=== PATIENT | female | born 1935 | race Hispanic/Latino ===

== ENCOUNTER 2017-11-21 19:20 | Inpatient (IN) | payer BC, MEDICARE ==
[2017-11-21] MEDS ORDERED: Sodium Chloride 0.9% 500 ML IV STA (19:46)
[2017-11-21] MEDS ORDERED: Morphine 2 mg/ml ISec IVP STA ×2 (19:47→21:47)
[2017-11-21] MEDS ORDERED: Metoprolol 1 mg/ml Inj IVP STA (19:53)
[2017-11-21 20:01] LABS: BASO # 0.04 K/mm3 (0.0-2.0); BASO % 0.2 % (0.0-3.0); EOS # 0.1 (0.0-0.7); EOS % 0.5 % (1.5-5.0); GRAN # 14.1 (1.4-6.5); GRAN % 82.4 % (50.0-68.0); HEMOGLOBIN 13.4 g/dL (12.0-16.0); LYMPH # 1.8 (1.2-3.4); LYMPH % 10.2 % (22.0-35.0); MEAN CELL VOLUME 87.3 fl (80.0-105.0); MEAN CORPUSCULAR HEMOGLOBIN 28.3 pg (25.0-35.0); MEAN CORPUSCULAR HGB CONC 32.4 g/dl (31.0-37.0); MEAN PLATELET VOLUME 10.8 fl (7.0-11.0); MONO # 1.2 (0.1-0.6); MONO % 6.7 % (1.0-6.0); RBC 4.74 10^6/uL (3.5-6.1); RED CELL DISTRIBUTION WIDTH 15.4 % (11.5-14.5); WHITE BLOOD COUNT 17.1 10^3/ul (4.5-11.0)
--- NOTE | 2017-11-21 20:05 | ED PDOC ---
Arrival/HPI - General Historian: Patient, Family - History of Present Illness Time/Duration: Prior to Arrival Symptom Onset: Sudden Symptom Course: Worsening Quality: Stabbing Severity Level: 10 Activities at Onset: Rest - General Chief Complaint: Chest Pain Time Seen by Provider: 11/21/17 19:24 - History of Present Illness Narrative History of Present Illness (Text): 11/21/17 20:01 Patient is a 82F with a past medical history of CKD, iliac stents and HTN who comes to the ED with a CC of acute onset chest pain associated with 2 episodes of hematemesis. The onset was at 515pm. Nothing made the pain better or worse. She describes the pain as sharp and radiating to the back. She rates the pain 10 /10. It has been constant and worsening since its onset. Family is at bedside and states she has episodes where she has difficulty swallowing but never before have they been associated with hematemesis. She denies any SOB, fever, diaphoresis. (Aurelio Ruff) Past Medical History - Cardiac Hx Hypertension: Yes - Psychiatric Hx Substance Use: No Family/Social History Family/Social History: Unknown Family HX Smoking Status: no Hx Alcohol Use: No Hx Substance Use: No Allergies/Home Meds Allergies/Adverse Reactions: Allergies allopurinol [From Zyloprim] Allergy (Verified 11/21/17 19:30) URTICARIA Home Medications: Home Meds Medication Instructions Recorded Confirmed Amlodipine/Valsartan [Exforge 1 each PO BID 11/21/17 11/21/17 5-160 mg Tablet] Aspirin [Aspirin Chewable] 81 mg PO Q2D 11/21/17 11/21/17 Atorvastatin [Lipitor] 20 mg PO DAILY 11/21/17 11/21/17 Clopidogrel [Plavix] 75 mg PO DAILY 11/21/17 11/21/17 Furosemide [Lasix] 20 mg PO Q2D 11/21/17 11/21/17 Furosemide [Lasix] 20 mg PO Q2D 11/21/17 11/21/17 Furosemide [Lasix] 40 mg PO DAILY 11/21/17 11/21/17 Ranitidine HCl [Zantac 75] 75 mg PO DAILY 11/21/17 11/21/17 Spironolactone [Aldactone] 25 mg PO BID 11/21/17 11/21/17 Timolol 0.5% Ophth [Timoptic 0.5% 1 drop OD HS 11/21/17 11/21/17 Ophth Soln] Tolterodine Tartrate [Detrol LA] 4 mg PO DAILY 11/21/17 11/21/17 cloNIDine [Catapres (RENAL)] 0.1 mg PO BID 11/21/17 11/21/17 Review of Systems - Review of Systems Constitutional: Normal. absent: Night Sweats Eyes: Normal. absent: Vision Changes ENT: Normal Respiratory: Normal. absent: SOB Cardiovascular: Normal, Chest Pain. absent: Syncope Gastrointestinal: Normal Genitourinary Female: Normal Musculoskeletal: Normal Skin: Normal Neurological: Normal Endocrine: Normal Hemo/Lymphatic: Normal Psychiatric: Normal Physical Exam Temperature: Afebrile Blood Pressure: Hypertensive Pulse: Tachycardic Respiratory Rate: Normal Appearance: Positive for: Ill-Appearing Pain Distress: Severe Mental Status: Positive for: Alert and Oriented X 3 - Systems Exam Head: Present: Atraumatic, Normocephalic Pupils: Present: PERRL Extroacular Muscles: Present: EOMI Conjunctiva: Present: Normal Mouth: Present: Moist Mucous Membranes Neck: Present: Normal Range of Motion Respiratory/Chest: Present: Clear to Auscultation, Good Air Exchange Cardiovascular: Present: Tachycardic Abdomen: Present: Normal Bowel Sounds. No: Tenderness, Distention, Peritoneal Signs Upper Extremity: Present: Normal Inspection Lower Extremity: Present: Normal Inspection Neurological: Present: GCS=15, CN II-XII Intact Skin: Present: Warm, Dry, Normal Color. No: Rashes Psychiatric: Present: Alert, Oriented x 3 Vital Signs Pulse Resp BP Pulse Ox 11/21/17 22:17 80 127/73 11/21/17 20:36 88 162/86 H 11/21/17 20:00 93 H 18 99 11/21/17 19:45 93 H 18 110/74 99 11/21/17 19:26 94 H 18 184/96 H 99 Medical Decision Making Reassessment Condition: Unchanged - Lab Interpretations I have reviewed the lab results: Yes Interpretation: Abnormal lab values ED Course and Treatment: Patient Seen With Resident: In agreement with resident note which contains more details about the patient. Patient was seen and evaluated with resident. Came up with plan and treatment together.. (Michael Miranda) - Lab Interpretations Lab Results: 11/21/17 19:34 11/21/17 19:34 Lab Results 11/21/17 19:34: Sodium 140, Potassium 6.3 H* D, Chloride 106, Carbon Dioxide 20 L, Anion Gap 20, BUN 74 H, Creatinine 3.0 H, Est GFR ( Amer) 18, Est GFR (Non-Af Amer) 15, Random Glucose 131 H, Calcium 11.2 H, Magnesium 2.4 H, Total Bilirubin 0.3, AST 27, ALT 32, Alkaline Phosphatase 111, Lactate Dehydrogenase 558, Total Creatine Kinase 40, Troponin I 0.42 H*, Total Protein 8.0, Albumin 4.4, Globulin 3.6, Albumin/Globulin Ratio 1.2 11/21/17 19:34: PT 10.6, INR 0.93, APTT 25.8 11/21/17 19:34: WBC 17.1 H, RBC 4.74, Hgb 13.4, Hct 41.4, MCV 87.3, MCH 28.3, MCHC 32.4, RDW 15.4 H, Plt Count 270, MPV 10.8, Gran % 82.4 H, Lymph % (Auto) 10.2 L, [place] % (Auto) 6.7 H, Eos % (Auto) 0.5 L, Baso % (Auto) 0.2, Gran # 14.10 H, Lymph # (Auto) 1.8, [place] # (Auto) 1.2 H, Eos # (Auto) 0.1, Baso # (Auto ) 0.04 - RAD Interpretation Radiology Orders: 11/21/17 19:33 CHEST PORTABLE [RAD] Stat - Medication Orders Current Medication Orders: Atorvastatin Calcium (Lipitor) 20 mg PO DIN [facility] Clonidine HCl (Catapres) 0.1 mg PO BID [facility] Clopidogrel Bisulfate (Plavix) 75 mg PO DAILY [facility] Nitroglycerin/Dextrose (Nitroglycerin 50 Mg/250 Ml D5w) 50 mg in 250 mls @ 1.5 mls/hr IV .Q24H PRN; Protocol; 5 MCG/MIN PRN Reason: chest pain Last Admin: 11/21/17 22:17 Dose: 1.5 mls/hr Heparin Sodium/Sodium Chloride (Heparin 95627 Units/250ml 1/2 Normal Saline) 25 ,000 units in 250 mls @ 5.672 mls/hr IV .Q24H [facility]; 12 UNITS/KG/HR PRN Reason: Protocol Last Admin: 11/21/17 21:50 Dose: 5.672 mls/hr Morphine Sulfate (Morphine) 2 mg IVP Q2H PRN PRN Reason: Pain, severe (8-10) Pantoprazole Sodium (Protonix Inj) 40 mg IVP 0600 [facility] Timolol Maleate (Timoptic 0.5% Ophth Soln) 1 drop OD HS [facility] Discontinued Medications Aspirin (Aspirin) 325 mg PO STAT STA Stop: 11/21/17 20:26 Last Admin: 11/21/17 20:36 Dose: 325 mg Clopidogrel Bisulfate (Plavix) 225 mg PO STAT STA Stop: 11/21/17 20:26 Last Admin: 11/21/17 20:36 Dose: 225 mg Dextrose (Dextrose 50% Inj) 50 ml IVP STAT STA Stop: 11/21/17 20:38 Last Admin: 11/21/17 21:28 Dose: 50 ml IVP Administration Document 11/21/17 21:28 SS (Rec: 11/21/17 21:28 [id number] Charges for Administration # of IVP Administrations 1 Sodium Chloride (Sodium Chloride 0.9%) 500 mls @ 999 mls/hr IV .Q31M STA Stop: 11/21/17 20:16 Last Admin: 11/21/17 20:05 Dose: 999 mls/hr eMAR Start Stop Document 11/21/17 20:05 SS (Rec: 11/21/17 20:05 [id number] Intravenous Solution Start Date 11/21/17 Start Time 20:00 End Date 11/21/17 End time 20:30 Total Infusion Time 30 Insulin Human Regular (Humulin R) 10 units IV STAT STA Stop: 11/21/17 20:37 Last Admin: 11/21/17 21:28 Dose: 10 units eMAR Start Stop Document 11/21/17 21:28 SS (Rec: 11/21/17 21:28 [id number]) Intravenous Solution Start Date 11/21/17 Start Time 21:28 Metoclopramide HCl (Reglan) 10 mg IVP STAT STA Stop: 11/21/17 22:08 Metoprolol Tartrate (Lopressor) 5 mg IVP STAT STA Stop: 11/21/17 19:54 Last Admin: 11/21/17 20:36 Dose: 5 mg IVP Administration Document 11/21/17 20:36 SS (Rec: 11/21/17 20:36 SS [facility] [id number]) Charges for Administration # of IVP Administrations 1 MAR Pulse and Blood Pressure Document 11/21/17 20:36 SS (Rec: 11/21/17 20:36 SS [facility] [id number]) Pulse Pulse Rate (60-90) 88 Blood Pressure Blood Pressure (100/60-150/90) 162/86 Morphine Sulfate (Morphine) 2 mg IVP STAT STA Stop: 11/21/17 19:48 Last Admin: 11/21/17 20:03 Dose: 2 mg MAR Pain Assessment Document 11/21/17 20:03 SS (Rec: 11/21/17 20:04 [facility] [id number]) Pain Reassessment Is this a pain reassessment? No Sleep Is patient sleeping during reassessment? No Presence of Pain Presence of Pain Yes Pain Scale Used Pain Scale Used Numeric Location Pain Location Body Site Chest Description Description Radiating Intensity of Pain at present 10 Pain Behavior Moaning Crying Grasping Site Rubbing Site Restlessness IVP Administration Document 11/21/17 20:03 SS (Rec: 11/21/17 20:04 SS [facility] [id number]) Charges for Administration # of IVP Administrations 1 Morphine Sulfate (Morphine) 2 mg IVP STAT STA Stop: 11/21/17 21:48 Last Admin: 11/21/17 22:12 Dose: 2 mg Nitroglycerin (Nitrostat Sl Tab) 0.3 mg SL STAT STA Stop: 11/21/17 20:26 Last Admin: 11/21/17 20:36 Dose: 0.3 mg Ondansetron HCl (Zofran Inj) 8 mg IVP STAT STA Stop: 11/21/17 19:53 Last Admin: 11/21/17 20:04 Dose: 8 mg IVP Administration Document 11/21/17 20:04 SS (Rec: 11/21/17 20:05 SS [facility] [id number]) Charges for Administration # of IVP Administrations 1 Pantoprazole Sodium (Protonix Inj) 40 mg IVP STAT STA Stop: 11/21/17 19:53 Last Admin: 11/21/17 20:04 Dose: 40 mg IVP Administration Document 11/21/17 20:04 SS (Rec: 11/21/17 20:04 [id number][facility] Charges for Administration # of IVP Administrations 1 Sodium Bicarbonate (Sodium Bicarbonate 8.4% (50 Meq) Syringe) 50 meq IVP ONCE ONE Stop: 11/21/17 20:38 Last Admin: 11/21/17 21:30 Dose: 50 meq Comments: 50 meq IVP Administration Document 11/21/17 21:30 SS (Rec: 11/21/17 21:33 [id number]) Charges for Administration # of IVP Administrations 1 Sodium Polystyrene Sulfonate (Kayexalate Susp) 30 gm MA STAT STA Stop: 11/21/17 22:11 - PA / BUSINESS ADMINISTRATION INSTRUCTOR / Resident Statement MD/DO has reviewed & agrees with the documentation as recorded. MD/DO has examined the patient and agrees with the treatment plan. Disposition/Present on Arrival - Present on Arrival Any Indicators Present on Arrival: No History of DVT/PE: No History of Uncontrolled Diabetes: No Urinary Catheter: No History of Decub. Ulcer: No History Surgical Site Infection Following: None - Disposition Have Diagnosis and Disposition been Completed?: Yes Disposition Time: 22:45 Patient Plan: Admission, ICU - Disposition Diagnosis: NSTEMI (non-ST elevated myocardial infarction) Disposition: HOSPITALIZED Condition: GUARDED Referrals: Madison Dave, [Primary Care Provider] - Follow up with primary Forms: Klique (Sudanese)
[2017-11-21 20:17] LABS: ALB/GLOB RATIO 1.2 (1.1-1.8); ALBUMIN 4.4 g/dL (3.0-4.8); CALCIUM 11.2 mg/dL (8.4-10.5)
[2017-11-21 20:25] LABS: INR 0.93 (0.93-1.08); PARTIAL THROMBOPLASTIN TIME 25.8 Seconds (25.1-36.5); PROTHROMBIN TIME 10.6 SECONDS (9.4-12.5)
[2017-11-21 20:36] LABS: TROPONIN I 0.42 ng/mL
[2017-11-21] MEDS ORDERED: Insulin Regular 1 UNITS/0.01 ML ML IV STA (20:36)
[2017-11-21] MEDS ORDERED: Dextrose 50% SYRINGE Inj (50 ml) IVP STA (20:37)
[2017-11-21] MEDS ORDERED: Sodium Bicarbonate (8.4%) 50 Meq Syringe IVP ONE (20:37)
[2017-11-21] MEDS ORDERED: Heparin25000 units/250ml 1/2NS 25,000 UNITS/250 ML BAG IV SCH ×2 (21:00→21:30)
[2017-11-21] MEDS ORDERED: Nitroglycerin 50mg in D5W 50 MG/250 ML BOTTLE IV PRN (21:27)
[2017-11-21] MEDS ORDERED: Sod Polystyrene Sulf 15 gm/60 ml Susp PR STA (22:10)
[2017-11-21] MEDS ORDERED: cefTRIAXone 1 gm 1 GM/100 ML BAG IVPB STA (22:46)
--- NOTE | 2017-11-21 23:05 | CP.PCM.CON ---
History of Present Illness - History of Present Illness History of Present Illness: Kj Betancourt D.O. PGY-2, Internal Medicine Resident, Critical Care Consultation CC: chest pain for 4 hours 82 year old female with a PMH of HTN, previous iliac stents, CKD, previous carotid endarectetomy, previous endometrial CA s/p hysterectomy who presented to [facility] with chest pain that started a few hours prior. Patient states that when she eats greasy foods like buttered stuff she will have discomfort in her throat and at times she will get discomfort associated with it but this time she developed relentless, constant, sharp, 10/10 pain, radiating to the back, associated with the nausea and vomiting. No other associated symptoms. Never had an episode like this before. DOes have an extensive smoking history of about 100 pack years. Denies recent long travel or recent immobilization or sick contacts. Daughter and granddaughter present at bedside. PMH: as above PSH: as above SH: 33 years at 3ppd for about 100 pack years, quit in as well as drinking, no illicits FH: HTN, some DM Meds: reviewed Allergies: allopurinol Review of Systems - Review of Systems All systems: reviewed and no additional remarkable complaints except - Cardiovascular Cardiovascular: Chest Pain - Gastrointestinal Gastrointestinal: Nausea, Vomiting Past Patient History - Past Social History Smoking Status: no - CARDIAC Hx Hypertension: Yes - PSYCHIATRIC Hx Substance Use: No Meds Allergies/Adverse Reactions: Allergies Allergy/AdvReac Type Severity Reaction Status Date / Time allopurinol [From Zyloprim] Allergy URTICARIA Verified 11/21/17 19:30 - Medications Medications: Current Medications Atorvastatin Calcium (Lipitor) 20 mg PO DIN [facility] Clonidine HCl (Catapres) 0.1 mg PO BID [facility] Clopidogrel Bisulfate (Plavix) 75 mg PO DAILY [facility] Nitroglycerin/Dextrose (Nitroglycerin 50 Mg/250 Ml D5w) 50 mg in 250 mls @ 1.5 mls/hr IV .Q24H PRN; Protocol; 5 MCG/MIN PRN Reason: chest pain Last Admin: 11/21/17 22:17 Dose: 1.5 mls/hr Heparin Sodium/Sodium Chloride (Heparin 87387 Units/250ml 1/2 Normal Saline) 25 ,000 units in 250 mls @ 5.672 mls/hr IV .Q24H [facility]; 12 UNITS/KG/HR PRN Reason: Protocol Last Admin: 11/21/17 21:50 Dose: 5.672 mls/hr Ceftriaxone Sodium (Rocephin 1 Gram Ivpb) 1 gm in 100 mls @ 200 mls/hr IVPB STAT STA PRN Reason: Protocol Stop: 11/21/17 23:15 Morphine Sulfate (Morphine) 2 mg IVP Q2H PRN PRN Reason: Pain, severe (8-10) Pantoprazole Sodium (Protonix Inj) 40 mg IVP 0600 [facility] Timolol Maleate (Timoptic 0.5% Ophth Soln) 1 drop OD HS [facility] Physical Exam - Constitutional Appears: Non-toxic, No Acute Distress - Head Exam Head Exam: ATRAUMATIC, NORMOCEPHALIC - Eye Exam Eye Exam: EOMI, PERRL - ENT Exam ENT Exam: Mucous Membranes Dry - Neck Exam Neck exam: Positive for: Normal Inspection - Respiratory Exam Respiratory Exam: Clear to Auscultation Bilateral. absent: Rales, Rhonchi, Wheezes - Cardiovascular Exam Cardiovascular Exam: RRR, +S1, +S2. absent: Tachycardia, Gallop, +S4 - GI/Abdominal Exam GI & Abdominal Exam: Normal Bowel Sounds, Soft, Tenderness (mild epigastric). absent: Distended - Extremities Exam Extremities exam: Negative for: calf tenderness, pedal edema - Neurological Exam Neurological exam: Alert, Oriented x3 - Psychiatric Exam Psychiatric exam: Normal Affect, Normal Mood - Skin Skin Exam: Dry, Warm Results - Vital Signs Recent Vital Signs: Last Vital Signs Temp Pulse 80 11/21/17 22:17 Resp 18 11/21/17 20:00 BP 127/73 11/21/17 22:17 Pulse Ox 99 11/21/17 20:00 - Labs Result Diagrams: 11/21/17 19:34 11/21/17 19:34 Labs: Laboratory Results - last 24 hr 11/21/17 11/21/17 11/21/17 19:34 19:34 19:34 WBC 17.1 H RBC 4.74 Hgb 13.4 Hct 41.4 MCV 87.3 MCH 28.3 MCHC 32.4 RDW 15.4 H Plt Count 270 MPV 10.8 Gran % 82.4 H Lymph % (Auto) 10.2 L [place] % (Auto) 6.7 H Eos % (Auto) 0.5 L Baso % (Auto) 0.2 Gran # 14.10 H Lymph # (Auto) 1.8 [place] # (Auto) 1.2 H Eos # (Auto) 0.1 Baso # (Auto) 0.04 PT 10.6 INR 0.93 APTT 25.8 Sodium 140 Potassium 6.3 H* D Chloride 106 Carbon Dioxide 20 L Anion Gap 20 BUN 74 H Creatinine 3.0 H Est GFR ( Amer) 18 Est GFR (Non-Af Amer) 15 Random Glucose 131 H Calcium 11.2 H Magnesium 2.4 H Total Bilirubin 0.3 AST 27 ALT 32 Alkaline Phosphatase 111 Lactate Dehydrogenase 558 Total Creatine Kinase 40 Troponin I 0.42 H* Total Protein 8.0 Albumin 4.4 Globulin 3.6 Albumin/Globulin Ratio 1.2 Assessment & Plan - Assessment and Plan (Free Text) Assessment: 82 year old female with a PMH of HTN, previous iliac stents, CKD, previous carotid endarectetomy, previous endometrial CA s/p hysterectomy who presented to [facility] with chest pain that started a few hours prior Plan: Neurological AAOx4, nonfocal at this time Monitoring in ICU Cardiovascular EKG reviewed, ST depression in lateral leads noted Cardio consulted HD stable at this time On heparin and nitro gtt PRN morphine for pain Loaded with plavix and given aspirin, continue both Pulmonologic CXR reviewed by me, no major signs of infection Oxygenating well on 2L NC No signs of infection at this time Monitoring GI Heart healthy diet PRN zofran Nephro/Electrolytes Mild hyperkalemia, no significant EKG changes, given D50 and insulin in ER Rest of higher than average electrolytes possibly from hemoconcentration MALIA without previous labs to determine if CKD Maintain careful fluid balance Follow strict IxOs Measure weight daily Nephro consulted Endo No hx of endocrine issues Monitoring Heme HD stable at this time No active signs of bleeding Follow up CBC in the am Psych No abnormalities at this time GI/DVT ppx: protonix/SCDs Patient was seen and case was discussed at length with attending physician. - Date & Time Date: 11/21/17 Time: 22:00
[2017-11-21 23:50] LABS: PH,URINE 6.5 (4.7-8.0); URINE BILIRUBIN NEGATIVE (NEGATIVE); URINE BLOOD NEGATIVE (NEGATIVE); URINE GLUCOSE (UA) NEGATIVE (NEGATIVE); URINE LEUKOCYTE ESTERASE TRACE Leu/uL (NEGATIVE); URINE PROTEIN TRACE mg/dL (<30 mg/dL); URINE UROBILINOGEN 0.2 E.U./dL (<1 E.U./dL)
[2017-11-21 23:51] LABS: URINE APPEARANCE CLEAR (CLEAR); URINE COLOR YELLOW (YELLOW)
[2017-11-22 00:05] LABS: URINE EPITHELIAL CELLS 0 - 2 /hpf (0-5); URINE RBC 0 - 2 /hpf (0-2)
[2017-11-22 01:10] VITALS: BMI 17.8
[2017-11-22] MEDS: Morphine 2 mg/ml ISec IVP PRN ×2 (01:22→03:04)
[2017-11-22 07:18] LABS: BASO # 0.01 K/mm3 (0.0-2.0); GRAN # 19.63 (1.4-6.5); GRAN % 89.4 % (50.0-68.0); LYMPH # 1.1 (1.2-3.4); LYMPH % 5.1 % (22.0-35.0); MEAN CELL VOLUME 87.8 fl (80.0-105.0); MEAN CORPUSCULAR HEMOGLOBIN 27.6 pg (25.0-35.0); MEAN CORPUSCULAR HGB CONC 31.4 g/dl (31.0-37.0); MEAN PLATELET VOLUME 11.2 fl (7.0-11.0); MONO # 1.2 (0.1-0.6); MONO % 5.5 % (1.0-6.0); RBC 4.1 10^6/uL (3.5-6.1); RED CELL DISTRIBUTION WIDTH 15.7 % (11.5-14.5)
[2017-11-22 07:29] LABS: HEMOGLOBIN 11.3 g/dL (12.0-16.0)
[2017-11-22 07:42] LABS: ALB/GLOB RATIO 1.2 (1.1-1.8); ALBUMIN 3.7 g/dL (3.0-4.8); CALCIUM 10.5 mg/dL (8.4-10.5)
[2017-11-22] MEDS ORDERED: Dextrose 50% SYRINGE Inj (50 ml) IVP ONE ×2 (07:44→17:29)
[2017-11-22] MEDS ORDERED: Sod Polystyrene Sulf 15 gm/60 ml Susp PO STA (07:44)
[2017-11-22] MEDS ORDERED: Albuterol 0.042% Inhal Sol (1.25 mg/3 mL) UD IH STA (07:44)
[2017-11-22] MEDS ORDERED: Insulin Regular 1 UNITS/0.01 ML ML SC STA (07:44)
[2017-11-22] MEDS ORDERED: Calcium Chloride 1000 mg/10 ml Syringe IV ONE (07:47)
--- NOTE | 2017-11-22 08:08 | HP ---
HISTORY OF PRESENT ILLNESS: Patient is seen in the emergency room. She presented in the emergency room with chest pain and also patient has emesis with blood. Patient had been fine and was eating her dinner when this chest pain started and she started having some vomiting associated with it. Patient did not have shortness of breath. She has a headache. PAST MEDICAL HISTORY: Patient's past history is significant in that she has a history of hypertension, renal insufficiency, hyperuricemia, degenerative arthritis, carotid artery disease, peripheral vascular disease. ALLERGIES: PATIENT IS ALLERGIC TO ALLOPURINOL. Patient has DNR status and a DNI status. Patient does not want to be resuscitated or intubated. Patient is in discomfort and had been given morphine in the emergency room, and her past medication list consists of Lasix of varying doses from 20 to 40 mg daily. Patient takes eye drops for glaucoma. She is on Aldactone 25 mg b.i.d., clonidine 0.1 mg b.i.d. Patient has Detrol 4 mg daily, Lipitor 20 mg daily, Zantac 75 mg daily, Plavix 75 mg daily, amlodipine and valsartan 5/160 one twice a day, aspirin 81 mg daily. PHYSICAL EXAMINATION: VITAL SIGNS: The pulse is 88, blood pressure 162/86, patient's respirations are 18, O2 sat 99% on room air. HEENT: Patient's head is normocephalic. GENERAL: She seems to be emaciated. Her weight apparently is reduced to current level, but by appearance she has lost weight. Patient has venous discoloration of the entire skin. NECK: The thyroid is not enlarged. Carotid pulses are present. Patient has had previous carotid artery surgery. LUNGS: Trachea is central. Breath sounds are vesicular. No adventitious sounds. HEART: Normal sinus rhythm. S1 and S2 present. ABDOMEN: Soft, nontender. Liver and spleen not palpable. CENTRAL NERVOUS SYSTEM: Patient is conscious, restless. She has been given morphine, and patient is still continuing to have discomfort with chest pain and back pain. LABORATORY DATA: Patient is in the hospital emergency room. Her white count is 17,000. Patient has differential showing 82% neutrophils consistent with sepsis. Patient has CBC, hemoglobin of 13.4. The chemistry, patient's potassium is 6.3. Patient's glucose 131, calcium is 11.2. Patient has a past history of early secondary hyperparathyroidism also. Patient's public works technician is Dr. Estrada Davis, but he does not come to the hospital. Patient had been seen by Dr. Edgar and Dr. Bonilla in the past. We will consult these two physicians to see the patient. For cardiac evaluation, we will have Dr. Mariano to see the patient, and we will probably consult with Infectious Disease. We will do blood cultures and put the patient on antibiotics to cover the symptoms of possible sepsis. Her urinalysis has not been done yet. Patient's condition is critical, but the patient does not want intubation. Patient will be continued to be monitored, and we will provide all the care as the patient requires, but we will request that the patient is not to be intubated and not to have any resuscitation. Ky Bell MD MTDD
--- NOTE | 2017-11-22 08:23 | CP.PCM.PN ---
Subjective - Date & Time of Evaluation Date of Evaluation: 11/22/17 Time of Evaluation: 07:50 - Subjective Subjective: Patient is seen this morning in the intensive care unit. She is awake, sitting up in the bed. She complains of pain in her chest and back. Objective - Vital Signs/Intake and Output Vital Signs (last 24 hours): Temp Pulse Resp BP Pulse Ox 98.0 F 76 18 109/55 L 96 11/22/17 00:40 11/22/17 06:15 11/22/17 06:15 11/22/17 06:15 11/22/17 06:15 Intake and Output: 11/22/17 11/22/17 06:59 18:59 Intake Total 23 Balance 23 - Medications Medications: Current Medications Amlodipine Besylate (Norvasc) [address] [facility] Aspirin (Aspirin Chewable) 81 mg PO DAILY [facility] Atorvastatin Calcium (Lipitor) [address] [facility] Clonidine HCl (Catapres) 0.[address] [facility] Clopidogrel Bisulfate (Plavix) [address] [facility] Heparin Sodium/Sodium Chloride (Heparin 33326 Units/250ml 1/2 Normal Saline) 25 ,000 units in 250 mls @ 5.672 mls/hr IV .Q24H [facility]; 12 UNITS/KG/HR PRN Reason: Protocol Last Admin: 11/21/17 21:50 Dose: 5.672 mls/hr Morphine Sulfate (Morphine) 2 mg IVP Q2H PRN PRN Reason: Pain, severe (8-10) Last Admin: 11/22/17 03:04 Dose: 2 mg Ondansetron HCl (Zofran Inj) 4 mg IVP Q4H PRN PRN Reason: Nausea/Vomiting Pantoprazole Sodium (Protonix Inj) [address] [facility] Last Admin: 11/22/17 05:50 Dose: 40 mg Timolol Maleate (Timoptic 0.5% Ophth Soln) [address] [facility] - Labs Labs: 11/22/17 05:50 11/22/17 05:50 PT 10.6 SECONDS (9.4-12.5) 11/21/17 19:34 INR 0.93 (0.93-1.08) 11/21/17 19:34 APTT 67.1 Seconds (25.1-36.5) H 11/22/17 05:50 - Constitutional Appears: No Acute Distress - Head Exam Head Exam: ATRAUMATIC, NORMOCEPHALIC - Respiratory Exam Respiratory Exam: Clear to Ausculation Bilateral, NORMAL BREATHING PATTERN - Cardiovascular Exam Cardiovascular Exam: +S1, +S2 - GI/Abdominal Exam GI & Abdominal Exam: Soft, Normal Bowel Sounds. absent: Tenderness - Extremities Exam Extremities Exam: Normal Inspection. absent: Pedal Edema - Neurological Exam Neurological Exam: Alert, Awake, Oriented x3 Assessment and Plan - Assessment and Plan (Free Text) Assessment: NSTEMI? Hyperkalemia Acute on chronic kidney disease Chronic back pain HTN Anxiety carotid artery disease cerebrovascular disease Plan: Patient is seen this morning and she continues to complain of pain in her chest and back. Patient has history of chronic back pain. continue Morphine as needed for pain. Dr. Mariano is on consult for possible non-ST elevation [place]. Elevated troponin could be secondary to kidney disease. Hold aldactone and ARB, due to hyperkalemia and kidney disease. Patient says that she saw Dr. Davis at the end of September and he started her on Aldactone. Awaiting consult with Dr. Edgar/Dr Bonilla as Dr. Davis does not come to [facility]. WBC count increasing. Infectious disease consult with Dr. Espinosa has been ordered. Awaiting blood and urine cultures.
[2017-11-22 08:36] LABS: TROPONIN I 4.98 ng/mL
[2017-11-22] MEDS ORDERED: Sod Polystyrene Sulf 15 gm/60 ml Susp PR STA (08:42)
--- NOTE | 2017-11-22 08:43 | RAD ---
HISTORY: chest pain COMPARISON: No prior. FINDINGS: LUNGS: No active pulmonary disease. PLEURA: No significant pleural effusion identified, no pneumothorax apparent. CARDIOVASCULAR: Normal. OSSEOUS STRUCTURES: No significant abnormalities. VISUALIZED UPPER ABDOMEN: Normal. OTHER FINDINGS: None. IMPRESSION: No active disease.
--- NOTE | 2017-11-22 10:27 | CP.CCUPN ---
<Jose Graham - Last Filed: 11/22/17 10:56> CCU Subjective - Physician Review Subjective (Free Text): Patient seen and examined at bedside. Patient admits to chest pain, but improved from initial admission. Patient states pain radiates to back. She also admits to nausea. Denies shortness of breath, fever, chills, diarrhea. CCU Objective - Vital Signs / Intake & Output Vital Signs (Last 4 hours): Vital Signs Pulse BP 11/22/17 09:17 80 124/68 11/22/17 09:13 88 11/22/17 09:12 85 145/79 Intake and Output (Last 8hrs): Intake & Output 11/21/17 11/22/17 11/22/17 22:59 06:59 14:59 Intake Total 23 Balance 23 Weight 104 lb Intake: IV 23 Other: Voiding Method Bedpan - Physical Exam Head: Positive for: Atraumatic, Normocephalic Pupils: Positive for: PERRL Extroacular Muscles: Positive for: EOMI Conjunctiva: Positive for: Normal Mouth: Positive for: Moist Mucous Membranes Neck: Positive for: Normal Range of Motion Respiratory/Chest: Positive for: Good Air Exchange, Decreased Breath Sounds Cardiovascular: Positive for: Regular Rate and Rhythm, Normal S1, S2 Abdomen: Positive for: Normal Bowel Sounds. Negative for: Tenderness, Distention Back: Positive for: Paraspinal Tenderness (Upper right back) Upper Extremity: Positive for: Normal Inspection Lower Extremity: Positive for: Normal Inspection Neurological: Positive for: GCS=15, CN II-XII Intact Skin: Positive for: Warm, Dry, Normal Color. Negative for: Rashes Psychiatric: Positive for: Alert, Oriented x 3, Normal Insight, Normal Concentration - Medications Active Medications: Active Medications Generic Name Dose Route Start Last Admin Trade Name Freq PRN Reason Stop Dose Admin Amlodipine Besylate 5 mg 11/22/17 10:00 11/22/17 09:13 Norvasc PO 5 mg DAILY [facility] Administration Aspirin 81 mg 11/22/17 10:00 11/22/17 09:13 Aspirin Chewable PO 81 mg DAILY [facility] Administration Atorvastatin Calcium 20 mg 11/22/17 17:00 Lipitor PO DIN [facility] Clonidine HCl 0.1 mg 11/22/17 10:00 11/22/17 09:12 Catapres PO 0.1 mg BID [facility] Administration Clopidogrel Bisulfate 75 mg 11/22/17 10:00 11/22/17 09:13 Plavix PO 75 mg DAILY [facility] Administration Heparin Sodium/Sodium Chloride 25,000 units in 250 mls @ 5.672 mls/hr 21:30 11/21/17 21:50 Heparin 81998 Units/250ml 1/2 Normal Saline IV 5.672 mls/hr .Q24H K[facility] Administration Protocol 12 UNITS/KG/HR Sodium Chloride 1,000 mls @ 100 mls/hr 11/22/17 10:15 Sodium Chloride 0.9% IV .Q10H [facility] Metoprolol Tartrate 25 mg 11/22/17 10:00 11/22/17 09:17 Lopressor PO 25 mg BID [facility] Administration Morphine Sulfate 2 mg 11/21/17 22:08 11/22/17 03:04 Morphine IVP 2 mg Q2H PRN Administration Pain, severe (8-10) Ondansetron HCl 4 mg 11/22/17 06:58 11/22/17 09:11 Zofran Inj IVP 4 mg Q4H PRN Administration Nausea/Vomiting Pantoprazole Sodium 40 mg 11/22/17 06:00 11/22/17 05:50 Protonix Inj IVP 40 mg 0600 [facility] Administration Timolol Maleate 1 drop 11/22/17 22:00 Timoptic 0.5% Ophth Soln OD HS [facility] - Patient Studies Lab Studies: Lab Studies 11/22/17 11/22/17 11/22/17 Range/Units 05:50 05:50 05:50 WBC (4.5-11.0) 10^3/ul RBC (3.5-6.1) 10^6/uL Hgb (12.0-16.0) g/dL Hct (36.0-48.0) % MCV (80.0-105.0) fl MCH (25.0-35.0) pg MCHC (31.0-37.0) g/dl RDW (11.5-14.5) % Plt Count (120.0-450.0) 10^3/uL MPV (7.0-11.0) fl Gran % (50.0-68.0) % Lymph % (Auto) (22.0-35.0) % [place] % (Auto) (1.0-6.0) % Eos % (Auto) (1.5-5.0) % Baso % (Auto) (0.0-3.0) % Gran # (1.4-6.5) Lymph # (Auto) (1.2-3.4) [place] # (Auto) (0.1-0.6) Eos # (Auto) (0.0-0.7) Baso # (Auto) (0.0-2.0) K/mm3 APTT 67.1 H (25.1-36.5) Seconds Sodium 142 (132-148) mmol/L Potassium 7.0 H* (3.6-5.0) mmol/L Chloride 109 H (98-107) mmol/L Carbon Dioxide 21 (21-33) mmol/L Anion Gap 19 (10-20) BUN 69 H (7-21) mg/dL Creatinine 3.0 H (0.7-1.2) mg/dl Est GFR ( Amer) 18 Est GFR (Non-Af Amer) 15 Random Glucose 140 H (70-110) mg/dL Calcium 10.5 (8.4-10.5) mg/dL Phosphorus 4.7 H (2.5-4.5) mg/dL Magnesium 2.4 H (1.7-2.2) mg/dL Total Bilirubin 0.5 (0.2-1.3) mg/dL AST 31 (14-36) U/L ALT 30 (7-56) U/L Alkaline Phosphatase 90 (38-126) U/L Lactate Dehydrogenase 529 (333-699) U/L Total Creatine Kinase 70 (35-230) U/L Troponin I 4.98 H* D ng/mL Total Protein 6.9 (5.8-8.3) g/dL Albumin 3.7 (3.0-4.8) g/dL Globulin 3.2 gm/dL Albumin/Globulin Ratio 1.2 (1.1-1.8) Urine Color (YELLOW) Urine Appearance (CLEAR) Urine pH (4.7-8.0) Ur Specific [place] (1.005-1.035) Urine Protein (<30 mg/dL) mg/dL Urine Glucose (UA) (NEGATIVE) mg/dL Urine Ketones (NEGATIVE) mg/dL Urine Blood (NEGATIVE) Urine Nitrate (NEGATIVE) Urine Bilirubin (NEGATIVE) Urine Urobilinogen (<1 E.U./dL) E.U./dL Ur Leukocyte Esterase (NEGATIVE) Lurdes/uL Urine RBC (0-2) /hpf Urine WBC (0-6) /hpf Ur Epithelial Cells (0-5) /hpf 11/22/17 11/21/17 Range/Units 05:50 23:40 WBC 22.0 H D (4.5-11.0) 10^3/ul RBC 4.10 (3.5-6.1) 10^6/uL Hgb 11.3 L D (12.0-16.0) g/dL Hct 36.0 (36.0-48.0) % MCV 87.8 (80.0-105.0) fl MCH 27.6 (25.0-35.0) pg MCHC 31.4 (31.0-37.0) g/dl RDW 15.7 H (11.5-14.5) % Plt Count 224 (120.0-450.0) 10^3/uL MPV 11.2 H (7.0-11.0) fl Gran % 89.4 H (50.0-68.0) % Lymph % (Auto) 5.1 L (22.0-35.0) % [place] % (Auto) 5.5 (1.0-6.0) % Eos % (Auto) 0.0 L (1.5-5.0) % Baso % (Auto) 0.0 (0.0-3.0) % Gran # 19.63 H (1.4-6.5) Lymph # (Auto) 1.1 L (1.2-3.4) [place] # (Auto) 1.2 H (0.1-0.6) Eos # (Auto) 0.0 (0.0-0.7) Baso # (Auto) 0.01 (0.0-2.0) K/mm3 APTT (25.1-36.5) Seconds Sodium (132-148) mmol/L Potassium (3.6-5.0) mmol/L Chloride (98-107) mmol/L Carbon Dioxide (21-33) mmol/L Anion Gap (10-20) BUN (7-21) mg/dL Creatinine (0.7-1.2) mg/dl Est GFR ( Amer) Est GFR (Non-Af Amer) Random Glucose (70-110) mg/dL Calcium (8.4-10.5) mg/dL Phosphorus (2.5-4.5) mg/dL Magnesium (1.7-2.2) mg/dL Total Bilirubin (0.2-1.3) mg/dL AST (14-36) U/L ALT (7-56) U/L Alkaline Phosphatase (38-126) U/L Lactate Dehydrogenase (333-699) U/L Total Creatine Kinase (35-230) U/L Troponin I ng/mL Total Protein (5.8-8.3) g/dL Albumin (3.0-4.8) g/dL Globulin gm/dL Albumin/Globulin Ratio (1.1-1.8) Urine Color Yellow (YELLOW) Urine Appearance Clear (CLEAR) Urine pH 6.5 (4.7-8.0) Ur Specific [place] 1.015 (1.005-1.035) Urine Protein Trace H (<30 mg/dL) mg/dL Urine Glucose (UA) Negative (NEGATIVE) mg/dL Urine Ketones Negative (NEGATIVE) mg/dL Urine Blood Negative (NEGATIVE) Urine Nitrate Negative (NEGATIVE) Urine Bilirubin Negative (NEGATIVE) Urine Urobilinogen 0.2 (<1 E.U./dL) E.U./dL Ur Leukocyte Esterase Trace H (NEGATIVE) Lurdes/uL Urine RBC 0 - 2 (0-2) /hpf Urine WBC 1 - 3 (0-6) /hpf Ur Epithelial Cells 0 - 2 (0-5) /hpf Laboratory Results - last 24 hr 11/21/17 11/22/17 11/22/17 23:40 05:50 05:50 WBC 22.0 H D RBC 4.10 Hgb 11.3 L D Hct 36.0 MCV 87.8 MCH 27.6 MCHC 31.4 RDW 15.7 H Plt Count 224 MPV 11.2 H Gran % 89.4 H Lymph % (Auto) 5.1 L [place] % (Auto) 5.5 Eos % (Auto) 0.0 L Baso % (Auto) 0.0 Gran # 19.63 H Lymph # (Auto) 1.1 L [place] # (Auto) 1.2 H Eos # (Auto) 0.0 Baso # (Auto) 0.01 APTT Sodium 142 Potassium 7.0 H* Chloride 109 H Carbon Dioxide 21 Anion Gap 19 BUN 69 H Creatinine 3.0 H Est GFR ( Amer) 18 Est GFR (Non-Af Amer) 15 Random Glucose 140 H Calcium 10.5 Phosphorus 4.7 H Magnesium 2.4 H Total Bilirubin 0.5 AST 31 ALT 30 Alkaline Phosphatase 90 Lactate Dehydrogenase Total Creatine Kinase Troponin I Total Protein 6.9 Albumin 3.7 Globulin 3.2 Albumin/Globulin Ratio 1.2 Urine Color Yellow Urine Appearance Clear Urine pH 6.5 Ur Specific [place] 1.015 Urine Protein Trace H Urine Glucose (UA) Negative Urine Ketones Negative Urine Blood Negative Urine Nitrate Negative Urine Bilirubin Negative Urine Urobilinogen 0.2 Ur Leukocyte Esterase Trace H Urine RBC 0 - 2 Urine WBC 1 - 3 Ur Epithelial Cells 0 - 2 11/22/17 11/22/17 05:50 05:50 WBC RBC Hgb Hct MCV MCH MCHC RDW Plt Count MPV Gran % Lymph % (Auto) [place] % (Auto) Eos % (Auto) Baso % (Auto) Gran # Lymph # (Auto) [place] # (Auto) Eos # (Auto) Baso # (Auto) APTT 67.1 H Sodium Potassium Chloride Carbon Dioxide Anion Gap BUN Creatinine Est GFR ( Amer) Est GFR (Non-Af Amer) Random Glucose Calcium Phosphorus Magnesium Total Bilirubin AST ALT Alkaline Phosphatase Lactate Dehydrogenase 529 Total Creatine Kinase 70 Troponin I 4.98 H* D Total Protein Albumin Globulin Albumin/Globulin Ratio Urine Color Urine Appearance Urine pH Ur Specific [place] Urine Protein Urine Glucose (UA) Urine Ketones Urine Blood Urine Nitrate Urine Bilirubin Urine Urobilinogen Ur Leukocyte Esterase Urine RBC Urine WBC Ur Epithelial Cells EKG/Cardiology Studies: Cardiology / EKG Studies 11/22/17 EKG [ELECTROCARDIOGRAM] Routine Comment: Reason For Exam: chest pain 11/22/17 08:30 ELECTROCARDIOGRAM Routine Comment: Reason For Exam: CP NSTEMI Critical Care Progress Note - Nutrition Nutrition: Nutrition Category Date Time Status Heart Healthy Diet [DIET] Diets 11/21/17 Breakfast Ordered Assessment/Plan - Assessment and Plan (Free Text) Plan: 82 year old female with a PMH of HTN, previous iliac stents, CKD, previous carotid endarectetomy, previous endometrial CA s/p hysterectomy presents with NSTEMI. Patient will be continued on ASA, plavix, and heparin drip. Troponins elevated, cardiology is aware. Patient also being seen by nephrology, she is hyperkalemic. Patient has been given insulin, D50, kayexalate, and calclium chloride for hyperkalemia, no EKG changes. Neurological AAOx3 No deficits Cardiovascular NSTEMI ASA, plavix, and Heparin drip Likely conservative management at this time Maintain MAP >65 Hemodynamically stable Pulmonologic Maintain O2 greater than 90% No acute issues GI Renal diet Protonix Nephro Will obtain PTH and Vit D levels Renal ultrasound and Renal artery ultrasound Replenish electrolytes as needed NS @ 100 Maintain euvolemia Endo Maintain euglycemia Heme Afebrile, no leukocytosis Maintain normothermia Santos PGY-2 <Yohannes Herrera - Last Filed: 11/22/17 12:50> CCU Objective - Vital Signs / Intake & Output Vital Signs (Last 4 hours): Vital Signs Pulse Resp BP Pulse Ox 11/22/17 11:10 82 65 H 94 L 11/22/17 11:00 83 28 H 96 11/22/17 10:50 85 25 H 98 11/22/17 10:40 100 H 27 H 97 11/22/17 10:31 86 18 145/67 98 11/22/17 10:30 87 22 98 11/22/17 10:20 73 16 95 11/22/17 10:15 73 17 101/55 L 94 L 11/22/17 10:10 76 17 95 11/22/17 10:00 80 26 H 129/59 L 95 11/22/17 09:50 73 17 94 L 11/22/17 09:45 79 15 112/58 L 95 11/22/17 09:40 72 17 94 L 11/22/17 09:38 71 19 106/56 L 94 L 11/22/17 09:30 73 18 89/52 L 95 11/22/17 09:20 78 20 94 L 11/22/17 09:17 80 124/68 11/22/17 09:15 84 18 124/68 94 L 11/22/17 09:13 88 11/22/17 09:12 85 145/79 11/22/17 09:10 83 17 94 L 11/22/17 09:04 96 H 26 H 145/79 94 L 11/22/17 09:02 102 H 25 H 94 L 11/22/17 08:52 107 H 42 H 11/22/17 08:51 103 H 39 H 11/22/17 08:50 101 H 32 H 95 Intake and Output (Last 8hrs): Intake & Output 11/21/17 11/22/17 11/22/17 22:59 06:59 14:59 Intake Total 23 Balance 23 Weight 104 lb Intake: IV 23 Other: Voiding Method Bedpan - Medications Active Medications: Active Medications Generic Name Dose Route Start Last Admin Trade Name Freq PRN Reason Stop Dose Admin Amlodipine Besylate 5 mg 11/22/17 10:00 11/22/17 09:13 Norvasc PO 5 mg DAILY [facility] Administration Aspirin 81 mg 11/22/17 10:00 11/22/17 09:13 Aspirin Chewable PO 81 mg DAILY [facility] Administration Atorvastatin Calcium 20 mg 11/22/17 17:00 Lipitor PO DIN [facility] Clonidine HCl 0.1 mg 11/22/17 10:00 11/22/17 09:12 Catapres PO 0.1 mg BID [facility] Administration Clopidogrel Bisulfate 75 mg 11/22/17 10:00 11/22/17 09:13 Plavix PO 75 mg DAILY [facility] Administration Heparin Sodium/Sodium Chloride 25,000 units in 250 mls @ 5.672 mls/hr 21:30 11/21/17 21:50 Heparin 57193 Units/250ml 1/2 Normal Saline IV 5.672 mls/hr .Q24H [facility] Administration Protocol 12 UNITS/KG/HR Sodium Chloride 1,000 mls @ 100 mls/hr 11/22/17 10:15 Sodium Chloride 0.9% IV .Q10H [facility] Metoprolol Tartrate 25 mg 11/22/17 10:00 11/22/17 09:17 Lopressor PO 25 mg BID [facility] Administration Morphine Sulfate 2 mg 11/21/17 22:08 11/22/17 03:04 Morphine IVP 2 mg Q2H PRN Administration Pain, severe (8-10) Ondansetron HCl 4 mg 11/22/17 06:58 11/22/17 09:11 Zofran Inj IVP 4 mg Q4H PRN Administration Nausea/Vomiting Pantoprazole Sodium 40 mg 11/23/17 06:00 Protonix Ec Tab PO 0600 [facility] Timolol Maleate 1 drop 11/22/17 22:00 Timoptic 0.5% Ophth Soln OD HS [facility] - Patient Studies Lab Studies: Lab Studies 11/22/17 11/22/17 11/22/17 Range/Units 11:50 05:50 05:50 WBC (4.5-11.0) 10^3/ul RBC (3.5-6.1) 10^6/uL Hgb (12.0-16.0) g/dL Hct (36.0-48.0) % MCV (80.0-105.0) fl MCH (25.0-35.0) pg MCHC (31.0-37.0) g/dl RDW (11.5-14.5) % Plt Count (120.0-450.0) 10^3/uL MPV (7.0-11.0) fl Gran % (50.0-68.0) % Lymph % (Auto) (22.0-35.0) % [place] % (Auto) (1.0-6.0) % Eos % (Auto) (1.5-5.0) % Baso % (Auto) (0.0-3.0) % Gran # (1.4-6.5) Lymph # (Auto) (1.2-3.4) [place] # (Auto) (0.1-0.6) Eos # (Auto) (0.0-0.7) Baso # (Auto) (0.0-2.0) K/mm3 APTT 33.6 67.1 H (25.1-36.5) Seconds Sodium (132-148) mmol/L Potassium (3.6-5.0) mmol/L Chloride (98-107) mmol/L Carbon Dioxide (21-33) mmol/L Anion Gap (10-20) BUN (7-21) mg/dL Creatinine (0.7-1.2) mg/dl Est GFR ( Amer) Est GFR (Non-Af Amer) Random Glucose (70-110) mg/dL Calcium (8.4-10.5) mg/dL Phosphorus (2.5-4.5) mg/dL Magnesium (1.7-2.2) mg/dL Total Bilirubin (0.2-1.3) mg/dL AST (14-36) U/L ALT (7-56) U/L Alkaline Phosphatase (38-126) U/L Lactate Dehydrogenase 529 (333-699) U/L Total Creatine Kinase 70 (35-230) U/L Troponin I 4.98 H* D ng/mL Total Protein (5.8-8.3) g/dL Albumin (3.0-4.8) g/dL Globulin gm/dL Albumin/Globulin Ratio (1.1-1.8) Urine Color (YELLOW) Urine Appearance (CLEAR) Urine pH (4.7-8.0) Ur Specific [place] (1.005-1.035) Urine Protein (<30 mg/dL) mg/dL Urine Glucose (UA) (NEGATIVE) mg/dL Urine Ketones (NEGATIVE) mg/dL Urine Blood (NEGATIVE) Urine Nitrate (NEGATIVE) Urine Bilirubin (NEGATIVE) Urine Urobilinogen (<1 E.U./dL) E.U./dL Ur Leukocyte Esterase (NEGATIVE) Lurdes/uL Urine RBC (0-2) /hpf Urine WBC (0-6) /hpf Ur Epithelial Cells (0-5) /hpf 11/22/17 11/22/17 11/21/17 Range/Units 05:50 05:50 23:40 WBC 22.0 H D (4.5-11.0) 10^3/ul RBC 4.10 (3.5-6.1) 10^6/uL Hgb 11.3 L D (12.0-16.0) g/dL Hct 36.0 (36.0-48.0) % MCV 87.8 (80.0-105.0) fl MCH 27.6 (25.0-35.0) pg MCHC 31.4 (31.0-37.0) g/dl RDW 15.7 H (11.5-14.5) % Plt Count 224 (120.0-450.0) 10^3/uL MPV 11.2 H (7.0-11.0) fl Gran % 89.4 H (50.0-68.0) % Lymph % (Auto) 5.1 L (22.0-35.0) % [place] % (Auto) 5.5 (1.0-6.0) % Eos % (Auto) 0.0 L (1.5-5.0) % Baso % (Auto) 0.0 (0.0-3.0) % Gran # 19.63 H (1.4-6.5) Lymph # (Auto) 1.1 L (1.2-3.4) [place] # (Auto) 1.2 H (0.1-0.6) Eos # (Auto) 0.0 (0.0-0.7) Baso # (Auto) 0.01 (0.0-2.0) K/mm3 APTT (25.1-36.5) Seconds Sodium 142 (132-148) mmol/L Potassium 7.0 H* (3.6-5.0) mmol/L Chloride 109 H (98-107) mmol/L Carbon Dioxide 21 (21-33) mmol/L Anion Gap 19 (10-20) BUN 69 H (7-21) mg/dL Creatinine 3.0 H (0.7-1.2) mg/dl Est GFR ( Amer) 18 Est GFR (Non-Af Amer) 15 Random Glucose 140 H (70-110) mg/dL Calcium 10.5 (8.4-10.5) mg/dL Phosphorus 4.7 H (2.5-4.5) mg/dL Magnesium 2.4 H (1.7-2.2) mg/dL Total Bilirubin 0.5 (0.2-1.3) mg/dL AST 31 (14-36) U/L ALT 30 (7-56) U/L Alkaline Phosphatase 90 (38-126) U/L Lactate Dehydrogenase (333-699) U/L Total Creatine Kinase (35-230) U/L Troponin I ng/mL Total Protein 6.9 (5.8-8.3) g/dL Albumin 3.7 (3.0-4.8) g/dL Globulin 3.2 gm/dL Albumin/Globulin Ratio 1.2 (1.1-1.8) Urine Color Yellow (YELLOW) Urine Appearance Clear (CLEAR) Urine pH 6.5 (4.7-8.0) Ur Specific [place] 1.015 (1.005-1.035) Urine Protein Trace H (<30 mg/dL) mg/dL Urine Glucose (UA) Negative (NEGATIVE) mg/dL Urine Ketones Negative (NEGATIVE) mg/dL Urine Blood Negative (NEGATIVE) Urine Nitrate Negative (NEGATIVE) Urine Bilirubin Negative (NEGATIVE) Urine Urobilinogen 0.2 (<1 E.U./dL) E.U./dL Ur Leukocyte Esterase Trace H (NEGATIVE) Lurdes/uL Urine RBC 0 - 2 (0-2) /hpf Urine WBC 1 - 3 (0-6) /hpf Ur Epithelial Cells 0 - 2 (0-5) /hpf Laboratory Results - last 24 hr 11/21/17 11/22/17 11/22/17 23:40 05:50 05:50 WBC 22.0 H D RBC 4.10 Hgb 11.3 L D Hct 36.0 MCV 87.8 MCH 27.6 MCHC 31.4 RDW 15.7 H Plt Count 224 MPV 11.2 H Gran % 89.4 H Lymph % (Auto) 5.1 L [place] % (Auto) 5.5 Eos % (Auto) 0.0 L Baso % (Auto) 0.0 Gran # 19.63 H Lymph # (Auto) 1.1 L [place] # (Auto) 1.2 H Eos # (Auto) 0.0 Baso # (Auto) 0.01 APTT Sodium 142 Potassium 7.0 H* Chloride 109 H Carbon Dioxide 21 Anion Gap 19 BUN 69 H Creatinine 3.0 H Est GFR ( Amer) 18 Est GFR (Non-Af Amer) 15 Random Glucose 140 H Calcium 10.5 Phosphorus 4.7 H Magnesium 2.4 H Total Bilirubin 0.5 AST 31 ALT 30 Alkaline Phosphatase 90 Lactate Dehydrogenase Total Creatine Kinase Troponin I Total Protein 6.9 Albumin 3.7 Globulin 3.2 Albumin/Globulin Ratio 1.2 Urine Color Yellow Urine Appearance Clear Urine pH 6.5 Ur Specific [place] 1.015 Urine Protein Trace H Urine Glucose (UA) Negative Urine Ketones Negative Urine Blood Negative Urine Nitrate Negative Urine Bilirubin Negative Urine Urobilinogen 0.2 Ur Leukocyte Esterase Trace H Urine RBC 0 - 2 Urine WBC 1 - 3 Ur Epithelial Cells 0 - 2 11/22/17 11/22/17 11/22/17 05:50 05:50 11:50 WBC RBC Hgb Hct MCV MCH MCHC RDW Plt Count MPV Gran % Lymph % (Auto) [place] % (Auto) Eos % (Auto) Baso % (Auto) Gran # Lymph # (Auto) [place] # (Auto) Eos # (Auto) Baso # (Auto) APTT 67.1 H 33.6 Sodium Potassium Chloride Carbon Dioxide Anion Gap BUN Creatinine Est GFR ( Amer) Est GFR (Non-Af Amer) Random Glucose Calcium Phosphorus Magnesium Total Bilirubin AST ALT Alkaline Phosphatase Lactate Dehydrogenase 529 Total Creatine Kinase 70 Troponin I 4.98 H* D Total Protein Albumin Globulin Albumin/Globulin Ratio Urine Color Urine Appearance Urine pH Ur Specific [place] Urine Protein Urine Glucose (UA) Urine Ketones Urine Blood Urine Nitrate Urine Bilirubin Urine Urobilinogen Ur Leukocyte Esterase Urine RBC Urine WBC Ur Epithelial Cells EKG/Cardiology Studies: Cardiology / EKG Studies 11/22/17 EKG [ELECTROCARDIOGRAM] Routine Comment: Reason For Exam: chest pain 11/22/17 08:30 ELECTROCARDIOGRAM Routine Comment: Reason For Exam: CP NSTEMI Critical Care Progress Note - Nutrition Nutrition: Nutrition Category Date Time Status Renal Diet [DIET] Diets 11/22/17 Lunch Ordered Assessment/Plan - Assessment and Plan (Free Text) Plan: Patient seen and examined on rounds with resident, agree with note with following additions/exceptions: Patient is 82yo female with PMHx of HTN, iliac stents, CKD, CEA, endometrial CA s/p hysterectomy, DNR/DNI, presented with chest pain, NSTEMI, on heparin drip, and acute renal failure, unclear baseline renal function, hyperkalemia. Pt given Kayexalate PO, Calcium, D50, Insulin. EKG pending. Pt off nitro drip. Repeat BMP pending. Cardiology and renal following, patient refusing HD. Will manage medically. ARF Hyperkalemia NSTEMI CP HTN Recommend: - supp o2 as needed - panculture, follow up BCx, UCx, Procal - BP control - ASA, Plavix, Statin, BB - NTG PRN - Heparin drip - Cardiology follow up - Renal follow up - repeat BMP - palliative care consult - GI ppx - DVT ppx - Monitor in MICU critical care time 35 minutes
[2017-11-22] MEDS: Sodium Chloride 0.9% 1,000 ML IV SCH ×2 (11:00→20:00)
--- NOTE | 2017-11-22 11:23 | CARD ---
APPROVED REPORT EKG Measurement Heart [id number] ID [id number] <Conclusion> Normal sinus rhythm Left axis deviation Incomplete right bundle branch block STTW changes c/w ischemia
--- NOTE | 2017-11-22 13:30 | CP.PCM.CON ---
History of Present Illness - History of Present Illness History of Present Illness: 82 year old female with PMH of chronic renal failure, HTN, S/P carotid endearterectomy, endometrial CAD S/P hysterectomy came in to [facility] complaining of chest pain which started a few hours prior to admission, with some shortness of breath. She denies cough or rhinorrhea, no sore throat, no nausea or vomiting, no headache or dizziness, no abdominal pain, no diarrhea, no dysuria. She has no fever or chills either. In the ED, she is noted to have elevated Troponins and elevated WBC count. Infectious Diseases consult is requested to further evaluate and manage. Review of Systems - Review of Systems All systems: reviewed and no additional remarkable complaints except (as per HPI ) Past Patient History - Past Social History Smoking Status: Former Smoker - CARDIAC Hx Hypertension: Yes - MUSCULOSKELETAL/RHEUMATOLOGICAL Hx Falls: Yes - PSYCHIATRIC Hx Substance Use: No Meds Allergies/Adverse Reactions: Allergies Allergy/AdvReac Type Severity Reaction Status Date / Time allopurinol [From Zyloprim] Allergy URTICARIA Verified 11/21/17 19:30 - Medications Medications: Current Medications Atorvastatin Calcium (Lipitor) 20 mg PO DIN [facility] Clonidine HCl (Catapres) 0.1 mg PO BID [facility] Clopidogrel Bisulfate (Plavix) 75 mg PO DAILY [facility] Nitroglycerin/Dextrose (Nitroglycerin 50 Mg/250 Ml D5w) 50 mg in 250 mls @ 1.5 mls/hr IV .Q24H PRN; Protocol; 5 MCG/MIN PRN Reason: chest pain Last Titration: 11/22/17 05:12 Dose: 11 mcg/min, 3.3 mls/hr Heparin Sodium/Sodium Chloride (Heparin 77324 Units/250ml 1/2 Normal Saline) 25 ,000 units in 250 mls @ 5.672 mls/hr IV .Q24H [facility]; 12 UNITS/KG/HR PRN Reason: Protocol Last Admin: 11/21/17 21:50 Dose: 5.672 mls/hr Morphine Sulfate (Morphine) 2 mg IVP Q2H PRN PRN Reason: Pain, severe (8-10) Last Admin: 11/22/17 03:04 Dose: 2 mg Pantoprazole Sodium (Protonix Inj) 40 mg IVP 0600 KITTY Last Admin: 11/22/17 05:50 Dose: 40 mg Timolol Maleate (Timoptic 0.5% Ophth Soln) 1 drop OD HS KITTY Physical Exam - Constitutional Appears: Chronically Ill - Head Exam Head Exam: NORMAL INSPECTION - Neck Exam Neck exam: Negative for: Meningismus - Respiratory Exam Respiratory Exam: Decreased Breath Sounds - Cardiovascular Exam Cardiovascular Exam: +S1, +S2 - GI/Abdominal Exam GI & Abdominal Exam: Soft. absent: Tenderness Results - Vital Signs Recent Vital Signs: Last Vital Signs Temp 98.0 F 11/22/17 00:40 Pulse 76 11/22/17 06:15 Resp 18 11/22/17 06:15 BP 109/55 L 11/22/17 06:15 Pulse Ox 96 11/22/17 06:15 - Labs Result Diagrams: 11/22/17 05:50 11/22/17 05:50 Labs: Laboratory Results - last 24 hr 11/21/17 23:40 Urine Color Yellow Urine Appearance Clear Urine pH 6.5 Ur Specific [place] 1.015 Urine Protein Trace H Urine Glucose (UA) Negative Urine Ketones Negative Urine Blood Negative Urine Nitrate Negative Urine Bilirubin Negative Urine Urobilinogen 0.2 Ur Leukocyte Esterase Trace H Urine RBC 0 - 2 Urine WBC 1 - 3 Ur Epithelial Cells 0 - 2 Assessment & Plan - Assessment and Plan (Free Text) Plan: Assessment Systemic inflammatory response syndrome probably due to acute NSTEMI chronic renal failure HTN S/P carotid endearterectomy endometrial CAD S/P hysterectomy Plan Follow up blood cx, urine cx, PCT, CXR - will monitor clinically
[2017-11-22 13:56] LABS: CALCIUM 12.6 mg/dL (8.4-10.5)
--- NOTE | 2017-11-22 14:12 | CON ---
DATE: 11/22/2017 INDICATIONS: Chest pain, NSTEMI. HISTORY OF PRESENT ILLNESS: This is an 82-year-old woman admitted through the emergency room yesterday when she presented with chest, mid epigastric, and back discomfort associated with vomiting and hematemesis once. She was found to have ischemic changes on her EKG and a troponin was elevated at 0.4. She was treated with heparin, IV nitroglycerin, and morphine. She was admitted to the CCU. This morning, she feels better on heparin drip, IV nitroglycerin, and getting intermittent doses of morphine. There is no shortness of breath, orthopnea, PND, syncope, presyncope, lightheadedness, dizziness, vertigo, palpitation, edema, diarrhea, melena, fever, chills, cough with sputum production. PAST MEDICAL HISTORY: Notable for PAD with history of bilateral iliac stents, hypertension, chronic kidney disease, cerebral vascular disease with a left carotid endarterectomy, glaucoma, hysterectomy for endometrial cancer, degenerative joint disease, hypouricemia. She is a former heavy smoker. There is no prior history of angina, congestive heart failure, myocardial infarction, or arrhythmia. MEDICATIONS: At the time of admission included spironolactone, aspirin, clonidine, Detrol, Exforge, Lasix, Lipitor, Plavix, Timoptic, and Zantac. ALLERGIES: SHE NOTES AN ALLERGY TO ALLOPURINOL. SOCIAL HISTORY: She lives at home. She is . She no longer smokes, but did heavily in the past. She no longer drinks alcohol. FAMILY HISTORY: Noncontributory. REVIEW OF SYSTEMS: Ten-point review of systems is otherwise unremarkable except as noted above. PHYSICAL EXAMINATION: GENERAL: She is an elderly woman, laying in bed in the Intensive Care Unit, in no acute distress. VITAL SIGNS: She is in sinus rhythm at 76 beats per minute. She is afebrile. Blood pressure is 109/55, respirations 18 to 24, O2 sat 96% to 97% on room air and nasal cannula. HEENT: Reveals no neck vein distention, carotid bruits, thyromegaly. Mucous membranes moist. Conjunctivae pink. NECK: Supple. LUNGS: Lung leyva clear. HEART: Reveals normal first and second heart sounds. Soft systolic murmur along the left sternal border. ABDOMEN: Soft. Bowel sounds present. No mass, organomegaly, tenderness, rebound, or guarding. No CVA tenderness. No palpable abdominal aortic aneurysm. EXTREMITIES: Reveal no cyanosis, clubbing or edema. NEUROLOGIC: Awake, alert, and oriented. PSYCHIATRIC: Normal as to mood and affect. SKIN: Warm and dry. No rash or cellulitis. LABORATORY AND IMAGING: Chest x-ray, a portable study, is not interpreted yet. It shows clear lung leyva by my reading, no CHF or effusion. An EKG is not in the system yet, apparently showed sinus rhythm with ST depressions in lateral leads. I will review this. White count 17,100, repeat 22,000; hemoglobin 11.3; hematocrit 36; platelet count normal. PT, INR, and PTT normal initially. PTT 67, on heparin drip. Electrolytes notable for hyperkalemia. Potassium 6.3, repeat 7.0. BUN 74, creatinine 3.0. Blood sugar 131, repeat 140. Magnesium 2.4. LFTs unremarkable. CK 40, repeat 70. Troponin 0.42. Second sample pending. Urinalysis is noted. IMPRESSION: Angie Prado is an 82-year-old woman admitted to the CCU with chest, abdominal, and back discomfort, abnormal EKG, positive troponin, and course suggestive of acute myocardial infarction. Her pain is improved with morphine, IV nitroglycerin, heparin drip. She is hyperkalemic. PLAN: We will get serial EKGs and enzymes. Her hyperkalemia is being treated by the flamer sealer. She has a renal consultation with Dr. Edgar and Dr. Bonilla. There is an ID consultation pending. She got aspirin, Plavix, clonidine, morphine, and Reglan. We will monitor I's and O's. Check stool for occult blood. Monitor labs on a daily basis. Monitor PTTs. I will get a bedside echocardiogram. We will start metoprolol. She got intravenous metoprolol on admission. She is DNR/DNI status based on her request. I will follow her along with you. I will make additional recommendations based on her clinical course. Vinod Mariano MD [facility] # [id number] MTDRona
[2017-11-22] MEDS ORDERED: Heparin25000 units/250ml 1/2NS 25,000 UNITS/250 ML BAG IV SCH (14:21)
[2017-11-22 16:58] LABS: CALCIUM 11.8 mg/dL (8.4-10.5)
[2017-11-22] MEDS ORDERED: Sod Polystyrene Sulf 15 gm/60 ml Susp PR ONE (17:29)
[2017-11-22] MEDS ORDERED: Albuterol 0.083% Inhal Sol (2.5 mg/3 mL) UD INH STA (17:29)
[2017-11-22] MEDS ORDERED: Insulin Regular 1 UNITS/0.01 ML ML SC ONE (17:30)
[2017-11-22] MEDS: Heparin25000 units/250ml 1/2NS 25,000 UNITS/250 ML BAG IV SCH (17:53)
[2017-11-23 00:34] LABS: CALCIUM 11.2 mg/dL (8.4-10.5)
[2017-11-23] MEDS ORDERED: Sod Polystyrene Sulf 15 gm/60 ml Susp PO ONE (00:36)
[2017-11-23] MEDS ORDERED: Dextrose 50% SYRINGE Inj (50 ml) IVP ONE (03:15)
[2017-11-23] MEDS ORDERED: Insulin Regular 1 UNITS/0.01 ML ML SC ONE (03:16)
[2017-11-23] MEDS ORDERED: Albuterol 0.5% Inhal Sol (2.5 mg/0.5 ml) UD IH ONE (03:24)
[2017-11-23] MEDS ORDERED: Insulin Reg-HIGH-Coverage IV STA (04:30)
[2017-11-23] MEDS: Pantoprazole 40 mg EC Tab PO SCH (05:24)
[2017-11-23] MEDS: Sodium Chloride 0.9% 1,000 ML IV SCH (05:25)
[2017-11-23 07:52] LABS: BASO # 0.02 K/mm3 (0.0-2.0); BASO % 0.1 % (0.0-3.0); GRAN # 16.78 (1.4-6.5); GRAN % 87.6 % (50.0-68.0); HEMOGLOBIN 11.6 g/dL (12.0-16.0); LYMPH # 0.9 (1.2-3.4); LYMPH % 4.9 % (22.0-35.0); MEAN CELL VOLUME 89.9 fl (80.0-105.0); MEAN CORPUSCULAR HGB CONC 31.2 g/dl (31.0-37.0); MONO # 1.4 (0.1-0.6); MONO % 7.4 % (1.0-6.0); PLATELET COUNT 190 10^3/uL (120.0-450.0); RBC 4.14 10^6/uL (3.5-6.1); RED CELL DISTRIBUTION WIDTH 15.9 % (11.5-14.5); WHITE BLOOD COUNT 19.1 10^3/ul (4.5-11.0)
--- NOTE | 2017-11-23 07:54 | CP.PCM.PN ---
Subjective - Date & Time of Evaluation Date of Evaluation: 11/23/17 Time of Evaluation: 07:00 - Subjective Subjective: Stable in ICU. Getting Kaexylate doses. Labs pending. No CP or SOB but some abd. bloating. V/S noted. RSR PE: Lungs: rhonchi Cor.: S1S2 Abd.: soft Ext.: no edema Neuro.: alert Labs pending. trop 11/22 = 4.98 ECG 11/22: RSR, septal MA, LVH by voltage Echo: not done yet Objective - Vital Signs/Intake and Output Vital Signs (last 24 hours): Temp Pulse Resp BP Pulse Ox 98.2 F 73 23 122/57 L 97 11/23/17 06:00 11/23/17 06:50 11/23/17 06:50 11/23/17 06:45 11/23/17 06:50 Intake and Output: 11/23/17 11/23/17 06:59 18:59 Intake Total 60 Balance 60 - Medications Medications: Current Medications Amlodipine Besylate (Norvasc) 5 mg PO DAILY [facility] Last Admin: 11/22/17 09:13 Dose: 5 mg Aspirin (Aspirin Chewable) 81 mg PO DAILY [facility] Last Admin: 11/22/17 09:13 Dose: 81 mg Atorvastatin Calcium (Lipitor) 20 mg PO DIN [facility] Last Admin: 11/22/17 17:54 Dose: 20 mg Clonidine HCl (Catapres) 0.1 mg PO BID [facility] Last Admin: 11/22/17 17:51 Dose: 0.1 mg Clopidogrel Bisulfate (Plavix) 75 mg PO DAILY [facility] Last Admin: 11/22/17 09:13 Dose: 75 mg Sodium Chloride (Sodium Chloride 0.9%) 1,000 mls @ 100 mls/hr IV .Q10H [facility] Last Admin: 11/23/17 05:25 Dose: 100 mls/hr Heparin Sodium/Sodium Chloride (Heparin 35863 Units/250ml 1/2 Normal Saline) 25 ,000 units in 250 mls @ 7.562 mls/hr IV .Q24H [facility]; 16 UNITS/KG/HR PRN Reason: Protocol Last Titration: 11/23/17 01:45 Dose: 13 units/kg/hr, 6.144 mls/hr Metoprolol Tartrate (Lopressor) 25 mg PO BID [facility] Last Admin: 11/22/17 17:54 Dose: 25 mg Morphine Sulfate (Morphine) 2 mg IVP Q2H PRN PRN Reason: Pain, severe (8-10) Last Admin: 11/22/17 03:04 Dose: 2 mg Ondansetron HCl (Zofran Inj) 4 mg IVP Q4H PRN PRN Reason: Nausea/Vomiting Last Admin: 11/23/17 00:45 Dose: 4 mg Pantoprazole Sodium (Protonix Ec Tab) 40 mg PO 0600 [facility] Last Admin: 11/23/17 05:24 Dose: 40 mg Timolol Maleate (Timoptic 0.5% Ophth Soln) 1 drop OD HS [facility] Last Admin: 11/22/17 21:51 Dose: 1 drop - Labs Labs: 11/22/17 05:50 11/22/17 23:59 PT 10.6 SECONDS (9.4-12.5) 11/21/17 19:34 INR 0.93 (0.93-1.08) 11/21/17 19:34 APTT 95.1 Seconds (25.1-36.5) H 11/22/17 23:59 Assessment and Plan - Assessment and Plan (Free Text) Assessment: Chest and back pain Acute MA Hyperkalemia Acute on chronic renal insufficiency PAD/Bilateral iliac stents HBP CVD/CEA COPD/Former Smoker Glaucoma H/O hysterectomy for endometrial cancer DNR/DNI status Plan: Await AM labs and echo. As per Renal, Drs. Moody, LANI and Intensivists Continue ASA, Plavix, metoprolol, atorvastatin, heparin, amlodipine Monitor: I/O. K+, labs, sats., renal fx., etc. Will follow
[2017-11-23 08:19] LABS: TROPONIN I 5.85 ng/mL
[2017-11-23 08:21] LABS: CALCIUM 10.7 mg/dL (8.4-10.5)
--- NOTE | 2017-11-23 08:25 | CP.PCM.PN ---
Subjective - Date & Time of Evaluation Date of Evaluation: 11/23/17 Time of Evaluation: 07:45 - Subjective Subjective: Patient is seen this morning in the intensive care unit bed 1. She complains this morning of left lower quadrant abdominal pain. She denies any further episodes of vomiting. Objective - Vital Signs/Intake and Output Vital Signs (last 24 hours): Temp Pulse Resp BP Pulse Ox 98.2 F 73 23 122/57 L 97 11/23/17 06:00 11/23/17 06:50 11/23/17 06:50 11/23/17 06:45 11/23/17 06:50 Intake and Output: 11/23/17 11/23/17 06:59 18:59 Intake Total 1630 Output Total 300 Balance 1330 - Medications Medications: Current Medications Amlodipine Besylate (Norvasc) 5 mg PO DAILY [facility] Last Admin: 11/22/17 09:13 Dose: 5 mg Aspirin (Aspirin Chewable) 81 mg PO DAILY [facility] Last Admin: 11/22/17 09:13 Dose: 81 mg Atorvastatin Calcium (Lipitor) 20 mg PO DIN [facility] Last Admin: 11/22/17 17:54 Dose: 20 mg Clonidine HCl (Catapres) 0.1 mg PO BID [facility] Last Admin: 11/22/17 17:51 Dose: 0.1 mg Clopidogrel Bisulfate (Plavix) 75 mg PO DAILY [facility] Last Admin: 11/22/17 09:13 Dose: 75 mg Sodium Chloride (Sodium Chloride 0.9%) 1,000 mls @ 100 mls/hr IV .Q10H [facility] Last Admin: 11/23/17 05:25 Dose: 100 mls/hr Heparin Sodium/Sodium Chloride (Heparin 64319 Units/250ml 1/2 Normal Saline) 25 ,000 units in 250 mls @ 7.562 mls/hr IV .Q24H [facility]; 16 UNITS/KG/HR PRN Reason: Protocol Last Titration: 11/23/17 01:45 Dose: 13 units/kg/hr, 6.144 mls/hr Metoprolol Tartrate (Lopressor) 25 mg PO BID [facility] Last Admin: 11/22/17 17:54 Dose: 25 mg Morphine Sulfate (Morphine) 2 mg IVP Q2H PRN PRN Reason: Pain, severe (8-10) Last Admin: 11/22/17 03:04 Dose: 2 mg Ondansetron HCl (Zofran Inj) 4 mg IVP Q4H PRN PRN Reason: Nausea/Vomiting Last Admin: 11/23/17 00:45 Dose: 4 mg Pantoprazole Sodium (Protonix Ec Tab) 40 mg PO 0600 [facility] Last Admin: 11/23/17 05:24 Dose: 40 mg Timolol Maleate (Timoptic 0.5% Ophth Soln) 1 drop OD HS [facility] Last Admin: 11/22/17 21:51 Dose: 1 drop - Labs Labs: 11/23/17 07:00 11/22/17 23:59 PT 10.6 SECONDS (9.4-12.5) 11/21/17 19:34 INR 0.93 (0.93-1.08) 11/21/17 19:34 APTT 95.1 Seconds (25.1-36.5) H 11/22/17 23:59 - Constitutional Appears: No Acute Distress - Head Exam Head Exam: ATRAUMATIC, NORMOCEPHALIC - Respiratory Exam Respiratory Exam: Clear to Ausculation Bilateral, NORMAL BREATHING PATTERN - Cardiovascular Exam Cardiovascular Exam: +S1, +S2 - GI/Abdominal Exam GI & Abdominal Exam: Soft, Tenderness, Normal Bowel Sounds. absent: Guarding Additional comments: + LLQ tenderness - Extremities Exam Extremities Exam: Normal Inspection - Neurological Exam Neurological Exam: Alert, Awake, Oriented x3 Assessment and Plan - Assessment and Plan (Free Text) Assessment: Hyperkalemia Chronic renal insufficiency Leukocytosis HTN Elevated troponin/NSTEMI? Chronic back pain Carotid artery disease/cerebrovascular disease Plan: Patient is complaining this morning of left lower quadrant abdominal pain. Patient has also had some difficulty swallowing and is on a finely chopped diet as per recommendation of speech therapist. Will order GI consult with Dr. Aiken, lead investigator. Today's potassium is down to 4 after kayexelate enema yesterday. Creatinine trending downward. continue to hold aldactone and ARB. Today's troponin is pending. WBC count decreasing slowly. Infectious disease, cardiology and nephrology on case.
[2017-11-23 08:41] LABS: BAND 4 % (0-2); LYMPHOCYTE 6 % (22.0-35.0); MONOCYTE 3 % (1.0-6.0); NEUTROPHIL 87 % (50.0-70.0); PLATELET ESTIMATE NORMAL (NORMAL)
--- NOTE | 2017-11-23 08:53 | CON ---
DATE: 11/22/[address] The [address] for Dr. Bell. REFERRING PHYSICIAN: Dr. Bell. REASON FOR CONSULTATION: Evaluation of the patient unknown to me, followed by Dr. Estrada Davis in the outpatient setting with a history of chronic kidney disease, admitted with acute renal failure, hyperkalemia, and an acute NJ. HISTORY OF PRESENT ILLNESS: The patient is an 82-year-old white female with a history of chronic kidney disease, apparently stage III. Her exact BUN and creatinine in the outpatient setting are unknown, but the patient states that people did ask her if she would be interested potentially in doing dialysis, she says no. History of hypertension of many years duration, history of peripheral vascular disease status post left carotid endarterectomy, history of iliac stents. Past history of cigarette smoking. History of hyperlipidemia, history of secondary hyperparathyroidism. For reasons not clear to me, the patient was on Aldactone in the outpatient setting. The patient presented to the hospital with increased chest pain and hematemesis. Her initial BUN and creatinine were 74 and 3.0. The patient's initial potassium was 6.3 and this morning, it is 7.0. She is receiving all the typical medications to lower her potassium level. The patient would normally be a candidate for a cardiac catheterization in the setting of an NJ. However, in light of the fact that she is a DNR/DNI and has no interest in dialysis and I did explain to her that the contrast dye might push her over to the point that she might need dialysis, she will likely be can treated conservatively. She remains on Tridil and heparin. We are asked to evaluate the patient for her worsening renal parameters, hyperkalemia. PAST MEDICAL HISTORY: Significant for chronic kidney disease stage III?, hypertension, history of peripheral vascular disease with iliac artery stents, left carotid endarterectomy, history of secondary hyperparathyroidism, history of hyperlipidemia. The patient is a DNR/DNI. MEDICATIONS: At home include that of Lasix, eyedrops, Aldactone, clonidine, Detrol, Lipitor, Zantac, Plavix, Exforge 5/160, and baby aspirin. ALLERGIES: THE PATIENT IS ALLERGIC ALLOPURINOL. CURRENT MEDICATIONS: In hospital include that of aspirin, clonidine, heparin infusion, Lipitor, Lopressor, morphine p.r.n., Norvasc, Plavix, Protonix, normal saline to be started at 100 mL an hour, and Zofran. The patient is status post Kayexalate and sorbitol x2 doses. Status post insulin and D50. SOCIAL HISTORY: The patient smoked cigarettes until 1986 and quit. The patient does not use alcohol. FAMILY HISTORY: Father of complications of heart disease. Mother of cervical cancer. REVIEW OF SYSTEMS: GENERAL: The patient states appetite has been diminished and she has lost 30 pounds over the last 1 year. ENT: Denies any hearing or visual problems. PULMONARY: No shortness of breath at rest. No history of asthma, bronchitis, emphysema. No history of recent pneumonias. CARDIAC: No past history of coronary artery disease but history of peripheral vascular disease. GASTROINTESTINAL: Episode of hematemesis as noted above. No diarrhea. No nausea. No vomiting. No constipation. No abdominal pain. GENITOURINARY: History of chronic kidney disease, perhaps stage III. No history of UTIs. GYNECOLOGIC: Postmenopausal. ENDOCRINE: No history of diabetes. Positive history of secondary hyperparathyroidism with an elevated phosphorus level. MUSCULOSKELETAL: No complaints. NEUROLOGIC: No past history of CVA, TIA, seizures, or syncope. HEMATOLOGIC AND ONCOLOGIC: Negative. PSYCHIATRIC: History is negative. PHYSICAL EXAMINATION: GENERAL: The patient is seen in ICU, bed 1. She is currently sitting on a commode after having received Kayexalate sorbitol. Presently, she is complaining of no chest discomfort and she has had no nausea, vomiting, or further episodes of hematemesis. VITAL SIGNS: Blood pressure 124/68 with a pulse of 80. Temperature is 98 degrees. Respiratory rate is 18. HEENT: Shows her to be normocephalic, atraumatic. Conjunctivae are pink. Sclerae nonicteric. Pupils equal, reactive to light and accommodation. Extraocular muscles are intact. Posterior pharynx is normal. NECK: Supple. No neck vein distention or thyromegaly. No lymphadenopathy. No audible bruits. Status post left carotid endarterectomy scar. CHEST: Clear to auscultation and percussion. No rales, rhonchi, or wheezing. CARDIOVASCULAR: Shows a regular rate and rhythm without audible murmurs, rubs, or gallops. ABDOMEN: Soft. Bowel sounds normal. No rebound, guarding, or masses. BACK: No CVAT. No spinal tenderness. EXTREMITIES: Show no edema. Distal lower extremity pulses are 1 to 2+ bilaterally. No cyanosis or clubbing. NEUROLOGIC: Shows her be alert, oriented x3 with no gross focal motor or sensory deficits noted. LABORATORY DATA AND IMAGING: Admitting chest x-ray showed no acute pulmonary disease. EKG showed a normal sinus rhythm with no peak T-waves. CBC: White blood cell count 17.1 on admission, today 22,000. Hemoglobin is down from 13.4 to 11.3. Platelet count is 224,000. Coags on admission were normal. With heparin, her PTT today is 67.1. Chemistries showed normal sodium. Potassium 6.3 on admission, 7.0 today. CO2 level ranging from 20 to 21. BUN is down from 74 to 69. Creatinine is stable at 3.0. Glucose is 140. Calcium 11.2 on admission, today 10.5. Phosphorus is 4.7 with a magnesium of 2.4. Liver enzymes are normal. Troponins are elevated. Initial troponin 0.42, present troponin today is 4.98. Albumin level is 3.7. Urines showed trace protein, otherwise negative. ASSESSMENT: 1. Acute renal failure superimposed on chronic kidney disease. It is not possible for me at this point in time to know her baseline BUN and creatinine, but the patient states that her BUN and creatinine have been trending higher and people have asked her if she would be interested in dialysis, she vehemently says no. 2. Hyperkalemia. The patient has life-threatening hyperkalemia with potassium of 6.3 to 7.0. As discussed with the house staff in the ICU, I would continue the usual standard cocktails to lower her potassium level. The patient will continue insulin and D50. She may continue to receive Kayexalate until her potassium level falls. No role here for sodium bicarbonate as her CO2 levels in the 20 to 21 range. Presently, she has no EKG changes from her hyperkalemia. In all likelihood, her hyperkalemia is secondary to acute renal failure superimposed on chronic kidney disease plus the component from her use of Aldactone, which should be discontinued forever and angiotensin receptor rosa therapy as part of her blood pressure medication, which should also be discontinued. 3. Hypertension. Blood pressure control is acceptable on present medications. No changes. 4. History of peripheral vascular disease, history of iliac artery stent placement, status post left carotid endarterectomy. These appear to be stable. 5. History of secondary hyperparathyroidism. Phosphorus level was mildly elevated. The patient may start a non-calcium containing binder and be placed on a renal diet. 6. History of hyperlipidemia. The patient will continue statin therapy and diet therapy. 7. Acute myocardial infarction, likely top-[id number] myocardial infarction. In a normal setting, the patient will be a candidate for cardiac catheterization; however, I am concerned that if she has any exposure to dye study, she could easily have worsening of her renal parameters, which would put her very close to needing dialysis. The patient has no interest in dialysis, so I would suggest that we treat her conservatively. Cardiology is following the patient. 8. DNR/DNI as per the patient's living will and request. PLAN: 1. Discussed with house staff. Agree with IV fluid hydration. 2. Follow potassium level through the day and continue treating her with the standard approach, which would include Kayexalate with sorbitol, insulin, D50 to lower her potassium level into a normal range. 3. Obtain renal ultrasound to check kidney size and rule out any obstructive uropathy. Obstructive uropathy would be unlikely. 4. Can also get a renal artery Doppler study as part of her renal ultrasound to check for any renal artery stenosis. This is because the patient does have a history of significant peripheral vascular disease with carotid artery stenosis and iliac artery stenosis. 5. Continue renal diet. 6. The patient should adhere to a 2 g potassium diet. 7. Continue to follow daily labs and monitor accurate I's and O's. 8. From a renal standpoint, since dialysis is not planned, the patient should be treated conservatively with the attempt to normalize her electrolytes and optimize her kidney function. Greater than 35 minutes spent the care of this patient. Thank you for letting me partake and share in the care of your patient. Byron Bonilla MD
--- NOTE | 2017-11-23 10:08 | CP.CCUPN ---
<Sacha Vallejo - Last Filed: 11/23/17 10:09> CCU Subjective - Physician Review Subjective (Free Text): Patient seen and examined bedside in the ICU. No acute issues overnight. Patient states her chest pain has improved dramatically from yesterday, however she still has some pain near her back. Patient also complains of abdominal tenderness in the lower left quadrant. Denies shortness of breath, fever, chills , nausea or any other complaints at this time. 11/23/17 10:08 11/23/17 10:09 Critical Care Time Spent (in minutes): 35 CCU Objective - Vital Signs / Intake & Output Vital Signs (Last 4 hours): Vital Signs Pulse Resp BP Pulse Ox 11/23/17 06:50 73 23 97 11/23/17 06:45 78 21 122/57 L 98 11/23/17 06:40 72 16 96 11/23/17 06:30 77 22 113/40 L 96 11/23/17 06:20 74 21 96 11/23/17 06:15 76 20 109/59 L 95 11/23/17 06:10 74 24 96 Intake and Output (Last 8hrs): Intake & Output 11/22/17 11/23/17 11/23/17 22:59 06:59 14:59 Intake Total 1420 1630 Output Total 300 300 Balance 1120 1330 Weight 111 lb 6 oz Intake: IV 920 1430 Left Forearm 70 70 Left Hand 800 1300 Right Antecubital 50 Oral 500 200 Output: Urine 300 300 Urine, Voided 300 300 Other: # Bowel Movements 4 5 - Physical Exam Head: Positive for: Atraumatic, Normocephalic Pupils: Positive for: PERRL Extroacular Muscles: Positive for: EOMI Conjunctiva: Positive for: Normal Mouth: Positive for: Moist Mucous Membranes Neck: Positive for: Normal Range of Motion Respiratory/Chest: Positive for: Good Air Exchange, Decreased Breath Sounds Cardiovascular: Positive for: Regular Rate and Rhythm, Normal S1, S2 Abdomen: Positive for: Normal Bowel Sounds. Negative for: Tenderness, Distention Back: Positive for: Paraspinal Tenderness (Upper right back) Upper Extremity: Positive for: Normal Inspection Lower Extremity: Positive for: Normal Inspection Neurological: Positive for: GCS=15, CN II-XII Intact Skin: Positive for: Warm, Dry, Normal Color. Negative for: Rashes Psychiatric: Positive for: Alert, Oriented x 3, Normal Insight, Normal Concentration - Medications Active Medications: Active Medications Generic Name Dose Route Start Last Admin Trade Name Freq PRN Reason Stop Dose Admin Amlodipine Besylate 5 mg 11/22/17 10:00 11/22/17 09:13 Norvasc PO 5 mg DAILY KITTY Administration Aspirin 81 mg 11/22/17 10:00 11/22/17 09:13 Aspirin Chewable PO 81 mg DAILY KITTY Administration Atorvastatin Calcium 20 mg 11/22/17 17:00 11/22/17 17:54 Lipitor PO 20 mg DIN KITTY Administration Clonidine HCl 0.1 mg 11/22/17 10:00 11/22/17 17:51 Catapres PO 0.1 mg BID KITTY Administration Clopidogrel Bisulfate 75 mg 11/22/17 10:00 11/22/17 09:13 Plavix PO 75 mg DAILY KITTY Administration Sodium Chloride 1,000 mls @ 100 mls/hr 11/22/17 10:15 11/23/17 05:25 Sodium Chloride 0.9% IV 100 mls/hr .Q10H KITTY Administration Heparin Sodium/Sodium Chloride 25,000 units in 250 mls @ 7.562 mls/hr 17:02 11/23/17 01:45 Heparin 60581 Units/250ml 1/2 Normal Saline IV 13 units/kg/hr .Q24H KITTY 6.144 mls/hr Protocol Titration 16 UNITS/KG/HR Metoprolol Tartrate 25 mg 11/22/17 10:00 11/22/17 17:54 Lopressor PO 25 mg BID KITTY Administration Morphine Sulfate 2 mg 11/21/17 22:08 11/22/17 03:04 Morphine IVP 2 mg Q2H PRN Administration Pain, severe (8-10) Ondansetron HCl 4 mg 11/22/17 06:58 11/23/17 00:45 Zofran Inj IVP 4 mg Q4H PRN Administration Nausea/Vomiting Pantoprazole Sodium 40 mg 11/23/17 06:00 11/23/17 05:24 Protonix Ec Tab PO 40 mg 0600 KITTY Administration Timolol Maleate 1 drop 11/22/17 22:00 11/22/17 21:51 Timoptic 0.5% Ophth Soln OD 1 drop HS KITTY Administration - Patient Studies Lab Studies: Lab Studies 11/23/17 11/23/17 11/23/17 Range/Units 07:30 07:00 07:00 WBC 19.1 H (4.5-11.0) 10^3/ul RBC 4.14 (3.5-6.1) 10^6/uL Hgb 11.6 L (12.0-16.0) g/dL Hct 37.2 (36.0-48.0) % MCV 89.9 (80.0-105.0) fl MCH 28.0 (25.0-35.0) pg MCHC 31.2 (31.0-37.0) g/dl RDW 15.9 H (11.5-14.5) % Plt Count 190 (120.0-450.0) 10^3/uL MPV 11.0 (7.0-11.0) fl Gran % 87.6 H (50.0-68.0) % Lymph % (Auto) 4.9 L (22.0-35.0) % [place] % (Auto) 7.4 H (1.0-6.0) % Eos % (Auto) 0.0 L (1.5-5.0) % Baso % (Auto) 0.1 (0.0-3.0) % Gran # 16.78 H (1.4-6.5) Lymph # (Auto) 0.9 L (1.2-3.4) [place] # (Auto) 1.4 H (0.1-0.6) Eos # (Auto) 0.0 (0.0-0.7) Baso # (Auto) 0.02 (0.0-2.0) K/mm3 Neutrophils % (Manual) 87 H (50.0-70.0) % Band Neutrophils % 4 H (0-2) % Lymphocytes % (Manual) 6 L (22.0-35.0) % Monocytes % (Manual) 3 (1.0-6.0) % Platelet Evaluation Normal (NORMAL) APTT 44.2 H (25.1-36.5) Seconds Sodium 145 (132-148) mmol/L Potassium 4.0 (3.6-5.0) mmol/L Chloride 114 H (98-107) mmol/L Carbon Dioxide 19 L (21-33) mmol/L Anion Gap 16 (10-20) BUN 65 H (7-21) mg/dL Creatinine 2.6 H (0.7-1.2) mg/dl Est GFR ( Amer) 21 Est GFR (Non-Af Amer) 18 POC Glucose (mg/dL) (65-110) mg/dL Random Glucose 70 (70-110) mg/dL Calcium 10.7 H (8.4-10.5) mg/dL Phosphorus (2.5-4.5) mg/dL Magnesium (1.7-2.2) mg/dL Lactate Dehydrogenase (333-699) U/L Total Creatine Kinase (35-230) U/L Troponin I ng/mL 25-OH Vitamin D Total (30.0-100.0) NG/ML Procalcitonin (0.19-0.49) NG/ML 11/23/17 11/23/17 11/22/17 Range/Units 07:00 04:44 23:59 WBC (4.5-11.0) 10^3/ul RBC (3.5-6.1) 10^6/uL Hgb (12.0-16.0) g/dL Hct (36.0-48.0) % MCV (80.0-105.0) fl MCH (25.0-35.0) pg MCHC (31.0-37.0) g/dl RDW (11.5-14.5) % Plt Count (120.0-450.0) 10^3/uL MPV (7.0-11.0) fl Gran % (50.0-68.0) % Lymph % (Auto) (22.0-35.0) % [place] % (Auto) (1.0-6.0) % Eos % (Auto) (1.5-5.0) % Baso % (Auto) (0.0-3.0) % Gran # (1.4-6.5) Lymph # (Auto) (1.2-3.4) [place] # (Auto) (0.1-0.6) Eos # (Auto) (0.0-0.7) Baso # (Auto) (0.0-2.0) K/mm3 Neutrophils % (Manual) (50.0-70.0) % Band Neutrophils % (0-2) % Lymphocytes % (Manual) (22.0-35.0) % Monocytes % (Manual) (1.0-6.0) % Platelet Evaluation (NORMAL) APTT 95.1 H (25.1-36.5) Seconds Sodium (132-148) mmol/L Potassium (3.6-5.0) mmol/L Chloride (98-107) mmol/L Carbon Dioxide (21-33) mmol/L Anion Gap (10-20) BUN (7-21) mg/dL Creatinine (0.7-1.2) mg/dl Est GFR ( Amer) Est GFR (Non-Af Amer) POC Glucose (mg/dL) 268 H (65-110) mg/dL Random Glucose (70-110) mg/dL Calcium (8.4-10.5) mg/dL Phosphorus 3.5 (2.5-4.5) mg/dL Magnesium 2.3 H (1.7-2.2) mg/dL Lactate Dehydrogenase 602 (333-699) U/L Total Creatine Kinase 117 (35-230) U/L Troponin I 5.85 H* ng/mL 25-OH Vitamin D Total (30.0-100.0) NG/ML Procalcitonin (0.19-0.49) NG/ML 11/22/17 11/22/17 11/22/17 Range/Units 23:59 16:10 13:00 WBC (4.5-11.0) 10^3/ul RBC (3.5-6.1) 10^6/uL Hgb (12.0-16.0) g/dL Hct (36.0-48.0) % MCV (80.0-105.0) fl MCH (25.0-35.0) pg MCHC (31.0-37.0) g/dl RDW (11.5-14.5) % Plt Count (120.0-450.0) 10^3/uL MPV (7.0-11.0) fl Gran % (50.0-68.0) % Lymph % (Auto) (22.0-35.0) % [place] % (Auto) (1.0-6.0) % Eos % (Auto) (1.5-5.0) % Baso % (Auto) (0.0-3.0) % Gran # (1.4-6.5) Lymph # (Auto) (1.2-3.4) [place] # (Auto) (0.1-0.6) Eos # (Auto) (0.0-0.7) Baso # (Auto) (0.0-2.0) K/mm3 Neutrophils % (Manual) (50.0-70.0) % Band Neutrophils % (0-2) % Lymphocytes % (Manual) (22.0-35.0) % Monocytes % (Manual) (1.0-6.0) % Platelet Evaluation (NORMAL) APTT (25.1-36.5) Seconds Sodium 144 140 144 (132-148) mmol/L Potassium 6.4 H* 6.0 H* 6.0 H* (3.6-5.0) mmol/L Chloride 111 H 110 H 112 H (98-107) mmol/L Carbon Dioxide 24 20 L 16 L (21-33) mmol/L Anion Gap 15 17 23 H (10-20) BUN 67 H 67 H 69 H (7-21) mg/dL Creatinine 2.9 H 2.9 H 3.0 H (0.7-1.2) mg/dl Est GFR ( Amer) 19 19 18 Est GFR (Non-Af Amer) 16 16 15 POC Glucose (mg/dL) (65-110) mg/dL Random Glucose 133 H 142 H 74 (70-110) mg/dL Calcium 11.2 H 11.8 H 12.6 H* (8.4-10.5) mg/dL Phosphorus (2.5-4.5) mg/dL Magnesium (1.7-2.2) mg/dL Lactate Dehydrogenase (333-699) U/L Total Creatine Kinase (35-230) U/L Troponin I ng/mL 25-OH Vitamin D Total (30.0-100.0) NG/ML Procalcitonin (0.19-0.49) NG/ML 11/22/17 11/22/17 11/22/17 Range/Units 11:50 11:50 11:50 WBC (4.5-11.0) 10^3/ul RBC (3.5-6.1) 10^6/uL Hgb (12.0-16.0) g/dL Hct (36.0-48.0) % MCV (80.0-105.0) fl MCH (25.0-35.0) pg MCHC (31.0-37.0) g/dl RDW (11.5-14.5) % Plt Count (120.0-450.0) 10^3/uL MPV (7.0-11.0) fl Gran % (50.0-68.0) % Lymph % (Auto) (22.0-35.0) % [place] % (Auto) (1.0-6.0) % Eos % (Auto) (1.5-5.0) % Baso % (Auto) (0.0-3.0) % Gran # (1.4-6.5) Lymph # (Auto) (1.2-3.4) [place] # (Auto) (0.1-0.6) Eos # (Auto) (0.0-0.7) Baso # (Auto) (0.0-2.0) K/mm3 Neutrophils % (Manual) (50.0-70.0) % Band Neutrophils % (0-2) % Lymphocytes % (Manual) (22.0-35.0) % Monocytes % (Manual) (1.0-6.0) % Platelet Evaluation (NORMAL) APTT 33.6 (25.1-36.5) Seconds Sodium (132-148) mmol/L Potassium (3.6-5.0) mmol/L Chloride (98-107) mmol/L Carbon Dioxide (21-33) mmol/L Anion Gap (10-20) BUN (7-21) mg/dL Creatinine (0.7-1.2) mg/dl Est GFR ( Amer) Est GFR (Non-Af Amer) POC Glucose (mg/dL) (65-110) mg/dL Random Glucose (70-110) mg/dL Calcium (8.4-10.5) mg/dL Phosphorus (2.5-4.5) mg/dL Magnesium (1.7-2.2) mg/dL Lactate Dehydrogenase (333-699) U/L Total Creatine Kinase (35-230) U/L Troponin I ng/mL 25-OH Vitamin D Total 46.7 (30.0-100.0) NG/ML Procalcitonin 0.56 H (0.19-0.49) NG/ML Laboratory Results - last 24 hr 11/22/17 11/22/17 11/22/17 11:50 11:50 11:50 WBC RBC Hgb Hct MCV MCH MCHC RDW Plt Count MPV Gran % Lymph % (Auto) [place] % (Auto) Eos % (Auto) Baso % (Auto) Gran # Lymph # (Auto) [place] # (Auto) Eos # (Auto) Baso # (Auto) Neutrophils % (Manual) Band Neutrophils % Lymphocytes % (Manual) Monocytes % (Manual) Platelet Evaluation APTT 33.6 Sodium Potassium Chloride Carbon Dioxide Anion Gap BUN Creatinine Est GFR ( Amer) Est GFR (Non-Af Amer) POC Glucose (mg/dL) Random Glucose Calcium Phosphorus Magnesium Lactate Dehydrogenase Total Creatine Kinase Troponin I 25-OH Vitamin D Total 46.7 Procalcitonin 0.56 H 11/22/17 11/22/17 11/22/17 13:00 16:10 23:59 WBC RBC Hgb Hct MCV MCH MCHC RDW Plt Count MPV Gran % Lymph % (Auto) [place] % (Auto) Eos % (Auto) Baso % (Auto) Gran # Lymph # (Auto) [place] # (Auto) Eos # (Auto) Baso # (Auto) Neutrophils % (Manual) Band Neutrophils % Lymphocytes % (Manual) Monocytes % (Manual) Platelet Evaluation APTT Sodium 144 140 144 Potassium 6.0 H* 6.0 H* 6.4 H* Chloride 112 H 110 H 111 H Carbon Dioxide 16 L 20 L 24 Anion Gap 23 H 17 15 BUN 69 H 67 H 67 H Creatinine 3.0 H 2.9 H 2.9 H Est GFR ( Amer) 18 19 19 Est GFR (Non-Af Amer) 15 16 16 POC Glucose (mg/dL) Random Glucose 74 142 H 133 H Calcium 12.6 H* 11.8 H 11.2 H Phosphorus Magnesium Lactate Dehydrogenase Total Creatine Kinase Troponin I 25-OH Vitamin D Total Procalcitonin 11/22/17 11/23/17 11/23/17 23:59 04:44 07:00 WBC RBC Hgb Hct MCV MCH MCHC RDW Plt Count MPV Gran % Lymph % (Auto) [place] % (Auto) Eos % (Auto) Baso % (Auto) Gran # Lymph # (Auto) [place] # (Auto) Eos # (Auto) Baso # (Auto) Neutrophils % (Manual) Band Neutrophils % Lymphocytes % (Manual) Monocytes % (Manual) Platelet Evaluation APTT 95.1 H Sodium Potassium Chloride Carbon Dioxide Anion Gap BUN Creatinine Est GFR ( Amer) Est GFR (Non-Af Amer) POC Glucose (mg/dL) 268 H Random Glucose Calcium Phosphorus 3.5 Magnesium 2.3 H Lactate Dehydrogenase 602 Total Creatine Kinase 117 Troponin I 5.85 H* 25-OH Vitamin D Total Procalcitonin 11/23/17 11/23/17 11/23/17 07:00 07:00 07:30 WBC 19.1 H RBC 4.14 Hgb 11.6 L Hct 37.2 MCV 89.9 MCH 28.0 MCHC 31.2 RDW 15.9 H Plt Count 190 MPV 11.0 Gran % 87.6 H Lymph % (Auto) 4.9 L [place] % (Auto) 7.4 H Eos % (Auto) 0.0 L Baso % (Auto) 0.1 Gran # 16.78 H Lymph # (Auto) 0.9 L [place] # (Auto) 1.4 H Eos # (Auto) 0.0 Baso # (Auto) 0.02 Neutrophils % (Manual) 87 H Band Neutrophils % 4 H Lymphocytes % (Manual) 6 L Monocytes % (Manual) 3 Platelet Evaluation Normal APTT 44.2 H Sodium 145 Potassium 4.0 Chloride 114 H Carbon Dioxide 19 L Anion Gap 16 BUN 65 H Creatinine 2.6 H Est GFR ( Amer) 21 Est GFR (Non-Af Amer) 18 POC Glucose (mg/dL) Random Glucose 70 Calcium 10.7 H Phosphorus Magnesium Lactate Dehydrogenase Total Creatine Kinase Troponin I 25-OH Vitamin D Total Procalcitonin Fingerstick Blood Sugar Results: 133 Critical Care Progress Note - Nutrition Nutrition: Nutrition Category Date Time Status Dysphagia/Modified Consistency Diet [DIET] Diets 11/23/17 Breakfast Ordered Assessment/Plan - Assessment and Plan (Free Text) Assessment: 82 year old female with a PMH of HTN, previous iliac stents, CKD, previous carotid endarectetomy, previous endometrial CA s/p hysterectomy presents with NSTEMI. Patient will be continued on ASA, plavix, and heparin drip. Troponins elevated, cardiology is aware. Patient also being seen by nephrology, she was hyperkalemic. Plan: Neurological AAOx3 No deficits Cardiovascular NSTEMI ASA, plavix, and Heparin drip, metoprolol Likely conservative management at this time Maintain MAP >65 Hemodynamically stable Pulmonologic Maintain O2 greater than 90% No acute issues GI Renal diet Protonix Nephro Renal ultrasound and Renal artery ultrasound pending Replenish electrolytes as needed NS @ 100 Maintain euvolemia hyperkalemia resolved, continue to monitor Endo Maintain euglycemia Heme Afebrile, leukocytosis Maintain normothermia ID leukocytosis ID consulted, Karen, follow recs awaiting culture results <Yohannes Herrera - Last Filed: 11/23/17 11:56> CCU Objective - Vital Signs / Intake & Output Vital Signs (Last 4 hours): Vital Signs Pulse Resp BP Pulse Ox 11/23/17 10:52 75 133/58 L 11/23/17 10:50 78 133/58 L 11/23/17 10:20 87 26 H 99 11/23/17 10:15 71 23 76/35 L 96 11/23/17 10:10 72 21 96 11/23/17 10:00 78 18 109/45 L 99 11/23/17 09:50 72 21 96 11/23/17 09:45 73 22 85/38 L 97 11/23/17 09:40 74 21 96 11/23/17 09:30 79 19 112/42 L 97 11/23/17 09:20 89 21 98 11/23/17 09:15 85 22 131/97 H 98 11/23/17 09:10 82 18 99 11/23/17 09:00 85 33 H 138/68 97 11/23/17 08:50 85 22 98 11/23/17 08:46 84 23 150/69 99 11/23/17 08:40 89 23 97 11/23/17 08:30 83 16 135/66 98 11/23/17 08:20 84 24 98 11/23/17 08:15 83 22 119/60 97 11/23/17 08:10 83 19 98 11/23/17 08:01 90 25 H 160/73 H 98 11/23/17 08:00 70 20 99 Intake and Output (Last 8hrs): Intake & Output 11/22/17 11/23/17 11/23/17 22:59 06:59 14:59 Intake Total 1420 1630 Output Total 300 300 Balance 1120 1330 Weight 111 lb 6 oz Intake: IV 920 1430 Left Forearm 70 70 Left Hand 800 1300 Right Antecubital 50 Oral 500 200 Output: Urine 300 300 Urine, Voided 300 300 Other: # Bowel Movements 4 5 - Medications Active Medications: Active Medications Generic Name Dose Route Start Last Admin Trade Name Freq PRN Reason Stop Dose Admin Amlodipine Besylate 5 mg 11/22/17 10:00 11/23/17 10:52 Norvasc PO 5 mg DAILY KITTY Administration Aspirin 81 mg 11/22/17 10:00 11/23/17 10:52 Aspirin Chewable PO 81 mg DAILY KITTY Administration Atorvastatin Calcium 20 mg 11/22/17 17:00 11/22/17 17:54 Lipitor PO 20 mg DIN KITTY Administration Clonidine HCl 0.1 mg 11/22/17 10:00 11/23/17 10:50 Catapres PO 0.1 mg BID KITTY Administration Clopidogrel Bisulfate 75 mg 11/22/17 10:00 11/23/17 10:49 Plavix PO 75 mg DAILY KITTY Administration Sodium Chloride 1,000 mls @ 100 mls/hr 11/22/17 10:15 11/23/17 05:25 Sodium Chloride 0.9% IV 100 mls/hr .Q10H KITTY Administration Heparin Sodium/Sodium Chloride 25,000 units in 250 mls @ 7.562 mls/hr 17:02 11/23/17 01:45 Heparin 09710 Units/250ml 1/2 Normal Saline IV 13 units/kg/hr .Q24H KITTY 6.144 mls/hr Protocol Titration 16 UNITS/KG/HR Metoprolol Tartrate 25 mg 11/22/17 10:00 11/23/17 10:52 Lopressor PO 25 mg BID KITTY Administration Morphine Sulfate 2 mg 11/21/17 22:08 11/22/17 03:04 Morphine IVP 2 mg Q2H PRN Administration Pain, severe (8-10) Ondansetron HCl 4 mg 11/22/17 06:58 11/23/17 00:45 Zofran Inj IVP 4 mg Q4H PRN Administration Nausea/Vomiting Pantoprazole Sodium 40 mg 11/23/17 06:00 11/23/17 05:24 Protonix Ec Tab PO 40 mg 0600 KITTY Administration Timolol Maleate 1 drop 11/22/17 22:00 11/22/17 21:51 Timoptic 0.5% Ophth Soln OD 1 drop HS KITTY Administration - Patient Studies Lab Studies: Lab Studies 11/23/17 11/23/17 11/23/17 Range/Units 07:30 07:00 07:00 WBC 19.1 H (4.5-11.0) 10^3/ul RBC 4.14 (3.5-6.1) 10^6/uL Hgb 11.6 L (12.0-16.0) g/dL Hct 37.2 (36.0-48.0) % MCV 89.9 (80.0-105.0) fl MCH 28.0 (25.0-35.0) pg MCHC 31.2 (31.0-37.0) g/dl RDW 15.9 H (11.5-14.5) % Plt Count 190 (120.0-450.0) 10^3/uL MPV 11.0 (7.0-11.0) fl Gran % 87.6 H (50.0-68.0) % Lymph % (Auto) 4.9 L (22.0-35.0) % [place] % (Auto) 7.4 H (1.0-6.0) % Eos % (Auto) 0.0 L (1.5-5.0) % Baso % (Auto) 0.1 (0.0-3.0) % Gran # 16.78 H (1.4-6.5) Lymph # (Auto) 0.9 L (1.2-3.4) [place] # (Auto) 1.4 H (0.1-0.6) Eos # (Auto) 0.0 (0.0-0.7) Baso # (Auto) 0.02 (0.0-2.0) K/mm3 Neutrophils % (Manual) 87 H (50.0-70.0) % Band Neutrophils % 4 H (0-2) % Lymphocytes % (Manual) 6 L (22.0-35.0) % Monocytes % (Manual) 3 (1.0-6.0) % Platelet Evaluation Normal (NORMAL) APTT 44.2 H (25.1-36.5) Seconds Sodium 145 (132-148) mmol/L Potassium 4.0 (3.6-5.0) mmol/L Chloride 114 H (98-107) mmol/L Carbon Dioxide 19 L (21-33) mmol/L Anion Gap 16 (10-20) BUN 65 H (7-21) mg/dL Creatinine 2.6 H (0.7-1.2) mg/dl Est GFR ( Amer) 21 Est GFR (Non-Af Amer) 18 POC Glucose (mg/dL) (65-110) mg/dL Random Glucose 70 (70-110) mg/dL Calcium 10.7 H (8.4-10.5) mg/dL Phosphorus (2.5-4.5) mg/dL Magnesium (1.7-2.2) mg/dL Lactate Dehydrogenase (333-699) U/L Total Creatine Kinase (35-230) U/L Troponin I ng/mL 25-OH Vitamin D Total (30.0-100.0) NG/ML Procalcitonin (0.19-0.49) NG/ML 11/23/17 11/23/17 11/22/17 Range/Units 07:00 04:44 23:59 WBC (4.5-11.0) 10^3/ul RBC (3.5-6.1) 10^6/uL Hgb (12.0-16.0) g/dL Hct (36.0-48.0) % MCV (80.0-105.0) fl MCH (25.0-35.0) pg MCHC (31.0-37.0) g/dl RDW (11.5-14.5) % Plt Count (120.0-450.0) 10^3/uL MPV (7.0-11.0) fl Gran % (50.0-68.0) % Lymph % (Auto) (22.0-35.0) % [place] % (Auto) (1.0-6.0) % Eos % (Auto) (1.5-5.0) % Baso % (Auto) (0.0-3.0) % Gran # (1.4-6.5) Lymph # (Auto) (1.2-3.4) [place] # (Auto) (0.1-0.6) Eos # (Auto) (0.0-0.7) Baso # (Auto) (0.0-2.0) K/mm3 Neutrophils % (Manual) (50.0-70.0) % Band Neutrophils % (0-2) % Lymphocytes % (Manual) (22.0-35.0) % Monocytes % (Manual) (1.0-6.0) % Platelet Evaluation (NORMAL) APTT 95.1 H (25.1-36.5) Seconds Sodium (132-148) mmol/L Potassium (3.6-5.0) mmol/L Chloride (98-107) mmol/L Carbon Dioxide (21-33) mmol/L Anion Gap (10-20) BUN (7-21) mg/dL Creatinine (0.7-1.2) mg/dl Est GFR ( Amer) Est GFR (Non-Af Amer) POC Glucose (mg/dL) 268 H (65-110) mg/dL Random Glucose (70-110) mg/dL Calcium (8.4-10.5) mg/dL Phosphorus 3.5 (2.5-4.5) mg/dL Magnesium 2.3 H (1.7-2.2) mg/dL Lactate Dehydrogenase 602 (333-699) U/L Total Creatine Kinase 117 (35-230) U/L Troponin I 5.85 H* ng/mL 25-OH Vitamin D Total (30.0-100.0) NG/ML Procalcitonin (0.19-0.49) NG/ML 11/22/17 11/22/17 11/22/17 Range/Units 23:59 16:10 13:00 WBC (4.5-11.0) 10^3/ul RBC (3.5-6.1) 10^6/uL Hgb (12.0-16.0) g/dL Hct (36.0-48.0) % MCV (80.0-105.0) fl MCH (25.0-35.0) pg MCHC (31.0-37.0) g/dl RDW (11.5-14.5) % Plt Count (120.0-450.0) 10^3/uL MPV (7.0-11.0) fl Gran % (50.0-68.0) % Lymph % (Auto) (22.0-35.0) % [place] % (Auto) (1.0-6.0) % Eos % (Auto) (1.5-5.0) % Baso % (Auto) (0.0-3.0) % Gran # (1.4-6.5) Lymph # (Auto) (1.2-3.4) [place] # (Auto) (0.1-0.6) Eos # (Auto) (0.0-0.7) Baso # (Auto) (0.0-2.0) K/mm3 Neutrophils % (Manual) (50.0-70.0) % Band Neutrophils % (0-2) % Lymphocytes % (Manual) (22.0-35.0) % Monocytes % (Manual) (1.0-6.0) % Platelet Evaluation (NORMAL) APTT (25.1-36.5) Seconds Sodium 144 140 144 (132-148) mmol/L Potassium 6.4 H* 6.0 H* 6.0 H* (3.6-5.0) mmol/L Chloride 111 H 110 H 112 H (98-107) mmol/L Carbon Dioxide 24 20 L 16 L (21-33) mmol/L Anion Gap 15 17 23 H (10-20) BUN 67 H 67 H 69 H (7-21) mg/dL Creatinine 2.9 H 2.9 H 3.0 H (0.7-1.2) mg/dl Est GFR ( Amer) 19 19 18 Est GFR (Non-Af Amer) 16 16 15 POC Glucose (mg/dL) (65-110) mg/dL Random Glucose 133 H 142 H 74 (70-110) mg/dL Calcium 11.2 H 11.8 H 12.6 H* (8.4-10.5) mg/dL Phosphorus (2.5-4.5) mg/dL Magnesium (1.7-2.2) mg/dL Lactate Dehydrogenase (333-699) U/L Total Creatine Kinase (35-230) U/L Troponin I ng/mL 25-OH Vitamin D Total (30.0-100.0) NG/ML Procalcitonin (0.19-0.49) NG/ML 11/22/17 11/22/17 11/22/17 Range/Units 11:50 11:50 11:50 WBC (4.5-11.0) 10^3/ul RBC (3.5-6.1) 10^6/uL Hgb (12.0-16.0) g/dL Hct (36.0-48.0) % MCV (80.0-105.0) fl MCH (25.0-35.0) pg MCHC (31.0-37.0) g/dl RDW (11.5-14.5) % Plt Count (120.0-450.0) 10^3/uL MPV (7.0-11.0) fl Gran % (50.0-68.0) % Lymph % (Auto) (22.0-35.0) % [place] % (Auto) (1.0-6.0) % Eos % (Auto) (1.5-5.0) % Baso % (Auto) (0.0-3.0) % Gran # (1.4-6.5) Lymph # (Auto) (1.2-3.4) [place] # (Auto) (0.1-0.6) Eos # (Auto) (0.0-0.7) Baso # (Auto) (0.0-2.0) K/mm3 Neutrophils % (Manual) (50.0-70.0) % Band Neutrophils % (0-2) % Lymphocytes % (Manual) (22.0-35.0) % Monocytes % (Manual) (1.0-6.0) % Platelet Evaluation (NORMAL) APTT 33.6 (25.1-36.5) Seconds Sodium (132-148) mmol/L Potassium (3.6-5.0) mmol/L Chloride (98-107) mmol/L Carbon Dioxide (21-33) mmol/L Anion Gap (10-20) BUN (7-21) mg/dL Creatinine (0.7-1.2) mg/dl Est GFR ( Amer) Est GFR (Non-Af Amer) POC Glucose (mg/dL) (65-110) mg/dL Random Glucose (70-110) mg/dL Calcium (8.4-10.5) mg/dL Phosphorus (2.5-4.5) mg/dL Magnesium (1.7-2.2) mg/dL Lactate Dehydrogenase (333-699) U/L Total Creatine Kinase (35-230) U/L Troponin I ng/mL 25-OH Vitamin D Total 46.7 (30.0-100.0) NG/ML Procalcitonin 0.56 H (0.19-0.49) NG/ML Laboratory Results - last 24 hr 11/22/17 11/22/17 11/22/17 11:50 11:50 11:50 WBC RBC Hgb Hct MCV MCH MCHC RDW Plt Count MPV Gran % Lymph % (Auto) [place] % (Auto) Eos % (Auto) Baso % (Auto) Gran # Lymph # (Auto) [place] # (Auto) Eos # (Auto) Baso # (Auto) Neutrophils % (Manual) Band Neutrophils % Lymphocytes % (Manual) Monocytes % (Manual) Platelet Evaluation APTT 33.6 Sodium Potassium Chloride Carbon Dioxide Anion Gap BUN Creatinine Est GFR ( Amer) Est GFR (Non-Af Amer) POC Glucose (mg/dL) Random Glucose Calcium Phosphorus Magnesium Lactate Dehydrogenase Total Creatine Kinase Troponin I 25-OH Vitamin D Total 46.7 Procalcitonin 0.56 H 11/22/17 11/22/17 11/22/17 13:00 16:10 23:59 WBC RBC Hgb Hct MCV MCH MCHC RDW Plt Count MPV Gran % Lymph % (Auto) [place] % (Auto) Eos % (Auto) Baso % (Auto) Gran # Lymph # (Auto) [place] # (Auto) Eos # (Auto) Baso # (Auto) Neutrophils % (Manual) Band Neutrophils % Lymphocytes % (Manual) Monocytes % (Manual) Platelet Evaluation APTT Sodium 144 140 144 Potassium 6.0 H* 6.0 H* 6.4 H* Chloride 112 H 110 H 111 H Carbon Dioxide 16 L 20 L 24 Anion Gap 23 H 17 15 BUN 69 H 67 H 67 H Creatinine 3.0 H 2.9 H 2.9 H Est GFR ( Amer) 18 19 19 Est GFR (Non-Af Amer) 15 16 16 POC Glucose (mg/dL) Random Glucose 74 142 H 133 H Calcium 12.6 H* 11.8 H 11.2 H Phosphorus Magnesium Lactate Dehydrogenase Total Creatine Kinase Troponin I 25-OH Vitamin D Total Procalcitonin 11/22/17 11/23/17 11/23/17 23:59 04:44 07:00 WBC RBC Hgb Hct MCV MCH MCHC RDW Plt Count MPV Gran % Lymph % (Auto) [place] % (Auto) Eos % (Auto) Baso % (Auto) Gran # Lymph # (Auto) [place] # (Auto) Eos # (Auto) Baso # (Auto) Neutrophils % (Manual) Band Neutrophils % Lymphocytes % (Manual) Monocytes % (Manual) Platelet Evaluation APTT 95.1 H Sodium Potassium Chloride Carbon Dioxide Anion Gap BUN Creatinine Est GFR ( Amer) Est GFR (Non-Af Amer) POC Glucose (mg/dL) 268 H Random Glucose Calcium Phosphorus 3.5 Magnesium 2.3 H Lactate Dehydrogenase 602 Total Creatine Kinase 117 Troponin I 5.85 H* 25-OH Vitamin D Total Procalcitonin 11/23/17 11/23/17 11/23/17 07:00 07:00 07:30 WBC 19.1 H RBC 4.14 Hgb 11.6 L Hct 37.2 MCV 89.9 MCH 28.0 MCHC 31.2 RDW 15.9 H Plt Count 190 MPV 11.0 Gran % 87.6 H Lymph % (Auto) 4.9 L [place] % (Auto) 7.4 H Eos % (Auto) 0.0 L Baso % (Auto) 0.1 Gran # 16.78 H Lymph # (Auto) 0.9 L [place] # (Auto) 1.4 H Eos # (Auto) 0.0 Baso # (Auto) 0.02 Neutrophils % (Manual) 87 H Band Neutrophils % 4 H Lymphocytes % (Manual) 6 L Monocytes % (Manual) 3 Platelet Evaluation Normal APTT 44.2 H Sodium 145 Potassium 4.0 Chloride 114 H Carbon Dioxide 19 L Anion Gap 16 BUN 65 H Creatinine 2.6 H Est GFR ( Amer) 21 Est GFR (Non-Af Amer) 18 POC Glucose (mg/dL) Random Glucose 70 Calcium 10.7 H Phosphorus Magnesium Lactate Dehydrogenase Total Creatine Kinase Troponin I 25-OH Vitamin D Total Procalcitonin Critical Care Progress Note - Nutrition Nutrition: Nutrition Category Date Time Status Dysphagia/Modified Consistency Diet [DIET] Diets 11/23/17 Breakfast Ordered Assessment/Plan - Assessment and Plan (Free Text) Plan: Patient seen and examined on rounds with resident, agree with note with following additions/exceptions: Patient is 82yo female with PMHx of HTN, iliac stents, CKD, CEA, endometrial CA s/p hysterectomy, DNR/DNI, presented with chest pain, NSTEMI, on heparin drip, and acute renal failure, unclear baseline renal function, hyperkalemia. Todays labs with significant improvement in hyperkalemia, K 4.0. Cardiology and renal following, patient refusing HD. Will manage medically. ARF, resolving Hyperkalemia, resolved NSTEMI CP HTN Recommend: - supp o2 as needed - panculture, follow up BCx, UCx, Procal, follow up ID - BP control - ASA, Plavix, Statin, BB - NTG PRN - Heparin drip - Cardiology follow up - Renal follow up - repeat BMP - palliative care consult - GI ppx - DVT ppx - stable, transfer to telemetry - DNR/DNI
--- NOTE | 2017-11-23 12:36 | CP.PCM.PN ---
Subjective - Date & Time of Evaluation Date of Evaluation: 11/23/17 Time of Evaluation: 09:30 - Subjective Subjective: Comfortable in bed, no fevers, chest pain is better. Objective - Vital Signs/Intake and Output Vital Signs (last 24 hours): Temp Pulse Resp BP Pulse Ox 98.2 F 73 23 122/57 L 97 11/23/17 06:00 11/23/17 06:50 11/23/17 06:50 11/23/17 06:45 11/23/17 06:50 Intake and Output: 11/23/17 11/23/17 06:59 18:59 Intake Total 1630 Output Total 300 Balance 1330 - Medications Medications: Current Medications Amlodipine Besylate (Norvasc) 5 mg PO DAILY [facility] Last Admin: 11/22/17 09:13 Dose: 5 mg Aspirin (Aspirin Chewable) 81 mg PO DAILY [facility] Last Admin: 11/22/17 09:13 Dose: 81 mg Atorvastatin Calcium (Lipitor) 20 mg PO DIN [facility] Last Admin: 11/22/17 17:54 Dose: 20 mg Clonidine HCl (Catapres) 0.1 mg PO BID [facility] Last Admin: 11/22/17 17:51 Dose: 0.1 mg Clopidogrel Bisulfate (Plavix) 75 mg PO DAILY [facility] Last Admin: 11/22/17 09:13 Dose: 75 mg Sodium Chloride (Sodium Chloride 0.9%) 1,000 mls @ 100 mls/hr IV .Q10H [facility] Last Admin: 11/23/17 05:25 Dose: 100 mls/hr Heparin Sodium/Sodium Chloride (Heparin 91088 Units/250ml 1/2 Normal Saline) 25 ,000 units in 250 mls @ 7.562 mls/hr IV .Q24H [facility]; 16 UNITS/KG/HR PRN Reason: Protocol Last Titration: 11/23/17 01:45 Dose: 13 units/kg/hr, 6.144 mls/hr Metoprolol Tartrate (Lopressor) 25 mg PO BID [facility] Last Admin: 11/22/17 17:54 Dose: 25 mg Morphine Sulfate (Morphine) 2 mg IVP Q2H PRN PRN Reason: Pain, severe (8-10) Last Admin: 11/22/17 03:04 Dose: 2 mg Ondansetron HCl (Zofran Inj) 4 mg IVP Q4H PRN PRN Reason: Nausea/Vomiting Last Admin: 11/23/17 00:45 Dose: 4 mg Pantoprazole Sodium (Protonix Ec Tab) 40 mg PO 0600 [facility] Last Admin: 11/23/17 05:24 Dose: 40 mg Timolol Maleate (Timoptic 0.5% Ophth Soln) 1 drop OD HS [facility] Last Admin: 11/22/17 21:51 Dose: 1 drop - Labs Labs: 11/23/17 07:00 11/23/17 07:30 PT 10.6 SECONDS (9.4-12.5) 11/21/17 19:34 INR 0.93 (0.93-1.08) 11/21/17 19:34 APTT 44.2 Seconds (25.1-36.5) H 11/23/17 07:00 - Constitutional Appears: Chronically Ill - Head Exam Head Exam: NORMAL INSPECTION - ENT Exam ENT Exam: Mucous Membranes Moist - Neck Exam Neck Exam: absent: Meningismus - Respiratory Exam Respiratory Exam: Decreased Breath Sounds - Cardiovascular Exam Cardiovascular Exam: +S1, +S2 - GI/Abdominal Exam GI & Abdominal Exam: Soft. absent: Tenderness Assessment and Plan - Assessment and Plan (Free Text) Plan: Assessment Systemic inflammatory response syndrome probably due to acute NSTEMI chronic renal failure HTN S/P carotid endearterectomy endometrial CAD S/P hysterectomy Plan Follow up blood cx, urine cx, PCT is elevated but patient has renal failure, CXR does not show infiltrates will continue to monitor clinically
[2017-11-23] MEDS: Heparin25000 units/250ml 1/2NS 25,000 UNITS/250 ML BAG IV SCH (16:00)
--- NOTE | 2017-11-23 17:01 | US ---
PROCEDURE: Ultrasound of the Kidneys HISTORY: Worsening renal function COMPARISON: None available. TECHNIQUE: Sonogram of the kidneys. FINDINGS: RIGHT KIDNEY: Measures: 7.4 cm. Small size. Diffusely increased renal cortical echogenicity. Mid right renal cyst, 7 mm. Lower pole right renal cyst, 1.7 cm. Additional tiny cysts are identified. No calculus or hydronephrosis. No solid mass. LEFT KIDNEY: Measures: 9.5 x 4.5 x 3.9 cm. Normal cortical thickness and echogenicity. Multiple simple cysts, largest upper pole, 2.9 x 3.0 x 3.5 cm. No solid mass. No calculus or hydronephrosis. OTHER FINDINGS: None. IMPRESSION: Atrophic echogenic right kidney. Multiple bilateral renal cysts. No calculus or hydronephrosis.
--- NOTE | 2017-11-23 18:00 | US ---
PROCEDURE: Bilateral renal artery duplex ultrasound. CLINICAL HISTORY: Renal artery stenosis. Uncontrolled hypertension. Evaluate for renovascular hypertension. PHYSICIAN(S): Chavez Gusman M.D. TECHNIQUE: Duplex sonography with color-flow Doppler was used to evaluate the visualized segments of the main renal arteries. The patient was evaluated in a fasting state. Imaging in a supine and decubitus position was performed. Limited evaluation of the arcuate waveforms and resistive indices were performed. FINDINGS: The right kidney is atrophic with echogenic parenchyma. No hydronephrosis is present. The right renal artery is patent and small. The left kidney is normal in size measuring 9.7 cm. The renal parenchyma is normal in thickness. There is a 3.3 cm simple cyst. No solid renal masses or obvious calcifications are present. The left renal artery is not well seen due to tortuosity. The peak systolic velocity in the main left renal artery is 98 cm/second. IMPRESSION: 1. Atrophic right kidney 2. Normal left kidney. Visualization of the left main renal artery is limited due to tortuous vessels. No obvious stenosis is seen.
[2017-11-24] MEDS: Sodium Chloride 0.9% 1,000 ML IV SCH (00:30)
[2017-11-24] MEDS: Pantoprazole 40 mg EC Tab PO SCH (05:28)
[2017-11-24 07:17] LABS: BASO # 0.01 K/mm3 (0.0-2.0); BASO % 0.2 % (0.0-3.0); EOS % 0.5 % (1.5-5.0); GRAN # 4.06 (1.4-6.5); GRAN % 70.6 % (50.0-68.0); HEMOGLOBIN 8.3 g/dL (12.0-16.0); LYMPH # 1.1 (1.2-3.4); LYMPH % 19.7 % (22.0-35.0); MEAN CELL VOLUME 89.5 fl (80.0-105.0); MEAN CORPUSCULAR HEMOGLOBIN 28.1 pg (25.0-35.0); MEAN CORPUSCULAR HGB CONC 31.4 g/dl (31.0-37.0); MEAN PLATELET VOLUME 11.1 fl (7.0-11.0); MONO # 0.5 (0.1-0.6); RBC 2.95 10^6/uL (3.5-6.1); WHITE BLOOD COUNT 5.8 10^3/ul (4.5-11.0)
--- NOTE | 2017-11-24 07:39 | CP.PCM.PN ---
Subjective - Date & Time of Evaluation Date of Evaluation: 11/24/17 Time of Evaluation: 07:00 - Subjective Subjective: Stable on 2R now.No CP or SOB. V/S noted. RSR/SB PE: Lungs: clear Cor.: S1S2 Abd.: soft Ext.: no edema Neuro.: alert Labs 11/23 noted: K+= 4.0, WBC = 19,100, PTT = 57, Cr.= 2.6, trop = 5.85 ECG 11/22: RSR, septal DC, LVH by voltage Echo done. Will read. Prelim > NL LV fx.. See full report. BC X2 NG at 24 hrs. Objective - Vital Signs/Intake and Output Vital Signs (last 24 hours): Temp Pulse Resp BP Pulse Ox 97.9 F 54 L 18 103/52 L 99 11/24/17 06:00 11/24/17 06:00 11/24/17 06:00 11/24/17 06:00 11/24/17 06:00 Intake and Output: 11/24/17 11/24/17 06:59 18:59 Intake Total 888 Output Total 700 Balance 188 - Medications Medications: Current Medications Amlodipine Besylate (Norvasc) 5 mg PO DAILY [facility] Last Admin: 11/23/17 10:52 Dose: 5 mg Aspirin (Aspirin Chewable) 81 mg PO DAILY [facility] Last Admin: 11/23/17 10:52 Dose: 81 mg Atorvastatin Calcium (Lipitor) 20 mg PO DIN [facility] Last Admin: 11/23/17 18:43 Dose: 20 mg Clonidine HCl (Catapres) 0.1 mg PO BID [facility] Last Admin: 11/23/17 19:09 Dose: 0.1 mg Clopidogrel Bisulfate (Plavix) 75 mg PO DAILY [facility] Last Admin: 11/23/17 10:49 Dose: 75 mg Sodium Chloride (Sodium Chloride 0.9%) 1,000 mls @ 100 mls/hr IV .Q10H [facility] Last Admin: 11/24/17 00:30 Dose: 100 mls/hr Heparin Sodium/Sodium Chloride (Heparin 37301 Units/250ml 1/2 Normal Saline) 25 ,000 units in 250 mls @ 7.562 mls/hr IV .Q24H [facility]; 16 UNITS/KG/HR PRN Reason: Protocol Last Admin: 11/23/17 16:00 Dose: 15 units/kg/hr, 7.09 mls/hr Metoprolol Tartrate (Lopressor) 25 mg PO BID [facility] Last Admin: 11/23/17 19:06 Dose: Not Given Morphine Sulfate (Morphine) 2 mg IVP Q2H PRN PRN Reason: Pain, severe (8-10) Last Admin: 11/22/17 03:04 Dose: 2 mg Ondansetron HCl (Zofran Inj) 4 mg IVP Q4H PRN PRN Reason: Nausea/Vomiting Last Admin: 11/23/17 00:45 Dose: 4 mg Pantoprazole Sodium (Protonix Ec Tab) 40 mg PO 0600 [facility] Last Admin: 11/24/17 05:28 Dose: 40 mg Timolol Maleate (Timoptic 0.5% Oph Soln) 1 drop OD HS [facility] Last Admin: 11/23/17 22:00 Dose: 1 drop - Labs Labs: 11/23/17 07:00 11/23/17 07:30 PT 10.6 SECONDS (9.4-12.5) 11/21/17 19:34 INR 0.93 (0.93-1.08) 11/21/17 19:34 APTT 57.0 Seconds (25.1-36.5) H 11/24/17 06:00 Assessment and Plan - Assessment and Plan (Free Text) Assessment: Chest and back pain Acute DC by trops, but NL LV fx. on echo Hyperkalemia, resolved Acute on chronic renal insufficiency PAD/Bilateral iliac stents HBP CVD/CEA COPD/Former Smoker Glaucoma H/O hysterectomy for endometrial cancer DNR/DNI status Plan: As per Renal, Drs. Moody, LANI. D/C IV heparin > SQ heparin D/C IV fluids Continue ASA, Plavix, metoprolol, atorvastatin, amlodipine Monitor: I/O. K+, labs, sats., renal fx., etc. OOB as chloe/PT Will follow
[2017-11-24 07:40] LABS: CALCIUM 9.6 mg/dL (8.4-10.5)
--- NOTE | 2017-11-24 09:22 | CP.PCM.PN ---
Subjective - Date & Time of Evaluation Date of Evaluation: 11/24/17 Time of Evaluation: 08:15 - Subjective Subjective: Patient is seen this morning. She has less pain this morning. She denies chest pain, and abdominal pain. She does complain of some back pain. Objective - Vital Signs/Intake and Output Vital Signs (last 24 hours): Temp Pulse Resp BP Pulse Ox 97.9 F 54 L 18 103/52 L 99 11/24/17 06:00 11/24/17 06:00 11/24/17 06:00 11/24/17 06:00 11/24/17 06:00 Intake and Output: 11/24/17 11/24/17 06:59 18:59 Intake Total 888 Output Total 700 Balance 188 - Medications Medications: Current Medications Amlodipine Besylate (Norvasc) 5 mg PO DAILY [facility] Last Admin: 11/23/17 10:52 Dose: 5 mg Aspirin (Aspirin Chewable) 81 mg PO DAILY [facility] Last Admin: 11/23/17 10:52 Dose: 81 mg Atorvastatin Calcium (Lipitor) 20 mg PO DIN [facility] Last Admin: 11/23/17 18:43 Dose: 20 mg Clonidine HCl (Catapres) 0.1 mg PO BID [facility] Last Admin: 11/23/17 19:09 Dose: 0.1 mg Clopidogrel Bisulfate (Plavix) 75 mg PO DAILY [facility] Last Admin: 11/23/17 10:49 Dose: 75 mg Heparin Sodium (Porcine) (Heparin) 5,000 units SC Q8H [facility] PRN Reason: Protocol Metoprolol Tartrate (Lopressor) 25 mg PO BID [facility] Last Admin: 11/23/17 19:06 Dose: Not Given Morphine Sulfate (Morphine) 2 mg IVP Q2H PRN PRN Reason: Pain, severe (8-10) Last Admin: 11/22/17 03:04 Dose: 2 mg Ondansetron HCl (Zofran Inj) 4 mg IVP Q4H PRN PRN Reason: Nausea/Vomiting Last Admin: 11/23/17 00:45 Dose: 4 mg Pantoprazole Sodium (Protonix Ec Tab) 40 mg PO 0600 [facility] Last Admin: 11/24/17 05:28 Dose: 40 mg Timolol Maleate (Timoptic 0.5% Ophth Soln) 1 drop OD HS [facility] Last Admin: 11/23/17 22:00 Dose: 1 drop - Labs Labs: 11/24/17 06:00 11/24/17 06:00 PT 10.6 SECONDS (9.4-12.5) 11/21/17 19:34 INR 0.93 (0.93-1.08) 11/21/17 19:34 APTT 57.0 Seconds (25.1-36.5) H 11/24/17 06:00 - Constitutional Appears: No Acute Distress - Head Exam Head Exam: ATRAUMATIC, NORMOCEPHALIC - Respiratory Exam Respiratory Exam: Clear to Ausculation Bilateral, NORMAL BREATHING PATTERN - Cardiovascular Exam Cardiovascular Exam: REGULAR RHYTHM, +S1, +S2 - GI/Abdominal Exam GI & Abdominal Exam: Soft, Normal Bowel Sounds. absent: Tenderness - Neurological Exam Neurological Exam: Alert, Awake, Oriented x3 Assessment and Plan - Assessment and Plan (Free Text) Assessment: NSTEMI? Acute on chronic kidney disease HTN Anemia Plan: Patient is improving. She is off the heparin drip. continue ASA, plavix, BB and statin. Troponins were elevated but this could have been secondary to increased renal function. Potassium is now normalized. BUN and creatinine are also trending downward.
--- NOTE | 2017-11-24 09:41 | CARD ---
APPROVED REPORT EXAM: Two-dimensional and M-mode echocardiogram with Doppler and color Doppler. Other Information Quality : FairRhythm : INDICATION Non STEMI 2D DIMENSIONS Left Atrium (2D)4.4 (1.6-4.0cm)IVSd1.0 (0.7-1.1cm) LVDd5.1 (3.9-5.9cm)LVOT Diameter1.8 (1.8-2.4cm) PWd1.1 (0.7-1.1cm)LVDs4.0 (2.5-4.0cm) FS (%) 20.0 %LVEF (%)40.7 (>50%) M-Mode DIMENSIONS Aortic Root3.20 (2.2-3.7cm)Aortic Cusp Exc.1.20 (1.5-2.0cm) Aortic Valve AoV Peak Vrdkmjtp662.0cm/sAoV VTI45.9cmAO Peak GR.32mmHg LVOT Peak Vwpqjqdk961.0cm/sLVOT VTI28.10cmAO Mean GR.12mmHg SKYLA (VMAX)1.54gy1TGT (VTI)1.09fx1IE P 1/2 [id number] Mitral Valve MV E Mumogdft26.8cm/sMV A Ckpzmryo883.0cm/sE/A ratio0.7 TDI Lateral E' Peak V7.70cm/sMedial E' Peak V5.46cm/sE/Lateral E'11.1 E/Medial E'15.7 Pulmonary Valve PV Peak Oxfrykzw327.0cm/sPV Peak Grad.6mmHg Tricuspid Valve TR Peak Sqginlev869kd/sRAP YHJIYEVD63kqJwGF Peak Gr.25mmHg [id number] LEFT VENTRICLE The left ventricle is normal size. There is normal left ventricular wall thickness. Left ventricle systolic function is mildly impaired. The Ejection Fraction is 40-45%. There is mild global hypokinesis. RIGHT VENTRICLE The right ventricle is normal size. ATRIA The left atrium is mildly dilated. The right atrium size is normal. The interatrial septum is intact with no evidence for an atrial septal defect. AORTIC VALVE The aortic valve is mildly to moderately calcified. There is mild aortic regurgitation. MITRAL VALVE The mitral valve is moderately thickened but opens well. Mitral regurgitation is trace to mild. TRICUSPID VALVE The tricuspid valve is normal in structure. There is trace to mild tricuspid regurgitation. PULMONIC VALVE The pulmonic valve is not well visualized. GREAT VESSELS The aortic root is normal in size. PERICARDIAL EFFUSION There is no pericardial effusion. <Conclusion> The left ventricle is normal size. There is normal left ventricular wall thickness. Left ventricle systolic function is mildly impaired. The Ejection Fraction is 40-45%. There is mild global hypokinesis. The aortic valve is mildly to moderately calcified. Aortic sclerosis vs. mild . There is mild aortic regurgitation. There is trace to mild tricuspid regurgitation. Mitral regurgitation is trace to mild.
--- NOTE | 2017-11-24 14:08 | PN ---
DATE: SUBJECTIVE: The patient was transferred out of the ICU. She is currently comfortable on Telemetry. No chest pains. Her BUN and creatinine are trending lower, but above her baseline levels. We were able to obtain information from Dr. Davis. Her baseline creatinine is in the upper 1 range. MEDICATIONS: Medication list reviewed. The patient is currently on aspirin, clonidine, heparin, Lipitor, Lopressor, p.r.n. morphine, Norvasc, Plavix, Protonix, Timoptic and Zofran p.r.n. OBJECTIVE INTAKE/OUTPUT: Intake 2598, output 900. VITAL SIGNS: Blood pressure 103/52, temperature 97.9, pulse of 54, the respiratory rate of 18, pulse ox is 99%. HEENT: Shows her to be normocephalic and atraumatic. Conjunctivae are pale. Sclerae nonicteric. NECK: Supple. No neck vein distention. Status post left carotid endarterectomy scar. CHEST: Clear to auscultation and percussion. No rales, rhonchi or wheezing. CARDIOVASCULAR: Shows a regular rate and rhythm without audible murmurs, rubs or gallops. ABDOMEN: Soft. Bowel sounds normal. No rebound, guarding or masses. EXTREMITIES: Show no lower extremity edema. Distal lower extremity pulses are 1 to 2+ bilateral. LABORATORY DATA AND IMAGING: CBC: White blood cell count today down to 5.8, hemoglobin is 8.3 with a platelet count of 119,000. Chemistries show sodium of 140, potassium is down to 4.6. Chloride is 114. CO2 was 21. BUN is 56 with a creatinine of 2.3. Again, her baseline BUN is in the 17-18 range from late last year. Glucose is 85. Calcium is down from 11.8 to 9.6. Phosphorus is mildly elevated at 4.7. Magnesium is 2.1. Troponins remain elevated. Vitamin D level was 47. PTH level was elevated to 176. Albumin level was 3.7. IMAGING STUDIES: Renal ultrasound shows an atrophic right kidney with left renal cyst. Renal artery Doppler study shows no gross evidence for renal artery stenosis in her left kidney. ASSESSMENT 1. Acute renal failure superimposed on chronic kidney disease stage III. The patient's baseline creatinine is in the upper 1 range. The patient presented with an acute myocardial infarction and acute renal failure, contributing factors might have been diuretic therapy and angiotensin receptor rosa therapy. These have been discontinued. Perhaps, the patient had renal artery stenosis for an atrophic right kidney. The left kidney does not show any significant renal artery stenosis. The patient is aware of the fact that her kidney function has declined from her previous values back in the fall of 2017. 2. Status post hyperkalemia. Potassium level has improved. The patient will remain on a low-potassium diet, renal diet, she will avoid ALIYAH inhibitors and angiotensin receptor blockers and we will have her permanently discontinue potassium-sparing diuretic therapy. 3. History of hypertension. Blood pressure control is acceptable on current medications. The patient may continue calcium channel rosa therapy along with clonidine. 4. History of peripheral vascular disease, history of iliac artery stent placement. History of carotid endarterectomy. These appear to be stable. 5. History of secondary hyperparathyroidism. The patient may start binder therapy. In light of her mild elevation of calcium level on admission, I will use a non-calcium containing phosphorus binder. 6. Hyperlipidemia. The patient will continue statin therapy in light of her history of severe peripheral vascular disease. 7. History of acute myocardial infarction. The patient is being followed by Dr. Mariano. Suggest conservative followup. Echocardiogram was done, results of this are pending. 8. DNR/DNI noted as per the patient's living will and her request. PLAN 1. I discussed with the patient the results of her renal ultrasound and renal artery Doppler study. 2. I reassured the patient that there are no plans for any dialysis therapy and we hope that her BUN and creatinine continue to trend downward. Her BUN is down from 74 to 56, her creatinine is down from 3 to 2.3. Again, her baseline creatinine is in the upper 1 range. 3. Continue present blood pressure medication therapy without angiotensin receptor rosa or ALIYAH inhibition. 4. Continue to follow the patient on Telemetry. 5. Continue to monitor labs on a frequent basis during the hospitalization. Byron Bonilla MD MTDRona
[2017-11-24 16:22] LABS: BASO # 0.02 K/mm3 (0.0-2.0); BASO % 0.3 % (0.0-3.0); EOS % 0.5 % (1.5-5.0); GRAN # 5.8 (1.4-6.5); GRAN % 79.4 % (50.0-68.0); HEMOGLOBIN 9.8 g/dL (12.0-16.0); LYMPH # 0.9 (1.2-3.4); LYMPH % 12.3 % (22.0-35.0); MEAN CELL VOLUME 89.5 fl (80.0-105.0); MEAN CORPUSCULAR HEMOGLOBIN 27.8 pg (25.0-35.0); MEAN CORPUSCULAR HGB CONC 31.1 g/dl (31.0-37.0); MEAN PLATELET VOLUME 11.3 fl (7.0-11.0); MONO # 0.6 (0.1-0.6); MONO % 7.5 % (1.0-6.0); RBC 3.52 10^6/uL (3.5-6.1); WHITE BLOOD COUNT 7.3 10^3/ul (4.5-11.0)
--- NOTE | 2017-11-24 19:26 | PN ---
DATE: 11/24/2017 SUBJECTIVE: The patient is seen in room 263, bed 1, earlier today. No fevers and no chills, comfortable. PHYSICAL EXAMINATION: VITAL SIGNS: Temperature is 97, blood pressure is 113/50, respiratory rate of 18, heart rate of 53. HEENT: Unremarkable. NECK: Supple. LUNGS: Decreased breath sounds. HEART: Normal S1, S2. ABDOMEN: Soft, nontender. LABORATORY EXAMINATION: Reveals a white count of 5.8 this morning, hemoglobin of 8, and platelets of 119. Chemistries reveal a BUN of 56, creatinine of 2.3. Troponin is 5.8. Urinalysis is noted. Microbiology reveals the blood cultures are no growth and urine cultures are no growth. The echo is reviewed . ASSESSMENT AND PLAN: An 82-year-old female seen earlier this morning in 263, bed 1 with systemic inflammatory response syndrome with acute non-ST elevation myocardial infarction, chronic renal failure and hypertension, status post carotid endarterectomy, endometrial coronary artery disease, status post hysterectomy. Cultures negative. Currently off antibiotics, afebrile, normal white count. The patient is at risk for developing nosocomial infections. Manuel Espinosa MD
[2017-11-25] MEDS: Pantoprazole 40 mg EC Tab PO SCH (05:07)
[2017-11-25] MEDS: Morphine 2 mg/ml ISec IVP PRN (05:12)
--- NOTE | 2017-11-25 06:14 | CP.PCM.PN ---
Subjective - Date & Time of Evaluation Date of Evaluation: 11/25/17 Time of Evaluation: 05:35 - Subjective Subjective: pt is c/o cp and back pain . pt apers in mild sob. and anxious. pt was given morphine by nurse but no improvement . stat s/l nitro was given pt improved . Objective - Vital Signs/Intake and Output Vital Signs (last 24 hours): Temp Pulse Resp BP Pulse Ox 98.3 F 72 18 138/65 93 L 11/25/17 00:01 11/25/17 05:53 11/25/17 00:01 11/25/17 05:53 11/25/17 05:53 Intake and Output: 11/24/17 11/25/17 18:59 06:59 Intake Total 360 80 Output Total 300 0 Balance 60 80 - Medications Medications: Current Medications Amlodipine Besylate (Norvasc) 5 mg PO DAILY [facility] Last Admin: 11/24/17 09:47 Dose: 5 mg Aspirin (Aspirin Chewable) 81 mg PO DAILY [facility] Last Admin: 11/24/17 09:48 Dose: 81 mg Atorvastatin Calcium (Lipitor) 20 mg PO DIN [facility] Last Admin: 11/24/17 17:32 Dose: 20 mg Clonidine HCl (Catapres) 0.1 mg PO BID [facility] Last Admin: 11/24/17 17:32 Dose: 0.1 mg Clopidogrel Bisulfate (Plavix) 75 mg PO DAILY [facility] Last Admin: 11/24/17 09:47 Dose: 75 mg Heparin Sodium (Porcine) (Heparin) 5,000 units SC Q8H [facility] PRN Reason: Protocol Last Admin: 11/25/17 01:33 Dose: 5,000 units Metoprolol Tartrate (Lopressor) 25 mg PO BID [facility] Last Admin: 11/24/17 17:32 Dose: 25 mg Morphine Sulfate (Morphine) 2 mg IVP Q2H PRN PRN Reason: Pain, severe (8-10) Last Admin: 11/25/17 05:12 Dose: 2 mg Ondansetron HCl (Zofran Inj) 4 mg IVP Q4H PRN PRN Reason: Nausea/Vomiting Last Admin: 11/23/17 00:45 Dose: 4 mg Pantoprazole Sodium (Protonix Ec Tab) 40 mg PO 0600 [facility] Last Admin: 11/25/17 05:07 Dose: 40 mg Sevelamer HCl (Renagel) 800 mg PO WM [facility] Last Admin: 11/24/17 17:32 Dose: 800 mg Timolol Maleate (Timoptic 0.5% Ophth Soln) 1 drop OD HS [facility] Last Admin: 11/24/17 21:52 Dose: 1 drop - Labs Labs: 11/24/17 16:10 11/24/17 06:00 PT 10.6 SECONDS (9.4-12.5) 11/21/17 19:34 INR 0.93 (0.93-1.08) 11/21/17 19:34 APTT 57.0 Seconds (25.1-36.5) H 11/24/17 06:00 - Constitutional Appears: Other - Head Exam Head Exam: NORMOCEPHALIC - Eye Exam Eye Exam: Normal appearance - ENT Exam ENT Exam: Mucous Membranes Moist - Neck Exam Neck Exam: Full ROM - Respiratory Exam Respiratory Exam: Decreased Breath Sounds, Clear to Ausculation Bilateral - Cardiovascular Exam Cardiovascular Exam: RRR, +S1, +S2 - GI/Abdominal Exam GI & Abdominal Exam: Normal Bowel Sounds - Rectal Exam Rectal Exam: Deferred - Extremities Exam Extremities Exam: Full ROM - Neurological Exam Neurological Exam: Awake, Oriented x3 - Psychiatric Exam Psychiatric exam: Anxious - Skin Skin Exam: Dry, Warm Assessment and Plan - Assessment and Plan (Free Text) Assessment: cp /nstemi. Plan: nitro s/l .x1 pt improved.
[2017-11-25 07:02] LABS: BASO # 0.01 K/mm3 (0.0-2.0); BASO % 0.1 % (0.0-3.0); EOS # 0.1 (0.0-0.7); EOS % 1.4 % (1.5-5.0); GRAN # 6.28 (1.4-6.5); GRAN % 79.2 % (50.0-68.0); HEMOGLOBIN 10.5 g/dL (12.0-16.0); LYMPH # 1.2 (1.2-3.4); LYMPH % 14.5 % (22.0-35.0); MEAN CELL VOLUME 89.2 fl (80.0-105.0); MEAN CORPUSCULAR HEMOGLOBIN 27.6 pg (25.0-35.0); MEAN PLATELET VOLUME 11.9 fl (7.0-11.0); MONO # 0.4 (0.1-0.6); MONO % 4.8 % (1.0-6.0); RBC 3.8 10^6/uL (3.5-6.1); RED CELL DISTRIBUTION WIDTH 15.6 % (11.5-14.5); WHITE BLOOD COUNT 7.9 10^3/ul (4.5-11.0)
[2017-11-25 07:37] LABS: ALBUMIN 2.9 g/dL (3.0-4.8); CALCIUM 11.1 mg/dL (8.4-10.5)
--- NOTE | 2017-11-25 08:54 | CP.PCM.PN ---
Subjective - Date & Time of Evaluation Date of Evaluation: 11/25/17 Time of Evaluation: 08:00 - Subjective Subjective: Patient is seen this morning. She is complaining of chest pain. She was given nitroglycerin and morphine. Objective - Vital Signs/Intake and Output Vital Signs (last 24 hours): Temp Pulse Resp BP Pulse Ox 98.8 F 89 18 138/65 97 11/25/17 06:00 11/25/17 06:00 11/25/17 06:00 11/25/17 06:00 11/25/17 06:00 Intake and Output: 11/25/17 11/25/17 06:59 18:59 Intake Total 80 Output Total 0 Balance 80 - Medications Medications: Current Medications Amlodipine Besylate (Norvasc) 5 mg PO DAILY [facility] Last Admin: 11/24/17 09:47 Dose: 5 mg Aspirin (Aspirin Chewable) 81 mg PO DAILY [facility] Last Admin: 11/24/17 09:48 Dose: 81 mg Atorvastatin Calcium (Lipitor) 20 mg PO DIN [facility] Last Admin: 11/24/17 17:32 Dose: 20 mg Clonidine HCl (Catapres) 0.1 mg PO BID [facility] Last Admin: 11/24/17 17:32 Dose: 0.1 mg Clopidogrel Bisulfate (Plavix) 75 mg PO DAILY [facility] Last Admin: 11/24/17 09:47 Dose: 75 mg Heparin Sodium (Porcine) (Heparin) 5,000 units SC Q8H [facility] PRN Reason: Protocol Last Admin: 11/25/17 01:33 Dose: 5,000 units Metoprolol Tartrate (Lopressor) 25 mg PO BID [facility] Last Admin: 11/24/17 17:32 Dose: 25 mg Morphine Sulfate (Morphine) 2 mg IVP Q2H PRN PRN Reason: Pain, severe (8-10) Last Admin: 11/25/17 05:12 Dose: 2 mg Ondansetron HCl (Zofran Inj) 4 mg IVP Q4H PRN PRN Reason: Nausea/Vomiting Last Admin: 11/23/17 00:45 Dose: 4 mg Pantoprazole Sodium (Protonix Ec Tab) 40 mg PO 0600 [facility] Last Admin: 11/25/17 05:07 Dose: 40 mg Sevelamer HCl (Renagel) 800 mg PO WM [facility] Last Admin: 11/25/17 08:26 Dose: 800 mg Timolol Maleate (Timoptic 0.5% Ophth Soln) 1 drop OD HS [facility] Last Admin: 11/24/17 21:52 Dose: 1 drop - Labs Labs: 11/25/17 06:00 11/25/17 06:00 PT 10.6 SECONDS (9.4-12.5) 11/21/17 19:34 INR 0.93 (0.93-1.08) 11/21/17 19:34 APTT 57.0 Seconds (25.1-36.5) H 11/24/17 06:00 - Constitutional Appears: No Acute Distress - Head Exam Head Exam: ATRAUMATIC, NORMOCEPHALIC - Respiratory Exam Respiratory Exam: Clear to Ausculation Bilateral, NORMAL BREATHING PATTERN - Cardiovascular Exam Cardiovascular Exam: +S1, +S2 - GI/Abdominal Exam GI & Abdominal Exam: Soft, Normal Bowel Sounds. absent: Tenderness - Extremities Exam Extremities Exam: absent: Pedal Edema - Neurological Exam Neurological Exam: Alert, Awake, Oriented x3 Assessment and Plan - Assessment and Plan (Free Text) Assessment: NSTEMI Acute on chronic kidney disease HTN Anxiety Chronic back pain GERD Plan: Patient was complaining of chest pain early this morning, relieved with nitroglycerin. continue ASA, Plavix, Lopressor, and lipitor. further management as per cardiology. Echocardiogram shows EF of 40-45%, with mild global hypokinesis. BUN and creatinine are improving. continue Morphine as needed for pain.
--- NOTE | 2017-11-25 08:57 | CP.PCM.PN ---
Subjective - Date & Time of Evaluation Date of Evaluation: 11/25/17 Time of Evaluation: 07:00 - Subjective Subjective: Stable on 2R now. Had CP earlier this AM and was given MS and SL NTG V/S noted. RSR/SB PE: Lungs: clear Cor.: S1S2 Abd.: soft Ext.: no edema Neuro.: alert I/O = 440/300 recorded Labs noted: Cr.= 2.3, K+= 4.9 ECG: RSR, LAD, septal RI, LVH by voltage. No acute change Echo done. See full report. Mild LVD, EF ~ 40 - 45%, Mild vs aortic sclerosis , mild AI, trace to mild MR and TR. BC X2 NG at 48 hrs. Objective - Vital Signs/Intake and Output Vital Signs (last 24 hours): Temp Pulse Resp BP Pulse Ox 98.8 F 89 18 138/65 97 11/25/17 06:00 11/25/17 06:00 11/25/17 06:00 11/25/17 06:00 11/25/17 06:00 Intake and Output: 11/25/17 11/25/17 06:59 18:59 Intake Total 80 Output Total 0 Balance 80 - Medications Medications: Current Medications Amlodipine Besylate (Norvasc) 5 mg PO DAILY [facility] Last Admin: 11/24/17 09:47 Dose: 5 mg Aspirin (Aspirin Chewable) 81 mg PO DAILY [facility] Last Admin: 11/24/17 09:48 Dose: 81 mg Atorvastatin Calcium (Lipitor) 20 mg PO DIN [facility] Last Admin: 11/24/17 17:32 Dose: 20 mg Clonidine HCl (Catapres) 0.1 mg PO BID [facility] Last Admin: 11/24/17 17:32 Dose: 0.1 mg Clopidogrel Bisulfate (Plavix) 75 mg PO DAILY [facility] Last Admin: 11/24/17 09:47 Dose: 75 mg Heparin Sodium (Porcine) (Heparin) 5,000 units SC Q8H [facility] PRN Reason: Protocol Last Admin: 11/25/17 01:33 Dose: 5,000 units Isosorbide Mononitrate (Imdur Er) 30 mg PO DAILY [facility] Metoprolol Tartrate (Lopressor) 25 mg PO BID [facility] Last Admin: 11/24/17 17:32 Dose: 25 mg Morphine Sulfate (Morphine) 2 mg IVP Q2H PRN PRN Reason: Pain, severe (8-10) Last Admin: 11/25/17 05:12 Dose: 2 mg Ondansetron HCl (Zofran Inj) 4 mg IVP Q4H PRN PRN Reason: Nausea/Vomiting Last Admin: 11/23/17 00:45 Dose: 4 mg Pantoprazole Sodium (Protonix Ec Tab) 40 mg PO 0600 [facility] Last Admin: 11/25/17 05:07 Dose: 40 mg Sevelamer HCl (Renagel) 800 mg PO WM [facility] Last Admin: 11/25/17 08:26 Dose: 800 mg Timolol Maleate (Timoptic 0.5% Ophth Soln) 1 drop OD HS [facility] Last Admin: 11/24/17 21:52 Dose: 1 drop - Labs Labs: 11/25/17 06:00 11/25/17 06:00 PT 10.6 SECONDS (9.4-12.5) 11/21/17 19:34 INR 0.93 (0.93-1.08) 11/21/17 19:34 APTT 57.0 Seconds (25.1-36.5) H 11/24/17 06:00 Assessment and Plan - Assessment and Plan (Free Text) Assessment: Chest and back pain with CP episode this AM Acute RI by trops, with mild LVD on echo Hyperkalemia, resolved Acute on chronic renal insufficiency, improving PAD/Bilateral iliac stents HBP CVD/CEA COPD/Former Smoker Glaucoma H/O hysterectomy for endometrial cancer DNR/DNI status Plan: As per Renal, Drs. Moody, ID. SQ heparin Add isosorbide NTG PRN Continue ASA, Plavix, metoprolol, atorvastatin, amlodipine Monitor: I/O. K+, labs, sats., renal fx., etc. OOB as chloe/PT Will follow
--- NOTE | 2017-11-25 09:20 | CON ---
DATE:11/24/2017 REASON FOR CONSULTATION: Anemia, drop in blood count, episodes of dysphagia. HISTORY OF PRESENT ILLNESS: This 82-year-old patient initially admitted to the hospital with some discomfort in the throat and they found the pain radiating into the back. Subsequently, she was found to have some EKG changes and elevated LFTs suggestive of acute FL. The patient has a long history of peripheral vascular disease, status post iliac stents in the past; coronary artery disease, carotid endarterectomy, chronic kidney disease. The patient did have vomiting when she had that acute episode and had a small streak which he threw up. No subsequent episodes of vomiting blood. No melena or black stools. The patient was on IV heparin, which was discontinued. The patient has been on Plavix and aspirin now. Noticed to have a drop in blood count today. Hemoglobin was 11.6 on 11/23 and it dropped to 8.3. GI consult was requested to evaluate. When the patient was admitted to the hospital, her hemoglobin was 13.4. The patient's daughter and granddaughter were at bedside. The patient denies having had any endoscopies and colonoscopies. PAST MEDICAL HISTORY: Other past medical history significant as above; chronic kidney disease, status post hysterectomy for uterine/endometrial CA. She has peripheral vascular disease, status post stent placement. SOCIAL HISTORY: Positive, about 3 packs per day for 33 years. Alcohol, social. FAMILY HISTORY: Positive for diabetes, but is noncontributory. ALLERGIES: SHE IS ALLERGIC TO ALLOPURINOL. REVIEW OF SYSTEMS: Positive as above. Other symptoms reviewed, negative except above. PHYSICAL EXAMINATION GENERAL: The patient is lying on the bed, not in acute distress. VITAL SIGNS: Temperature is 97.7, blood pressure is 113/58, pulse 53, respirations 18. HEENT: Atraumatic and anicteric. NECK: Supple. HEART: S1, S2 heard. LUNGS: Bilateral air entry present. ABDOMEN: Soft. No mass palpable. No tenderness EXTREMITIES: No edema. NEUROLOGIC: Alert and oriented. Moves all the extremities. LABORATORY DATA: Hemoglobin was 8.3, hematocrit 26.4, WBC is 5.8, platelets 119,000. Chemistry showed BUN 56, creatinine 2.3. Troponin yesterday was 5.85. IMPRESSION: This 82-year-old patient admitted with acute myocardial infarction, chest pain radiating to the back. The patient had an episode of vomiting, a streak of blood at that time. No further episode. Some difficulty with choking sensation at that time. No further episode. She does complain of some similar difficulty swallowing at times for many, many years. It is nonprogressive. The patient was found to have a slow drop in hemoglobin from admission 13.4 slowly to 11.6 and today, there is acute drop of nearly about 3 grams. No obvious witness of melena or bleeding per rectum, rule out. The differential diagnoses should include: 1. Dilutional. 2. Gastrointestinal bleeding. The patient was on heparin, now it is discontinued; aspirin and Plavix. Other comorbidities include: 1. Acute myocardial infarction. 2. Chronic kidney disease. 3. Peripheral vascular disease. 4. History of hypertension and hyperparathyroidism. RECOMMENDATIONS 1. Followup of the hemoglobin and hematocrit. Repeat the CBC today stat. 2. We will empirically start the patient on PPI. 3. Stool for occult blood. 4. We will continue to closely follow up her care and suggest further management based on the clinical course. Jeferson Aiken MD [facility]
--- NOTE | 2017-11-25 11:01 | CARD ---
APPROVED REPORT EKG Measurement Heart [id number] CT 120P64 [id number] <Conclusion> Normal sinus rhythm Anteroseptal infarct, age undetermined STTW changes c/w ischemia LAD
--- NOTE | 2017-11-25 11:02 | PN ---
DATE: 11/25/2017 SUBJECTIVE: The patient is in bed in no acute distress, nontoxic, was seen earlier in 263, bed 1. PHYSICAL EXAMINATION: VITAL SIGNS: Temperature is 98, blood pressure is 130/60, respiratory rate of 18. HEENT: Unremarkable. NECK: Supple. LUNGS: Have decreased breath sounds. HEART: Normal S1, S2. ABDOMEN: Soft, nontender. LABORATORY EXAMINATION: Reveals a white count of 7.9, hemoglobin is 10, platelets of 201. Chemistries reveals a BUN of 60, creatinine of 2.3. Urinalysis is noted. Microbiology reveals the blood cultures are negative. Urine cultures are negative. MEDICATIONS: Review of medications reveals the patient is off of antibiotics. ASSESSMENT AND PLAN: An 82-year-old female seen earlier in 263, bed 1, had an uneventful night and with systemic inflammatory response syndrome with acute non-ST elevation myocardial infarction, chronic renal failure, hypertension, status post carotid endarterectomy and endometrial disease with hysterectomy by history, currently off of antibiotics, afebrile and with a white count of 7.9. The patient is at risk for developing nosocomial infections. Dr. Bell's note is reviewed and Dr. Mariano's note is also noted. Manuel Espinosa MD
[2017-11-25 15:33] LABS: URINE BILIRUBIN NEGATIVE (NEGATIVE); URINE BLOOD NEGATIVE (NEGATIVE); URINE GLUCOSE (UA) NEGATIVE (NEGATIVE); URINE LEUKOCYTE ESTERASE TRACE Leu/uL (NEGATIVE); URINE PROTEIN TRACE mg/dL (<30 mg/dL); URINE UROBILINOGEN 0.2 E.U./dL (<1 E.U./dL)
[2017-11-25 15:35] LABS: URINE APPEARANCE SL CLOUDY (CLEAR); URINE COLOR YELLOW (YELLOW)
[2017-11-25 15:44] LABS: URINE RBC NEGATIVE /hpf (0-2)
[2017-11-25 15:45] LABS: URINE BACTERIA MANY (NEG)
--- NOTE | 2017-11-25 16:25 | PN ---
DATE: SUBJECTIVE: The patient is currently seen lying comfortable in bed on telemetry. She had an episode of chest pain requiring medication last night. Her pay clerk was notified. Her chest pain has eased off. Her troponin levels from earlier in the hospitalization were elevated consistent with acute coronary syndrome and a likely NSTEMI. Today's labs show a BUN of 60 with a creatinine of 2.3, above her baseline dating back to the fall of 2017 but improved from the first day of her hospitalization. MEDICATIONS: List reviewed. The patient is currently on aspirin, clonidine, heparin, Imdur, Lipitor, Lopressor, morphine p.r.n., Norvasc, Plavix, Protonix, Renagel, Timoptic, and Zofran. PHYSICAL EXAMINATION: INTAKE AND OUTPUT: Intake is 440, output is 300. VITAL SIGNS: Present blood pressure is ranging from 135 to 180 systolic, diastolics ranging from 65 to 79. Oxygen saturation 97% with a respiratory rate of 18 and a pulse of 70. The patient is afebrile at 98.8. HEENT: Shows her be normocephalic, atraumatic. Conjunctivae are pale. Sclerae nonicteric. NECK: Supple. No neck vein distention. Left carotid endarterectomy scar. CHEST: Clear to auscultation and percussion. No rales, rhonchi, or wheezing. CARDIOVASCULAR: Shows a regular rate and rhythm with /AI/MR/TR, all confirmed on echocardiogram. No rubs or gallops. ABDOMEN: Soft. Bowel sounds normal. No rebound, guarding, or masses. EXTREMITIES: Show no lower extremity edema. Distal lower extremity pulses are mildly reduced at 1 to 2+. No cyanosis or clubbing. LABORATORY DATA AND IMAGING: CBC: White blood cell count today 7.9, hemoglobin stable at 10.5, platelet count is 201,000. Chemistry show a sodium of 143, potassium 4.9, chloride 115 with a CO2 of 17, BUN is 60 with a creatinine of 2.3. Calcium is up to 11.1. Vitamin D level was normal at 46.7. PTH is mildly elevated at 176. Phosphorus level is improved at 4.5, the patient is on binder therapy. Magnesium 2.2. Troponin today remains elevated at 1.51. Her renal ultrasound done showed an atrophic right kidney with a left kidney cyst. Renal artery Doppler was negative for renal artery stenosis. ASSESSMENT: 1. Acute renal failure superimposed on chronic kidney disease stage III. Her baseline creatinine is in the upper one range. It appears that she now has a new baseline in the low two range. No evidence for renal artery stenosis in her left kidney. Her right kidney is atrophic. 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 2. Status post hyperkalemia. Potassium level is now normal. The patient will avoid ALIYAH inhibitors, angiotensin receptor blockers, and she will avoid potassium-sparing diuretics. 3. History of hypertension. Blood pressure control is variable. She will continue calcium channel rosa therapy, clonidine, and perhaps the patient should be started on low-dose hydralazine in light of her reduced ejection fraction. 4. History of peripheral vascular disease, history of iliac artery stent placement, history of carotid endarterectomy. All appeared to be stable. 5. History of secondary hyperparathyroidism. The patient is on binder therapy. She is on Renagel, not PhosLo. So, it is not clear to me why her calcium level is up to 11.1. She is not receiving any vitamin D supplements. 6. Hyperlipidemia. The patient will continue statin therapy in light of her history of severe peripheral vascular disease and ongoing cardiac issues. 7. Positive acute myocardial infarction, likely [id number] myocardial infarction. Ejection fraction was low at 41%. She does have global hypokinesis with aortic stenosis, aortic insufficiency, mitral regurgitation, and tricuspid regurgitation. 8. DNR/DNI noted as per the patient's request. PLAN 1. I told the patient that I will discuss with her daughter her kidney situation. 2. It appears that she now has a new baseline creatinine of 2.3. I will obtain 24-hour urines while she is hospitalized for baseline creatinine clearance and protein. 3. Continue present blood pressure medication. I will add hydralazine low dose to the Norvasc and clonidine. The patient will continue beta-rosa therapy. 4. Continue to follow the patient on telemetry. 5. Further cardiac workup and decision making as per discussion with the patient, her family, and pay clerk. Byron Bonilla MD [facility] # [id number]
[2017-11-26] MEDS: Morphine 2 mg/ml ISec IVP PRN ×5 (00:10→23:40)
[2017-11-26] MEDS: Pantoprazole 40 mg EC Tab PO SCH (05:30)
[2017-11-26 06:28] LABS: BASO # 0.01 K/mm3 (0.0-2.0); BASO % 0.1 % (0.0-3.0); EOS # 0.1 (0.0-0.7); EOS % 1.5 % (1.5-5.0); GRAN # 5.33 (1.4-6.5); GRAN % 74.6 % (50.0-68.0); HEMOGLOBIN 10.3 g/dL (12.0-16.0); LYMPH # 1.1 (1.2-3.4); LYMPH % 15.6 % (22.0-35.0); MEAN CELL VOLUME 89.2 fl (80.0-105.0); MEAN CORPUSCULAR HEMOGLOBIN 27.9 pg (25.0-35.0); MEAN CORPUSCULAR HGB CONC 31.3 g/dl (31.0-37.0); MONO # 0.6 (0.1-0.6); MONO % 8.2 % (1.0-6.0); RBC 3.69 10^6/uL (3.5-6.1); RED CELL DISTRIBUTION WIDTH 15.4 % (11.5-14.5); WHITE BLOOD COUNT 7.2 10^3/ul (4.5-11.0)
[2017-11-26 06:43] LABS: ALB/GLOB RATIO 0.9 (1.1-1.8); ALBUMIN 2.7 g/dL (3.0-4.8); CALCIUM 11.1 mg/dL (8.4-10.5)
[2017-11-26 07:59] LABS: TROPONIN I 1.08 ng/mL
--- NOTE | 2017-11-26 09:54 | RAD ---
HISTORY: BACK PAIN COMPARISON: No prior. FINDINGS: BONES: There is curvature of the spine convex to the right centered in the lower thoracic. DISC SPACES: There is multilevel disc degeneration SOFT TISSUES: Normal. OTHER FINDINGS: None. IMPRESSION: Multilevel disc degeneration.
--- NOTE | 2017-11-26 10:11 | RAD ---
PROCEDURE: Radiographs of the Lumbar Spine. HISTORY: back pain COMPARISON: No prior. FINDINGS: BONES: Mild scoliotic curvature convex to the left DISC SPACES: Disc degeneration is seen in the upper lumbar spine with disc space narrowing and bony sclerosis. OTHER FINDINGS: None. IMPRESSION: Multilevel disc degeneration. Scoliotic curvature convex to the left
--- NOTE | 2017-11-26 10:33 | CARD ---
APPROVED REPORT EKG Measurement Heart [id number] OR 156P53 [id number] <Conclusion> RSR LAD ASMI, age unknown LVH STTW changes with less ST depression V 6 c/w ECG 11/21/17
--- NOTE | 2017-11-26 10:40 | CP.PCM.PN ---
<Altagracia Garza - Last Filed: 11/26/17 10:41> Subjective - Date & Time of Evaluation Date of Evaluation: 11/26/17 Time of Evaluation: 09:00 - Subjective Subjective: GI Progress Note - Dr. Aiken Pt was seen and examined at bedside. Pt is sitting comfortably tolerating sips of water. Pt states she has difficulty eating. Pt having regular bowel and bladder movements. Pt has mild nausea. Pt denied fever, chills, sob, chest pains , abdominal pains, vomiting, or urinary symptoms. Objective - Vital Signs/Intake and Output Vital Signs (last 24 hours): Temp Pulse Resp BP Pulse Ox 98.9 F 88 19 150/71 99 11/26/17 06:00 11/26/17 10:24 11/26/17 06:00 11/26/17 10:24 11/26/17 06:00 Intake and Output: 11/26/17 11/26/17 06:59 18:59 Intake Total 0 Output Total 0 Balance 0 - Medications Medications: Current Medications Amlodipine Besylate (Norvasc) 5 mg PO DAILY [facility] Last Admin: 11/26/17 10:24 Dose: 5 mg Aspirin (Aspirin Chewable) 81 mg PO DAILY [facility] Last Admin: 11/26/17 10:24 Dose: 81 mg Atorvastatin Calcium (Lipitor) 20 mg PO DIN [facility] Last Admin: 11/25/17 17:49 Dose: 20 mg Clonidine HCl (Catapres) 0.1 mg PO BID [facility] Last Admin: 11/26/17 10:24 Dose: 0.1 mg Clopidogrel Bisulfate (Plavix) 75 mg PO DAILY [facility] Last Admin: 11/26/17 10:24 Dose: 75 mg Heparin Sodium (Porcine) (Heparin) 5,000 units SC Q8H [facility] PRN Reason: Protocol Last Admin: 11/26/17 01:30 Dose: 5,000 units Hydralazine HCl (Apresoline) 25 mg PO BID [facility] Last Admin: 11/26/17 10:23 Dose: 25 mg Isosorbide Mononitrate (Imdur Er) 30 mg PO DAILY [facility] Last Admin: 11/26/17 10:24 Dose: 30 mg Metoprolol Tartrate (Lopressor) 25 mg PO BID [facility] Last Admin: 11/26/17 10:24 Dose: 25 mg Morphine Sulfate (Morphine) 2 mg IVP Q2H PRN PRN Reason: Pain, severe (8-10) Last Admin: 11/26/17 07:15 Dose: 2 mg Ondansetron HCl (Zofran Inj) 4 mg IVP Q4H PRN PRN Reason: Nausea/Vomiting Last Admin: 11/26/17 05:19 Dose: 4 mg Pantoprazole Sodium (Protonix Ec Tab) 40 mg PO 0600 [facility] Last Admin: 11/26/17 05:30 Dose: 40 mg Sevelamer HCl (Renagel) 800 mg PO WM [facility] Last Admin: 11/26/17 10:24 Dose: 800 mg Timolol Maleate (Timoptic 0.5% Ophth Soln) 1 drop OD HS [facility] Last Admin: 11/25/17 21:20 Dose: 1 drop - Labs Labs: 11/26/17 05:30 11/26/17 05:30 PT 10.6 SECONDS (9.4-12.5) 11/21/17 19:34 INR 0.93 (0.93-1.08) 11/21/17 19:34 APTT 57.0 Seconds (25.1-36.5) H 11/24/17 06:00 - Constitutional Appears: No Acute Distress - Head Exam Head Exam: ATRAUMATIC, NORMAL INSPECTION, NORMOCEPHALIC - Eye Exam Eye Exam: EOMI, Normal appearance, PERRL Pupil Exam: NORMAL ACCOMODATION, PERRL - ENT Exam ENT Exam: Mucous Membranes Moist, Normal Exam - Neck Exam Neck Exam: Full ROM, Normal Inspection. absent: Lymphadenopathy - Respiratory Exam Respiratory Exam: Clear to Ausculation Bilateral, NORMAL BREATHING PATTERN - Cardiovascular Exam Cardiovascular Exam: REGULAR RHYTHM, +S1, +S2. absent: Murmur - GI/Abdominal Exam GI & Abdominal Exam: Soft, Normal Bowel Sounds. absent: Tenderness - Neurological Exam Neurological Exam: Alert, Awake, CN II-XII Intact, Oriented x3 - Psychiatric Exam Psychiatric exam: Normal Affect, Normal Mood - Skin Skin Exam: Dry, Intact, Normal Color, Warm Assessment and Plan - Assessment and Plan (Free Text) Assessment: Anemia NSTEMI PVD CKD HTN Hyperparathyroidism Plan: Trend H&H, stable currently PPI CLD Stool for occult blood CT Chest, abd, pelvis with oral contrast AC held Discussed with Dr. Aiken <Jeferson Aiken V - Last Filed: 11/26/17 23:38> Objective - Vital Signs/Intake and Output Vital Signs (last 24 hours): Temp Pulse Resp BP Pulse Ox 98 F 61 19 174/82 H 99 11/26/17 18:00 11/26/17 21:56 11/26/17 18:00 11/26/17 18:00 11/26/17 06:00 - Medications Medications: Current Medications Amlodipine Besylate (Norvasc) 5 mg PO DAILY [facility] Last Admin: 11/26/17 10:24 Dose: 5 mg Aspirin (Aspirin Chewable) 81 mg PO DAILY [facility] Last Admin: 11/26/17 10:24 Dose: 81 mg Atorvastatin Calcium (Lipitor) 20 mg PO DIN [facility] Last Admin: 11/26/17 17:43 Dose: 20 mg Clonidine HCl (Catapres) 0.1 mg PO BID [facility] Last Admin: 11/26/17 17:43 Dose: 0.1 mg Clopidogrel Bisulfate (Plavix) 75 mg PO DAILY [facility] Last Admin: 11/26/17 10:24 Dose: 75 mg Heparin Sodium (Porcine) (Heparin) 5,000 units SC Q8H [facility] PRN Reason: Protocol Last Admin: 11/26/17 17:58 Dose: 5,000 units Hydralazine HCl (Apresoline) 25 mg PO BID [facility] Last Admin: 11/26/17 17:50 Dose: 25 mg Isosorbide Mononitrate (Imdur Er) 30 mg PO DAILY [facility] Last Admin: 11/26/17 10:24 Dose: 30 mg Metoprolol Tartrate (Lopressor) 25 mg PO BID [facility] Last Admin: 11/26/17 17:43 Dose: 25 mg Morphine Sulfate (Morphine) 2 mg IVP Q2H PRN PRN Reason: Pain, severe (8-10) Last Admin: 11/26/17 17:58 Dose: 2 mg Ondansetron HCl (Zofran Inj) 4 mg IVP Q4H PRN PRN Reason: Nausea/Vomiting Last Admin: 11/26/17 17:58 Dose: 4 mg Pantoprazole Sodium (Protonix Ec Tab) 40 mg PO 0600 [facility] Last Admin: 11/26/17 05:30 Dose: 40 mg Sevelamer HCl (Renagel) 800 mg PO WM [facility] Last Admin: 03/19/18 17:42 Dose: 800 mg Timolol Maleate (Timoptic 0.5% Ophth Soln) 1 drop OD HS [facility] Last Admin: 11/26/17 21:12 Dose: 1 drop - Labs Labs: 11/26/17 05:30 11/26/17 05:30 PT 10.6 SECONDS (9.4-12.5) 11/21/17 19:34 INR 0.93 (0.93-1.08) 11/21/17 19:34 APTT 57.0 Seconds (25.1-36.5) H 11/24/17 06:00 Attending/Attestation - Attestation I have personally seen and examined this patient.: Yes I have fully participated in the care of the patient.: Yes I have reviewed all pertinent clinical information, including history, physical exam and plan: Yes Notes (Text): This is an addendum to GI consult report dictated by the Box [facility].The patient was seen and examined earlier. Medical records, lab studies, imagings were reviewed. Last 24 hours events reviewed. Agreed with the above treatment plan as outlined in Box Turner 's notes the with the addition of the following 11/26/17 23:38
--- NOTE | 2017-11-26 10:41 | PN ---
DATE: 11/26/17 LOCATION: The patient is in [facility] formerly [facility] in [place], room 263, bed 1. SUBJECTIVE: The patient was admitted a few days ago with chest pain that occurred suddenly after her dinner meal. The patient is seen this morning. She has no chest pain at this time, but she still complains of feeling weak. The patient has no complaints of shortness of breath. On examination, the patient is lying down in bed, she is comfortable. On further questioning, the patient complains of some recurrent chest pain on and off. She has unstable angina, diagnosed by abnormal troponin levels in the past couple of days. The current troponin level is 1.08 The patient has past history of renal failure. The patient has secondary hyperparathyroidism. The patient has history of osteoarthritis, peripheral vascular disease, and carotid artery disease. The patient has history of having had angioplasty of the right leg in the past. PHYSICAL EXAMINATION: VITAL SIGNS: The pulse is 74, blood pressure 146/84, heart rate is 74, respirations are 19, O2 sat is 99% on 2 liters of oxygen. GENERAL: The patient's color is slightly galindo. The patient is lying in bed, reasonably comfortable. NECK: JVP is not elevated. Carotid pulses are present. The patient has had previous carotid artery surgery on the left side of the neck. LUNGS: Trachea central, breath sounds are vesicular. Crepitations occasionally. HEART: Normal sinus rhythm. S1 and S2 present. ABDOMEN: Soft. Liver and spleen not palpable. CENTRAL NERVOUS SYSTEM: Conscious, rational, and oriented. MEDICATIONS: Consist of aspirin 81 mg daily, hydralazine 25 mg b.i.d., clonidine 0.1 mg b.i.d., heparin subcutaneous for prophylaxis. The patient is on isosorbide mononitrate 30 mg daily. The patient is on Lipitor 20 mg daily, metoprolol 25 mg b.i.d. The patient is on morphine p.r.n. for very strong chest pain. The patient will get amlodipine 5 mg daily, clopidogrel which is Plavix 75 mg daily, pantoprazole 40 mg daily, Renagel for chronic renal failure, timolol for glaucoma. The patient is on a heart-healthy diet. She is still unstable. She is followed up very closely by the Cardiologists, Dr. Mariano and Dr. Balderas. The patient is seen by the nephrology group of Dr. Bonilla and Dr. Edgar. The patient is also seen by Dr. Aiken, loop tacker and we will continue current management and follow up. She will be in telemetry at this time. Ky Bell MD MTDRona
[2017-11-26] MEDS ORDERED: Barium Sulfate Susp 2.1% w/v, 2.0% w/w 450 mL Bottle PO ONE (10:42)
--- NOTE | 2017-11-26 14:32 | CT ---
PROCEDURE: CT Chest, Abdomen and Pelvis without intravenous contrast HISTORY: dysphagia COMPARISON: None. TECHNIQUE: Radiation dose: Total exam DLP = 392 mGy-cm. This CT exam was performed using one or more of the following dose reduction techniques: Automated exposure control, adjustment of the mA and/or kV according to patient size, and/or use of iterative reconstruction technique. FINDINGS: CT CHEST WITHOUT CONTRAST: LUNGS: Clear. No nodule, mass or consolidation. MEDIASTINUM: Unremarkable. Normal caliber aorta and pulmonary arterial trunk. Normal size heart. Coronary artery calcifications LYMPH NODES: Unremarkable. PLEURA: Moderate size bilateral pleural effusions BONES: Unremarkable. OTHER FINDINGS: None. CT ABDOMEN AND PELVIS: LIVER: Unremarkable. No gross lesion or ductal dilatation. GALLBLADDER AND BILE DUCTS: Contracted gallbladder PANCREAS: Unremarkable. No gross lesion or ductal dilatation. SPLEEN: Unremarkable. ADRENALS: Unremarkable. No mass. KIDNEYS AND URETERS: There is atrophy of the right kidney. VASCULATURE: Extensive vascular calcifications. Bilateral iliac stents BOWEL: Unremarkable. No obstruction. No gross mural thickening. APPENDIX: Normal appendix. PERITONEUM: Unremarkable. No free fluid. No free air. LYMPH NODES: Unremarkable. No enlarged lymph nodes. BLADDER: Unremarkable. REPRODUCTIVE: Unremarkable. BONES: No acute fracture. OTHER FINDINGS: None. IMPRESSION: Moderate size bilateral pleural effusions
--- NOTE | 2017-11-26 15:47 | PN ---
DATE: SUBJECTIVE: The patient is currently seen being transferred over to a stretcher to go down for her abdominal and pelvic CT scan. The patient's creatinine today is down to 2.0, approaching her baseline which is in the upper 1 range. Of note, the patient remains mildly hypercalcemic. Her corrected calcium level is 12. She states that she has had hypercalcemia in the past. This required stopping vitamin D supplements. MEDICATIONS: Medication list reviewed. The patient is on hydralazine, aspirin, clonidine, heparin subcu, Imdur, Lipitor, Lopressor, p.r.n. morphine, Norvasc, Plavix, Protonix, Renagel, Timoptic eye drops and Zofran p.r.n. OBJECTIVE: INTAKE/OUTPUT: Not charted. VITAL SIGNS: Blood pressure is 153/74, temperature 97.3, respiratory rate of 18 with a pulse of 74. HEENT: Normocephalic, atraumatic. Conjunctivae pale. Sclerae nonicteric. NECK: Supple. No neck vein distention. Left carotid endarterectomy scar. CHEST: Clear to auscultation and percussion. No rales, rhonchi or wheezing. CARDIOVASCULAR: Shows a regular rate and rhythm with /AI/MR/TR. All seen on echocardiogram. No rubs or gallops. ABDOMEN: Soft. Bowel sounds normal. No rebound, guarding or masses. EXTREMITIES: Show no lower extremity cyanosis, clubbing or edema. Diminished lower extremity pulses are 1 to 2+. LABORATORY DATA AND IMAGING: CBC today: White blood cell count 7.2, hemoglobin is 10.3 with a platelet count of 187,000. Chemistry showed normal electrolytes. Chloride 115 with a CO2 of 17. BUN is 59 with a creatinine of 2.0. Calcium level remains elevated at 11.1. Albumin is 2.7, corrected calcium is approximately 12.1. Troponin levels remain mildly elevated, today's is 1.08. Her renal ultrasound done showed an atrophic right kidney with left renal cyst. Renal artery Doppler was negative for renal artery stenosis. ASSESSMENT: 1. Acute renal failure superimposed on chronic kidney disease stage III. Her baseline creatinine is in the 1.7-1.8 range. She is approaching her baseline slowly. She has no evidence of renal artery stenosis in her left kidney. She has an atrophic right kidney. 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 2. Status post life-threatening hyperkalemia. Potassium level is now back to normal at 4.9. The patient will avoid angiotensin-converting enzyme inhibitors, angiotensin receptor blockers as well as potassium-sparing diuretics. 3. History of hypertension. Blood pressure control presently is acceptable. Should continue present medication. We will continue her on low-dose hydralazine and titrate upwards as necessary. 4. History of peripheral vascular disease, history of iliac artery stent placement, history of carotid endarterectomy. All appeared to be stable. 5. History of hypercalcemia. The patient states she has been hypercalcemic in the past. Presently, she is on a noncalcium-containing phosphorus binder. Her corrected calcium is 12.0. The patient states this had been evaluated in the outpatient setting with Dr. Davis. I will obtain a serum protein electrophoresis to rule out any monoclonal spike. Otherwise, the patient will continue off vitamin D supplements and off any calcium-containing binder therapy. 6. Hyperlipidemia. The patient will continue statin therapy in light of her history of severe peripheral vascular disease and ongoing cardiac issues. 7. Positive acute myocardial infarction, likely [id number] myocardial infarction. Ejection fraction 41%. Global hypokinesis with valvular heart disease. 8. Do not resuscitate/do not intubate as per the patient's request. PLAN: 1. Discussed with the patient and her daughter. Encouraged to see her creatinine falling closer to baseline levels. 2. We will obtain 24-our urines. These have been ordered. 3. Continue to titrate hydralazine. 4. We will obtain a serum protein electrophoresis in light of her hypercalcemia. 5. Continue to monitor the patient on telemetry. Byron Bonilla MD
[2017-11-26 17:16] LABS: URINE 24 HOUR TOTAL PROTEIN 120 mg/24HR (42-225); URINE COLLECTION TIME 24 HOURS; URINE TOTAL VOLUME 500 mL (800-1400)
[2017-11-27] MEDS: Pantoprazole 40 mg EC Tab PO SCH (05:21)
[2017-11-27] MEDS: Morphine 2 mg/ml ISec IVP PRN ×2 (07:07→16:10)
[2017-11-27 07:33] LABS: ALB/GLOB RATIO 0.9 (1.1-1.8); ALBUMIN 2.7 g/dL (3.0-4.8); CALCIUM 11.1 mg/dL (8.4-10.5)
--- NOTE | 2017-11-27 08:07 | CP.PCM.PN ---
Subjective - Date & Time of Evaluation Date of Evaluation: 11/27/17 Time of Evaluation: 07:45 - Subjective Subjective: Patient is seen this morning lying in bed in room 263 bed 1. She says she feels comfortable, but complains of back pain. She denies chest pain or shortness of breath. Objective - Vital Signs/Intake and Output Vital Signs (last 24 hours): Temp Pulse Resp BP Pulse Ox 98.3 F 74 18 176/78 H 96 11/27/17 06:00 11/27/17 06:00 11/27/17 06:00 11/27/17 06:00 11/27/17 06:00 Intake and Output: 11/27/17 11/27/17 06:59 18:59 Intake Total 120 Output Total 300 Balance -180 - Medications Medications: Current Medications Amlodipine Besylate (Norvasc) 5 mg PO DAILY [facility] Last Admin: 11/26/17 10:24 Dose: 5 mg Aspirin (Aspirin Chewable) 81 mg PO DAILY [facility] Last Admin: 11/26/17 10:24 Dose: 81 mg Atorvastatin Calcium (Lipitor) 20 mg PO DIN [facility] Last Admin: 11/26/17 17:43 Dose: 20 mg Clonidine HCl (Catapres) 0.1 mg PO BID [facility] Last Admin: 11/26/17 17:43 Dose: 0.1 mg Clopidogrel Bisulfate (Plavix) 75 mg PO DAILY [facility] Last Admin: 11/26/17 10:24 Dose: 75 mg Heparin Sodium (Porcine) (Heparin) 5,000 units SC Q8H [facility] PRN Reason: Protocol Last Admin: 11/27/17 05:22 Dose: 5,000 units Hydralazine HCl (Apresoline) 25 mg PO BID [facility] Last Admin: 11/26/17 17:50 Dose: 25 mg Isosorbide Mononitrate (Imdur Er) 30 mg PO DAILY [facility] Last Admin: 11/26/17 10:24 Dose: 30 mg Metoprolol Tartrate (Lopressor) 25 mg PO BID [facility] Last Admin: 11/26/17 17:43 Dose: 25 mg Morphine Sulfate (Morphine) 2 mg IVP Q2H PRN PRN Reason: Pain, severe (8-10) Last Admin: 11/27/17 07:07 Dose: 2 mg Ondansetron HCl (Zofran Inj) 4 mg IVP Q4H PRN PRN Reason: Nausea/Vomiting Last Admin: 11/26/17 17:58 Dose: 4 mg Pantoprazole Sodium (Protonix Ec Tab) 40 mg PO 0600 [facility] Last Admin: 11/27/17 05:21 Dose: 40 mg Sevelamer HCl (Renagel) 800 mg PO WM [facility] Last Admin: 11/26/17 17:42 Dose: 800 mg Timolol Maleate (Timoptic 0.5% Ophth Soln) 1 drop OD HS [facility] Last Admin: 11/26/17 21:12 Dose: 1 drop - Labs Labs: 11/26/17 05:30 11/27/17 05:30 PT 10.6 SECONDS (9.4-12.5) 11/21/17 19:34 INR 0.93 (0.93-1.08) 11/21/17 19:34 APTT 57.0 Seconds (25.1-36.5) H 11/24/17 06:00 - Constitutional Appears: No Acute Distress - Head Exam Head Exam: ATRAUMATIC, NORMOCEPHALIC - Respiratory Exam Respiratory Exam: Decreased Breath Sounds, NORMAL BREATHING PATTERN - Cardiovascular Exam Cardiovascular Exam: +S1, +S2 - GI/Abdominal Exam GI & Abdominal Exam: Soft, Normal Bowel Sounds - Extremities Exam Extremities Exam: Normal Inspection - Neurological Exam Neurological Exam: Alert, Awake Assessment and Plan - Assessment and Plan (Free Text) Assessment: NSTEMI Acute on chronic kidney disease Hyperkalemia Hypercalcemia Chronic back pain HTN Plan: Patient denies chest pain this morning. troponin is trending down. continue ASA, Plavix, Metoprolol, and Lipitor. Patient is also on Norvasc, Hydralazine and Clonidine for her blood pressure. BUN and creatinine are 53 and 2.1 this morning, which is improved from admission. CT chest/abd/pelvis done yesterday does not show any significant acute findings, other than bilateral pleural effusions. Patient had been on Lasix 20 mg at home for lower extremity edema. She is currently off Lasix due to renal function. Will order kayexelate for hyperkalemia. X rays of the thoracolumbar spine show scoliosis and degenerative arthritis. continue Morphine as needed for pain.
[2017-11-27] MEDS ORDERED: Sod Polystyrene Sulf 15 gm/60 ml Susp PO ONE (08:09)
--- NOTE | 2017-11-27 09:32 | CP.PCM.PN ---
Subjective - Date & Time of Evaluation Date of Evaluation: 11/27/17 Time of Evaluation: 07:00 - Subjective Subjective: Stable on 2R now. No CP or SOB V/S noted. RSR/SB PE: Lungs: clear Cor.: S1S2 Abd.: soft Ext.: no edema Neuro.: alert I/O = 120/300 recorded Labs noted: Cr.= 2.1, K+= 5.3 ECG: RSR, LAD, septal DC, LVH by voltage. No acute change Echo done. Mild Global HK with EF ~ 40 - 45%, Mild and AI, Trace to mild MR and TR. BC X2 NG at 4 days Chest/abd/pelvis CT: Mod. Griffin. Pl effusions Objective - Vital Signs/Intake and Output Vital Signs (last 24 hours): Temp Pulse Resp BP Pulse Ox 98.3 F 74 18 176/78 H 96 11/27/17 06:00 11/27/17 06:00 11/27/17 06:00 11/27/17 06:00 11/27/17 06:00 Intake and Output: 11/27/17 11/27/17 06:59 18:59 Intake Total 120 Output Total 300 Balance -180 - Medications Medications: Current Medications Amlodipine Besylate (Norvasc) 5 mg PO DAILY [facility] Last Admin: 11/26/17 10:24 Dose: 5 mg Aspirin (Aspirin Chewable) 81 mg PO DAILY [facility] Last Admin: 11/26/17 10:24 Dose: 81 mg Atorvastatin Calcium (Lipitor) 20 mg PO DIN [facility] Last Admin: 11/26/17 17:43 Dose: 20 mg Clonidine HCl (Catapres) 0.1 mg PO BID [facility] Last Admin: 11/26/17 17:43 Dose: 0.1 mg Clopidogrel Bisulfate (Plavix) 75 mg PO DAILY [facility] Last Admin: 11/26/17 10:24 Dose: 75 mg Heparin Sodium (Porcine) (Heparin) 5,000 units SC Q8H [facility] PRN Reason: Protocol Last Admin: 11/27/17 05:22 Dose: 5,000 units Hydralazine HCl (Apresoline) 25 mg PO BID [facility] Last Admin: 11/26/17 17:50 Dose: 25 mg Isosorbide Mononitrate (Imdur Er) 30 mg PO DAILY [facility] Last Admin: 11/26/17 10:24 Dose: 30 mg Metoprolol Tartrate (Lopressor) 25 mg PO BID [facility] Last Admin: 11/26/17 17:43 Dose: 25 mg Morphine Sulfate (Morphine) 2 mg IVP Q2H PRN PRN Reason: Pain, severe (8-10) Last Admin: 11/27/17 07:07 Dose: 2 mg Ondansetron HCl (Zofran Inj) 4 mg IVP Q4H PRN PRN Reason: Nausea/Vomiting Last Admin: 11/26/17 17:58 Dose: 4 mg Pantoprazole Sodium (Protonix Ec Tab) 40 mg PO 0600 [facility] Last Admin: 11/27/17 05:21 Dose: 40 mg Sevelamer HCl (Renagel) 800 mg PO WM [facility] Last Admin: 11/27/17 08:33 Dose: 800 mg Timolol Maleate (Timoptic 0.5% Ophth Soln) 1 drop OD HS [facility] Last Admin: 11/26/17 21:12 Dose: 1 drop - Labs Labs: 11/26/17 05:30 11/27/17 05:30 PT 10.6 SECONDS (9.4-12.5) 11/21/17 19:34 INR 0.93 (0.93-1.08) 11/21/17 19:34 APTT 57.0 Seconds (25.1-36.5) H 11/24/17 06:00 Assessment and Plan - Assessment and Plan (Free Text) Assessment: Chest and back pain Acute DC by trops, with mild LVD on echo Hyperkalemia Acute on chronic renal insufficiency, improving Moderate bilat. pl. effusions on CT PAD/Bilateral iliac stents HBP CVD/CEA COPD/Former Smoker Glaucoma H/O hysterectomy for endometrial cancer DNR/DNI status Plan: Rx. for hyperkalemia. As per Renal, Drs. Moody, LANI. SQ heparin NTG PRN Continue ASA, Plavix, metoprolol, atorvastatin, amlodipine. Increase isosorbide to 60/day Monitor: I/O. K+, labs, sats., renal fx., etc. OOB as chloe/PT Will follow
--- NOTE | 2017-11-27 11:38 | CP.PCM.PN ---
<Jory Woods - Last Filed: 11/27/17 11:37> Subjective - Date & Time of Evaluation Date of Evaluation: 11/27/17 Time of Evaluation: 10:15 - Subjective Subjective: S&E at bedside and chart reviewed, c/o nausea, trying to drink kayexalate. Denies Nausea last night. No vomiting, sob or cp. No acute overnight events reported. Ct scan A&P report reviewed, show moderate bilateral pleural effusion , no acute findings in bowel. Objective - Vital Signs/Intake and Output Vital Signs (last 24 hours): Temp Pulse Resp BP Pulse Ox 98.3 F 72 18 176/82 H 96 11/27/17 06:00 11/27/17 09:59 11/27/17 06:00 11/27/17 09:59 11/27/17 06:00 Intake and Output: 11/27/17 11/27/17 06:59 18:59 Intake Total 120 Output Total 300 Balance -180 - Medications Medications: Current Medications Amlodipine Besylate (Norvasc) 5 mg PO DAILY [facility] Last Admin: 11/27/17 09:57 Dose: 5 mg Aspirin (Aspirin Chewable) 81 mg PO DAILY [facility] Last Admin: 11/27/17 09:57 Dose: 81 mg Atorvastatin Calcium (Lipitor) 20 mg PO DIN [facility] Last Admin: 11/26/17 17:43 Dose: 20 mg Clonidine HCl (Catapres) 0.1 mg PO BID [facility] Last Admin: 11/27/17 09:58 Dose: 0.1 mg Clopidogrel Bisulfate (Plavix) 75 mg PO DAILY [facility] Last Admin: 11/27/17 09:57 Dose: 75 mg Heparin Sodium (Porcine) (Heparin) 5,000 units SC Q8H [facility] PRN Reason: Protocol Last Admin: 11/27/17 09:56 Dose: 5,000 units Hydralazine HCl (Apresoline) 25 mg PO BID [facility] Last Admin: 11/27/17 09:58 Dose: 25 mg Isosorbide Mononitrate (Imdur) 60 mg PO DAILY [facility] Last Admin: 11/27/17 09:59 Dose: 60 mg Metoprolol Tartrate (Lopressor) 25 mg PO BID [facility] Last Admin: 11/27/17 09:59 Dose: 25 mg Morphine Sulfate (Morphine) 2 mg IVP Q2H PRN PRN Reason: Pain, severe (8-10) Last Admin: 11/27/17 07:07 Dose: 2 mg Ondansetron HCl (Zofran Inj) 4 mg IVP Q4H PRN PRN Reason: Nausea/Vomiting Last Admin: 11/26/17 17:58 Dose: 4 mg Pantoprazole Sodium (Protonix Ec Tab) 40 mg PO 0600 [facility] Last Admin: 11/27/17 05:21 Dose: 40 mg Sevelamer HCl (Renagel) 800 mg PO WM [facility] Last Admin: 11/27/17 08:33 Dose: 800 mg Timolol Maleate (Timoptic 0.5% Ophth Soln) 1 drop OD HS [facility] Last Admin: 11/26/17 21:12 Dose: 1 drop - Labs Labs: 11/26/17 05:30 11/27/17 05:30 PT 10.6 SECONDS (9.4-12.5) 11/21/17 19:34 INR 0.93 (0.93-1.08) 11/21/17 19:34 APTT 57.0 Seconds (25.1-36.5) H 11/24/17 06:00 - Constitutional Appears: No Acute Distress - Eye Exam Eye Exam: Normal appearance. absent: Scleral icterus - ENT Exam ENT Exam: Mucous Membranes Moist - Neck Exam Neck Exam: Normal Inspection - Respiratory Exam Respiratory Exam: Decreased Breath Sounds, NORMAL BREATHING PATTERN. absent: Respiratory Distress - Cardiovascular Exam Cardiovascular Exam: +S1, +S2 - GI/Abdominal Exam GI & Abdominal Exam: Soft, Normal Bowel Sounds. absent: Guarding, Tenderness, Rebound - Extremities Exam Extremities Exam: absent: Calf Tenderness, Pedal Edema - Neurological Exam Neurological Exam: Alert, Awake, Oriented x3 Assessment and Plan - Assessment and Plan (Free Text) Assessment: Asssessment: Anemia NSTEMI Hyperkalenia, s/p kayexalate PVD CKD HTN Hyperparathyroidism Plan: Trend H&H, stable currently continue PPI monitor electrolytes On ASA and Plavix on Heparin SQ on CLD Stool for occult blood Seen and Discussed with Dr. Aiken <Jeferson Aiken V - Last Filed: 11/27/17 22:26> Objective - Vital Signs/Intake and Output Vital Signs (last 24 hours): Temp Pulse Resp BP Pulse Ox 97.9 F 74 18 170/79 H 96 11/27/17 17:42 11/27/17 18:00 11/27/17 17:42 11/27/17 17:42 11/27/17 06:00 Intake and Output: 11/27/17 11/28/17 18:59 06:59 Intake Total 240 Output Total 250 Balance -10 - Medications Medications: Current Medications Amlodipine Besylate (Norvasc) 5 mg PO DAILY [facility] Last Admin: 11/27/17 09:57 Dose: 5 mg Aspirin (Aspirin Chewable) 81 mg PO DAILY [facility] Last Admin: 11/27/17 09:57 Dose: 81 mg Atorvastatin Calcium (Lipitor) 20 mg PO DIN [facility] Last Admin: 11/27/17 17:40 Dose: 20 mg Clonidine HCl (Catapres) 0.1 mg PO BID [facility] Last Admin: 11/27/17 17:42 Dose: 0.1 mg Clopidogrel Bisulfate (Plavix) 75 mg PO DAILY [facility] Last Admin: 11/27/17 09:57 Dose: 75 mg Heparin Sodium (Porcine) (Heparin) 5,000 units SC Q8H [facility] PRN Reason: Protocol Last Admin: 11/27/17 17:43 Dose: 5,000 units Hydralazine HCl (Apresoline) 50 mg PO TID [facility] Last Admin: 11/27/17 18:59 Dose: Not Given Isosorbide Mononitrate (Imdur) 60 mg PO DAILY [facility] Last Admin: 11/27/17 09:59 Dose: 60 mg Metoprolol Tartrate (Lopressor) 25 mg PO BID [facility] Last Admin: 11/27/17 17:41 Dose: 25 mg Morphine Sulfate (Morphine) 2 mg IVP Q2H PRN PRN Reason: Pain, severe (8-10) Last Admin: 11/27/17 16:10 Dose: 2 mg Ondansetron HCl (Zofran Inj) 4 mg IVP Q4H PRN PRN Reason: Nausea/Vomiting Last Admin: 11/27/17 17:03 Dose: 4 mg Pantoprazole Sodium (Protonix Ec Tab) 40 mg PO 0600 [facility] Last Admin: 11/27/17 05:21 Dose: 40 mg Sevelamer HCl (Renagel) 800 mg PO WM [facility] Last Admin: 11/27/17 17:40 Dose: 800 mg Sodium Bicarbonate (Sodium Bicarbonate Tab) 650 mg PO TID [facility] Last Admin: 11/27/17 19:01 Dose: Not Given Timolol Maleate (Timoptic 0.5% Oph Soln) 1 drop OD HS [facility] Last Admin: 11/26/17 21:12 Dose: 1 drop - Labs Labs: 11/26/17 05:30 11/27/17 18:01 PT 10.6 SECONDS (9.4-12.5) 11/21/17 19:34 INR 0.93 (0.93-1.08) 11/21/17 19:34 APTT 57.0 Seconds (25.1-36.5) H 11/24/17 06:00 Attending/Attestation - Attestation I have personally seen and examined this patient.: Yes I have fully participated in the care of the patient.: Yes I have reviewed all pertinent clinical information, including history, physical exam and plan: Yes Notes (Text): This is an addendum to GI progress report dictated by Jory Woods APN.The patient was seen and examined earlier. Medical records, lab studies, imagings were reviewed. Last 24 hours events reviewed. Agreed with the above treatment plan as outlined in Jory Woods APN's notes the with the addition of the following The CT scan was reviewed Hemoglobin stable Abdomen soft no tenderness Patient did have some dysphagia. Yesterday. Able to drink oral contrast for CT Patient is on aspirin and Plavix Continue Protonix Soft diet to well or pured diet If dysphagia symptoms persist would consider esophagogram 11/27/17 22:24
--- NOTE | 2017-11-27 14:25 | CP.PCM.PN ---
Subjective - Date & Time of Evaluation Date of Evaluation: 11/27/17 Time of Evaluation: 10:30 - Subjective Subjective: Having some nausea, no diarrhea, no chest pain, not in distress. Objective - Vital Signs/Intake and Output Vital Signs (last 24 hours): Temp Pulse Resp BP Pulse Ox 97.9 F 66 16 176/87 H 96 11/27/17 12:00 11/27/17 12:00 11/27/17 12:00 11/27/17 12:00 11/27/17 06:00 Intake and Output: 11/27/17 11/27/17 06:59 18:59 Intake Total 120 Output Total 300 Balance -180 - Medications Medications: Current Medications Amlodipine Besylate (Norvasc) 5 mg PO DAILY [facility] Last Admin: 11/27/17 09:57 Dose: 5 mg Aspirin (Aspirin Chewable) 81 mg PO DAILY [facility] Last Admin: 11/27/17 09:57 Dose: 81 mg Atorvastatin Calcium (Lipitor) 20 mg PO DIN [facility] Last Admin: 11/26/17 17:43 Dose: 20 mg Clonidine HCl (Catapres) 0.1 mg PO BID [facility] Last Admin: 11/27/17 09:58 Dose: 0.1 mg Clopidogrel Bisulfate (Plavix) 75 mg PO DAILY [facility] Last Admin: 11/27/17 09:57 Dose: 75 mg Heparin Sodium (Porcine) (Heparin) 5,000 units SC Q8H [facility] PRN Reason: Protocol Last Admin: 11/27/17 09:56 Dose: 5,000 units Hydralazine HCl (Apresoline) 25 mg PO BID [facility] Isosorbide Mononitrate (Imdur) 60 mg PO DAILY [facility] Last Admin: 11/27/17 09:59 Dose: 60 mg Metoprolol Tartrate (Lopressor) 25 mg PO BID [facility] Last Admin: 11/27/17 09:59 Dose: 25 mg Morphine Sulfate (Morphine) 2 mg IVP Q2H PRN PRN Reason: Pain, severe (8-10) Last Admin: 11/27/17 07:07 Dose: 2 mg Ondansetron HCl (Zofran Inj) 4 mg IVP Q4H PRN PRN Reason: Nausea/Vomiting Last Admin: 11/26/17 17:58 Dose: 4 mg Pantoprazole Sodium (Protonix Ec Tab) 40 mg PO 0600 [facility] Last Admin: 11/27/17 05:21 Dose: 40 mg Sevelamer HCl (Renagel) 800 mg PO WM [facility] Last Admin: 11/27/17 12:15 Dose: 800 mg Timolol Maleate (Timoptic 0.5% Ophth Soln) 1 drop OD HS [facility] Last Admin: 11/26/17 21:12 Dose: 1 drop - Labs Labs: 11/26/17 05:30 11/27/17 05:30 PT 10.6 SECONDS (9.4-12.5) 11/21/17 19:34 INR 0.93 (0.93-1.08) 11/21/17 19:34 APTT 57.0 Seconds (25.1-36.5) H 11/24/17 06:00 - Constitutional Appears: Chronically Ill - Head Exam Head Exam: NORMAL INSPECTION - Respiratory Exam Respiratory Exam: Decreased Breath Sounds - Cardiovascular Exam Cardiovascular Exam: +S1, +S2 - GI/Abdominal Exam GI & Abdominal Exam: Soft. absent: Tenderness Assessment and Plan - Assessment and Plan (Free Text) Plan: Assessment Systemic inflammatory response syndrome probably due to acute NSTEMI, no evidence of sepsis identified chronic renal failure HTN S/P carotid endearterectomy endometrial CAD S/P hysterectomy Plan cultures have been negative, reviewed CT C/A/P which does not point to a source of infection - will continue to monitor the patient off antibiotics since she is at risk for nosocomial infections
[2017-11-27 19:33] LABS: URINE CREATININE 83.9 mg/dL
--- NOTE | 2017-11-27 23:46 | PN ---
DATE: SUBJECTIVE: Patient is currently seen, lying comfortable in bed. She just had a bowel movement. She was given Kayexalate for potassium of 5.4. Patient states that she is awaiting for a possible transfer to the TCU. Her creatinine remained stable in the 2 range. This is slightly above her baseline level. MEDICATIONS: Medication list reviewed. Patient is currently on Apresoline, aspirin, clonidine, heparin, Imdur, Lipitor, Lopressor, morphine p.r.n., Norvasc, Plavix, Protonix, Renagel, Timoptic, and Zofran p.r.n. OBJECTIVE: INTAKE AND OUTPUT: Intake 240, output 250, likely incomplete. VITAL SIGNS: Blood pressure ranging from 170 to 176 systolic, diastolic ranging from 79 to 87. Temperature 97.9, respiratory rate of 18 with a pulse of 69. HEENT: Normocephalic, atraumatic. Conjunctivae are pale. Sclerae are nonicteric. NECK: Supple. No neck vein distention. Left carotid endarterectomy scar. CHEST: Clear to auscultation and percussion with slight decreased breath sounds at the bases. CARDIOVASCULAR: Shows a regular rate and rhythm with /AI/MR/TR. No rubs or gallops. ABDOMEN: Soft. Bowel sounds normal. No rebound, guarding or masses. EXTREMITIES: Show no lower extremity cyanosis, clubbing or edema. Lower extremity pulses are mildly reduced at 1 to 2+. LABORATORY DATA AND IMAGING STUDIES: CBC today, white blood cell count 7.2, hemoglobin 10.2 with a platelet count of 187,000. Chemistries, sodium 141, potassium up to 5.4, hence she was given Kayexalate. CO2 level is lower at 18, anion gap is 13. BUN slightly improved to 53, creatinine is stable at 2.1. Calcium remains stubbornly elevated at 11.1. Magnesium level is 2.5. Patient's vitamin D level was 47 and she is off vitamin D supplements. Her PTH level was elevated at 176. Phosphorus level was 3.3, magnesium 2.5. Abdominal chest CT scan showed bilateral pleural effusions and an atrophic right kidney. Her renal artery Doppler done previously was negative for renal artery stenosis in her left kidney. X-rays of her lumbar and thoracic spine showed multilevel degenerative disk disease. Microbiology, all blood cultures were negative. Urine culture showed multiple species and contamination. ASSESSMENT: 1. Acute renal failure superimposed on chronic kidney disease, stage III. Baseline creatinine is in the 1.7 to 1.8 range. She remains slightly above her baseline range, perhaps she has a new baseline. She has no evidence of renal artery stenosis in her normal size left kidney. She has an atrophic right kidney. 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 2. Status post life-threatening hyperkalemia. Patient levels are trending higher. I will start patient on sodium bicarbonate supplements. This will hopefully raise her CO2 level, which might help keep her potassium level lower. 3. History of hypertension. Blood pressure control is fair. Systolic blood pressures are trending higher. They are in the 170 range. I will increase hydralazine to three times a day and increase her dose to 50 mg. She will continue on calcium channel rosa therapy. She will continue clonidine. 4. History of peripheral vascular disease, history of iliac artery stent placement, history of carotid endarterectomy. 5. History of hypercalcemia. Patient's corrected calcium is in the 12 range. Patient states that she has had high calcium levels in the past. Concern here is for possible primary hyperparathyroidism, though it appeared initially that she had secondary hyperparathyroidism. Patient might be a candidate for outpatient use of Sensipar off label for treatment of primary hyperparathyroidism. Serum protein electrophoresis was ordered. These results are pending. 6. Hyperlipidemia. Patient will continue statin therapy in light of her history of peripheral vascular disease. 7. History of acute myocardial infarction, likely non-ST elevation myocardial infarction. Ejection fraction of 41% with global hypokinesis. Patient is being followed by Cardiology. 8. Do not resuscitate/do not intubate as per the patient's request. PLAN: 1. We will start patient on bicarbonate therapy. 2. We need to obtain the complete results of her 24-hour urines. 3. I will titrate hydralazine higher. 4. We will obtain a serum protein electrophoresis in light of her hypercalcemia. Again, patient would be a candidate possibly for Sensipar therapy for the off label use of the drug to lower her calcium level. 5. From my standpoint, she may be transferred to the [facility]. Byron Bonilla MD [facility] # [id number] [place]
[2017-11-28] MEDS: Pantoprazole 40 mg EC Tab PO SCH (05:45)
[2017-11-28 06:38] LABS: CALCIUM 11.3 mg/dL (8.4-10.5)
[2017-11-28] MEDS: Morphine 2 mg/ml ISec IVP PRN ×2 (09:28→23:58)
--- NOTE | 2017-11-28 12:24 | PN ---
DATE: 11/28/17 LOCATION: The patient is in [facility], room 263, bed 1. SUBJECTIVE: The patient was admitted with unstable angina, rule out AR. The patient had abnormal troponin. Clinically, the patient had myocardial infarction with angina. The patient has a past history of renal failure, past history of osteoarthritis, peripheral vascular disease, and carotid artery disease. The patient is seen this morning. She states that she had on and off chest pain and she had diarrhea after Kayexalate. PHYSICAL EXAMINATION: VITAL SIGNS: This morning, the pulse is 76, blood pressure 155/78, respirations are 19, and O2 saturation 97% on 2 liters of oxygen. Temperature is 98.8. HEENT: Head is normocephalic. NECK: Carotid pulses are present. She had a previous carotid artery surgery on the left side of the neck. LUNGS: Trachea central. Breath sounds are vesicular. No adventitious sounds. HEART: Normal sinus rhythm. S1 and S2 present. ABDOMEN: Soft. Liver and spleen not palpable. CENTRAL NERVOUS SYSTEM: The patient is conscious, rational, and oriented. The patient did walk about 30 feet yesterday and she said that she was able to tolerate it. LABORATORY DATA: The patient's blood work done yesterday: The hemoglobin is 10.3. The patient's differential shows good proportion. The patient's chemistry, BUN is 47 and creatinine is 1.9, these numbers are much better than what she came with. Her creatinine was over 3 at the time of admission. The patient's calcium is 11.3. 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 The patient's troponin was elevated, it is back to normal. The patient is being evaluated for rehab in the [facility]. The patient is accepting that. MEDICATIONS: The patient is on hydralazine 50 mg t.i.d. The patient is on aspirin 81 mg daily and clonidine 0.1 mg b.i.d. The patient is on Imdur, which is isosorbide mononitrate, 60 mg daily; Lipitor 20 mg daily; and metoprolol 25 mg b.i.d. The patient is on morphine q. 4 hours p.r.n. for pain, amlodipine 5 mg daily, Plavix 75 mg daily, and pantoprazole 40 mg daily. The patient is on Renagel for renal failure, 800 mg daily. The patient is on sodium bicarbonate 650 mg p.o. t.i.d. and eyedrops for glaucoma - timolol 0.5% solution to both eyes. DIET: Heart-healthy diet. CONDITION: Improving. The patient still has complaints about pain on and off and she is accepting physical therapy. We will continue current management and followup. Ky Bell MD [facility]
--- NOTE | 2017-11-28 14:00 | PN ---
DATE: 11/28/2017 SUBJECTIVE: The patient is seen lying in bed on telemetry. She is comfortable and pleasant. She continues to feel somewhat weak. Her oral intake has been poor. She did some walking yesterday. Plan is being made for possible transfer to rehabilitation center. CURRENT MEDICATIONS: Include hydralazine 50 mg t.i.d., aspirin, clonidine 0.1 mg b.i.d., subcutaneous heparin, Imdur 60 mg daily, Lipitor 20 mg daily, metoprolol 25 mg b.i.d., Norvasc 5 mg daily, Plavix 75 mg daily, Protonix, Renagel, sodium bicarbonate tablets, Timoptic, and Zofran p.r.n. OBJECTIVE: GENERAL: She is a some frail-appearing elderly woman. VITAL SIGNS: Her blood pressure is 156/78, her pulse is 76, respirations 16. She is afebrile. HEENT: No JVD. CHEST: Few scattered rhonchi. HEART: PMI displaced laterally with systolic murmur in the left sternal border. ABDOMEN: Soft, nontender with bowel sounds. EXTREMITIES: No edema. Generalized muscle atrophy noted. DIAGNOSTIC DATA: Potassium is 4.7. BUN and creatinine 47 and 1.9. Calcium 11.3. IMPRESSION: 1. Recent non-ST segment elevation myocardial infarction, being treated conservatively given severity of her renal insufficiency. 2. Mild left ventricular dysfunction. 3. Acute on chronic renal failure. 4. Bilateral pleural effusion. 5. Peripheral arterial disease. 6. History of chronic obstructive pulmonary disease. 7. Do not resuscitate/do not intubate. RECOMMENDATIONS: Current management should continue for now. Metoprolol dose will be increased to 50 mg b.i.d. for better blood pressure control as well as antianginal benefits. Increased physical therapy efforts are advised. From cardiac standpoint, she appears stable for transfer to rehabilitation center once medically cleared. We will continue to follow and make further recommendations as appropriate. Bautista Balderas MD
--- NOTE | 2017-11-28 21:55 | PN ---
DATE: SUBJECTIVE: The patient is currently seen lying supine, comfortable in bed on 2 R. She was given Kayexalate yesterday for potassium of 5.4. Repeat potassium today is down to 4.7. Her creatinine has actually improved to 1.9. She is very close to her baseline level of 1.7-1.8. The patient states that she is awaiting a potential transfer to the TCU for exercise and rehabilitation. MEDICATIONS: Medication list reviewed. The patient is currently on Apresoline, aspirin, clonidine, heparin, Imdur, Lipitor, Lopressor, morphine p.r.n., Norvasc, Plavix, Protonix, Renagel, sodium bicarbonate tablets, Timoptic and Zofran p.r.n. OBJECTIVE: INTAKE/OUTPUT: Intake 480, output 250. VITAL SIGNS: Blood pressure 115/52, significantly improved, pulse is 58, temperature 98, respiratory rate of 18. HEENT: Normocephalic, atraumatic. Conjunctivae are pale. Sclerae are nonicteric. NECK: Supple. No neck vein distention. Left carotid endarterectomy scar. CHEST: Clear to auscultation and percussion with slight decreased breath sounds at the bases. CARDIOVASCULAR: Shows a regular rate and rhythm with /AI/MR/TR. No rubs or gallops noted. ABDOMEN: Soft. Bowel sounds normal. No rebound, guarding or masses. EXTREMITIES: Show no lower extremity cyanosis, clubbing or edema. Lower extremity pulses are mildly reduced at 1-2+ plus. LABORATORY DATA AND IMAGING: Labs today, CBC, white blood cell count is 7.2, hemoglobin 10.2 with a platelet count of 187,000. Chemistries: Sodium 142, potassium improved to 4.7, chloride 116, CO2 is improved to 19 on bicarbonate supplements. BUN down to 47 from a high of 74. Creatinine is down from a high of 3 down to 1.9. Baseline creatinine 1.7-1.8 range. Calcium level remains elevated at 11.3, corrected calcium for albumin level of 2.7 is 12.1. Serum protein electrophoresis is pending. The patient's PTH level was 176. Phosphorus level was 3.3. This all might be consistent with primary hyperparathyroidism that was initially felt that she had secondary hyperparathyroidism on admission. Microbiology, all cultures were negative. ASSESSMENT: 1. Acute renal failure superimposed on chronic kidney disease stage III. Baseline creatinine 1.7-1.8. The patient has no evidence of renal artery stenosis and had normal-sized left kidney. She does have an atrophic right kidney. We feel that the patient likely has hypertensive nephrosclerosis in general. 2. Status post life-threatening hyperkalemia. The patient will continue on sodium bicarbonate. She will remain off potassium-sparing diuretics and angiotensin receptor rosa therapy. 3. Hypertension. Blood pressure control is improved. I had increased her hydralazine. If her blood pressure stays in the low range of normal, I will attempt to decrease her clonidine further. She will continue on Norvasc, Lopressor and hydralazine. 4. History of peripheral vascular disease, history of iliac artery stent placement, history of carotid endarterectomy, all stable. 5. History of hypercalcemia. Possibilities include that of primary hyperparathyroidism rather than what appeared to be secondary hyperparathyroidism on admission. Will also rule out myeloma. Serum protein electrophoresis final results are pending. As discussed in yesterday's note, the patient might be a candidate for off label use of Sensipar therapy to lower her calcium level should it rise further. 6. Hyperlipidemia. The patient will continue statin therapy in light of her history of peripheral vascular disease. 7. History of acute myocardial infarction, likely [id number] myocardial infarction. Ejection fraction of 41% with global hypokinesis. Patient is being monitored conservatively and followed by Cardiology. 8. As per the patient's request, do not resuscitate/do not intubate. PLAN: 1. Continue to monitor labs closely. 2. Adjust blood pressure medications pending her blood pressure readings. 3. Await results of serum protein electrophoresis. 4. Perhaps start Sensipar therapy for lowering her calcium level in the setting of possible primary hyperparathyroidism. 5. The patient is awaiting possible transfer to the TCU in the next day or so. Byron Bonilla MD
--- NOTE | 2017-11-29 03:58 | PN ---
DATE: 11/28/2017 SUBJECTIVE: This patient was seen and evaluated earlier today. Patient's family was at bedside. Patient is unable to tolerate soft diet. PHYSICAL EXAMINATION: VITAL SIGNS: Temperature 97.1, blood pressure is 141/75, pulse 113, respirations 19. HEENT: Atraumatic and anicteric. NECK: Supple. HEART: S1 and S2 heard. LUNGS: Bilateral air entry present. ABDOMEN: Soft. There is no mass palpable. No tenderness. LABORATORY DATA: Hemoglobin 10.3, hematocrit 32.9, WBC 7.2, platelets 187. Chemistry: BUN 47, creatinine 1.9. Hemoglobin remains stable. There are no recent labs done and no recent CBC done. IMPRESSION: This 82-year-old patient was admitted to the hospital with acute myocardial infarction. Patient was on aspirin, Plavix. Was on heparin, which was discontinued. Patient's initial hemoglobin on admission on 11/21/2017 was 13.2, then following date was 11.3. It dropped down to 8.3, now it remains stable around 10.5-10.3. Patient is empirically on proton pump inhibitor. The patient is also with episodes of dysphagia. She did have a CT scan of the abdomen and pelvis with p.o. contrast to further evaluate any mass/lesion. It showed pleural effusion, but there was no abdominal mass, lesion, or acute pathology noticed. I had a detailed discussion with patient's daughter. She mentioned that dysphagia is only intermittent. Overall, she is able to tolerate the diet. RECOMMENDATION: 1. Get a soft/pureed diet. 2. Consider esophagogram if remains symptomatic. Would continue empiric therapy with PPI and close followup of the hemoglobin and hematocrit, and patient is on Plavix and aspirin. Thank you very much for allowing us to participate in the care of the patient. Jeferson Aiken MD
[2017-11-29] MEDS: Pantoprazole 40 mg EC Tab PO SCH (05:00)
[2017-11-29 06:55] LABS: HEMOGLOBIN 9.9 g/dL (12.0-16.0); MEAN CELL VOLUME 87.7 fl (80.0-105.0); MEAN CORPUSCULAR HEMOGLOBIN 28.4 pg (25.0-35.0); MEAN CORPUSCULAR HGB CONC 32.4 g/dl (31.0-37.0); MEAN PLATELET VOLUME 11.1 fl (7.0-11.0); RBC 3.49 10^6/uL (3.5-6.1); RED CELL DISTRIBUTION WIDTH 16.2 % (11.5-14.5); WHITE BLOOD COUNT 5.9 10^3/ul (4.5-11.0)
[2017-11-29 07:11] LABS: ALBUMIN 2.6 g/dL (3.0-4.8); CALCIUM 11.4 mg/dL (8.4-10.5)
--- NOTE | 2017-11-29 07:56 | CP.PCM.PN ---
Subjective - Date & Time of Evaluation Date of Evaluation: 11/29/17 Time of Evaluation: 07:30 - Subjective Subjective: Patient is seen this morning in room 263 bed 1. She is lying in bed. She has no new complaints. Objective - Vital Signs/Intake and Output Vital Signs (last 24 hours): Temp Pulse Resp BP Pulse Ox 97.2 F L 65 18 159/68 H 93 L 11/29/17 06:00 11/29/17 06:00 11/29/17 06:00 11/29/17 06:00 11/29/17 06:00 Intake and Output: 11/29/17 11/29/17 06:59 18:59 Intake Total 560 Output Total 300 Balance 260 - Medications Medications: Current Medications Amlodipine Besylate (Norvasc) 5 mg PO DAILY [facility] Last Admin: 11/28/17 09:22 Dose: 5 mg Aspirin (Aspirin Chewable) 81 mg PO DAILY [facility] Last Admin: 11/28/17 09:23 Dose: 81 mg Atorvastatin Calcium (Lipitor) 20 mg PO DIN [facility] Last Admin: 11/28/17 18:46 Dose: 20 mg Clonidine HCl (Catapres) 0.1 mg PO BID [facility] Last Admin: 11/28/17 18:46 Dose: 0.1 mg Clopidogrel Bisulfate (Plavix) 75 mg PO DAILY [facility] Last Admin: 11/28/17 09:24 Dose: 75 mg Heparin Sodium (Porcine) (Heparin) 5,000 units SC Q8H [facility] PRN Reason: Protocol Last Admin: 11/29/17 02:13 Dose: 5,000 units Hydralazine HCl (Apresoline) 50 mg PO TID [facility] Last Admin: 11/28/17 18:46 Dose: 50 mg Isosorbide Mononitrate (Imdur) 60 mg PO DAILY [facility] Last Admin: 11/28/17 09:23 Dose: 60 mg Metoprolol Tartrate (Lopressor) 50 mg PO BID [facility] Last Admin: 11/28/17 18:45 Dose: 50 mg Morphine Sulfate (Morphine) 2 mg IVP Q2H PRN PRN Reason: Pain, severe (8-10) Last Admin: 11/28/17 23:58 Dose: 2 mg Ondansetron HCl (Zofran Inj) 4 mg IVP Q4H PRN PRN Reason: Nausea/Vomiting Last Admin: 11/28/17 18:55 Dose: 4 mg Pantoprazole Sodium (Protonix Ec Tab) 40 mg PO 0600 [facility] Last Admin: 11/29/17 05:00 Dose: 40 mg Sevelamer HCl (Renagel) 800 mg PO WM [facility] Last Admin: 11/28/17 18:46 Dose: 800 mg Sodium Bicarbonate (Sodium Bicarbonate Tab) 650 mg PO TID [facility] Last Admin: 11/28/17 18:45 Dose: 650 mg Timolol Maleate (Timoptic 0.5% Ophth Soln) 1 drop OD HS [facility] Last Admin: 11/28/17 21:33 Dose: 1 drop - Labs Labs: 11/29/17 06:00 11/29/17 06:00 PT 10.6 SECONDS (9.4-12.5) 11/21/17 19:34 INR 0.93 (0.93-1.08) 11/21/17 19:34 APTT 57.0 Seconds (25.1-36.5) H 11/24/17 06:00 - Constitutional Appears: No Acute Distress - Head Exam Head Exam: ATRAUMATIC, NORMOCEPHALIC - Respiratory Exam Respiratory Exam: Decreased Breath Sounds, NORMAL BREATHING PATTERN - Cardiovascular Exam Cardiovascular Exam: +S1, +S2 - GI/Abdominal Exam GI & Abdominal Exam: Soft, Normal Bowel Sounds. absent: Tenderness - Neurological Exam Neurological Exam: Alert, Awake, Oriented x3 Assessment and Plan - Assessment and Plan (Free Text) Assessment: NSTEMI acute on chronic kidney disease HTN Peripheral vascular disease history of iliac stents Plan: Patient's BUN and creatinine are down to 46 and 2.0. She is on medical treatment for NSTEMI/angina with ASA, Plavix, Metoprolol, Imdur and Lipitor. Patient is also on Clonidine, hydralazine and amlodipine for blood pressure control. continue physical therapy. Patient may go to [facility] pending insurance approval.
[2017-11-29 11:14] LABS: ALBUMIN (PEP) 2.6 g/dL (3.8-4.8); ALPHA-1-GLOBULIN (PEP) 0.5 g/dL (0.2-0.3)
[2017-11-29] MEDS ORDERED: Barium Sulfate for Susp 98% w/w 340g Bottle ONE (14:01)
--- NOTE | 2017-11-29 14:06 | PN ---
SUBJECTIVE: The patient is currently seen lying comfortable in bed. She states that she will likely be transferred to the TCU later today or tomorrow whenever a bed is available. MEDICATIONS: Medication list reviewed. The patient is on hydralazine, aspirin, clonidine, subcu heparin, Imdur, Lipitor, Lopressor, morphine, Norvasc, Plavix, Protonix, Renagel, oral sodium bicarbonate, Timoptic, and Zofran p.r.n. OBJECTIVE: INTAKE/OUTPUT. Intake is 920, output is 300. VITAL SIGNS: Blood pressure 150/72. Temperature is 97.2, pulse is 65 with a respiratory rate of 18. HEENT: Normocephalic, atraumatic. Conjunctivae are pale. Sclerae nonicteric. NECK: Supple. No neck vein distention. Left carotid endarterectomy scar. CHEST: Clear to auscultation and percussion with slight decreased breath sounds at the bases. CARDIOVASCULAR: Regular rate and rhythm with /AI/MR/TR. No rubs or gallops noted. ABDOMEN: Soft. Bowel sounds normal. No rebound, guarding, or masses. EXTREMITIES: Show no lower extremity cyanosis, clubbing, or edema. Diminished lower extremity pulses are 1 to 2+. LABORATORY DATA AND IMAGING: CBC today, white blood cell count 5.9, hemoglobin of 9.9, platelet count is 216,000. Chemistries: Sodium 142, potassium 4.2 today. Chloride 113, CO2 19. Patient is on sodium bicarbonate supplements. BUN 46 with a creatinine of 2. Her baseline creatinine is in the 1.7 to 1.8 range and her BUN has dropped from high of 74 to 46 during the hospitalization. Calcium level remains elevated at 11.4. Serum protein electrophoresis appears to be normal, negative for myeloma. PTH level was elevated. Vitamin D level was normal and vitamin D supplements were stopped. Phosphorous 3.2, magnesium 2.4. Albumin level is 2.6. Microbiology, all cultures were negative. ASSESSMENT: 1. Acute renal failure superimposed on chronic kidney disease stage III. Baseline creatinine 1.7 to 1.8. Workup for renal artery stenosis and her normal size left kidney was negative. She does have an atrophic right kidney. Patient likely has hypertensive nephrosclerosis. 2. Status post life-threatening hyperkalemia. The patient will continue on sodium bicarbonate supplement. She will remain off potassium-sparing diuretics and angiotensin receptor rosa therapy. 3. History of hypertension. Blood pressure control is acceptable. Systolic showing 140 to 150 range. Diastolics are normal. She will continue on Norvasc, Lopressor, hydralazine, and low-dose clonidine. 4. History of peripheral vascular disease, history of iliac artery stent placement, history of carotid endarterectomy, all stable. 5. History of hypercalcemia. More than likely the patient has primary hyperparathyroidism as her PTH levels are elevated. Vitamin D level was normal, on supplements and her phosphorous level is currently normal on Renagel. Initially, it was felt that she might have secondary hyperparathyroidism secondary to chronic kidney disease. There is no other obvious etiology for her hypercalcemia. Patient states she has had this in the past. Again, discussed with her the possible use of Sensipar off label use for treatment of hypercalcemia. I would not start this in the hospital as I would not be following patient in the outpatient setting. Patient follows with Dr. Davis. 6. Hyperlipidemia. The patient will continue statin therapy in light of her history of peripheral vascular disease. 7. History of acute myocardial infarction, likely [id number] myocardial infarction. Ejection fraction of 41% with global hypokinesis. Patient is seen by Cardiology and she is being treated conservatively. 8. Do not resuscitate/do not intubate as per patient's request. PLAN: 1. Pt agreeable to transfer to the TCU for 8 days of rehabilitation and exercise. 2. Patient follows up with Dr. Davis on a regular basis. Byron Bonilla MD MTDRona
--- NOTE | 2017-11-29 14:49 | RAD ---
HISTORY: Dysphagia. COMPARISON: None. TECHNIQUE: Single contrast esophagram was performed. FINDINGS: Patient tolerated procedure well. ESOPHAGUS: Esophageal mucosa appeared preserved. No evidence of stricture or mass lesion. HIATAL HERNIA: Small hiatal hernia GASTROESOPHAGEAL REFLUX: Not demonstrated. OTHER FINDINGS: None. IMPRESSION: No evidence of obstruction or aspiration
[2017-11-29] MEDS: Morphine 2 mg/ml ISec IVP PRN (16:44)
[2017-11-30] MEDS: Morphine 2 mg/ml ISec IVP PRN (00:55)
[2017-11-30] MEDS ORDERED: Morphine 2 mg/ml ISec IVP STA (01:29)
--- NOTE | 2017-11-30 01:30 | CP.PCM.PN ---
Subjective - Date & Time of Evaluation Date of Evaluation: 11/30/17 Time of Evaluation: 01:30 - Subjective Subjective: cp Objective - Vital Signs/Intake and Output Vital Signs (last 24 hours): Temp Pulse Resp BP Pulse Ox 98.2 F 65 19 129/56 L 95 11/30/17 00:01 11/30/17 00:01 11/30/17 00:01 11/30/17 00:01 11/30/17 00:01 - Medications Medications: Current Medications Amlodipine Besylate (Norvasc) 5 mg PO DAILY [facility] Last Admin: 11/29/17 11:05 Dose: 5 mg Aspirin (Aspirin Chewable) 81 mg PO DAILY [facility] Last Admin: 11/29/17 11:03 Dose: 81 mg Atorvastatin Calcium (Lipitor) 20 mg PO DIN [facility] Last Admin: 11/29/17 17:54 Dose: 20 mg Clonidine HCl (Catapres) 0.1 mg PO BID [facility] Last Admin: 11/29/17 18:15 Dose: Not Given Clopidogrel Bisulfate (Plavix) 75 mg PO DAILY [facility] Last Admin: 11/29/17 11:58 Dose: 75 mg Heparin Sodium (Porcine) (Heparin) 5,000 units SC Q8H [facility] PRN Reason: Protocol Last Admin: 11/30/17 01:00 Dose: 5,000 units Hydralazine HCl (Apresoline) 50 mg PO TID [facility] Last Admin: 11/29/17 18:15 Dose: Not Given Isosorbide Mononitrate (Imdur) 60 mg PO DAILY [facility] Last Admin: 11/29/17 11:03 Dose: 60 mg Lorazepam (Ativan) 0.5 mg PO BID PRN; Protocol PRN Reason: Anxiety Metoprolol Tartrate (Lopressor) 50 mg PO BID [facility] Last Admin: 11/29/17 18:02 Dose: 50 mg Morphine Sulfate (Morphine) 2 mg IVP Q2H PRN PRN Reason: Pain, severe (8-10) Last Admin: 11/30/17 00:55 Dose: 2 mg Ondansetron HCl (Zofran Inj) 4 mg IVP Q4H PRN PRN Reason: Nausea/Vomiting Last Admin: 11/29/17 23:00 Dose: 4 mg Pantoprazole Sodium (Protonix Ec Tab) 40 mg PO 0600 [facility] Last Admin: 11/29/17 05:00 Dose: 40 mg Sevelamer HCl (Renagel) 800 mg PO WM [facility] Last Admin: 11/29/17 18:00 Dose: 800 mg Sodium Bicarbonate (Sodium Bicarbonate Tab) 650 mg PO TID [facility] Last Admin: 11/29/17 17:55 Dose: 650 mg Timolol Maleate (Timoptic 0.5% Ophth Soln) 1 drop OD HS [facility] Last Admin: 11/29/17 21:29 Dose: 1 drop - Labs Labs: 11/29/17 06:00 11/29/17 06:00 PT 10.6 SECONDS (9.4-12.5) 11/21/17 19:34 INR 0.93 (0.93-1.08) 11/21/17 19:34 APTT 57.0 Seconds (25.1-36.5) H 11/24/17 06:00
--- NOTE | 2017-11-30 03:34 | CP.PCM.PN ---
Subjective - Date & Time of Evaluation Date of Evaluation: 11/30/17 Time of Evaluation: 03:31 - Subjective Subjective: Patient was seen at bedside. Received morphine sulfate 2 mg IV ,not due yet. Morphine 2 mg IV stat was ordered. She complains of chest pain,Off and on since admission, Has no chest pain now. Denies sob, nausea, sweating. Medical record was reviewed. 82 year old white woman was admitted with chest pain, emesis with blood,NSTEMI. Has PMH of HTN,renal insufficiency, hyeruricemia, carotid artery disease, DJD, PVD. Objective - Vital Signs/Intake and Output Vital Signs (last 24 hours): Temp Pulse Resp BP Pulse Ox 98.2 F 65 19 158/79 H 95 11/30/17 00:01 11/30/17 00:01 11/30/17 00:01 11/30/17 01:40 11/30/17 00:01 - Medications Medications: Current Medications Amlodipine Besylate (Norvasc) 5 mg PO DAILY [facility] Last Admin: 11/29/17 11:05 Dose: 5 mg Aspirin (Aspirin Chewable) 81 mg PO DAILY [facility] Last Admin: 11/29/17 11:03 Dose: 81 mg Atorvastatin Calcium (Lipitor) 20 mg PO DIN [facility] Last Admin: 11/29/17 17:54 Dose: 20 mg Clonidine HCl (Catapres) 0.1 mg PO BID [facility] Last Admin: 11/29/17 18:15 Dose: Not Given Clopidogrel Bisulfate (Plavix) 75 mg PO DAILY [facility] Last Admin: 11/29/17 11:58 Dose: 75 mg Heparin Sodium (Porcine) (Heparin) 5,000 units SC Q8H [facility] PRN Reason: Protocol Last Admin: 11/30/17 01:00 Dose: 5,000 units Hydralazine HCl (Apresoline) 50 mg PO TID [facility] Last Admin: 11/29/17 18:15 Dose: Not Given Isosorbide Mononitrate (Imdur) 60 mg PO DAILY [facility] Last Admin: 11/29/17 11:03 Dose: 60 mg Lorazepam (Ativan) 0.5 mg PO BID PRN; Protocol PRN Reason: Anxiety Last Admin: 11/30/17 02:32 Dose: 0.5 mg Metoprolol Tartrate (Lopressor) 50 mg PO BID [facility] Last Admin: 11/29/17 18:02 Dose: 50 mg Morphine Sulfate (Morphine) 2 mg IVP Q2H PRN PRN Reason: Pain, severe (8-10) Last Admin: 11/30/17 00:55 Dose: 2 mg Ondansetron HCl (Zofran Inj) 4 mg IVP Q4H PRN PRN Reason: Nausea/Vomiting Last Admin: 11/29/17 23:00 Dose: 4 mg Pantoprazole Sodium (Protonix Ec Tab) 40 mg PO 0600 [facility] Last Admin: 11/29/17 05:00 Dose: 40 mg Sevelamer HCl (Renagel) 800 mg PO WM [facility] Last Admin: 11/29/17 18:00 Dose: 800 mg Sodium Bicarbonate (Sodium Bicarbonate Tab) 650 mg PO TID [facility] Last Admin: 11/29/17 17:55 Dose: 650 mg Timolol Maleate (Timoptic 0.5% Ophth Soln) 1 drop OD HS [facility] Last Admin: 11/29/17 21:29 Dose: 1 drop - Labs Labs: 11/29/17 06:00 11/29/17 06:00 PT 10.6 SECONDS (9.4-12.5) 11/21/17 19:34 INR 0.93 (0.93-1.08) 11/21/17 19:34 APTT 57.0 Seconds (25.1-36.5) H 11/24/17 06:00 Micro Results 11/22/17 16:15 Blood-Venous Blood Culture - Final NO GROWTH AFTER 5 DAYS 11/22/17 16:15 Blood-Venous Gram Stain - Final TEST NOT PERFORMED 11/22/17 16:00 Blood-Venous Blood Culture - Final NO GROWTH AFTER 5 DAYS 11/22/17 16:00 Blood-Venous Gram Stain - Final TEST NOT PERFORMED 11/25/17 15:20 Urine,Clean Catch Urine Culture - Final 10-50,000 CFU/ML. MULTIPLE SPECIES. PROBABLE CONTAMINATION. 11/22/17 01:00 Naris MRSA Culture (Admit) - Final MRSA NOT DETECTED 11/22/17 07:36 Urine,Clean Catch Urine Culture - Final 50-100,000 CFU/ML. MULTIPLE SPECIES. SUGGEST REPEAT SPECIMEN. Most Recent Lab Values WBC 5.9 10^3/ul (4.5-11.0) 11/29/17 06:00 RBC 3.49 10^6/uL (3.5-6.1) L 11/29/17 06:00 Hgb 9.9 g/dL (12.0-16.0) L 11/29/17 06:00 Hct 30.6 % (36.0-48.0) L 11/29/17 06:00 MCV 87.7 fl (80.0-105.0) 11/29/17 06:00 MCH 28.4 pg (25.0-35.0) 11/29/17 06:00 MCHC 32.4 g/dl (31.0-37.0) 11/29/17 06:00 RDW 16.2 % (11.5-14.5) H 11/29/17 06:00 Plt Count 216 10^3/uL (120.0-450.0) 11/29/17 06:00 MPV 11.1 fl (7.0-11.0) H 11/29/17 06:00 Gran % 74.6 % (50.0-68.0) H 11/26/17 05:30 Lymph % (Auto) 15.6 % (22.0-35.0) L 11/26/17 05:30 Bates % (Auto) 8.2 % (1.0-6.0) H 11/26/17 05:30 Eos % (Auto) 1.5 % (1.5-5.0) 11/26/17 05:30 Baso % (Auto) 0.1 % (0.0-3.0) 11/26/17 05:30 Gran # 5.33 (1.4-6.5) 11/26/17 05:30 Lymph # (Auto) 1.1 (1.2-3.4) L 11/26/17 05:30 Bates # (Auto) 0.6 (0.1-0.6) 11/26/17 05:30 Eos # (Auto) 0.1 (0.0-0.7) 11/26/17 05:30 Baso # (Auto) 0.01 K/mm3 (0.0-2.0) 11/26/17 05:30 Neutrophils % (Manual) 87 % (50.0-70.0) H 11/23/17 07:00 Band Neutrophils % 4 % (0-2) H 11/23/17 07:00 Lymphocytes % (Manual) 6 % (22.0-35.0) L 11/23/17 07:00 Monocytes % (Manual) 3 % (1.0-6.0) 11/23/17 07:00 Platelet Evaluation Normal (NORMAL) 11/23/17 07:00 PT 10.6 SECONDS (9.4-12.5) 11/21/17 19:34 INR 0.93 (0.93-1.08) 11/21/17 19:34 APTT 57.0 Seconds (25.1-36.5) H 11/24/17 06:00 Sodium 142 mmol/L (132-148) 11/29/17 06:00 Potassium 4.2 mmol/L (3.6-5.0) 11/29/17 06:00 Chloride 113 mmol/L (98-107) H 11/29/17 06:00 Carbon Dioxide 19 mmol/L (21-33) L 11/29/17 06:00 Anion Gap 14 (10-20) 11/29/17 06:00 BUN 46 mg/dL (7-21) H 11/29/17 06:00 Creatinine 2.0 mg/dl (0.7-1.2) H 11/29/17 06:00 Est GFR ( Amer) 29 11/29/17 06:00 Est GFR (Non-Af Amer) 24 11/29/17 06:00 POC Glucose (mg/dL) 268 mg/dL (65-110) H 11/23/17 04:44 Random Glucose 89 mg/dL (70-110) 11/29/17 06:00 Calcium 11.4 mg/dL (8.4-10.5) H 11/29/17 06:00 Phosphorus 3.2 mg/dL (2.5-4.5) 11/29/17 06:00 Magnesium 2.4 mg/dL (1.7-2.2) H 11/29/17 06:00 Total Bilirubin 0.2 mg/dL (0.2-1.3) 11/29/17 06:00 AST 41 U/L (14-36) H D 11/29/17 06:00 ALT 47 U/L (7-56) 11/29/17 06:00 Alkaline Phosphatase 60 U/L (38-126) 11/29/17 06:00 Lactate Dehydrogenase 562 U/L (333-699) 11/26/17 05:30 Total Creatine Kinase 43 U/L (35-230) 11/26/17 05:30 Troponin I 1.08 ng/mL H* D 11/26/17 05:30 Total Protein 5.2 g/dL (5.8-8.3) L 11/29/17 06:00 Total Protein (PEP) 5.2 g/dL (6.1-8.1) L 11/27/17 05:30 Albumin 2.6 g/dL (3.0-4.8) L 11/29/17 06:00 Albumin (PEP) 2.6 g/dL (3.8-4.8) L 11/27/17 05:30 Globulin 2.6 gm/dL 11/29/17 06:00 Albumin/Globulin Ratio 1.0 (1.1-1.8) L 11/29/17 06:00 Ttdqb-3-Mwtgtsfrp 0.5 g/dL (0.2-0.3) H 11/27/17 05:30 Etscl-5-Pisvlfefl 0.7 g/dL (0.5-0.9) 11/27/17 05:30 Amog-9-Rcjxybkw 0.3 g/dL (0.4-0.6) L 11/27/17 05:30 Qshk-6-Xkjcggdf 0.3 g/dL (0.2-0.5) 11/27/17 05:30 Gamma Globulins 0.8 g/dL (0.8-1.7) 11/27/17 05:30 Abnorm Protein Band 1 TEST NOT PERFORMED 11/27/17 05:30 Abnorm Protein Band 2 TEST NOT PERFORMED 11/27/17 05:30 Abnorm Protein Band 3 TEST NOT PERFORMED 11/27/17 05:30 25-OH Vitamin D Total 46.7 NG/ML (30.0-100.0) 11/22/17 11:50 Procalcitonin 0.56 NG/ML (0.19-0.49) H 11/22/17 11:50 PTH Intact Whole Molec 176 pg/mL (14-64) H 11/22/17 11:50 Urine Color Yellow (YELLOW) 11/25/17 15:20 Urine Appearance Sl cloudy (CLEAR) 11/25/17 15:20 Urine pH 6.0 (4.7-8.0) 11/25/17 15:20 Ur Specific [place] 1.020 (1.005-1.035) 11/25/17 15:20 Urine Protein Trace mg/dL (<30 mg/dL) H 11/25/17 15:20 Urine Glucose (UA) Negative mg/dL (NEGATIVE) 11/25/17 15:20 Urine Ketones Negative mg/dL (NEGATIVE) 11/25/17 15:20 Urine Blood Negative (NEGATIVE) 11/25/17 15:20 Urine Nitrate Negative (NEGATIVE) 11/25/17 15:20 Urine Bilirubin Negative (NEGATIVE) 11/25/17 15:20 Urine Urobilinogen 0.2 E.U./dL (<1 E.U./dL) 11/25/17 15:20 Ur Leukocyte Esterase Trace Lurdes/uL (NEGATIVE) H 11/25/17 15:20 Urine RBC Negative /hpf (0-2) 11/25/17 15:20 Urine WBC 10 - 15 /hpf (0-6) 11/25/17 15:20 Ur Epithelial Cells 6 - 8 /hpf (0-5) 11/25/17 15:20 Urine Bacteria Many (NEG) 11/25/17 15:20 Urine Collection Time 24 HOURS 11/27/17 18:01 Urine Total Volume 500 mL (800-1400) L 11/27/17 18:01 Creatinine Clearance 14.0 ml/min (80-120) L 11/27/17 18:01 Ur Protein 24 Hr Calc 120 mg/24HR (42-225) 11/26/17 16:11 MAGALI & SPEP Interp See note 11/27/17 05:30 - Constitutional Appears: Well, No Acute Distress - Head Exam Head Exam: ATRAUMATIC, NORMAL INSPECTION, NORMOCEPHALIC - Eye Exam Eye Exam: Normal appearance - ENT Exam ENT Exam: Normal External Ear Exam - Neck Exam Neck Exam: Normal Inspection - Respiratory Exam Respiratory Exam: Clear to Ausculation Bilateral, NORMAL BREATHING PATTERN - Cardiovascular Exam Cardiovascular Exam: REGULAR RHYTHM. absent: JVD - GI/Abdominal Exam GI & Abdominal Exam: absent: Distended - Rectal Exam Rectal Exam: Deferred - Exam Additional comments: Deferred/ - Extremities Exam Extremities Exam: Normal Inspection - Back Exam Back Exam: NORMAL INSPECTION - Neurological Exam Neurological Exam: Alert, Awake, Oriented x3 - Psychiatric Exam Psychiatric exam: Normal Affect, Normal Mood - Skin Skin Exam: Normal Color Assessment and Plan - Assessment and Plan (Free Text) Assessment: NSTEMI. Anemia. HTN. PVD. Renal insufficiency. Plan: Morphine 2 mg IV x 1. Continue present management.
[2017-11-30] MEDS: Pantoprazole 40 mg EC Tab PO SCH (05:47)
[2017-11-30 06:22] LABS: HEMOGLOBIN 10.6 g/dL (12.0-16.0); MEAN CORPUSCULAR HEMOGLOBIN 27.7 pg (25.0-35.0); MEAN CORPUSCULAR HGB CONC 31.5 g/dl (31.0-37.0); MEAN PLATELET VOLUME 11.3 fl (7.0-11.0); RBC 3.82 10^6/uL (3.5-6.1); RED CELL DISTRIBUTION WIDTH 16.4 % (11.5-14.5); WHITE BLOOD COUNT 7.3 10^3/ul (4.5-11.0)
[2017-11-30 07:14] LABS: ALBUMIN 2.8 g/dL (3.0-4.8); CALCIUM 11.5 mg/dL (8.4-10.5)
--- NOTE | 2017-11-30 08:18 | PN ---
DATE: 11/29/2017 SUBJECTIVE: This patient was seen and evaluated earlier today. Discussed with the patient's family, who was at bedside. Patient has intermittent difficulty in following at times. On clear liquid diet now. OBJECTIVE: VITAL SIGNS: Temperature is 97.9, pulse 55, blood pressure 125/57, respirations 19. HEENT: Atraumatic, anicteric. NECK: Supple. HEART: S1 and S2 heard. LUNGS: Bilateral air entry present. ABDOMEN: Soft. No tenderness. EXTREMITIES: No cyanosis. LABORATORY DATA: Hemoglobin 9.9, hematocrit 30.6, WBC 5.9, platelets 216. Patient is on clear liquid diet. Recommended esophagogram to further evaluate. IMPRESSION AND PLAN: This 82-year-old patient is admitted with acute myocardial infarction. The patient was initially on heparin. There is a drop in blood count. Hemoglobin dropped from 13, it has gradually dropped to 8.3, slowly stabilizing. It is now 9.9. Patient is on aspirin, Plavix. Also, patient is on PPI. We will continue with the follow up of the hemoglobin and hematocrit. We will request the diet to be on a soft diet, chew well or pureed diet. Thank you very much for allowing us to participate in the care of the patient. ADDENDUM: The esophagram was reviewed. No obstruction. Jeferson Aiken MD
--- NOTE | 2017-11-30 08:33 | CP.PCM.PN ---
Subjective - Date & Time of Evaluation Date of Evaluation: 11/30/17 Time of Evaluation: 08:00 - Subjective Subjective: Patient complains of chest pain on and off and received Morphine last night. This morning, she denies chest pain. Objective - Vital Signs/Intake and Output Vital Signs (last 24 hours): Temp Pulse Resp BP Pulse Ox 98.5 F 61 19 138/64 95 11/30/17 06:00 11/30/17 06:00 11/30/17 06:00 11/30/17 06:00 11/30/17 06:00 Intake and Output: 11/30/17 11/30/17 06:59 18:59 Intake Total 0 Output Total 0 Balance 0 - Medications Medications: Current Medications Amlodipine Besylate (Norvasc) 5 mg PO DAILY [facility] Last Admin: 11/29/17 11:05 Dose: 5 mg Aspirin (Aspirin Chewable) 81 mg PO DAILY [facility] Last Admin: 11/29/17 11:03 Dose: 81 mg Atorvastatin Calcium (Lipitor) 20 mg PO DIN [facility] Last Admin: 11/29/17 17:54 Dose: 20 mg Clonidine HCl (Catapres) 0.1 mg PO BID [facility] Last Admin: 11/29/17 18:15 Dose: Not Given Clopidogrel Bisulfate (Plavix) 75 mg PO DAILY [facility] Last Admin: 11/29/17 11:58 Dose: 75 mg Heparin Sodium (Porcine) (Heparin) 5,000 units SC Q8H [facility] PRN Reason: Protocol Last Admin: 11/30/17 01:00 Dose: 5,000 units Hydralazine HCl (Apresoline) 50 mg PO TID [facility] Last Admin: 11/29/17 18:15 Dose: Not Given Isosorbide Mononitrate (Imdur) 60 mg PO DAILY [facility] Last Admin: 11/29/17 11:03 Dose: 60 mg Lorazepam (Ativan) 0.5 mg PO BID PRN; Protocol PRN Reason: Anxiety Last Admin: 11/30/17 02:32 Dose: 0.5 mg Metoprolol Tartrate (Lopressor) 50 mg PO BID [facility] Last Admin: 11/29/17 18:02 Dose: 50 mg Morphine Sulfate (Morphine) 2 mg IVP Q2H PRN PRN Reason: Pain, severe (8-10) Last Admin: 11/30/17 00:55 Dose: 2 mg Ondansetron HCl (Zofran Inj) 4 mg IVP Q4H PRN PRN Reason: Nausea/Vomiting Last Admin: 11/30/17 05:16 Dose: 4 mg Pantoprazole Sodium (Protonix Ec Tab) 40 mg PO 0600 [facility] Last Admin: 11/30/17 05:47 Dose: 40 mg Sevelamer HCl (Renagel) 800 mg PO WM [facility] Last Admin: 11/30/17 08:12 Dose: 800 mg Sodium Bicarbonate (Sodium Bicarbonate Tab) 650 mg PO TID [facility] Last Admin: 11/29/17 17:55 Dose: 650 mg Timolol Maleate (Timoptic 0.5% Ophth Soln) 1 drop OD HS [facility] Last Admin: 11/29/17 21:29 Dose: 1 drop - Labs Labs: 11/30/17 05:30 11/30/17 05:30 PT 10.6 SECONDS (9.4-12.5) 11/21/17 19:34 INR 0.93 (0.93-1.08) 11/21/17 19:34 APTT 57.0 Seconds (25.1-36.5) H 11/24/17 06:00 - Constitutional Appears: No Acute Distress - Head Exam Head Exam: ATRAUMATIC, NORMOCEPHALIC - Respiratory Exam Respiratory Exam: Decreased Breath Sounds, NORMAL BREATHING PATTERN - Cardiovascular Exam Cardiovascular Exam: +S1, +S2 - GI/Abdominal Exam GI & Abdominal Exam: Soft, Normal Bowel Sounds - Extremities Exam Extremities Exam: Normal Inspection - Neurological Exam Neurological Exam: Alert, Awake Assessment and Plan - Assessment and Plan (Free Text) Assessment: NSTEMI Acute on chronic Kidney disease HTN PVD Plan: Patient is on medical treatment for NSTEMI. continue ASA, Plavix, Metoprolol, Imdur, and Lipitor as per cardiology. She is also getting Morphine as needed for chest pain. Patient unable to have cath due to chronic kidney disease. BUN and creatinine slightly increased from yesterday. continue management of chronic kidney disease and hypertension as per nephrology. Patient is DNR/DNI.
--- NOTE | 2017-11-30 10:30 | CP.PCM.PN ---
<Jory Woods - Last Filed: 11/30/17 10:29> Subjective - Date & Time of Evaluation Date of Evaluation: 11/30/17 Time of Evaluation: 08:50 - Subjective Subjective: Seen and examined at the bedside earlier today this morning, chart review. This patient went for esophagus x-ray yesterday and report was reviewed. Showed small hiatal hernia, no obstruction or aspiration. The esophagus did not show any stricture or mass. This morning the patient is getting ready to eat breakfast, soft diet, encourage patient to chew food well and eat slowly and sit up in proper position. Private Aide at bedside. So far no complaints of nausea, vomiting, or dysphagia, the patient said this will be her first meal this morning. Last bowel movement was Sunday.No reports of acute overnight events. Objective - Vital Signs/Intake and Output Vital Signs (last 24 hours): Temp Pulse Resp BP Pulse Ox 98.5 F 61 19 138/64 95 11/30/17 06:00 11/30/17 06:00 11/30/17 06:00 11/30/17 06:00 11/30/17 06:00 Intake and Output: 11/30/17 11/30/17 06:59 18:59 Intake Total 0 Output Total 0 Balance 0 - Medications Medications: Current Medications Amlodipine Besylate (Norvasc) 5 mg PO DAILY [facility] Last Admin: 11/30/17 09:55 Dose: 5 mg Aspirin (Aspirin Chewable) 81 mg PO DAILY [facility] Last Admin: 11/30/17 09:54 Dose: 81 mg Atorvastatin Calcium (Lipitor) 20 mg PO DIN [facility] Last Admin: 11/29/17 17:54 Dose: 20 mg Clonidine HCl (Catapres) 0.1 mg PO BID [facility] Last Admin: 11/30/17 09:54 Dose: 0.1 mg Clopidogrel Bisulfate (Plavix) 75 mg PO DAILY [facility] Last Admin: 11/30/17 09:55 Dose: 75 mg Heparin Sodium (Porcine) (Heparin) 5,000 units SC Q8H [facility] PRN Reason: Protocol Last Admin: 11/30/17 09:55 Dose: 5,000 units Hydralazine HCl (Apresoline) 50 mg PO TID [facility] Last Admin: 11/30/17 09:55 Dose: 50 mg Isosorbide Mononitrate (Imdur) 60 mg PO DAILY [facility] Last Admin: 03/23/18 09:55 Dose: 60 mg Lorazepam (Ativan) 0.5 mg PO BID PRN; Protocol PRN Reason: Anxiety Last Admin: 11/30/17 02:32 Dose: 0.5 mg Metoprolol Tartrate (Lopressor) 50 mg PO BID [facility] Last Admin: 11/30/17 09:54 Dose: 50 mg Morphine Sulfate (Morphine) 2 mg IVP Q2H PRN PRN Reason: Pain, severe (8-10) Last Admin: 11/30/17 00:55 Dose: 2 mg Ondansetron HCl (Zofran Inj) 4 mg IVP Q4H PRN PRN Reason: Nausea/Vomiting Last Admin: 11/30/17 05:16 Dose: 4 mg Pantoprazole Sodium (Protonix Ec Tab) 40 mg PO 0600 [facility] Last Admin: 11/30/17 05:47 Dose: 40 mg Sevelamer HCl (Renagel) 800 mg PO WM [facility] Last Admin: 11/30/17 08:12 Dose: 800 mg Sodium Bicarbonate (Sodium Bicarbonate Tab) 650 mg PO TID [facility] Last Admin: 11/30/17 09:55 Dose: 650 mg Timolol Maleate (Timoptic 0.5% Ophth Soln) 1 drop OD HS [facility] Last Admin: 11/29/17 21:29 Dose: 1 drop - Labs Labs: 11/30/17 05:30 11/30/17 05:30 PT 10.6 SECONDS (9.4-12.5) 11/21/17 19:34 INR 0.93 (0.93-1.08) 11/21/17 19:34 APTT 57.0 Seconds (25.1-36.5) H 11/24/17 06:00 - Constitutional Appears: No Acute Distress - Head Exam Head Exam: NORMOCEPHALIC - Eye Exam Eye Exam: Normal appearance. absent: Scleral icterus - ENT Exam ENT Exam: Mucous Membranes Moist - Neck Exam Neck Exam: Normal Inspection - Respiratory Exam Respiratory Exam: NORMAL BREATHING PATTERN. absent: Respiratory Distress - Cardiovascular Exam Cardiovascular Exam: +S1, +S2 - GI/Abdominal Exam GI & Abdominal Exam: Soft, Normal Bowel Sounds. absent: Guarding, Tenderness, Rebound - Extremities Exam Extremities Exam: absent: Calf Tenderness, Pedal Edema - Neurological Exam Neurological Exam: Alert, Awake, Oriented x3 Assessment and Plan - Assessment and Plan (Free Text) Assessment: Asssessment: Dysphagia, status post esophagus x-ray, negative for mass or stricture Anemia NSTEMI PVD CKD HTN Hyperparathyroidism Plan: Trend H&H, currently stable, monitor for overt GI bleed continue PPI Continue diet as tolerated currently on soft food, encouraged to eat slowly and chew food well monitor electrolytes On ASA and Plavix on Heparin SQ Seen and Discussed with Dr. Aiken <Jeferson Aiken V - Last Filed: 11/30/17 23:25> Objective - Vital Signs/Intake and Output Vital Signs (last 24 hours): Temp Pulse Resp BP Pulse Ox 97.6 F 55 L 18 117/59 L 95 11/30/17 17:20 11/30/17 17:20 11/30/17 17:20 11/30/17 17:20 11/30/17 17:20 - Medications Medications: Current Medications Amlodipine Besylate (Norvasc) 5 mg PO DAILY [facility] Last Admin: 11/30/17 09:55 Dose: 5 mg Aspirin (Aspirin Chewable) 81 mg PO DAILY [facility] Last Admin: 11/30/17 09:54 Dose: 81 mg Atorvastatin Calcium (Lipitor) 20 mg PO DIN [facility] Last Admin: 11/30/17 17:00 Dose: 20 mg Clonidine HCl (Catapres) 0.1 mg PO BID [facility] Last Admin: 11/30/17 17:01 Dose: 0.1 mg Clopidogrel Bisulfate (Plavix) 75 mg PO DAILY [facility] Last Admin: 11/30/17 09:55 Dose: 75 mg Heparin Sodium (Porcine) (Heparin) 5,000 units SC Q8H [facility] PRN Reason: Protocol Last Admin: 11/30/17 17:00 Dose: 5,000 units Hydralazine HCl (Apresoline) 50 mg PO TID [facility] Last Admin: 11/30/17 17:01 Dose: 50 mg Isosorbide Mononitrate (Imdur) 60 mg PO DAILY [facility] Last Admin: 11/30/17 09:55 Dose: 60 mg Lorazepam (Ativan) 0.5 mg PO BID PRN; Protocol PRN Reason: Anxiety Last Admin: 11/30/17 22:28 Dose: 0.5 mg Metoprolol Tartrate (Lopressor) 50 mg PO BID [facility] Last Admin: 11/30/17 17:02 Dose: 50 mg Morphine Sulfate (Morphine) 2 mg IVP Q2H PRN PRN Reason: Pain, severe (8-10) Last Admin: 11/30/17 00:55 Dose: 2 mg Ondansetron HCl (Zofran Inj) 4 mg IVP Q4H PRN PRN Reason: Nausea/Vomiting Last Admin: 11/30/17 05:16 Dose: 4 mg Pantoprazole Sodium (Protonix Ec Tab) 40 mg PO 0600 [facility] Last Admin: 11/30/17 05:47 Dose: 40 mg Sevelamer HCl (Renagel) 800 mg PO WM [facility] Last Admin: 11/30/17 17:00 Dose: 800 mg Sodium Bicarbonate (Sodium Bicarbonate Tab) 650 mg PO TID [facility] Last Admin: 11/30/17 17:00 Dose: 650 mg Timolol Maleate (Timoptic 0.5% Ophth Soln) 1 drop OD HS [facility] Last Admin: 11/30/17 22:06 Dose: 1 drop - Labs Labs: 11/30/17 05:30 11/30/17 05:30 PT 10.6 SECONDS (9.4-12.5) 11/21/17 19:34 INR 0.93 (0.93-1.08) 11/21/17 19:34 APTT 57.0 Seconds (25.1-36.5) H 11/24/17 06:00 Attending/Attestation - Attestation I have personally seen and examined this patient.: Yes I have fully participated in the care of the patient.: Yes I have reviewed all pertinent clinical information, including history, physical exam and plan: Yes Notes (Text): his is an addendum to GI progress report dictated by Jory Woods APN.The patient was seen and examined earlier. Medical records, lab studies, imagings were reviewed. Last 24 hours events reviewed. Agreed with the above treatment plan as outlined in Jory Woods APN's notes with the addition of the following 11/30/17 23:25
--- NOTE | 2017-11-30 12:03 | CP.PCM.PN ---
Subjective - Date & Time of Evaluation Date of Evaluation: 11/30/17 Time of Evaluation: 10:25 - Subjective Subjective: No fevers, no chest pain. Objective - Vital Signs/Intake and Output Vital Signs (last 24 hours): Temp Pulse Resp BP Pulse Ox 98.5 F 61 19 138/64 95 11/30/17 06:00 11/30/17 06:00 11/30/17 06:00 11/30/17 06:00 11/30/17 06:00 Intake and Output: 11/30/17 11/30/17 06:59 18:59 Intake Total 0 Output Total 0 Balance 0 - Medications Medications: Current Medications Amlodipine Besylate (Norvasc) 5 mg PO DAILY [facility] Last Admin: 11/29/17 11:05 Dose: 5 mg Aspirin (Aspirin Chewable) 81 mg PO DAILY [facility] Last Admin: 11/29/17 11:03 Dose: 81 mg Atorvastatin Calcium (Lipitor) 20 mg PO DIN [facility] Last Admin: 11/29/17 17:54 Dose: 20 mg Clonidine HCl (Catapres) 0.1 mg PO BID [facility] Last Admin: 11/29/17 18:15 Dose: Not Given Clopidogrel Bisulfate (Plavix) 75 mg PO DAILY [facility] Last Admin: 11/29/17 11:58 Dose: 75 mg Heparin Sodium (Porcine) (Heparin) 5,000 units SC Q8H [facility] PRN Reason: Protocol Last Admin: 11/30/17 01:00 Dose: 5,000 units Hydralazine HCl (Apresoline) 50 mg PO TID [facility] Last Admin: 11/29/17 18:15 Dose: Not Given Isosorbide Mononitrate (Imdur) 60 mg PO DAILY [facility] Last Admin: 11/29/17 11:03 Dose: 60 mg Lorazepam (Ativan) 0.5 mg PO BID PRN; Protocol PRN Reason: Anxiety Last Admin: 11/30/17 02:32 Dose: 0.5 mg Metoprolol Tartrate (Lopressor) 50 mg PO BID [facility] Last Admin: 11/29/17 18:02 Dose: 50 mg Morphine Sulfate (Morphine) 2 mg IVP Q2H PRN PRN Reason: Pain, severe (8-10) Last Admin: 11/30/17 00:55 Dose: 2 mg Ondansetron HCl (Zofran Inj) 4 mg IVP Q4H PRN PRN Reason: Nausea/Vomiting Last Admin: 11/30/17 05:16 Dose: 4 mg Pantoprazole Sodium (Protonix Ec Tab) 40 mg PO 0600 [facility] Last Admin: 11/30/17 05:47 Dose: 40 mg Sevelamer HCl (Renagel) 800 mg PO WM [facility] Last Admin: 11/30/17 08:12 Dose: 800 mg Sodium Bicarbonate (Sodium Bicarbonate Tab) 650 mg PO TID [facility] Last Admin: 11/29/17 17:55 Dose: 650 mg Timolol Maleate (Timoptic 0.5% Ophth Soln) 1 drop OD HS [facility] Last Admin: 11/29/17 21:29 Dose: 1 drop - Labs Labs: 11/30/17 05:30 11/30/17 05:30 PT 10.6 SECONDS (9.4-12.5) 11/21/17 19:34 INR 0.93 (0.93-1.08) 11/21/17 19:34 APTT 57.0 Seconds (25.1-36.5) H 11/24/17 06:00 - Constitutional Appears: Chronically Ill - Head Exam Head Exam: NORMAL INSPECTION - Respiratory Exam Respiratory Exam: Decreased Breath Sounds - Cardiovascular Exam Cardiovascular Exam: +S1, +S2 - GI/Abdominal Exam GI & Abdominal Exam: Soft. absent: Tenderness Assessment and Plan - Assessment and Plan (Free Text) Plan: Assessment Systemic inflammatory response syndrome probably due to acute NSTEMI, no evidence of sepsis identified chronic renal failure HTN S/P carotid endearterectomy endometrial CAD S/P hysterectomy Plan cultures have been negative, reviewed CT C/A/P which does not point to a source of infection - will continue to monitor the patient off antibiotics since she is at risk for hospital-acquired infections
--- NOTE | 2017-11-30 13:26 | CP.PCM.PN ---
Subjective - Date & Time of Evaluation Date of Evaluation: 11/30/17 Time of Evaluation: 13:27 - Subjective Subjective: renal follow up coverage for Dr Bonilla no events overnight vitals reviewed s1s2 present no resp distress abd soft skin normal no edema AO times 3 normal affect PLAN: MALIA/CKD stage 3/hypercalcemia/hyperkalemia cr essentially stable, monitor I&Os lytes ok hypercalcemia monitor for now bp ok Objective - Vital Signs/Intake and Output Vital Signs (last 24 hours): Temp Pulse Resp BP Pulse Ox 97.5 F L 57 L 20 116/53 L 95 11/30/17 12:00 11/30/17 13:23 11/30/17 12:00 11/30/17 13:23 11/30/17 06:00 Intake and Output: 11/30/17 11/30/17 06:59 18:59 Intake Total 0 Output Total 0 Balance 0 - Medications Medications: Current Medications Amlodipine Besylate (Norvasc) 5 mg PO DAILY [facility] Last Admin: 11/30/17 09:55 Dose: 5 mg Aspirin (Aspirin Chewable) 81 mg PO DAILY [facility] Last Admin: 11/30/17 09:54 Dose: 81 mg Atorvastatin Calcium (Lipitor) 20 mg PO DIN [facility] Last Admin: 11/29/17 17:54 Dose: 20 mg Clonidine HCl (Catapres) 0.1 mg PO BID [facility] Last Admin: 11/30/17 09:54 Dose: 0.1 mg Clopidogrel Bisulfate (Plavix) 75 mg PO DAILY [facility] Last Admin: 11/30/17 09:55 Dose: 75 mg Heparin Sodium (Porcine) (Heparin) 5,000 units SC Q8H [facility] PRN Reason: Protocol Last Admin: 11/30/17 09:55 Dose: 5,000 units Hydralazine HCl (Apresoline) 50 mg PO TID [facility] Last Admin: 11/30/17 13:23 Dose: Not Given Isosorbide Mononitrate (Imdur) 60 mg PO DAILY [facility] Last Admin: 11/30/17 09:55 Dose: 60 mg Lorazepam (Ativan) 0.5 mg PO BID PRN; Protocol PRN Reason: Anxiety Last Admin: 11/30/17 02:32 Dose: 0.5 mg Metoprolol Tartrate (Lopressor) 50 mg PO BID [facility] Last Admin: 11/30/17 09:54 Dose: 50 mg Morphine Sulfate (Morphine) 2 mg IVP Q2H PRN PRN Reason: Pain, severe (8-10) Last Admin: 11/30/17 00:55 Dose: 2 mg Ondansetron HCl (Zofran Inj) 4 mg IVP Q4H PRN PRN Reason: Nausea/Vomiting Last Admin: 11/30/17 05:16 Dose: 4 mg Pantoprazole Sodium (Protonix Ec Tab) 40 mg PO 0600 [facility] Last Admin: 11/30/17 05:47 Dose: 40 mg Sevelamer HCl (Renagel) 800 mg PO WM [facility] Last Admin: 11/30/17 13:20 Dose: 800 mg Sodium Bicarbonate (Sodium Bicarbonate Tab) 650 mg PO TID [facility] Last Admin: 11/30/17 13:20 Dose: 650 mg Timolol Maleate (Timoptic 0.5% Ophth Soln) 1 drop OD HS [facility] Last Admin: 11/29/17 21:29 Dose: 1 drop - Labs Labs: 11/30/17 05:30 11/30/17 05:30 PT 10.6 SECONDS (9.4-12.5) 11/21/17 19:34 INR 0.93 (0.93-1.08) 11/21/17 19:34 APTT 57.0 Seconds (25.1-36.5) H 11/24/17 06:00
--- NOTE | 2017-11-30 14:14 | PN ---
DATE: 11/30/2017 SUBJECTIVE: The patient is seen lying in bed on Telemetry. She is currently comfortable. She apparently had some chest discomfort overnight. She states that her symptoms seem to occur most often after swallowing cold fluids. CURRENT MEDICATIONS: Include hydralazine 50 mg t.i.d., aspirin, Ativan p.r.n., Catapres 0.1 mg b.i.d., subcutaneous heparin, Imdur 60 mg daily, Lipitor 20 mg daily, metoprolol 50 mg b.i.d., morphine p.r.n., Norvasc 5 mg daily, Plavix 75 mg daily, Protonix 40 mg daily, Renagel, sodium bicarbonate tablets and timolol eye drops. OBJECTIVE GENERAL: She is an elderly woman who appears comfortable at rest. VITAL SIGNS: Her blood pressure is 138/64. The pulse is 60, in sinus. Occasional PVCs are noted. Respirations are 14. She is afebrile. HEENT: No JVD. CHEST: A few scattered rhonchi. HEART: PMI displaced laterally with systolic murmur in the left sternal border. ABDOMEN: Soft, nontender with bowel sounds. EXTREMITIES: No edema. DIAGNOSTIC DATA: Potassium 4, BUN and creatinine are 49 and 2.1. White count is 7.3, hemoglobin and hematocrit 10.6 and 33.6, platelet count is 271,000. Calcium 11.5. IMPRESSION 1. Recent [id number] elevation myocardial infarction with known coronary artery disease. Appears this was uncomplicated at the present time. Recent chest pain. Appears to be more gastrointestinal in nature if her report is accurate. 2. Chronic renal insufficiency. 3. History of hypertension. 4. Hyperparathyroidism with hypercalcemia. RECOMMENDATIONS: Continue conservative cardiac management as advised. She is DNR/DNI at this time. If she has recurrent anginal-type discomfort, isosorbide dose can be increased as needed. We will continue to follow and make further recommendations as appropriate. Bautista Balderas MD
[2017-12-01] MEDS: Pantoprazole 40 mg EC Tab PO SCH (06:29)
--- NOTE | 2017-12-01 08:23 | CP.PCM.PN ---
Subjective - Date & Time of Evaluation Date of Evaluation: 12/01/17 Time of Evaluation: 07:45 - Subjective Subjective: Patient is seen this morning. She is lying in bed. She denies chest pain this morning. Objective - Vital Signs/Intake and Output Vital Signs (last 24 hours): Temp Pulse Resp BP Pulse Ox 97.7 F 60 18 153/90 H 95 12/01/17 05:59 12/01/17 05:59 12/01/17 05:59 12/01/17 05:59 12/01/17 05:59 Intake and Output: 12/01/17 12/01/17 06:59 18:59 Intake Total 120 Balance 120 - Medications Medications: Current Medications Amlodipine Besylate (Norvasc) 5 mg PO DAILY [facility] Last Admin: 11/30/17 09:55 Dose: 5 mg Aspirin (Aspirin Chewable) 81 mg PO DAILY [facility] Last Admin: 11/30/17 09:54 Dose: 81 mg Atorvastatin Calcium (Lipitor) 20 mg PO DIN [facility] Last Admin: 11/30/17 17:00 Dose: 20 mg Clonidine HCl (Catapres) 0.1 mg PO BID [facility] Last Admin: 11/30/17 17:01 Dose: 0.1 mg Clopidogrel Bisulfate (Plavix) 75 mg PO DAILY [facility] Last Admin: 11/30/17 09:55 Dose: 75 mg Heparin Sodium (Porcine) (Heparin) 5,000 units SC Q8H [facility] PRN Reason: Protocol Last Admin: 12/01/17 01:43 Dose: 5,000 units Hydralazine HCl (Apresoline) 50 mg PO TID [facility] Last Admin: 11/30/17 17:01 Dose: 50 mg Isosorbide Mononitrate (Imdur) 60 mg PO DAILY [facility] Last Admin: 11/30/17 09:55 Dose: 60 mg Lorazepam (Ativan) 0.5 mg PO BID PRN; Protocol PRN Reason: Anxiety Last Admin: 11/30/17 22:28 Dose: 0.5 mg Metoprolol Tartrate (Lopressor) 50 mg PO BID [facility] Last Admin: 11/30/17 17:02 Dose: 50 mg Morphine Sulfate (Morphine) 2 mg IVP Q2H PRN PRN Reason: Pain, severe (8-10) Last Admin: 11/30/17 00:55 Dose: 2 mg Ondansetron HCl (Zofran Inj) 4 mg IVP Q4H PRN PRN Reason: Nausea/Vomiting Last Admin: 11/30/17 05:16 Dose: 4 mg Pantoprazole Sodium (Protonix Ec Tab) 40 mg PO 0600 [facility] Last Admin: 12/01/17 06:29 Dose: 40 mg Sevelamer HCl (Renagel) 800 mg PO WM [facility] Last Admin: 11/30/17 17:00 Dose: 800 mg Sodium Bicarbonate (Sodium Bicarbonate Tab) 650 mg PO TID [facility] Last Admin: 11/30/17 17:00 Dose: 650 mg Timolol Maleate (Timoptic 0.5% Ophth Soln) 1 drop OD HS [facility] Last Admin: 11/30/17 22:06 Dose: 1 drop - Labs Labs: 11/30/17 05:30 11/30/17 05:30 PT 10.6 SECONDS (9.4-12.5) 11/21/17 19:34 INR 0.93 (0.93-1.08) 11/21/17 19:34 APTT 57.0 Seconds (25.1-36.5) H 11/24/17 06:00 - Constitutional Appears: No Acute Distress - Head Exam Head Exam: ATRAUMATIC, NORMOCEPHALIC - Respiratory Exam Respiratory Exam: NORMAL BREATHING PATTERN - Cardiovascular Exam Cardiovascular Exam: +S1, +S2 - GI/Abdominal Exam GI & Abdominal Exam: Soft, Normal Bowel Sounds. absent: Tenderness - Extremities Exam Extremities Exam: Normal Inspection - Neurological Exam Neurological Exam: Alert, Awake Assessment and Plan - Assessment and Plan (Free Text) Assessment: NSTEMI Acute on chronic kidney disease HTN Dysphagia? GERD Anxiety Plan: Patient says she is weak and unsteady on her feet. She is on ASA, Plavix, Metoprolol, Imdur and Lipitor for NSTEMI/angina. She is to continue physical therapy. BUN and creatinine are 49 and 2.1. continue Renagel and sodium bicarb as per nephrology. Apparently, patient's insurance denied TRCU, but the patient's family is appealing.
[2017-12-01] MEDS: Morphine 2 mg/ml ISec IVP PRN (10:30)
--- NOTE | 2017-12-01 10:33 | PN ---
DATE: 12/01/2017 SUBJECTIVE: The patient is seen lying in bed on Telemetry. She is currently comfortable. She was transferred to Transitional Care Unit. She does have some chest discomfort on ingestion of cold, but denies any other chest pressure. CURRENT MEDICATIONS: Remain hydralazine 50 mg t.i.d., aspirin, Ativan, Catapres 0.1 mg b.i.d., subcutaneous heparin, Imdur 60 mg daily, Lipitor 20 mg daily, metoprolol 50 mg b.i.d., Norvasc 5 mg daily, Plavix 75 mg daily, Protonix, Renagel, sodium bicarbonate tablets and Zofran p.r.n. OBJECTIVE GENERAL: She is an elderly woman, who appears comfortable at rest. VITAL SIGNS: Her blood pressure is 150/90 with a pulse of 60 and respirations 16. She is afebrile. HEENT: No JVD. CHEST: A few scattered rhonchi. HEART: PMI is displaced laterally. There is a systolic murmur in the left sternal border. ABDOMEN: Soft, nontender with normoactive bowel sounds. EXTREMITIES: No edema. DIAGNOSTIC DATA: No blood work pending from this morning. IMPRESSION 1. Recent non-ST segment elevation myocardial infarction, clinically stable at present. 2. Severe renal insufficiency. 3. History of hypertension. 4. Hyperparathyroidism. RECOMMENDATIONS: Continued conservative cardiac management will be planned at this point. I agree with transfer to Rehabilitation Unit. Increase activity and exercise as able as advised. A DNR/DNI order is in place. We will be happy to follow along as needed. Bautista Balderas MD
--- NOTE | 2017-12-01 13:11 | CP.PCM.PN ---
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 . Hypertension control with meds as ordered. Patient not on ACEI/ARB due to recent MALIA Monitor Input/Output, daily weights and renal function with basic metabolic panel Will start Sensipar 60 mg per day Continue with sodium bicarbonate supplementation. Unable to tolerate higher doses due to bad taste Last phosphorus level in the 3 range, hence DC'd renagel as pt also with current acidosis Dose meds/antibiotics for reduced GFR. Avoid fleets enema/magnesium based laxatives. Avoid nephrotoxins/NSAIDs/ iodinated contrast (unless needed emergently) Glycemic control Further work up for as per primary team Thanks for allowing me to participate in care of your patient. Will follow patient with you. Please call if any Qs. Discussion the family bedside Dr David Clement Office: [phone] Subjective: Noted events overnight. Patients feels okay. Denies chest pain, palpitation, shortness of breath, leg swelling. All other negative. Complains of low appetite and loss of taste. Physical Examination: General Appearance: Comfortable, in no acute respiratory distress, co-operative . Chronically ill-appearing and Debilitated Vitals reviewed and noted as below Head; Atraumatic, normocephalic ENT: no ulcers no thrush. Tongue is midline. Oropharynx: no rash or ulcers. EYES: Pupils are equal, round and reactive to light accommodation. Eye muscles and extraocular movement intact. Sclera is anicteric. Neck; supple no lymphadenopathy, no thyromegaly or bruit Lungs: Normal respiratory rate/effort. Breath sounds bilateral equal and clear Anteriorly Heart: Normal rate. s1s2 normal. No rub or gallop. Extremities: no edema. No varicose veins Neurological: Patient is alert, awake and oriented to person, place and time. No focal deficit. Strength bilateral appropriate and equal Skin: Warm and dry. Normal turgor. No rash. Palpitation: Normal elasticity for age Abdomen: Abdomen is soft. Bowel sounds +. There is no abdominal tenderness, no guarding/rigidity no organomegaly Psych: normal insight and normal affect/mood MSK: no joint tenderness or swelling. Digits and nails normal, no deformity : kidney or bladder not palpable Labs/imaging reviewed. Past medical history, past surgical history, family history, social history, allergy reviewed and noted as below Family hx: no hx of CKD. Rest non-contributory Workup right kidney atrophy. Renal artery Doppler negative LVEF 40-45% SPEP negative vitamin D 46 PTH 176 Objective - Vital Signs/Intake and Output Vital Signs (last 24 hours): Temp Pulse Resp BP Pulse Ox 97.7 F 49 L 18 93/47 L 95 12/01/17 12:00 12/01/17 12:00 12/01/17 12:00 12/01/17 12:00 12/01/17 05:59 Intake and Output: 12/01/17 12/01/17 06:59 18:59 Intake Total 120 Balance 120 - Medications Medications: Current Medications Amlodipine Besylate (Norvasc) 5 mg PO DAILY [facility] Last Admin: 12/01/17 10:10 Dose: 5 mg Aspirin (Aspirin Chewable) 81 mg PO DAILY [facility] Last Admin: 12/01/17 10:10 Dose: 81 mg Atorvastatin Calcium (Lipitor) 20 mg PO DIN [facility] Last Admin: 11/30/17 17:00 Dose: 20 mg Cinacalcet (Sensipar) 60 mg PO DAILY [facility] Last Admin: 12/01/17 10:29 Dose: 60 mg Clonidine HCl (Catapres) 0.1 mg PO BID [facility] Last Admin: 12/01/17 10:10 Dose: 0.1 mg Clopidogrel Bisulfate (Plavix) 75 mg PO DAILY [facility] Last Admin: 12/01/17 10:10 Dose: 75 mg Heparin Sodium (Porcine) (Heparin) 5,000 units SC Q8H [facility] PRN Reason: Protocol Last Admin: 12/01/17 10:30 Dose: 5,000 units Hydralazine HCl (Apresoline) 50 mg PO TID [facility] Last Admin: 12/01/17 10:10 Dose: 50 mg Isosorbide Mononitrate (Imdur) 60 mg PO DAILY [facility] Last Admin: 12/01/17 10:06 Dose: 60 mg Lorazepam (Ativan) 0.5 mg PO BID PRN; Protocol PRN Reason: Anxiety Last Admin: 11/30/17 22:28 Dose: 0.5 mg Metoprolol Tartrate (Lopressor) 50 mg PO BID [facility] Last Admin: 12/01/17 10:10 Dose: 50 mg Morphine Sulfate (Morphine) 2 mg IVP Q2H PRN PRN Reason: Pain, severe (8-10) Last Admin: 12/01/17 10:30 Dose: 2 mg Ondansetron HCl (Zofran Inj) 4 mg IVP Q4H PRN PRN Reason: Nausea/Vomiting Last Admin: 12/01/17 10:06 Dose: 4 mg Pantoprazole Sodium (Protonix Ec Tab) 40 mg PO 0600 [facility] Last Admin: 12/01/17 06:29 Dose: 40 mg Sevelamer HCl (Renagel) 800 mg PO WM [facility] Last Admin: 12/01/17 08:21 Dose: 800 mg Sodium Bicarbonate (Sodium Bicarbonate Tab) 1,300 mg PO TID [facility] Last Admin: 12/01/17 10:30 Dose: 1,300 mg Timolol Maleate (Timoptic 0.5% Oph Soln) 1 drop OD HS [facility] Last Admin: 11/30/17 22:06 Dose: 1 drop - Labs Labs: 11/30/17 05:30 11/30/17 05:30 PT 10.6 SECONDS (9.4-12.5) 11/21/17 19:34 INR 0.93 (0.93-1.08) 11/21/17 19:34 APTT 57.0 Seconds (25.1-36.5) H 11/24/17 06:00
--- NOTE | 2017-12-01 14:24 | PN ---
DATE: 12/01/2017 SUBJECTIVE: The patient is in bed, in no acute distress, nontoxic. PHYSICAL EXAMINATION: VITAL SIGNS: Temperature is 97, blood pressure is 93/40, respiratory rate of 18, heart rate of 63. HEENT: Examination of HEENT is unremarkable. NECK: Supple. LUNGS: Have decreased breath sounds. HEART: Normal S1 and S2. ABDOMEN: Soft, nontender. LABORATORY DATA: Laboratory examination reveals a white count of 7.3, hemoglobin of 10, platelets 371. BUN of 49, creatinine of 2.1. Urinalysis is noted and microbiology reveals the patient's blood cultures are negative and urine culture negative. ASSESSMENT AND PLAN: An 82-year-old female with systemic inflammatory response syndrome secondary to [id number] myocardial infarction. No evidence of sepsis. The patient with chronic renal failure, hypertension, carotid endarterectomy, negative cultures. Currently, off of antibiotics. The patient was seen early this morning in room 263, bed 1. The patient is at risk for developing nosocomial infections. Manuel Espinosa MD
[2017-12-02] MEDS: Morphine 2 mg/ml ISec IVP PRN ×2 (01:55→14:10)
--- NOTE | 2017-12-02 03:21 | PN ---
DATE: 12/01/2017 SUBJECTIVE: This patient was seen and evaluated earlier today. The patient is tolerating the diet, complains of discomfort in the throat. PHYSICAL EXAMINATION VITAL SIGNS: Temperature 97.9, pulse 53, blood pressure is 142/63. HEENT: Atraumatic, anicteric. NECK: Supple. HEART: S1, S2 heard. LUNGS: Bilateral air entry present. ABDOMEN: Soft. No tenderness. EXTREMITIES: No cyanosis, no clubbing. LABORATORY DATA: Yesterday, labs reviewed. There is no labs today. IMPRESSION and PLAN : An 83-year-old patient with: 1. Status post myocardial infarction with elevated troponin level,Non ST segment myocardial infarction. 2. Chronic kidney disease. 3. Hypertension. Patient had a drop in hemoglobin. Patient was on aspirin, Plavix and heparin. The heparin was discontinued. Hemoglobin has been stable. Now, it is about 10.6. 4.Patient did have some dysphagia since then has had an esophagogram done, which was negative. 5 If she has somethroat discomfort, we will discuss with Dr. Bell regarding this. 6. Continue PPI. Followup of the hemoglobin and hematocrit and patient will benefit from soft diet or pureed diet. Thank you very much for allowing us to participate in the care of the patient. Jefersno Aiken MD [facility]
[2017-12-02] MEDS: Pantoprazole 40 mg EC Tab PO SCH (05:38)
--- NOTE | 2017-12-02 08:24 | CP.PCM.PN ---
Subjective - Date & Time of Evaluation Date of Evaluation: 12/02/17 Time of Evaluation: 07:45 - Subjective Subjective: Patient is in room 268 bed 1. No overnight events are noted. Objective - Vital Signs/Intake and Output Vital Signs (last 24 hours): Temp Pulse Resp BP Pulse Ox 98.7 F 60 18 120/60 96 12/02/17 06:00 12/02/17 06:00 12/02/17 06:00 12/02/17 06:00 12/02/17 06:00 Intake and Output: 12/02/17 12/02/17 06:59 18:59 Intake Total 1020 Output Total 700 Balance 320 - Medications Medications: Current Medications Amlodipine Besylate (Norvasc) 5 mg PO DAILY [facility] Last Admin: 12/01/17 10:10 Dose: 5 mg Aspirin (Aspirin Chewable) 81 mg PO DAILY [facility] Last Admin: 12/01/17 10:10 Dose: 81 mg Atorvastatin Calcium (Lipitor) 20 mg PO DIN [facility] Last Admin: 12/01/17 19:05 Dose: 20 mg Cinacalcet (Sensipar) 60 mg PO DAILY [facility] Last Admin: 12/01/17 10:29 Dose: 60 mg Clonidine HCl (Catapres) 0.1 mg PO BID [facility] Last Admin: 12/01/17 19:00 Dose: 0.1 mg Clopidogrel Bisulfate (Plavix) 75 mg PO DAILY [facility] Last Admin: 12/01/17 10:10 Dose: 75 mg Heparin Sodium (Porcine) (Heparin) 5,000 units SC Q8H [facility] PRN Reason: Protocol Last Admin: 12/02/17 01:56 Dose: 5,000 units Hydralazine HCl (Apresoline) 50 mg PO TID [facility] Last Admin: 12/01/17 19:01 Dose: 50 mg Isosorbide Mononitrate (Imdur) 60 mg PO DAILY [facility] Last Admin: 12/01/17 10:06 Dose: 60 mg Lorazepam (Ativan) 0.5 mg PO BID PRN; Protocol PRN Reason: Anxiety Last Admin: 12/01/17 21:55 Dose: 0.5 mg Metoprolol Tartrate (Lopressor) 50 mg PO BID [facility] Last Admin: 12/01/17 19:01 Dose: 50 mg Morphine Sulfate (Morphine) 1 mg IVP Q2H PRN PRN Reason: Pain, severe (8-10) Last Admin: 12/02/17 01:55 Dose: 1 mg Ondansetron HCl (Zofran Inj) 4 mg IVP Q4H PRN PRN Reason: Nausea/Vomiting Last Admin: 12/01/17 10:06 Dose: 4 mg Pantoprazole Sodium (Protonix Ec Tab) 40 mg PO 0600 [facility] Last Admin: 12/02/17 05:38 Dose: 40 mg Sodium Bicarbonate (Sodium Bicarbonate Tab) 650 mg PO TID [facility] Last Admin: 12/01/17 19:01 Dose: 650 mg Timolol Maleate (Timoptic 0.5% Ophth Soln) 1 drop OD HS [facility] Last Admin: 12/01/17 21:48 Dose: 1 drop - Labs Labs: 11/30/17 05:30 11/30/17 05:30 PT 10.6 SECONDS (9.4-12.5) 11/21/17 19:34 INR 0.93 (0.93-1.08) 11/21/17 19:34 APTT 57.0 Seconds (25.1-36.5) H 11/24/17 06:00 - Constitutional Appears: No Acute Distress - Head Exam Head Exam: ATRAUMATIC, NORMOCEPHALIC - Respiratory Exam Respiratory Exam: Decreased Breath Sounds, NORMAL BREATHING PATTERN - Cardiovascular Exam Cardiovascular Exam: +S1, +S2 - GI/Abdominal Exam GI & Abdominal Exam: Soft, Normal Bowel Sounds. absent: Tenderness - Neurological Exam Neurological Exam: Alert, Awake Assessment and Plan - Assessment and Plan (Free Text) Assessment: NSTEMI Chronic kidney disease HTN Anxiety Chronic back pain Plan: Patient is on medical treatment as per cardiology for NSTEMI. She is on Clonidine, Metoprolol, Hydralazine and Amlodipine for blood pressure. continue Sensipar and sodium bicarb as per renal. Patient is DNR/DNI
--- NOTE | 2017-12-02 10:16 | PN ---
DATE: 12/02/2017 SUBJECTIVE: The patient is seen lying in bed on Telemetry. She is currently comfortable. She denies any chest pain. She awaits rehabilitation placement. Apparently, there were some issues with insurance coverage. CURRENT MEDICATIONS: Include hydralazine 50 mg t.i.d., aspirin once daily, Catapres 0.1 mg b.i.d., subcutaneous heparin, Imdur 60 mg daily, Lipitor 20 mg daily, metoprolol 50 mg b.i.d., Norvasc 5 mg daily, Plavix 75 mg daily, Protonix 20 mg daily, Sensipar, sodium bicarbonate tablets. OBJECTIVE GENERAL: She is an elderly woman who appears comfortable at rest. VITAL SIGNS: Her blood pressure is 120/54 with a pulse of 52, in sinus; respirations are 16. She is afebrile. HEENT: No JVD. CHEST: Clear to auscultation and percussion. HEART: PMI in normal position. No pathologic murmurs or gallops noted. ABDOMEN: Soft, nontender. Normoactive bowel sounds. EXTREMITIES: No edema. DIAGNOSTIC DATA: Morning blood work is pending. IMPRESSION 1. Status post recent non-ST segment elevation myocardial infarction, appears uncomplicated, clinically stable at present. Continue conservative medical management at this time. 2. Severe renal insufficiency. 3. History of hypertension and hyperparathyroidism. RECOMMENDATIONS: Current medications will be continued. If she has recurrent angina, intensification of her nitrate therapy can be planned. Increased activities are advised. A DNR/DNI order are in place. Transfer to rehabilitation facility appears reasonable given her deconditioned state. We will continue to follow and make further recommendations as appropriate. Bautista Balderas MD
--- NOTE | 2017-12-02 10:49 | CP.PCM.PN ---
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 Hypertension control with meds as ordered. Patient not on ACEI/ARB due to recent MALIA Monitor Input/Output, daily weights and renal function with basic metabolic panel continue with Sensipar 60 mg per day Continue with sodium bicarbonate supplementation. Unable to tolerate higher doses due to bad taste Last phosphorus level in the 3 range, hence DC'd renagel as pt also with metabolic acidosis repeat BMP in AM Dose meds/antibiotics for reduced GFR. Avoid fleets enema/magnesium based laxatives. Avoid nephrotoxins/NSAIDs/ iodinated contrast (unless needed emergently) Glycemic control Further work up for as per primary team Thanks for allowing me to participate in care of your patient. Please call if any Qs. Dr David Clement Office: [phone] Subjective: Noted events overnight. Patients feels okay. Denies chest pain, palpitation, shortness of breath, leg swelling. All other negative. Complains of backpain Physical Examination: General Appearance: uncomfortable, in no acute respiratory distress, co- operative . Chronically ill-appearing and Debilitated Vitals reviewed and noted as below Head; Atraumatic, normocephalic ENT: no ulcers no thrush. Tongue is midline. Oropharynx: no rash or ulcers. EYES: Pupils are equal, round and reactive to light accommodation. Eye muscles and extraocular movement intact. Sclera is anicteric. Neck; supple no lymphadenopathy, no thyromegaly or bruit Lungs: Normal respiratory rate/effort. Breath sounds bilateral decreased at bases Heart: Normal rate. s1s2 normal. No rub or gallop. Extremities: no edema. No varicose veins Neurological: Patient is alert, awake and oriented to person, place and time. No focal deficit. Strength bilateral appropriate and equal Skin: Warm and dry. Normal turgor. No rash. Palpitation: Normal elasticity for age Abdomen: Abdomen is soft. Bowel sounds +. There is no abdominal tenderness, no guarding/rigidity no organomegaly Psych: normal insight and normal affect/mood MSK: no joint tenderness or swelling. Digits and nails normal, no deformity : kidney or bladder not palpable Labs/imaging reviewed. Past medical history, past surgical history, family history, social history, allergy reviewed and noted as below Family hx: no hx of CKD. Rest non-contributory Workup right kidney atrophy. Renal artery Doppler negative LVEF 40-45% SPEP negative vitamin D 46 PTH 176 Objective - Vital Signs/Intake and Output Vital Signs (last 24 hours): Temp Pulse Resp BP Pulse Ox 98.7 F 63 18 159/72 H 96 12/02/17 06:00 12/02/17 10:22 12/02/17 06:00 12/02/17 10:22 12/02/17 06:00 Intake and Output: 12/02/17 12/02/17 06:59 18:59 Intake Total 1020 Output Total 700 Balance 320 - Medications Medications: Current Medications Amlodipine Besylate (Norvasc) 5 mg PO DAILY [facility] Last Admin: 12/02/17 10:22 Dose: 5 mg Aspirin (Aspirin Chewable) 81 mg PO DAILY [facility] Last Admin: 12/02/17 10:22 Dose: 81 mg Atorvastatin Calcium (Lipitor) 20 mg PO DIN [facility] Last Admin: 12/01/17 19:05 Dose: 20 mg Cinacalcet (Sensipar) 60 mg PO DAILY [facility] Last Admin: 12/02/17 10:22 Dose: 60 mg Clonidine HCl (Catapres) 0.1 mg PO BID [facility] Last Admin: 12/02/17 10:22 Dose: 0.1 mg Clopidogrel Bisulfate (Plavix) 75 mg PO DAILY [facility] Last Admin: 12/02/17 10:23 Dose: 75 mg Heparin Sodium (Porcine) (Heparin) 5,000 units SC Q8H [facility] PRN Reason: Protocol Last Admin: 12/02/17 10:22 Dose: 5,000 units Hydralazine HCl (Apresoline) 50 mg PO TID [facility] Last Admin: 12/02/17 10:22 Dose: 50 mg Isosorbide Mononitrate (Imdur) 60 mg PO DAILY [facility] Last Admin: 12/02/17 10:22 Dose: 60 mg Lorazepam (Ativan) 0.5 mg PO BID PRN; Protocol PRN Reason: Anxiety Last Admin: 12/01/17 21:55 Dose: 0.5 mg Metoprolol Tartrate (Lopressor) 50 mg PO BID [facility] Last Admin: 12/02/17 10:23 Dose: 50 mg Morphine Sulfate (Morphine) 1 mg IVP Q2H PRN PRN Reason: Pain, severe (8-10) Last Admin: 12/02/17 01:55 Dose: 1 mg Ondansetron HCl (Zofran Inj) 4 mg IVP Q4H PRN PRN Reason: Nausea/Vomiting Last Admin: 12/02/17 10:41 Dose: 4 mg Pantoprazole Sodium (Protonix Ec Tab) 40 mg PO 0600 [facility] Last Admin: 12/02/17 05:38 Dose: 40 mg Sodium Bicarbonate (Sodium Bicarbonate Tab) 650 mg PO TID [facility] Last Admin: 12/02/17 10:22 Dose: 650 mg Timolol Maleate (Timoptic 0.5% Oph Soln) 1 drop OD HS [facility] Last Admin: 12/01/17 21:48 Dose: 1 drop - Labs Labs: 11/30/17 05:30 11/30/17 05:30 PT 10.6 SECONDS (9.4-12.5) 11/21/17 19:34 INR 0.93 (0.93-1.08) 11/21/17 19:34 APTT 57.0 Seconds (25.1-36.5) H 11/24/17 06:00
--- NOTE | 2017-12-02 14:06 | PN ---
DATE: 12/02/2017 SUBJECTIVE: The patient is in bed, in no acute distress, nontoxic. PHYSICAL EXAMINATION: VITAL SIGNS: Temperature is 98, blood pressure is 120/60, respiratory rate of 18, heart rate of 53. HEENT: Unremarkable. NECK: Supple. LUNGS: Have decreased breath sounds. HEART: Normal S1, S2. ABDOMEN: Soft, nontender. LABORATORY DATA: Reveals a white count of 7.3, hemoglobin of 10, platelets of 271. Chemistries reveal the patient has a BUN of 49, creatinine of 2.1. Urinalysis is noted. Microbiology reveals the cultures to be negative. Review of orders reveals the patient is off of antibiotics. ASSESSMENT AND PLAN: This is an 82-year-old female seen earlier this morning in [facility], bed 1 with systemic inflammatory response syndrome secondary to ST-elevation myocardial infarction, no evidence of sepsis. The patient with renal failure, hypertension, and carotid endarterectomy, negative cultures, off of antibiotics. The patient is at risk for developing nosocomial infections. Manuel Espinosa MD
--- NOTE | 2017-12-02 21:43 | PN ---
DATE: 12/02/2017 SUBJECTIVE: This patient was seen and evaluated earlier. Discussed with the patient's daughter who was at bedside. PHYSICAL EXAMINATION: VITAL SIGNS: Temperature 97.3, blood pressure 117/55, pulse 53, respirations 17. HEENT: Atraumatic and anicteric. NECK: Supple. HEART: S1, S2 heard. LUNGS: Bilateral air entry present. ABDOMEN: Soft. There is no mass palpable. LABORATORY DATA: Hemoglobin 10.6, hematocrit 33.6, WBC 7.3, platelets 271. Chemistry shows BUN 49, creatinine 2.1. IMPRESSION: 1. Anemia. Patient was on aspirin, Plavix, and heparin. IV heparin has been discontinued; she is on subcutaneous heparin 5000 every 8 hourly. Patient is on Protonix 40 mg daily; on aspirin and Plavix. Hemoglobin is stable. 2. Dysphagia, status post esophagogram, normal, no obstruction. Patient was advised soft foods, chew well, or a pureed food. Has some intermittent burning of the throat which has been chronic. 3. Acute non-ST segment myocardial infarction. 4. Chronic kidney disease. 5. Chronic back pain. RECOMMENDATIONS: 1. Need close followup of the hemoglobin and hematocrit as the patient is on aspirin, Plavix, and also heparin 5000 units every 8 hourly. 2. We will reduce the Protonix dose from 40 mg daily to 20 mg daily in view of her chronic kidney disease. 3. Presently, patient is on heart-healthy diet. We will request them to change to soft diet, chew well. Thank you very much for allowing us to participate in the care of the patient. Jeferson Aiken MD
[2017-12-03] MEDS ORDERED: Magnesium Hydroxide Susp 30 ml UD PO STA (04:28)
--- NOTE | 2017-12-03 04:28 | CP.PCM.PN ---
Subjective - Date & Time of Evaluation Date of Evaluation: 12/03/17 Time of Evaluation: 04:28 - Subjective Subjective: S: Patient was seen because she requested something for Bowel movement. Has no other complaints. Medical record was reviewed. Is on IV morphine for pain. O: Last Vital Signs 3 Temp 97.9 F 12/03/17 00:38 Pulse 57 L 12/03/17 02:00 Resp 20 12/03/17 00:38 BP 121/56 L 12/03/17 00:38 Pulse Ox 94 L 12/03/17 00:38 Awake, alert, not in distress. LUNGS: Normal breathing pattern. A:Constipation. P: MOM 30 CC PO now. Objective - Vital Signs/Intake and Output Vital Signs (last 24 hours): Temp Pulse Resp BP Pulse Ox 97.9 F 57 L 20 121/56 L 94 L 12/03/17 00:38 12/03/17 02:00 12/03/17 00:38 12/03/17 00:38 12/03/17 00:38 - Medications Medications: Current Medications Amlodipine Besylate (Norvasc) 5 mg PO DAILY [facility] Last Admin: 12/02/17 10:22 Dose: 5 mg Aspirin (Aspirin Chewable) 81 mg PO DAILY [facility] Last Admin: 12/02/17 10:22 Dose: 81 mg Atorvastatin Calcium (Lipitor) 20 mg PO DIN [facility] Last Admin: 12/02/17 17:19 Dose: 20 mg Cinacalcet (Sensipar) 60 mg PO DAILY [facility] Last Admin: 12/02/17 10:22 Dose: 60 mg Clonidine HCl (Catapres) 0.1 mg PO BID [facility] Last Admin: 12/02/17 17:18 Dose: 0.1 mg Clopidogrel Bisulfate (Plavix) 75 mg PO DAILY [facility] Last Admin: 12/02/17 10:23 Dose: 75 mg Heparin Sodium (Porcine) (Heparin) 5,000 units SC Q8H [facility] PRN Reason: Protocol Last Admin: 12/02/17 17:18 Dose: 5,000 units Hydralazine HCl (Apresoline) 50 mg PO TID [facility] Last Admin: 12/02/17 17:19 Dose: 50 mg Isosorbide Mononitrate (Imdur) 60 mg PO DAILY [facility] Last Admin: 12/02/17 10:22 Dose: 60 mg Lorazepam (Ativan) 0.5 mg PO BID PRN; Protocol PRN Reason: Anxiety Last Admin: 12/02/17 21:44 Dose: 0.5 mg Metoprolol Tartrate (Lopressor) 50 mg PO BID [facility] Last Admin: 12/02/17 17:19 Dose: 50 mg Morphine Sulfate (Morphine) 1 mg IVP Q2H PRN PRN Reason: Pain, severe (8-10) Last Admin: 12/02/17 14:10 Dose: 1 mg Ondansetron HCl (Zofran Inj) 4 mg IVP Q4H PRN PRN Reason: Nausea/Vomiting Last Admin: 12/02/17 10:41 Dose: 4 mg Pantoprazole Sodium (Protonix Ec Tab) 40 mg PO 0600 [facility] Last Admin: 12/02/17 05:38 Dose: 40 mg Sodium Bicarbonate (Sodium Bicarbonate Tab) 650 mg PO TID [facility] Last Admin: 12/02/17 17:18 Dose: 650 mg Timolol Maleate (Timoptic 0.5% Ophth Soln) 1 drop OD HS [facility] Last Admin: 12/02/17 21:45 Dose: 1 drop - Labs Labs: 11/30/17 05:30 11/30/17 05:30 PT 10.6 SECONDS (9.4-12.5) 11/21/17 19:34 INR 0.93 (0.93-1.08) 11/21/17 19:34 APTT 57.0 Seconds (25.1-36.5) H 11/24/17 06:00
[2017-12-03] MEDS: Pantoprazole 40 mg EC Tab PO SCH (06:03)
[2017-12-03 06:54] LABS: CALCIUM 10.7 mg/dL (8.4-10.5)
[2017-12-03] MEDS ORDERED: Morphine 4 mg/ml ISec IVP PRN (09:58)
--- NOTE | 2017-12-03 11:08 | PN ---
DATE: 12/03/17 SUBJECTIVE: Patient is an 82-year-old white female. Patient is in [facility], in [place], room 268, bed 1. Patient was admitted with chest pain and patient had acute myocardial infarction. Patient had refused invasive procedures at that time. Patient's clinical condition has improved, but she is very lethargic and she has prolonged history of renal insufficiency. Patient has history of severe peripheral vascular disease, carotid artery disease. Patient has severe hypertension. Patient also has history of gastritis. She also had femoropopliteal vascular intervention in the past on the right leg. Patient is seen this morning. She is lethargic, woke up from sleep. Patient says that she did not get any physical therapy yesterday, but she has had physical therapy until Sunday. PHYSICAL EXAMINATION: VITAL SIGNS: The pulse is 54, blood pressure 147/58, respirations of 19, O2 sat is 97% on oxygen 2 liters. HEENT: Head: Normocephalic. The patient has previous carotid artery intervention as noted. LUNGS: Trachea central. Breath sounds are vesicular. No adventitious sounds are heard. HEART: Normal sinus rhythm. Sinus bradycardia. ABDOMEN: Soft. Liver and spleen not palpable. CENTRAL NERVOUS SYSTEM: The patient is conscious, rational, and oriented. The patient has general malaise and lays in bed all day mostly, but sometimes in the recliner. LABORATORY DATA: Patient's recent blood work done on the . Patient's blood work showed a hemoglobin of 10.6. Hemoglobin level had been lower before. Patient's chemistry, the BUN is 56 and creatinine is 2.4. These numbers are not unusual for her. Patient's blood sugar is within normal limits. Calcium is elevated. She has secondary hyperparathyroidism secondary to renal disease. Patient's albumin level is 2.8, which is low. The nutritional status has declined in the recent past. ASSESSMENT AND PLAN: Patient's overall condition is improved, but she does have a feeling of lethargy and she says that she needs more help to try to move, to walk, and to get out of bed. Patient had made an appeal to [facility] for care at subacute level, but that has not been decided yet. We will wait for the social service department to make arrangements for further care for the patient. Dr. Mariano, the Turkish Line Attendant saw the patient and discontinued telemetry for the patient at this time. We will wait for discharge planning. ADDENDUM: The patient's medication list consists of hydralazine 50 mg three times a day. Patient is on Ativan p.r.n. for anxiety. Patient is on clonidine 0.1 mg b.i.d. Patient is on isosorbide mononitrate 60 mg daily, Lipitor 20 mg daily, metoprolol 50 mg b.i.d., this dose might have to be adjusted because patient's heart rate is dropping, amlodipine 5 mg daily, Plavix 75 mg daily, pantoprazole 40 mg daily. Patient is on Sensipar for renal insufficiency, bicarbonate 650 mg t.i.d. Patient is on timolol eye drops for glaucoma. Patient is on heart healthy renal diet. Ky Bell MD MTDD
--- NOTE | 2017-12-03 19:50 | CP.PCM.PN ---
Subjective - Date & Time of Evaluation Date of Evaluation: 12/03/17 Time of Evaluation: 12:35 - Subjective Subjective: Comfortable, afebrile. Objective - Vital Signs/Intake and Output Vital Signs (last 24 hours): Temp Pulse Resp BP Pulse Ox 97.8 F 54 L 19 147/58 L 97 12/03/17 06:00 12/03/17 06:00 12/03/17 06:00 12/03/17 06:00 12/03/17 06:00 Intake and Output: 12/03/17 12/03/17 06:59 18:59 Intake Total 960 Output Total 4 Balance 956 - Medications Medications: Current Medications Amlodipine Besylate (Norvasc) 5 mg PO DAILY [facility] Last Admin: 12/02/17 10:22 Dose: 5 mg Aspirin (Aspirin Chewable) 81 mg PO DAILY [facility] Last Admin: 12/02/17 10:22 Dose: 81 mg Atorvastatin Calcium (Lipitor) 20 mg PO DIN [facility] Last Admin: 12/02/17 17:19 Dose: 20 mg Cinacalcet (Sensipar) 60 mg PO DAILY [facility] Last Admin: 12/02/17 10:22 Dose: 60 mg Clonidine HCl (Catapres) 0.1 mg PO BID [facility] Last Admin: 12/02/17 17:18 Dose: 0.1 mg Clopidogrel Bisulfate (Plavix) 75 mg PO DAILY [facility] Last Admin: 12/02/17 10:23 Dose: 75 mg Heparin Sodium (Porcine) (Heparin) 5,000 units SC Q8H [facility] PRN Reason: Protocol Last Admin: 12/03/17 04:31 Dose: 5,000 units Hydralazine HCl (Apresoline) 50 mg PO TID [facility] Last Admin: 12/02/17 17:19 Dose: 50 mg Isosorbide Mononitrate (Imdur) 60 mg PO DAILY [facility] Last Admin: 12/02/17 10:22 Dose: 60 mg Lorazepam (Ativan) 0.5 mg PO BID PRN; Protocol PRN Reason: Anxiety Last Admin: 12/02/17 21:44 Dose: 0.5 mg Metoprolol Tartrate (Lopressor) 50 mg PO BID [facility] Last Admin: 12/02/17 17:19 Dose: 50 mg Morphine Sulfate (Morphine) 1 mg IVP Q2H PRN PRN Reason: Pain, severe (8-10) Last Admin: 12/02/17 14:10 Dose: 1 mg Ondansetron HCl (Zofran Inj) 4 mg IVP Q4H PRN PRN Reason: Nausea/Vomiting Last Admin: 12/02/17 10:41 Dose: 4 mg Pantoprazole Sodium (Protonix Ec Tab) 40 mg PO 0600 KITTY Last Admin: 12/03/17 06:03 Dose: 40 mg Sodium Bicarbonate (Sodium Bicarbonate Tab) 650 mg PO TID [facility] Last Admin: 12/02/17 17:18 Dose: 650 mg Timolol Maleate (Timoptic 0.5% Ophth Soln) 1 drop OD HS [facility] Last Admin: 12/02/17 21:45 Dose: 1 drop - Labs Labs: 11/30/17 05:30 12/03/17 05:45 PT 10.6 SECONDS (9.4-12.5) 11/21/17 19:34 INR 0.93 (0.93-1.08) 11/21/17 19:34 APTT 57.0 Seconds (25.1-36.5) H 11/24/17 06:00 - Constitutional Appears: Chronically Ill - Head Exam Head Exam: NORMAL INSPECTION - Respiratory Exam Respiratory Exam: Decreased Breath Sounds - Cardiovascular Exam Cardiovascular Exam: +S1, +S2 - GI/Abdominal Exam GI & Abdominal Exam: Soft. absent: Tenderness Assessment and Plan - Assessment and Plan (Free Text) Plan: Assessment Systemic inflammatory response syndrome probably due to acute NSTEMI, no evidence of sepsis identified chronic renal failure HTN S/P carotid endearterectomy endometrial CAD S/P hysterectomy Plan cultures have been negative, reviewed CT C/A/P which does not point to a source of infection - will continue to monitor the patient off antibiotics since she is at risk for healthcare-associated infections
[2017-12-03 20:08] LABS: IRON 26 ug/dL (45-180)
--- NOTE | 2017-12-03 20:11 | PN ---
DATE: 12/03/2017 SUBJECTIVE: The patient is seen sitting in bed. She is awake. She is alert. She is groggy. She denies any pain. She complains of pain in her back. She denies any shortness of breath. PHYSICAL EXAMINATION: GENERAL: Thinly built elderly lady sitting in bed. VITAL SIGNS: Blood pressure 153/60, heart rate 56, respiratory rate 18, temperature 98.6. HEENT: Normocephalic, atraumatic. NECK: Supple, no JVD. LUNGS: Bilateral equal entry, bilateral equal expansion, no rales. CARDIAC: S1, S2, regular rate and rhythm, no murmur, no rub. ABDOMEN: Soft, nondistended, nontender, bowel sounds present. EXTREMITIES: No lower extremity edema. INTAKE AND OUTPUT: Not charted. LABORATORY DATA: WBC 7, hemoglobin 10.6, hematocrit 34, platelets 271. Sodium 139, potassium 4.2, chloride 111, CO2 of 20, BUN 56, creatinine 2.4, glucose 89. Calcium 10.7. Albumin 2.8. Corrected calcium is 11.4. Creatinine clearance 14, but urine volume was only 500, urine protein 120. CURRENT MEDICATIONS: Apresoline 50 t.i.d.; aspirin, Ativan; Catapres 0.1 b.i.d.; heparin; Imdur; Lipitor 20; Lopressor 50 b.i.d.; amlodipine 5; Plavix 75; Protonix 40; Sensipar 60, started on the 24th; sodium bicarbonate. ASSESSMENT: 1. Stable chronic kidney disease stage III/IV. 2. Anemia of chronic kidney disease. 3. Primary hyperparathyroidism suspect. 4. Hypercalcemia. 5. Hyperphosphatemia. 6. Metabolic acidosis. PLAN: 1. No indication for renal replacement therapy at present, kidney function is stable. 2. Continue Sensipar 60 mg daily for hypercalcemia and primary hyperparathyroidism. 3. Continue current antihypertensives. 4. Continue to hold ALIYAH inhibitors. 5. Monitor labs intermittently. 6. Check iron stores. Barbara Edgar MD
[2017-12-03 20:17] LABS: % IRON SATURATION 13 % (20-55); TOTAL IRON BINDING CAPACITY 208 ug/dL (265-497)
--- NOTE | 2017-12-04 04:06 | PN ---
DATE: SUBJECTIVE: This patient was seen and evaluated earlier today. The patient's daughter was at bedside, complains of constipation. no bowel movements. The patient did have MiraLax before. PHYSICAL EXAMINATION VITAL SIGNS: Temperature is 97.8, pulse 56, blood pressure is 153/60, respiration is 18, O2 saturation 97. HEENT: Atraumatic, anicteric. NECK: Supple. HEART: S1 and S2 heard. There is systolic murmur present. LUNGS: Bilateral air entry present. ABDOMEN: Soft. No tenderness. EXTREMITIES: No cyanosis, no clubbing. LABORATORY DATA: Hemoglobin 10.6, stable; hematocrit 33.6, WBC 7.3, platelets 271. Chemistry shows BUN 56, creatinine 2.4. Iron studies . IMPRESSION: This 82-year-old patient admitted with acute myocardial infarction. The patient was on aspirin, Plavix and also on heparin. There is drop in blood count. Heparin has been discontinued; on aspirin and Plavix. The patient is on Protonix. Hemoglobin is stable. The patient is on Protonix 40 mg b.i.d. We will reduce the dose to 20 mg. Follow up of the hemoglobin and hematocrit. She has a history of intermittent dysphagia, chronic. Esophagogram is normal. Advised to chew the food and soft diet. The patient is DNR/DNI. No invasive workup as per the family. Thank you very much for allowing us to participate in the care of the patient. Jeferson Aiken MD
[2017-12-04] MEDS: Pantoprazole 40 mg EC Tab PO SCH (06:15)
--- NOTE | 2017-12-04 08:11 | CP.PCM.PN ---
Subjective - Date & Time of Evaluation Date of Evaluation: 12/04/17 Time of Evaluation: 07:45 - Subjective Subjective: Patient was moved to the medical floor yesterday. No overnight events. Objective - Vital Signs/Intake and Output Vital Signs (last 24 hours): Temp Pulse Resp BP Pulse Ox 97.8 F 47 L 16 153/60 H 97 12/03/17 14:00 12/03/17 14:00 12/03/17 14:00 12/03/17 18:25 12/03/17 14:00 - Medications Medications: Current Medications Amlodipine Besylate (Norvasc) 5 mg PO DAILY COUNT INCLUDES THE [facility] Last Admin: 12/03/17 10:08 Dose: 5 mg Aspirin (Aspirin Chewable) 81 mg PO DAILY COUNT INCLUDES THE [facility] Last Admin: 12/03/17 10:08 Dose: 81 mg Atorvastatin Calcium (Lipitor) 20 mg PO DIN COUNT INCLUDES THE [facility] Last Admin: 12/03/17 18:24 Dose: 20 mg Cinacalcet (Sensipar) 60 mg PO DAILY COUNT INCLUDES THE [facility] Last Admin: 12/03/17 10:08 Dose: 60 mg Clonidine HCl (Catapres) 0.1 mg PO BID COUNT INCLUDES THE [facility] Last Admin: 12/03/17 18:24 Dose: 0.1 mg Clopidogrel Bisulfate (Plavix) 75 mg PO DAILY COUNT INCLUDES THE [facility] Last Admin: 12/03/17 10:08 Dose: 75 mg Heparin Sodium (Porcine) (Heparin) 5,000 units SC Q8H COUNT INCLUDES THE [facility] PRN Reason: Protocol Last Admin: 12/04/17 01:48 Dose: 5,000 units Hydralazine HCl (Apresoline) 50 mg PO TID COUNT INCLUDES THE [facility] Last Admin: 12/03/17 18:25 Dose: 50 mg Isosorbide Mononitrate (Imdur) 60 mg PO DAILY COUNT [facility]CLUDES THE [facility] Last Admin: 12/03/17 10:08 Dose: 60 mg Lorazepam (Ativan) 0.5 mg PO BID PRN; Protocol PRN Reason: Anxiety Last Admin: 12/03/17 22:18 Dose: 0.5 mg Metoprolol Tartrate (Lopressor) 50 mg PO BID COUNT INCLUDES THE [facility] Last Admin: 12/03/17 18:25 Dose: 50 mg Morphine Sulfate (Morphine) 1 mg IVP Q2H PRN PRN Reason: Pain, severe (8-10) Ondansetron HCl (Zofran Inj) 4 mg IVP Q4H PRN PRN Reason: Nausea/Vomiting Last Admin: 12/02/17 10:41 Dose: 4 mg Pantoprazole Sodium (Protonix Ec Tab) 40 mg PO 0600 COUNT INCLUDES THE [facility] Last Admin: 12/04/17 06:15 Dose: 40 mg Sodium Bicarbonate (Sodium Bicarbonate Tab) 650 mg PO TID COUNT INCLUDES THE [facility] Last Admin: 12/03/17 18:24 Dose: 650 mg Timolol Maleate (Timoptic 0.5% Ophth Soln) 1 drop OD HS COUNT INCLUDES THE [facility] Last Admin: 12/03/17 22:17 Dose: 1 drop - Labs Labs: 11/30/17 05:30 12/03/17 05:45 PT 10.6 SECONDS (9.4-12.5) 11/21/17 19:34 INR 0.93 (0.93-1.08) 11/21/17 19:34 APTT 57.0 Seconds (25.1-36.5) H 11/24/17 06:00 - Constitutional Appears: No Acute Distress - Head Exam Head Exam: ATRAUMATIC, NORMOCEPHALIC - Cardiovascular Exam Cardiovascular Exam: +S1, +S2 - GI/Abdominal Exam GI & Abdominal Exam: Soft, Normal Bowel Sounds. absent: Tenderness - Extremities Exam Extremities Exam: Normal Inspection - Neurological Exam Neurological Exam: Alert, Awake Assessment and Plan - Assessment and Plan (Free Text) Assessment: NSTEMI Acute on Chronic kidney disease HTN Anxiety Chronic back pain Arthritis Plan: Patient is on medical treatment for NSTEMI. continue ASA, Plavix, Metoprolol, and Imdur. Patient off ARB due to kidney disease. continue Sensipar and sodium bicarbonate as per nephrology. continue physical therapy social group worker and case management working on discharge planning.
--- NOTE | 2017-12-04 11:22 | CP.PCM.PN ---
<Jory Woods - Last Filed: 12/04/17 11:22> Subjective - Date & Time of Evaluation Date of Evaluation: 12/04/17 Time of Evaluation: 09:30 - Subjective Subjective: Seen and examined at the bedside earlier today, patient reports having bowel movement last night and is currently on the bedpan, with relief. Has some abdominal cramping but no acute distress. Denies nausea, vomiting, or dysphagia. Tolerating oral intake. No new complaints. She is s/p lactulose and dulcolax. Objective - Vital Signs/Intake and Output Vital Signs (last 24 hours): Temp Pulse Resp BP Pulse Ox 97.8 F 66 16 161/70 H 99 12/04/17 07:30 12/04/17 09:49 12/04/17 07:30 12/04/17 09:49 12/04/17 07:30 - Medications Medications: Current Medications Amlodipine Besylate (Norvasc) 5 mg PO DAILY [facility] Last Admin: 12/04/17 09:46 Dose: 5 mg Aspirin (Aspirin Chewable) 81 mg PO DAILY [facility] Last Admin: 12/04/17 09:49 Dose: 81 mg Atorvastatin Calcium (Lipitor) 20 mg PO DIN [facility] Last Admin: 12/03/17 18:24 Dose: 20 mg Cinacalcet (Sensipar) 60 mg PO DAILY [facility] Last Admin: 12/04/17 09:55 Dose: 60 mg Clonidine HCl (Catapres) 0.1 mg PO BID [facility] Last Admin: 12/04/17 09:46 Dose: 0.1 mg Clopidogrel Bisulfate (Plavix) 75 mg PO DAILY [facility] Last Admin: 12/04/17 09:49 Dose: 75 mg Heparin Sodium (Porcine) (Heparin) 5,000 units SC Q8H [facility] PRN Reason: Protocol Last Admin: 12/04/17 09:56 Dose: 5,000 units Hydralazine HCl (Apresoline) 50 mg PO TID [facility] Last Admin: 12/04/17 09:46 Dose: 50 mg Isosorbide Mononitrate (Imdur) 60 mg PO DAILY [facility] Last Admin: 12/04/17 09:49 Dose: 60 mg Lorazepam (Ativan) 0.5 mg PO BID PRN; Protocol PRN Reason: Anxiety Last Admin: 12/03/17 22:18 Dose: 0.5 mg Metoprolol Tartrate (Lopressor) 50 mg PO BID [facility] Last Admin: 12/04/17 09:49 Dose: 50 mg Ondansetron HCl (Zofran Inj) 4 mg IVP Q4H PRN PRN Reason: Nausea/Vomiting Last Admin: 12/02/17 10:41 Dose: 4 mg Pantoprazole Sodium (Protonix Ec Tab) 40 mg PO 0600 [facility] Last Admin: 12/04/17 06:15 Dose: 40 mg Sodium Bicarbonate (Sodium Bicarbonate Tab) 650 mg PO TID [facility] Last Admin: 12/04/17 09:45 Dose: 650 mg Timolol Maleate (Timoptic 0.5% Ophth Soln) 1 drop OD HS [facility] Last Admin: 12/03/17 22:17 Dose: 1 drop - Labs Labs: 11/30/17 05:30 12/03/17 05:45 PT 10.6 SECONDS (9.4-12.5) 11/21/17 19:34 INR 0.93 (0.93-1.08) 11/21/17 19:34 APTT 57.0 Seconds (25.1-36.5) H 11/24/17 06:00 - Constitutional Appears: No Acute Distress - Head Exam Head Exam: NORMOCEPHALIC - Eye Exam Eye Exam: Normal appearance. absent: Scleral icterus - ENT Exam ENT Exam: Mucous Membranes Moist - Neck Exam Neck Exam: Normal Inspection - Respiratory Exam Respiratory Exam: NORMAL BREATHING PATTERN. absent: Respiratory Distress - Cardiovascular Exam Cardiovascular Exam: +S1, +S2 - GI/Abdominal Exam GI & Abdominal Exam: Soft, Normal Bowel Sounds. absent: Guarding, Tenderness, Rebound - Extremities Exam Extremities Exam: absent: Calf Tenderness, Pedal Edema - Neurological Exam Neurological Exam: Alert, Awake, Oriented x3 - Skin Skin Exam: Dry, Warm Assessment and Plan - Assessment and Plan (Free Text) Assessment: Asssessment: Constipation s/p lactulose and colace Dysphagia, status post esophagus x-ray, negative for mass or stricture Anemia NSTEMI PVD CKD HTN Hyperparathyroidism Plan: Trend H&H, currently stable, monitor for overt GI bleed continue PPI Continue diet as tolerated currently on soft food, encouraged to eat slowly and chew food well monitor electrolytes On ASA and Plavix on Heparin SQ Seen and Discussed with Dr. Aiken <Jeferson Aiken V - Last Filed: 12/04/17 23:35> Objective - Vital Signs/Intake and Output Vital Signs (last 24 hours): Temp Pulse Resp BP Pulse Ox 98 F 55 L 20 164/66 H 95 12/04/17 14:00 12/04/17 17:44 12/04/17 14:00 12/04/17 17:44 12/04/17 14:00 Intake and Output: 12/04/17 12/05/17 18:59 06:59 Intake Total 360 Balance 360 - Medications Medications: Current Medications Amlodipine Besylate (Norvasc) 5 mg PO DAILY [facility] Last Admin: 12/04/17 09:46 Dose: 5 mg Aspirin (Aspirin Chewable) 81 mg PO DAILY [facility] Last Admin: 12/04/17 09:49 Dose: 81 mg Atorvastatin Calcium (Lipitor) 20 mg PO DIN [facility] Last Admin: 12/04/17 17:44 Dose: 20 mg Cinacalcet (Sensipar) 60 mg PO DAILY [facility] Last Admin: 12/04/17 09:55 Dose: 60 mg Clonidine HCl (Catapres) 0.1 mg PO BID [facility] Last Admin: 12/04/17 17:44 Dose: 0.1 mg Clopidogrel Bisulfate (Plavix) 75 mg PO DAILY [facility] Last Admin: 12/04/17 09:49 Dose: 75 mg Heparin Sodium (Porcine) (Heparin) 5,000 units SC Q8H [facility] PRN Reason: Protocol Last Admin: 12/04/17 17:43 Dose: 5,000 units Hydralazine HCl (Apresoline) 50 mg PO TID [facility] Last Admin: 12/04/17 17:44 Dose: 50 mg Iron Sucrose 200 mg/ Sodium (Chloride) 110 mls @ 110 mls/hr IVPB QOTHERDAY [facility] Stop: 12/14/17 10:59 Isosorbide Mononitrate (Imdur) 60 mg PO DAILY [facility] Last Admin: 12/04/17 09:49 Dose: 60 mg Lorazepam (Ativan) 0.5 mg PO BID PRN; Protocol PRN Reason: Anxiety Last Admin: 12/04/17 22:54 Dose: 0.5 mg Metoprolol Tartrate (Lopressor) 50 mg PO BID [facility] Last Admin: 12/04/17 17:44 Dose: 50 mg Ondansetron HCl (Zofran Inj) 4 mg IVP Q4H PRN PRN Reason: Nausea/Vomiting Last Admin: 12/02/17 10:41 Dose: 4 mg Pantoprazole Sodium (Protonix Ec Tab) 40 mg PO 0600 [facility] Last Admin: 12/04/17 06:15 Dose: 40 mg Sodium Bicarbonate (Sodium Bicarbonate Tab) 650 mg PO TID [facility] Last Admin: 12/04/17 17:44 Dose: Not Given Timolol Maleate (Timoptic 0.5% Ophth Soln) 1 drop OD HS [facility] Last Admin: 12/04/17 22:54 Dose: 1 drop - Labs Labs: 11/30/17 05:30 12/03/17 05:45 PT 10.6 SECONDS (9.4-12.5) 11/21/17 19:34 INR 0.93 (0.93-1.08) 11/21/17 19:34 APTT 57.0 Seconds (25.1-36.5) H 11/24/17 06:00 Attending/Attestation - Attestation I have personally seen and examined this patient.: Yes I have fully participated in the care of the patient.: Yes I have reviewed all pertinent clinical information, including history, physical exam and plan: Yes Notes (Text): This is an addendum to GI progress report dictated by Jory Woods APN.The patient was seen and examined earlier. Medical records, lab studies, imagings were reviewed. Last 24 hours events reviewed. Agreed with the above treatment plan as outlined in Jory Woods APN's notes the with the addition of the following 12/04/17 23:34
--- NOTE | 2017-12-04 14:03 | PN ---
DATE: SUBJECTIVE: The patient is currently seen lying supine in bed. She states she was up with the therapist earlier today. She is currently a patient on 5R. It appears that she did not go to the TCU. MEDICATIONS: Medication list reviewed. The patient is currently on Apresoline, aspirin, Ativan, clonidine, subcu heparin, Imdur, Lipitor, Lopressor, Norvasc, Plavix, Protonix, oral Sensipar, sodium bicarbonate, Timoptic ophthalmic solution and Zofran p.r.n. OBJECTIVE: INTAKE/OUTPUT: None charted for today. The last complete 24-hour urine totals were from 12/03/2017 at 960 in and 4 mL out. VITAL SIGNS: Blood pressure 161/70. Heart rate 66, temperature 97.8, respiratory rate 16 with a oxygen saturation of 99%. HEENT: Normocephalic, atraumatic. Conjunctivae are pale. Sclerae are nonicteric. NECK: Supple. No neck vein distention. Left carotid endarterectomy scar. CHEST: Clear to auscultation and percussion with slight decreased breath sounds at the bases. CARDIOVASCULAR: Regular rate and rhythm with /AI/MR/TR. No rubs or gallops noted. ABDOMEN: Soft. Bowel sounds are normal. No rebound, guarding or masses. EXTREMITIES: Show no lower extremity cyanosis, clubbing or edema. Diminished lower extremity pulses 1 to 2+. LABORATORY DATA AND IMAGING: Last CBC: White blood cell count 7.3, hemoglobin 10.6 with a platelet count of 271,000. Iron saturations are low at 13%. Chemistries: Sodium 139, potassium excellent at 4.2, chloride 111 with a CO2 of 20. BUN of 56 with a creatinine of 2.4. Glucose is 89. Calcium is 10.7. Iron saturations 13%. Last phosphorus level was 3.2. Albumin is 2.8. 24-hour urines for creatinine clearance were 14 mL per minute, perhaps with a reduced volume of 500 mL. Urine protein was 120 mg. This is likely an under collection of urine. ASSESSMENT: 1. Acute renal failure superimposed on chronic kidney disease stage III. Her baseline creatinine from outpatient records is in the 1.7-1.8 range. Workup for renal artery stenosis of her normal-sized left kidney was negative. She does have an atrophic right kidney. 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 2. Status post life-threatening hyperkalemia. At present, the potassium levels are better. The patient is off potassium-sparing diuretics. She is off angiotensin receptor rosa therapy. She is on sodium bicarbonate and she is on renal diet with low potassium. 3. History of hypertension. Diastolic blood pressures are acceptable. Systolic blood pressure is slightly elevated. Continue present medication. Adjustment of medication doses as necessary. 4. History of peripheral vascular disease, history of iliac artery stent placement, history of carotid endarterectomy. All stable. 5. History of hypercalcemia. More than likely the patient has primary hyperparathyroidism as her PTH level is elevated with an elevated calcium level. The patient had been placed on Sensipar as per past nodes. She is currently on 60 mg a day. Her calcium level is improved at 10.7. The patient will need to have this monitored closely in the outpatient setting and this will likely be done by Dr. Davis when she leaves the hospital. 6. Hyperlipidemia. The patient will continue statin therapy in light of her history of peripheral vascular disease. 7. History of an acute myocardial infarction, likely [id number] myocardial infarction. Ejection fraction was 41% with global hypokinesis and valvular heart disease. The patient has been seen by Cardiology. She is being treated conservatively. 8. Do not resuscitate/do not intubate as per the patient's request. PLAN: 1. Continue to monitor blood pressure and adjust medicines accordingly. 2. Continue to monitor calcium levels closely as the patient is on Sensipar for treatment of her primary hyperparathyroidism with elevated calcium levels and elevated PTH levels. 3. Continue rehabilitation, physical therapy. Perhaps, the goal is to get her to the TCU at some point in time. 4. IV Venofer a maximal of 1 g to be given over 5 days and if her hemoglobin drops below 10, the patient may receive Aranesp therapy. Byron Bonilla MD
--- NOTE | 2017-12-05 01:39 | PN ---
DATE: 12/04/2017 SUBJECTIVE: The patient is in bed, in no acute distress, nontoxic. PHYSICAL EXAMINATION: VITAL SIGNS: Temperature is 98, blood pressure is 160/60, respiratory rate of 20, and heart rate is 56. HEENT: Unremarkable. NECK: Supple. LUNGS: Decreased breath sounds. HEART: Normal S1 and S2. ABDOMEN: Soft, nontender. LABORATORY DATA: Reveals a white count of 7.3, hemoglobin of 10, and platelets of 271. Chemistry reveals a BUN of 56 and creatinine of 2.4. Urinalysis is noted. Microbiology reveals that the patient's blood culture is no growth and urine culture is no growth. ASSESSMENT AND PLAN: An 82-year-old female seen this morning in room 577, bed 1 with systemic inflammatory response syndrome, probably due to acute non-ST elevation myocardial infarction, no evidence of sepsis, currently cultures are negative in a patient with chronic renal failure, hypertension, history of carotid endarterectomy and endometrial cancer, and history of hysterectomy. We will continue to monitor the patient , and we will follow up with you. The patient is at risk for developing nosocomial infections. Manuel Espinosa MD
[2017-12-05] MEDS: Pantoprazole 40 mg EC Tab PO SCH (05:55)
[2017-12-05 07:14] LABS: HEMOGLOBIN 10.2 g/dL (12.0-16.0); MEAN CELL VOLUME 87.2 fl (80.0-105.0); MEAN CORPUSCULAR HEMOGLOBIN 27.8 pg (25.0-35.0); MEAN CORPUSCULAR HGB CONC 31.9 g/dl (31.0-37.0); MEAN PLATELET VOLUME 11.2 fl (7.0-11.0); RBC 3.67 10^6/uL (3.5-6.1); RED CELL DISTRIBUTION WIDTH 17.5 % (11.5-14.5); WHITE BLOOD COUNT 6.7 10^3/ul (4.5-11.0)
[2017-12-05 07:33] LABS: ALBUMIN 2.4 g/dL (3.0-4.8); CALCIUM 10.8 mg/dL (8.4-10.5)
[2017-12-05 08:50] VITALS: RESP 18; O2SAT 95
--- NOTE | 2017-12-05 10:23 | CON ---
DATE: IDENTIFYING INFORMATION: The patient is an 82-year-old white female initially seen in the Emergency Room because of chest pain and hematemesis. She reportedly had been eating dinner, experienced chest pain but no shortness of breath. She also had a headache. PAST MEDICAL HISTORY: The patient's past medical history is significant for hypertension, renal insufficiency, hyperuricemia, degenerative arthritis, coronary artery disease, peripheral vascular disease. The patient has a DNR and DNI status, with notes indicating that she does not want to be resuscitated or intubated. She has a history of secondary hyperparathyroidism. The patient has been maintained on aspirin 81 mg, Lipitor 20 mg, Catapres 0.1 mg b.i.d., Plavix 75 mg daily, Lopressor 25 mg b.i.d., Protonix 40 mg daily and timolol 0.5% ophthalmic solution. The patient reportedly has a history of anxiety, although I cannot elicit this from her. She indicated that she is a high school graduate who had worked for many years. She has been for about five years. Her was a fire dispatcher. She has two daughters. She did have a period in her life when she drank excessively, but this was reportedly many years ago. She was vague with regard to the need for treatment but my sense is that she did not need the treatment. She reportedly has been accepted to [facility] for subacute care after stabilization here. The patient informs me that many years ago, I took care of her daughter, (I will review my records to refresh by memory as I have no recall of her). I have reviewed all the Social Work notes. The daughter reports that her mother has had a "severe decline since admission " and that her mother would not be able to function at home in her present state. I have reviewed nursing notes of the past few days, which indicates the patient's mental status seems to have stabilized and she does not appear to be unduly anxious or agitated or depressed or psychotic. Blood pressure 135/57, pulse 56, temperature 98, respiratory rate 20. The patient is anemic with a hemoglobin of 10.6, hematocrit 33.6. Lowered serum iron of 26, TIBC of 208. BUN is elevated at 56 and creatinine elevated at 2.4. I will continue to monitor with you this woman who reportedly has a history of "anxiety" and possibly, a history of past alcohol use in excess. Jaswinder Guerra MD/ PhD
--- NOTE | 2017-12-05 12:36 | CP.PCM.PN ---
Subjective - Date & Time of Evaluation Date of Evaluation: 12/05/17 Time of Evaluation: 10:30 - Subjective Subjective: Seen and examined at the bedside earlier today, chart review. Patient's last bowel movement was yesterday, no reports of any overt GI bleed. Denies nausea, vomiting or abdominal pain. Patient does report decreased appetite but drinking nephro supplements. No new GI complaints or acute overnight events reported. Objective - Vital Signs/Intake and Output Vital Signs (last 24 hours): Temp Pulse Resp BP Pulse Ox 98.1 F 56 L 18 151/66 H 95 12/05/17 08:00 12/05/17 09:50 12/05/17 08:00 12/05/17 09:50 12/05/17 08:00 Intake and Output: 12/05/17 12/05/17 06:59 18:59 Intake Total 120 Output Total 100 Balance 20 - Medications Medications: Current Medications Amlodipine Besylate (Norvasc) 5 mg PO DAILY [facility] Last Admin: 12/05/17 09:50 Dose: 5 mg Aspirin (Aspirin Chewable) 81 mg PO DAILY [facility] Last Admin: 12/05/17 09:49 Dose: 81 mg Atorvastatin Calcium (Lipitor) 20 mg PO DIN [facility] Last Admin: 12/04/17 17:44 Dose: 20 mg Cinacalcet (Sensipar) 60 mg PO DAILY [facility] Last Admin: 12/05/17 09:49 Dose: 60 mg Clonidine HCl (Catapres) 0.1 mg PO BID [facility] Last Admin: 12/05/17 09:49 Dose: 0.1 mg Clopidogrel Bisulfate (Plavix) 75 mg PO DAILY [facility] Last Admin: 12/05/17 09:49 Dose: 75 mg Heparin Sodium (Porcine) (Heparin) 5,000 units SC Q8H [facility] PRN Reason: Protocol Last Admin: 12/05/17 11:17 Dose: 5,000 units Hydralazine HCl (Apresoline) 50 mg PO TID [facility] Last Admin: 12/05/17 09:50 Dose: 50 mg Iron Sucrose 200 mg/ Sodium (Chloride) 110 mls @ 110 mls/hr IVPB QOTHERDAY [facility] Stop: 12/14/17 10:59 Isosorbide Mononitrate (Imdur) 60 mg PO DAILY [facility] Last Admin: 12/05/17 09:49 Dose: 60 mg Lorazepam (Ativan) 0.5 mg PO BID PRN; Protocol PRN Reason: Anxiety Last Admin: 12/04/17 22:54 Dose: 0.5 mg Metoprolol Tartrate (Lopressor) 50 mg PO BID [facility] Last Admin: 12/05/17 09:50 Dose: 50 mg Ondansetron HCl (Zofran Inj) 4 mg IVP Q4H PRN PRN Reason: Nausea/Vomiting Last Admin: 12/02/17 10:41 Dose: 4 mg Pantoprazole Sodium (Protonix Ec Tab) 40 mg PO 0600 [facility] Last Admin: 12/05/17 05:55 Dose: 40 mg Sodium Bicarbonate (Sodium Bicarbonate Tab) 650 mg PO TID [facility] Last Admin: 12/05/17 09:51 Dose: Not Given Timolol Maleate (Timoptic 0.5% Ophth Soln) 1 drop OD HS [facility] Last Admin: 12/04/17 22:54 Dose: 1 drop - Labs Labs: 12/05/17 06:50 12/05/17 06:50 PT 10.6 SECONDS (9.4-12.5) 11/21/17 19:34 INR 0.93 (0.93-1.08) 11/21/17 19:34 APTT 57.0 Seconds (25.1-36.5) H 11/24/17 06:00 - Constitutional Appears: No Acute Distress - Head Exam Head Exam: NORMOCEPHALIC - Eye Exam Eye Exam: Normal appearance. absent: Scleral icterus - ENT Exam ENT Exam: Mucous Membranes Moist - Neck Exam Neck Exam: Normal Inspection - Respiratory Exam Respiratory Exam: NORMAL BREATHING PATTERN. absent: Respiratory Distress - Cardiovascular Exam Cardiovascular Exam: +S1, +S2 - GI/Abdominal Exam GI & Abdominal Exam: Soft, Normal Bowel Sounds. absent: Guarding, Tenderness, Organomegaly, Rebound - Extremities Exam Extremities Exam: absent: Calf Tenderness, Pedal Edema - Neurological Exam Neurological Exam: Alert, Awake, Oriented x3 Assessment and Plan - Assessment and Plan (Free Text) Assessment: Asssessment: Constipation s/p lactulose and colace Dysphagia, status post esophagus x-ray, negative for mass or stricture Anemia, h/h stable NSTEMI PVD CKD HTN Hyperparathyroidism Plan: Trend H&H, currently stable, monitor for overt GI bleed continue PPI Continue diet as tolerated currently on soft food, encouraged to eat slowly and chew food well monitor electrolytes On ASA and Plavix on Heparin SQ Nephro supplements On IV iron Seen and Discussed with Dr. Aiken
--- NOTE | 2017-12-05 13:29 | PN ---
DATE: LOCATION: The patient is in [facility] in [place], room 577, bed 1. SUBJECTIVE: The patient was admitted with acute myocardial infarction. The patient has been in the hospital for continued angina. The patient had renal insufficiency and difficulty in getting out of bed by herself. She has the ability to walk once she is out of the bed, but she has problem trying to get out of bed. The patient also has some problem with pain in the back associated with degenerative arthritis. PHYSICAL EXAMINATION VITAL SIGNS: HEENT: The patient's head is normocephalic. Carotid pulses are present. The patient had previous carotid artery surgery in the left side. The patient also has history of peripheral vascular disease. NECK: The thyroid is not enlarged. LUNGS: Trachea is central. Breath sounds are vesicular. No adventitious sounds. HEART: Normal sinus rhythm. S1 and S2 present. Sinus bradycardia. ABDOMEN: Soft. Liver and spleen not palpable. CENTRAL NERVOUS SYSTEM: No focal deficits. LABORATORY DATA: The hemoglobin is 10.2. The patient's chemistry shows that the patient's BUN is 55, creatinine is 2.2. She has chronic renal insufficiency stage III. The patient also has secondary hyperparathyroidism based on the fact that the calcium levels are high. MEDICATIONS: The patient's medications consist of hydralazine 50 mg three times a day. The patient is on aspirin, Ativan, clonidine 0.1 mg b.i.d. The patient is on Imdur 60 mg daily. The patient is on metoprolol 50 mg b.i.d., amlodipine 5 mg daily. The patient is on Plavix 75 mg daily, pantoprazole 40 mg daily. The patient is on cinacalcet which is Sensipar 60 mg daily, sodium bicarbonate 650 mg three times a day. The patient also gets eyedrops for glaucoma. Her diet is heart-healthy diet. The patient's condition is improving. She is still getting some physical therapy. She needs help to get out of the bed. The patient is also being evaluated for possible subacute rehab. We will continue management until resolution. Ky Bell MD [facility] # [id number] [place]
--- NOTE | 2017-12-05 17:33 | PCM.PYCHPN ---
Psychiatric Progress Note - Psychiatric Progress Note Patient seen today, length of contact: 25 Patient Chief Complaint: Chest pain Problems Identified/Issues Discussed: Patient on the cusp of going home according to daughter at the bedside Has a past history of hypertension, renal insufficiency, hyperuricemia, coronary artery disease, peripheral vascular disease, secondary para thyroidism and a history of anxiety which has not been prominent in her behavioral repertoire during this present hospitalization. Noted that she appeared to be overwhelmingly depressed. She is subdued but this appears to be boring manifestation of her physical condition. Diagnostic Results: As noted above DSM 5 Symptoms Update: Alert, subdued, oriented, wearing a white towel heads the bed speech soft poverty of thought. Appears to be uncomfortable but a vague historian, not overtly agitated or psychotic. Level of insight uncertain Medication Change: No Medical Record Reviewed: Yes Consults ordered or reviewed: Reviewed Mental Status Examination - Cognitive Function Orientation: Person, Place Memory: Other Attention: Poor Concentration: Poor Association: WNL Decription of patient's judgement and insights: Marginal - Mood Mood: Other - Affect Affect: Flat - Speech Speech: Soft - Formal Thought Process Formal Thought Process: Other Psychotic Thoughts and Behaviors: None evident - Suicidal Ideation Suicidal Ideation: No - Homicidal Ideation Homicidal Ideation: No Goal/Treatment Plan - Goal/Treatment Plan Need for Continued Stay: Severe functional impairment Progress Toward Problem(s) and Goals/Treatment Plan: Patient then a weakened condition and subdued. Daughter hopefully patient can be "strapped" so that she can go home and be taken care of at the course of her illness will then proceed in a more comfortable domestic environment.
--- NOTE | 2017-12-05 22:25 | PN ---
DATE: 12/05/2017 SUBJECTIVE: The patient is in bed, in no acute distress, was seen earlier this morning in 577, bed 1. PHYSICAL EXAMINATION VITAL SIGNS: Temperature is 97, blood pressure is 150/80, respiratory rate of 18, heart rate of 55. HEENT: Unremarkable. NECK: Supple. LUNGS: Decreased breath sounds. HEART: Normal S1 and S2. ABDOMEN: Soft, nontender. LABORATORY DATA: Reveals a white count of 6.7, hemoglobin of 10, and platelets of 279. Chemistry reveals a BUN of 55, creatinine of 2.2. Urinalysis is noted. Blood cultures are negative. ASSESSMENT AND PLAN: This is an 82-year-old female who was seen earlier this morning in room 577, bed 1 with systemic inflammatory response syndrome, probably secondary to acute non-ST elevation myocardial infarction, no evidence of infection in patient with chronic renal failure, hypertension, history of carotid endarterectomy, endometrial cancer, and hysterectomy. Currently, off of antibiotics. The patient is at risk for developing nosocomial infections. Manuel Espinosa MD
[2017-12-06 11:18] VITALS: TEMP 97.4
[2017-12-06 11:33] VITALS: BP 158/64; PULSE 57
--- NOTE | 2017-12-08 03:51 | DS ---
HISTORY OF PRESENT ILLNESS: This is an 82-year-old female with history of hypertension, chronic kidney disease, hyperuricemia, degenerative arthritis, carotid artery disease, and peripheral vascular disease, who presented to the emergency room with chest pain and emesis with blood. The patient denies shortness of breath. In the emergency room, the patient's blood pressure is 162/86, hemoglobin 13.4, white count of 17,000, potassium is 6.3, BUN 69 and creatinine of 3; troponin was also elevated at 0.42 and kept increasing to 4.98.. The patient was seen by Dr. Mariano, Senior [employer] Administrator. Due to her increased renal function, the patient was unable to go to cardiac catheterization. The patient was managed with medical treatment alone. She was given aspirin, Plavix, heparin drip, beta rosa and started on Imdur for unstable angina. The patient was continued on clonidine for her blood pressure and Norvasc, hydralazine was added as well. For back pain, an x-ray of the lumbar and thoracic spine was done, which showed degenerative arthritis and scoliosis with degeneration. CAT scan of the chest, abdomen and pelvis was done as the patient was complaining of dysphagia, which did not show any acute abnormalities. An esophageal x-ray was done, which also did not show any obstructions. The patient was given Protonix 40 mg once a day. She also had drop in her hemoglobin from 13.4 on admission to 8.3. Iron level was low and the patient was started on IV Venofer infusions. With treatment, her potassium normalized, BUN and creatinine trended downward towards baseline, which was around 1.8 and 1.9. The patient requires further physical therapy and was sent to the rehab for deconditioning and generalized weakness. DISCHARGE DIAGNOSES: [id number] myocardial infarction, hypertension, [id number] kidney disease, iron-deficiency anemia, anxiety, chronic back pain, peripheral vascular disease. DISCHARGE MEDICATIONS: Hydralazine 50 mg 3 times a day, aspirin 81 mg daily, Ativan 0.5 mg twice a day as needed for anxiety, Catapres 0.1 mg twice a day, heparin 5000 units subcu every 8 hours for DVT prophylaxis, Imdur 60 mg daily, iron sucrose infusion, Lidoderm patch daily, Lipitor 20 mg at night, Lopressor 25 mg breakfast and dinner, Norvasc 10 mg once a day, Plavix 75 mg daily, Protonix 40 mg daily, Sensipar 60 mg daily, sodium bicarbonate 650 mg 3 times a day, Timoptic 1 drop in the right eye at night and Zofran 4 mg as needed for nausea and vomiting. FOLLOWUP: The patient will be followed up in the transitional care unit. Ivan Bell MD
== END 2017-12-05 18:40 | DRG 281 ==
LOC: ED 19:20 → ERH 22:47 → ICU 11-22 00:33 → 2RNO 11-24 00:47 → 5RSO 12-03 10:27
PROVIDERS: ADMIT Internal Medicine; ATTEND Internal Medicine
DX: I21.4 Non-ST elevation (NSTEMI) myocardial infarction (principal); N17.9 Acute kidney failure, unspecified; N18.3 Chronic kidney disease, stage 3 (moderate); N25.81 Secondary hyperparathyroidism of renal origin; I13.0 Hypertensive heart and chronic kidney disease with heart failure and stage 1 through stage 4 chronic kidney disease, or unspecified chronic kidney disease; R65.10 Systemic inflammatory response syndrome (SIRS) of non-infectious origin without acute organ dysfunction; E87.2 Acidosis; Z66 Do not resuscitate; E87.5 Hyperkalemia; E78.5 Hyperlipidemia, unspecified; D63.1 Anemia in chronic kidney disease; I73.9 Peripheral vascular disease, unspecified; G89.29 Other chronic pain; M54.9 Dorsalgia, unspecified; F41.9 Anxiety disorder, unspecified; I67.9 Cerebrovascular disease, unspecified; J44.9 Chronic obstructive pulmonary disease, unspecified; H40.9 Unspecified glaucoma; I50.9 Heart failure, unspecified; K21.9 Gastro-esophageal reflux disease without esophagitis; I25.10 Atherosclerotic heart disease of native coronary artery without angina pectoris; I08.1 Rheumatic disorders of both mitral and tricuspid valves; R13.10 Dysphagia, unspecified; K59.00 Constipation, unspecified; K29.70 Gastritis, unspecified, without bleeding; E21.0 Primary hyperparathyroidism; Z79.02 Long term (current) use of antithrombotics/antiplatelets; Z79.82 Long term (current) use of aspirin; Z85.42 Personal history of malignant neoplasm of other parts of uterus; Z90.710 Acquired absence of both cervix and uterus; Z87.891 Personal history of nicotine dependence

== ENCOUNTER 2017-12-05 18:40 | Inpatient (IN) | payer MEDICARE ==
[2017-12-05] MEDS ORDERED: Influenza Vaccine 60 mcg/0.5 mL SYR (4YR UP) IM ONE (23:49)
[2017-12-05] MEDS ORDERED: Pneumococcal 23-Valent Vaccine IM ONE (23:49)
--- NOTE | 2017-12-06 00:29 | PN ---
DATE: 12/05/2017 SUBJECTIVE: Patient is seen lying in bed. Her daughters are at bedside. She is awake, she is alert. She has very poor appetite. Intake, it is a poor p.o. intake. PHYSICAL EXAMINATION: GENERAL: An elderly lady, lying in bed. VITAL SIGNS: Blood pressure is 158/64, heart rate 57, respiratory rate 18, temperature 97.4. HEENT: Normocephalic, atraumatic. NECK: Supple, no JVD . LUNGS: Bilateral equal air entry, bilateral equal expansion, no rales. CARDIAC: S1 and S2, regular rate and rhythm, no murmur, no rub. ABDOMEN: Obese, distended, soft, nontender, bowel sounds present. EXTREMITIES: No lower extremity edema. INTAKE AND OUTPUT: 480/100. LABORATORY DATA: WBC 6.7, hemoglobin 10.2, hematocrit 32, platelets 279. Sodium 140, potassium 4.0, chloride 110, CO2 of 20, BUN 55, creatinine 2.2, glucose 92, calcium 10.8, phosphorous 3.1, magnesium 2.6. Iron saturation 13%, iron 26, TIBC 208, ferritin 24, albumin 2.4. CURRENT MEDICATIONS: Hydralazine 50 t.i.d., aspirin 81, Ativan 0.5 b.i.d., Catapres 0.1 b.i.d., subcutaneous heparin, Imdur 60, iron sucrose 200 mg IV piggyback every other day, Lipitor 20, Lopressor 50 b.i.d., amlodipine 5, Plavix 75, Protonix 40, Sensipar 60, sodium bicarbonate 650 t.i.d. ASSESSMENT: 1. Acute kidney injury superimposed on chronic kidney disease, stage IV, resolved acute kidney injury. Creatinine is now stable for the last 72 hours. 2. Atrophic right kidney. 3. Status post life-threatening hyperkalemia. 4. Hypertension. 5. Peripheral vascular disease. 6. Hypercalcemia, workup consistent with primary hyperparathyroidism. 7. Hyperlipidemia. 8. Coronary artery disease. PLAN: 1. Hospice evaluation as per family and patient's wishes. 2. Venofer 200 mg IV piggyback, total of 1 g. 3. Push p.o. intake. 4. Comfort care. 5. Physical therapy. Barbara Edgar MD [facility] # [id number]
[2017-12-06] MEDS: Pantoprazole 40 mg EC Tab PO SCH (05:55)
[2017-12-06 06:32] LABS: HEMOGLOBIN 10.2 g/dL (12.0-16.0); MEAN CELL VOLUME 87.8 fl (80.0-105.0); MEAN CORPUSCULAR HEMOGLOBIN 28.3 pg (25.0-35.0); MEAN CORPUSCULAR HGB CONC 32.3 g/dl (31.0-37.0); MEAN PLATELET VOLUME 11.1 fl (7.0-11.0); RBC 3.6 10^6/uL (3.5-6.1); RED CELL DISTRIBUTION WIDTH 17.5 % (11.5-14.5); WHITE BLOOD COUNT 5.7 10^3/ul (4.5-11.0)
[2017-12-06 06:50] LABS: ALB/GLOB RATIO 0.9 (1.1-1.8); ALBUMIN 2.3 g/dL (3.0-4.8); CALCIUM 11.2 mg/dL (8.4-10.5)
--- NOTE | 2017-12-06 08:06 | CP.PCM.HP ---
History of Present Illness - History of Present Illness History of Present Illness: This is an 82 year old female with history of hypertension, chronic kidney disease, reflux, anxiety, carotid artery disease and peripheral vascular disease who was admitted to the critical care unit for acute non-ST elevation AL and acute on chronic renal failure. Patient was treated medically for the AL and is now admitted to the Transitional Care Unit for physical therapy for generalized weakness and deconditioning. She denies chest pain this morning. Present on Admission - Present on Admission Any Indicators Present on Admission: No History of DVT/PE: No History of Uncontrolled Diabetes: No Urinary Catheter: No Decubitus Ulcer Present: No Review of Systems - Constitutional Constitutional: absent: Chills, Fever, Weight Loss - Respiratory Respiratory: absent: Cough, Dyspnea, Wheezing - Gastrointestinal Gastrointestinal: absent: Abdominal Pain, Nausea, Vomiting Past Patient History - Past Social History Smoking Status: Former Smoker - CARDIAC Hx Cardiac Disorders: Yes Hx Hypertension: Yes - RENAL Hx Renal Failure: Yes (CKD) - MUSCULOSKELETAL/RHEUMATOLOGICAL Hx Arthritis: Yes Hx Back Pain: Yes Hx Falls: Yes (past) - GASTROINTESTINAL Hx Gastrointestinal Disorders: No Hx Gastroesophageal Reflux: Yes - GENITOURINARY/GYNECOLOGICAL Hx Reproductive Disorders: No - PSYCHIATRIC Hx Substance Use: No Meds Allergies/Adverse Reactions: Allergies Allergy/AdvReac Type Severity Reaction Status Date / Time allopurinol [From Zyloprim] Allergy URTICARIA Verified 12/05/17 23:25 Physical Exam - Constitutional Appears: No Acute Distress - Head Exam Head Exam: ATRAUMATIC, NORMOCEPHALIC - Respiratory Exam Respiratory Exam: Decreased Breath Sounds, NORMAL BREATHING PATTERN - Cardiovascular Exam Cardiovascular Exam: +S1, +S2 - GI/Abdominal Exam GI & Abdominal Exam: Normal Bowel Sounds, Soft. absent: Tenderness - Extremities Exam Extremities exam: Negative for: pedal edema - Neurological Exam Neurological exam: Alert, Oriented x3 Results - Vital Signs Recent Vital Signs: Last Vital Signs Temp 98.2 F 12/06/17 06:00 Pulse 54 L 12/06/17 06:00 Resp 16 12/06/17 06:00 BP 158/75 H 12/06/17 06:00 Pulse Ox 94 L 12/06/17 06:00 - Labs Result Diagrams: 12/07/17 06:30 12/07/17 06:30 Labs: Laboratory Results - last 24 hr 12/06/17 12/06/17 06:00 06:00 WBC 5.7 RBC 3.60 Hgb 10.2 L Hct 31.6 L MCV 87.8 MCH 28.3 MCHC 32.3 RDW 17.5 H Plt Count 278 MPV 11.1 H Sodium 140 Potassium 4.1 Chloride 111 H Carbon Dioxide 20 L Anion Gap 13 BUN 51 H Creatinine 2.1 H Est GFR ( Amer) 27 Est GFR (Non-Af Amer) 23 Random Glucose 84 Calcium 11.2 H Total Bilirubin 0.2 AST 34 ALT 28 Alkaline Phosphatase 59 Total Protein 4.8 L Albumin 2.3 L Globulin 2.5 Albumin/Globulin Ratio 0.9 L Assessment & Plan - Assessment and Plan (Free Text) Assessment: NSTEMI Acute on chronic kidney disease Iron deficiency Anemia HTN Anxiety chronic back pain secondary to scoliosis/arthritis PVD History of carotid artery disease GERD Plan: Patient is on medical treatment for NSTEMI. continue ASA, Plavix, BB, Lipitor and Imdur as per cardiology. continue clonidine, amlodipine and hydralazine in addition to Metoprolol for blood pressure control. continue physical therapy. continue Sensipar and sodium bicarb as per nephrology. Patient is DNR/DNI.
[2017-12-06] MEDS: Lidocaine 5% Patch TD SCH (10:38)
--- NOTE | 2017-12-06 11:33 | CP.PCM.CON ---
History of Present Illness - History of Present Illness History of Present Illness: Palliative consult requested by Dr Milton Bell Reason: Goals of care 82 year old female with history of Parkinson disease, CKD and PVD who was addicted to acute care with N STEMI and MALIA. She has since stabilized and been transferred to [facility] for physical therapy due to deconditioning. PMHx: Parkinson's disease, PVD,N-STEMI,HTN,hyperkalemia,hypercalcemia, atrophic right kidney,MALIA on CKD, GERD, anxiety. Social History:Former smoker, no alcohol or drug misuse. Lives with her daughter. Family History: Non contributory. Advance Care Planning: The patient does not have an Advanced Directive but is DNR/DNI. Review of Systems: Poor appetite, generalized weakness and chronic right sided mid back pain, 12 point review otherwise nnegative Past Patient History - Past Social History Smoking Status: Former Smoker - CARDIAC Hx Cardiac Disorders: Yes Hx Hypertension: Yes - RENAL Hx Renal Failure: Yes (CKD) - MUSCULOSKELETAL/RHEUMATOLOGICAL Hx Arthritis: Yes Hx Back Pain: Yes Hx Falls: Yes (past) - GASTROINTESTINAL Hx Gastrointestinal Disorders: No Hx Gastroesophageal Reflux: Yes - GENITOURINARY/GYNECOLOGICAL Hx Reproductive Disorders: No - PSYCHIATRIC Hx Substance Use: No Meds Allergies/Adverse Reactions: Allergies Allergy/AdvReac Type Severity Reaction Status Date / Time allopurinol [From Zyloprim] Allergy URTICARIA Verified 12/05/17 23:25 - Medications Medications: Current Medications Amlodipine Besylate (Norvasc) 10 mg PO DAILY [facility] Last Admin: 12/06/17 09:12 Dose: 10 mg Aspirin (Aspirin Chewable) 81 mg PO DAILY [facility] Last Admin: 12/06/17 09:10 Dose: 81 mg Atorvastatin Calcium (Lipitor) 20 mg PO DIN [facility] Cinacalcet (Sensipar) 60 mg PO DAILY [facility] Last Admin: 12/06/17 09:12 Dose: 60 mg Clonidine HCl (Catapres) 0.1 mg PO BID [facility] Last Admin: 12/06/17 09:11 Dose: 0.1 mg Clopidogrel Bisulfate (Plavix) 75 mg PO DAILY [facility] Last Admin: 12/06/17 09:12 Dose: 75 mg Heparin Sodium (Porcine) (Heparin) 5,000 units SC Q8H [facility] PRN Reason: Protocol Last Admin: 12/06/17 05:54 Dose: 5,000 units Hydralazine HCl (Apresoline) 50 mg PO TID [facility] Last Admin: 12/06/17 09:10 Dose: 50 mg Iron Sucrose 200 mg/ Sodium (Chloride) 110 mls @ 110 mls/hr IV QOD [facility] Isosorbide Mononitrate (Imdur) 60 mg PO DAILY [facility] Last Admin: 12/06/17 09:11 Dose: 60 mg Lidocaine (Lidoderm) 1 ea TD DAILY [facility] Lorazepam (Ativan) 0.5 mg PO BID PRN; Protocol PRN Reason: Anxiety Last Admin: 12/05/17 22:02 Dose: 0.5 mg Metoprolol Tartrate (Lopressor) 25 mg PO BRKDIN [facility] Last Admin: 12/06/17 08:24 Dose: 25 mg Ondansetron HCl (Zofran Inj) 4 mg IVP Q4H PRN PRN Reason: Nausea/Vomiting Pantoprazole Sodium (Protonix Ec Tab) 40 mg PO 0600 [facility] Last Admin: 12/06/17 05:55 Dose: 40 mg Sodium Bicarbonate (Sodium Bicarbonate Tab) 650 mg PO TID [facility] Last Admin: 12/06/17 09:12 Dose: 650 mg Timolol Maleate (Timoptic 0.5% Ophth Soln) 1 drop OD HS [facility] Last Admin: 12/05/17 21:21 Dose: 1 applic Physical Exam - Constitutional Appears: Chronically Ill - Head Exam Head Exam: NORMAL INSPECTION - Eye Exam Eye Exam: Normal appearance, PERRL - ENT Exam ENT Exam: Mucous Membranes Moist, Normal Oropharynx - Neck Exam Neck exam: Positive for: Normal Inspection - Respiratory Exam Respiratory Exam: Clear to Auscultation Bilateral, NORMAL BREATHING PATTERN - Cardiovascular Exam Cardiovascular Exam: REGULAR RHYTHM, +S1, +S2 - GI/Abdominal Exam GI & Abdominal Exam: Normal Bowel Sounds, Soft Additional comments: no tenderness or guarding - Extremities Exam Extremities exam: Positive for: normal inspection, pedal pulses present - Back Exam Additional comments: scoliosis, small stage 1 sacral decubiti - Neurological Exam Neurological exam: Alert, Oriented x3 - Skin Skin Exam: Dry, Pallor - Additional Findings Additional findings: palliate performance scale rating 40 Results - Vital Signs Recent Vital Signs: Last Vital Signs Temp 98.2 F 12/06/17 06:00 Pulse 56 L 12/06/17 09:10 Resp 16 12/06/17 06:00 BP 194/78 H 12/06/17 09:12 Pulse Ox 94 L 12/06/17 06:00 - Labs Result Diagrams: 12/06/17 06:00 12/06/17 06:00 Labs: Laboratory Results - last 24 hr 12/06/17 12/06/17 06:00 06:00 WBC 5.7 RBC 3.60 Hgb 10.2 L Hct 31.6 L MCV 87.8 MCH 28.3 MCHC 32.3 RDW 17.5 H Plt Count 278 MPV 11.1 H Sodium 140 Potassium 4.1 Chloride 111 H Carbon Dioxide 20 L Anion Gap 13 BUN 51 H Creatinine 2.1 H Est GFR ( Amer) 27 Est GFR (Non-Af Amer) 23 Random Glucose 84 Calcium 11.2 H Total Bilirubin 0.2 AST 34 ALT 28 Alkaline Phosphatase 59 Total Protein 4.8 L Albumin 2.3 L Globulin 2.5 Albumin/Globulin Ratio 0.9 L Assessment & Plan - Assessment and Plan (Free Text) Assessment: 82 year old female with history of Parkinson, CKD, HTN, who was recently admiited for N STEMI, MALIA, hyperkalemia, hypercalcemia. She is now seen in [facility] where she is being treated for weakness and deconditionong. The patient is alert,oriented and of pleasant demeanor. She complained of chronic right mid back pain which is constant but is exacerbated with movement. Her daughter is at bedside. The patient understands her medical condition and is aware that her kidney disease is progressive. She has no intention of trying dialysis. She is interested in being kept comfortable and does not want to be hospitalized in the future. Family inquiring about hospice care. Hospice services explained in detail. Questions/concerns addressed. Patient inferred that she would like to consider hospice care upon discharge. Family will follow up with regarding hospice choices. Advance care planning also discussed. The patient does not want to be intubated nor does she want CPR or permanent feeding tube. POLST directive explained. Patient wants both of her daughters present when completing POLST. Will meet with family within the next few days to execute POLST and establish whether they will move forward with plan for hospice upon discharge. Psychosocial support provided. Time spent in goals of care and advance care planning discussion with patient and family, 45 minutes Plan: Pain management: Lidoderm patch to back daily. Continue physical therapy for deconditioning. Chronic kidney disease: Increase po fluid intake. Goals of care Advice care planning
[2017-12-06 11:41] VITALS: BMI 19.7
--- NOTE | 2017-12-06 17:48 | PCM.PYCHPN ---
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 Patient appears to be improving on the transitional care unit. Medical Problems: As noted above Diagnostic Results: Laboratory Results - last 24 hr 12/06/17 12/06/17 06:00 06:00 WBC 5.7 RBC 3.60 Hgb 10.2 L Hct 31.6 L MCV 87.8 MCH 28.3 MCHC 32.3 RDW 17.5 H Plt Count 278 MPV 11.1 H Sodium 140 Potassium 4.1 Chloride 111 H Carbon Dioxide 20 L Anion Gap 13 BUN 51 H Creatinine 2.1 H Est GFR ( Amer) 27 Est GFR (Non-Af Amer) 23 Random Glucose 84 Calcium 11.2 H Total Bilirubin 0.2 AST 34 ALT 28 Alkaline Phosphatase 59 Total Protein 4.8 L Albumin 2.3 L Globulin 2.5 Albumin/Globulin Ratio 0.9 L DSM 5 Symptoms Update: Alert, still no overt signs of anxiety. No overt signs of psychosis or mood disturbance. Daughter of impression the patient is stronger. Medication Change: No Medical Record Reviewed: Yes Mental Status Examination - Cognitive Function Orientation: Person, Place, Situation, Time Memory: Other Attention: WNL Concentration: WNL Association: WNL Decription of patient's judgement and insights: Marginal - Mood Mood: Neutral - Affect Affect: Flat - Speech Speech: Soft - Suicidal Ideation Suicidal Ideation: No - Homicidal Ideation Homicidal Ideation: No Goal/Treatment Plan - Goal/Treatment Plan Need for Continued Stay: Remain at risks for inpatient hospitalization, Discharge may exacerbated symptoms Progress Toward Problem(s) and Goals/Treatment Plan: Patient's physical condition improving. I have not seen the intense anxiety that the patient reportedly has had the past
[2017-12-07] MEDS: Pantoprazole 40 mg EC Tab PO SCH (05:29)
--- NOTE | 2017-12-07 06:36 | CON ---
DATE: 12/06/2017 LOCATION: The patient was seen earlier today in [facility]. CHIEF COMPLAINT: Weakness times several days. HISTORY OF PRESENT ILLNESS: This is an 82-year-old female with renal disease, hypertension, endometrial cancer, coronary artery disease, arthritis, Parkinson's, who is in the acute care, was treated with multiple antibiotics, no fevers, no chills, and was transferred to transitional care. REVIEW OF SYSTEMS: Reveals there is no fevers and chills. There is weakness and deconditioning. No abdominal pain, diarrhea or constipation. No dysuria or frequency. PAST MEDICAL HISTORY: Significant for hypertension, endometrial cancer, arthritis, Parkinson disease, coronary artery disease, chronic kidney disease, anxiety, carotid artery disease. PAST SURGICAL HISTORY: Significant for carotid endarterectomy and hysterectomy. ALLERGIES: THE PATIENT IS ALLERGIC TO ALLOPURINOL. MEDICATIONS: Noted. PHYSICAL EXAMINATION: VITAL SIGNS: Temperature is 98, blood pressure is 112/70, respiratory rate of 16, heart rate of 54, 94% pulse ox. HEENT: Unremarkable. NECK: Supple. LUNGS: Decreased breath sounds. HEART: Normal S1 and S2. ABDOMEN: Soft. LABORATORY DATA: Revealed the patient's white count is 5.7, hemoglobin of 10. BUN is 51, creatinine of 2.1. Review of microbiology revealed the patient had negative blood cultures, negative urine cultures, is not detected. ASSESSMENT AND PLAN: This is an 82-year-old female with known kidney disease, hypertension, endometrial cancer, carotid disease, arthritis, Parkinson's, anxiety, with systemic inflammatory response syndrome likely secondary to acute [id number] myocardial infarction. Currently, now off of antibiotics, afebrile. The patient is at risk for developing nosocomial infections. Manuel Espinosa MD
[2017-12-07 07:05] LABS: HEMOGLOBIN 10.2 g/dL (12.0-16.0); MEAN CELL VOLUME 86.5 fl (80.0-105.0); MEAN CORPUSCULAR HEMOGLOBIN 28.1 pg (25.0-35.0); MEAN CORPUSCULAR HGB CONC 32.5 g/dl (31.0-37.0); MEAN PLATELET VOLUME 10.6 fl (7.0-11.0); RBC 3.63 10^6/uL (3.5-6.1); RED CELL DISTRIBUTION WIDTH 17.6 % (11.5-14.5); WHITE BLOOD COUNT 5.1 10^3/ul (4.5-11.0)
[2017-12-07 07:44] LABS: ALBUMIN 2.4 g/dL (3.0-4.8); CALCIUM 10.6 mg/dL (8.4-10.5)
--- NOTE | 2017-12-07 08:12 | CP.PCM.PN ---
Subjective - Date & Time of Evaluation Date of Evaluation: 12/07/17 Time of Evaluation: 07:45 - Subjective Subjective: Patient is seen this morning in room 314 bed 1. She says that she "does not feel well" She complains of pain in her back and legs and nausea. Objective - Vital Signs/Intake and Output Vital Signs (last 24 hours): Temp Pulse Resp BP Pulse Ox 97.6 F 57 L 22 195/83 H 96 12/07/17 06:00 12/07/17 06:00 12/07/17 06:00 12/07/17 06:00 12/07/17 06:00 Intake and Output: 12/07/17 12/07/17 06:59 18:59 Intake Total 240 Balance 240 - Medications Medications: Current Medications Amlodipine Besylate (Norvasc) 10 mg PO DAILY [facility] Last Admin: 12/06/17 09:12 Dose: 10 mg Aspirin (Aspirin Chewable) 81 mg PO DAILY [facility] Last Admin: 12/06/17 09:10 Dose: 81 mg Atorvastatin Calcium (Lipitor) 20 mg PO DIN [facility] Last Admin: 12/06/17 17:28 Dose: 20 mg Cinacalcet (Sensipar) 60 mg PO DAILY [facility] Last Admin: 12/06/17 09:12 Dose: 60 mg Clonidine HCl (Catapres) 0.1 mg PO BID [facility] Last Admin: 12/06/17 17:31 Dose: 0.1 mg Clopidogrel Bisulfate (Plavix) 75 mg PO DAILY [facility] Last Admin: 12/06/17 09:12 Dose: 75 mg Heparin Sodium (Porcine) (Heparin) 5,000 units SC Q8H [facility] PRN Reason: Protocol Last Admin: 12/07/17 05:28 Dose: 5,000 units Hydralazine HCl (Apresoline) 50 mg PO TID [facility] Last Admin: 12/06/17 17:28 Dose: 50 mg Iron Sucrose 200 mg/ Sodium (Chloride) 110 mls @ 110 mls/hr IV QOD [facility] Isosorbide Mononitrate (Imdur) 60 mg PO DAILY [facility] Last Admin: 12/06/17 09:11 Dose: 60 mg Lidocaine (Lidoderm) 1 ea TD DAILY [facility] Last Admin: 12/06/17 10:38 Dose: 1 ea Lorazepam (Ativan) 0.5 mg PO BID PRN; Protocol PRN Reason: Anxiety Last Admin: 12/06/17 22:04 Dose: 0.5 mg Metoprolol Tartrate (Lopressor) 25 mg PO BRKDIN [facility] Last Admin: 12/06/17 17:28 Dose: 25 mg Ondansetron HCl (Zofran Inj) 4 mg IVP Q4H PRN PRN Reason: Nausea/Vomiting Pantoprazole Sodium (Protonix Ec Tab) 40 mg PO 0600 [facility] Last Admin: 12/07/17 05:29 Dose: 40 mg Sodium Bicarbonate (Sodium Bicarbonate Tab) 650 mg PO TID [facility] Last Admin: 12/06/17 17:28 Dose: 650 mg Timolol Maleate (Timoptic 0.5% Ophth Soln) 1 drop OD HS [facility] Last Admin: 12/06/17 22:05 Dose: 1 applic - Labs Labs: 12/07/17 06:30 12/07/17 06:30 - Constitutional Appears: No Acute Distress - Head Exam Head Exam: ATRAUMATIC, NORMOCEPHALIC - Respiratory Exam Respiratory Exam: Decreased Breath Sounds, NORMAL BREATHING PATTERN - Cardiovascular Exam Cardiovascular Exam: +S1, +S2 - GI/Abdominal Exam GI & Abdominal Exam: Soft, Normal Bowel Sounds. absent: Tenderness - Extremities Exam Extremities Exam: Normal Inspection - Neurological Exam Neurological Exam: Alert, Awake Assessment and Plan - Assessment and Plan (Free Text) Assessment: NSTEMI Chronic back pain HTN Acute on chronic kidney disease PVD Plan: Patient is complaining of nausea and back pain this morning. continue Zofran as needed for nausea. Will add Percocet as needed for pain. continue ASA, Plavix, Metoprolol, Lipitor and Imdur for NSTEMI/angina. continue Norvasc, Hydralazine and clonidine in addition to Metoprolol for blood pressure. Patient is DNR/DNI and considering hospice upon discharge.
[2017-12-07] MEDS ORDERED: Oxycodone/Acetaminophen 5/325 mg Tab PO PRN (08:13)
[2017-12-07] MEDS ORDERED: Iron Sucrose 100 mg/5 ml Inj IVPB SCH (10:00)
[2017-12-07] MEDS: Lidocaine 5% Patch TD SCH (10:52)
--- NOTE | 2017-12-07 14:52 | PCM.PYCHPN ---
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 Patient appears to be improving on the transitional care unit. Medical Problems: As noted above Diagnostic Results: Laboratory Results - last 24 hr 12/06/17 12/06/17 06:00 06:00 WBC 5.7 RBC 3.60 Hgb 10.2 L Hct 31.6 L MCV 87.8 MCH 28.3 MCHC 32.3 RDW 17.5 H Plt Count 278 MPV 11.1 H Sodium 140 Potassium 4.1 Chloride 111 H Carbon Dioxide 20 L Anion Gap 13 BUN 51 H Creatinine 2.1 H Est GFR ( Amer) 27 Est GFR (Non-Af Amer) 23 Random Glucose 84 Calcium 11.2 H Total Bilirubin 0.2 AST 34 ALT 28 Alkaline Phosphatase 59 Total Protein 4.8 L Albumin 2.3 L Globulin 2.5 Albumin/Globulin Ratio 0.9 L DSM 5 Symptoms Update: Patient seen sitting in chair, dressed casually and appropriately, and with daughter present While patient is generally constricted in affect, and succinct in speech, she is alert, oriented, goal directed, not overtly agitated or psychotic or anxious. Medication Change: No Medical Record Reviewed: Yes Mental Status Examination - Cognitive Function Orientation: Person, Place, Situation, Time Memory: Other Attention: WNL Concentration: WNL Association: WNL Decription of patient's judgement and insights: Marginal - Mood Mood: Neutral - Affect Affect: Flat - Speech Speech: Soft - Formal Thought Process Formal Thought Process: No Impairment - Homicidal Ideation Homicidal Ideation: No Goal/Treatment Plan - Goal/Treatment Plan Need for Continued Stay: Remain at risks for inpatient hospitalization, Discharge may exacerbated symptoms Progress Toward Problem(s) and Goals/Treatment Plan: Patient's physical condition improving. I have not seen the intense anxiety that the patient reportedly has had the past Patient undergoing strengthening and rehabilitation. Efforts are being made to have the patient transferred to a hospice upon discharge.
--- NOTE | 2017-12-07 16:40 | CP.PCM.PN ---
<Jory Woods - Last Filed: 12/07/17 16:37> Subjective - Date & Time of Evaluation Date of Evaluation: 12/07/17 Time of Evaluation: 09:40 - Subjective Subjective: Seen and examined at the bedside earlier today, chart review. Patient's daughter at the bedside. Patient getting iron infusion, no reports of nausea, vomiting, or abdominal pain. No dysphagia, patient appetite better today. Patient's last reported bowel movement was Sunday as per daughter. No acute overnight events reported. Objective - Vital Signs/Intake and Output Vital Signs (last 24 hours): Temp Pulse Resp BP Pulse Ox 97.6 F 51 L 22 134/62 98 12/07/17 15:30 12/07/17 15:30 12/07/17 15:30 12/07/17 15:30 12/07/17 15:30 Intake and Output: 12/07/17 12/07/17 06:59 18:59 Intake Total 240 Balance 240 - Medications Medications: Current Medications Amlodipine Besylate (Norvasc) 10 mg PO DAILY [facility] Last Admin: 12/07/17 10:51 Dose: 10 mg Aspirin (Aspirin Chewable) 81 mg PO DAILY [facility] Last Admin: 12/07/17 10:51 Dose: 81 mg Atorvastatin Calcium (Lipitor) 20 mg PO DIN [facility] Last Admin: 12/06/17 17:28 Dose: 20 mg Cinacalcet (Sensipar) 60 mg PO DAILY [facility] Last Admin: 12/07/17 10:51 Dose: 60 mg Clonidine HCl (Catapres) 0.1 mg PO BID [facility] Last Admin: 12/07/17 10:51 Dose: 0.1 mg Clopidogrel Bisulfate (Plavix) 75 mg PO DAILY [facility] Last Admin: 12/07/17 10:51 Dose: 75 mg Heparin Sodium (Porcine) (Heparin) 5,000 units SC Q8H [facility] PRN Reason: Protocol Last Admin: 12/07/17 15:17 Dose: 5,000 units Hydralazine HCl (Apresoline) 50 mg PO TID [facility] Last Admin: 12/07/17 15:12 Dose: Not Given Iron Sucrose 200 mg/ Sodium (Chloride) 110 mls @ 110 mls/hr IV QOD [facility] Last Admin: 12/07/17 10:46 Dose: Not Given Isosorbide Mononitrate (Imdur) 60 mg PO DAILY [facility] Last Admin: 12/07/17 10:52 Dose: 60 mg Lidocaine (Lidoderm) 1 ea TD DAILY [facility] Last Admin: 12/07/17 10:52 Dose: 1 ea Lorazepam (Ativan) 0.5 mg PO BID PRN; Protocol PRN Reason: Anxiety Last Admin: 12/07/17 10:49 Dose: 0.5 mg Metoprolol Tartrate (Lopressor) 25 mg PO BRKDIN [facility] Last Admin: 12/07/17 08:08 Dose: 25 mg Ondansetron HCl (Zofran Inj) 4 mg IVP Q4H PRN PRN Reason: Nausea/Vomiting Oxycodone/Acetaminophen (Percocet 5/325 Mg Tab) 1 tab PO Q12H PRN PRN Reason: Pain, severe (8-10) Pantoprazole Sodium (Protonix Ec Tab) 40 mg PO 0600 [facility] Last Admin: 12/07/17 05:29 Dose: 40 mg Sodium Bicarbonate (Sodium Bicarbonate Tab) 650 mg PO DAILY [facility] Timolol Maleate (Timoptic 0.5% Ophth Soln) 1 drop OD HS [facility] Last Admin: 12/06/17 22:05 Dose: 1 applic - Labs Labs: 12/07/17 06:30 12/07/17 06:30 - Constitutional Appears: No Acute Distress - Head Exam Head Exam: NORMOCEPHALIC - Eye Exam Eye Exam: Normal appearance. absent: Scleral icterus - ENT Exam ENT Exam: Mucous Membranes Moist - Neck Exam Neck Exam: Normal Inspection - Respiratory Exam Respiratory Exam: NORMAL BREATHING PATTERN. absent: Respiratory Distress - Cardiovascular Exam Cardiovascular Exam: +S1, +S2 - GI/Abdominal Exam GI & Abdominal Exam: Soft, Normal Bowel Sounds. absent: Guarding, Tenderness, Rebound - Extremities Exam Extremities Exam: absent: Calf Tenderness, Pedal Edema - Neurological Exam Neurological Exam: Alert, Awake, Oriented x3 Assessment and Plan - Assessment and Plan (Free Text) Assessment: Asssessment: Constipation s/p lactulose and colace Dysphagia, status post esophagus x-ray, negative for mass or stricture Anemia, h/h stable NSTEMI PVD CKD HTN Hyperparathyroidism Plan: Trend H&H, currently stable, monitor for overt GI bleed continue PPI Continue diet as tolerated currently on soft food, encouraged to eat slowly and chew food well monitor electrolytes On ASA and Plavix on Heparin SQ Nephro supplements start Miralax daily, hold for stools > 2/day On IV iron Seen and Discussed with Dr. Aiken <Jeferson Aiken V - Last Filed: 12/07/17 21:36> Objective - Vital Signs/Intake and Output Vital Signs (last 24 hours): Temp Pulse Resp BP Pulse Ox 97.6 F 57 L 22 157/71 H 98 12/07/17 15:30 12/07/17 18:14 12/07/17 15:30 12/07/17 18:14 12/07/17 15:30 Intake and Output: 12/07/17 12/08/17 18:59 06:59 Intake Total 480 Balance 480 - Medications Medications: Current Medications Amlodipine Besylate (Norvasc) 10 mg PO DAILY [facility] Last Admin: 12/07/17 10:51 Dose: 10 mg Aspirin (Aspirin Chewable) 81 mg PO DAILY [facility] Last Admin: 12/07/17 10:51 Dose: 81 mg Atorvastatin Calcium (Lipitor) 20 mg PO DIN [facility] Last Admin: 12/07/17 18:14 Dose: 20 mg Cinacalcet (Sensipar) 60 mg PO DAILY [facility] Last Admin: 12/07/17 10:51 Dose: 60 mg Clonidine HCl (Catapres) 0.1 mg PO BID [facility] Last Admin: 12/07/17 18:14 Dose: 0.1 mg Clopidogrel Bisulfate (Plavix) 75 mg PO DAILY [facility] Last Admin: 12/07/17 10:51 Dose: 75 mg Heparin Sodium (Porcine) (Heparin) 5,000 units SC Q8H [facility] PRN Reason: Protocol Last Admin: 12/07/17 15:17 Dose: 5,000 units Hydralazine HCl (Apresoline) 50 mg PO TID [facility] Last Admin: 12/07/17 18:14 Dose: 50 mg Iron Sucrose 200 mg/ Sodium (Chloride) 110 mls @ 110 mls/hr IV QOD [facility] Last Admin: 12/07/17 10:46 Dose: Not Given Isosorbide Mononitrate (Imdur) 60 mg PO DAILY [facility] Last Admin: 12/07/17 10:52 Dose: 60 mg Lidocaine (Lidoderm) 1 ea TD DAILY [facility] Last Admin: 12/07/17 10:52 Dose: 1 ea Lorazepam (Ativan) 0.5 mg PO BID PRN; Protocol PRN Reason: Anxiety Last Admin: 12/07/17 10:49 Dose: 0.5 mg Metoprolol Tartrate (Lopressor) 25 mg PO BRKDIN [facility] Last Admin: 12/07/17 18:13 Dose: 25 mg Ondansetron HCl (Zofran Inj) 4 mg IVP Q4H PRN PRN Reason: Nausea/Vomiting Oxycodone/Acetaminophen (Percocet 5/325 Mg Tab) 1 tab PO Q12H PRN PRN Reason: Pain, severe (8-10) Pantoprazole Sodium (Protonix Ec Tab) 40 mg PO 0600 [facility] Last Admin: 12/07/17 05:29 Dose: 40 mg Polyethylene Glycol (Miralax) 17 gm PO DAILY [facility] Last Admin: 12/07/17 18:15 Dose: 17 gm Sodium Bicarbonate (Sodium Bicarbonate Tab) 650 mg PO DAILY [facility] Timolol Maleate (Timoptic 0.5% Ophth Soln) 1 drop OD HS [facility] Last Admin: 12/06/17 22:05 Dose: 1 applic - Labs Labs: 12/07/17 06:30 12/07/17 06:30 Attending/Attestation - Attestation I have personally seen and examined this patient.: Yes I have fully participated in the care of the patient.: Yes I have reviewed all pertinent clinical information, including history, physical exam and plan: Yes Notes (Text): This is an addendum to GI progress report dictated by Jory Woods APN.The patient was seen and examined earlier. Medical records, lab studies, imagings were reviewed. Last 24 hours events reviewed. Agreed with the above treatment plan as outlined in Jory Woods APN's notes with the addition of the following 12/07/17 21:36
[2017-12-07] MEDS: POLYETHYLENE GLYCOL 3350 17 GM/Dose PACKET PO SCH (18:15)
--- NOTE | 2017-12-07 22:21 | CON ---
DATE: 12/07/2017 REASON FOR CONSULTATION: Anemia, hypokalemia, chronic kidney disease stage IV. HISTORY OF PRESENT ILLNESS: An 82-year lady known to us from recent evaluation on the medical site when she had acute kidney injury, prerenal azotemia superimposed on her chronic kidney disease stage IV. The patient is now receiving physical therapy in the Transitional Care Unit. Consultation is requested today because of low potassium and anemia. The patient is lying in bed. Daughter is at bedside. She complains of back pain. She denies any chest tightness. She denies any abdominal pain. Appetite is improved. She ate breakfast today. PAST MEDICAL AND SURGICAL HISTORY: Chronic kidney disease stage IV, hypertension, endometrial cancer, CAD, Parkinson disease, arthritis, chronic back pain. FAMILY HISTORY: Noncontributory. SOCIAL HISTORY: No smoking, no alcohol use, no IV drug abuse. ALLERGIES: ALLOPURINOL. MEDICATIONS: Hydralazine 50 t.i.d., aspirin 81, Ativan 0.5 b.i.d. p.r.n., Catapres 0.1 b.i.d., heparin 5000 subcu, Imdur 60, Venofer 200 mg, lidocaine, Lipitor 20, Lopressor 25 b.i.d., amlodipine 10, Percocet every 12 hours p.r.n., Plavix 75, Protonix 40, cinacalcet 60, sodium bicarbonate 650 t.i.d., and Zofran. REVIEW OF SYSTEMS: All systems are reviewed, pertinent positives as mentioned in history of presenting illness, rest unremarkable. PHYSICAL EXAMINATION: GENERAL: Elderly lady lying in bed. VITAL SIGNS: Blood pressure 134/62, heart rate 51, respiratory rate 22, temperature 98.2. HEENT: Normocephalic, atraumatic, positive pallor. NECK: Supple, no JVD. LUNGS: Bilateral equal air entry, no rales. CARDIAC: S1 and S2, regular rate and rhythm, no murmur, no rub. ABDOMEN: Soft, nondistended, nontender, bowel sounds present. EXTREMITIES: No lower extremity edema. INTAKE AND OUTPUT: Not charted. LABORATORY DATA: WBC 5.1, hemoglobin 10, hematocrit 31, platelets 249. Sodium 139, potassium 3.7, chloride 108, CO2 of 21, BUN 43, creatinine 1.9, glucose 102, calcium 10.6, albumin 2.4, corrected calcium is 11.6. ASSESSMENT: 1. Primary hyperparathyroidism, hypercalcemia. 2. Hypokalemia, mild. 3. Anemia of chronic kidney disease. 4. Chronic kidney disease stage IV, stable, resolved acute kidney injury. 5. Coronary artery disease. 6. History of Parkinson's. 7. History of endometrial cancer. PLAN: 1. Continue Sensipar. 2. Complete Venofer total of 1 g. 3. Change sodium bicarbonate to 650 mg daily. 4. Physical therapy. 5. Push p.o. intake. 6. Monitor labs 2 or 3 times per week. 7. Monitor calcium. Barbara Edgar MD
--- NOTE | 2017-12-07 22:43 | CP.PCM.PN ---
Subjective - Date & Time of Evaluation Date of Evaluation: 12/07/17 Time of Evaluation: 10:30 - Subjective Subjective: Afebrile, not in distress. Objective - Vital Signs/Intake and Output Vital Signs (last 24 hours): Temp Pulse Resp BP Pulse Ox 97.6 F 60 22 195/83 H 96 12/07/17 06:00 12/07/17 08:13 12/07/17 06:00 12/07/17 08:08 12/07/17 06:00 Intake and Output: 12/07/17 12/07/17 06:59 18:59 Intake Total 240 Balance 240 - Medications Medications: Current Medications Amlodipine Besylate (Norvasc) 10 mg PO DAILY [facility] Last Admin: 12/06/17 09:12 Dose: 10 mg Aspirin (Aspirin Chewable) 81 mg PO DAILY [facility] Last Admin: 12/06/17 09:10 Dose: 81 mg Atorvastatin Calcium (Lipitor) 20 mg PO DIN [facility] Last Admin: 12/06/17 17:28 Dose: 20 mg Cinacalcet (Sensipar) 60 mg PO DAILY [facility] Last Admin: 12/06/17 09:12 Dose: 60 mg Clonidine HCl (Catapres) 0.1 mg PO BID [facility] Last Admin: 12/06/17 17:31 Dose: 0.1 mg Clopidogrel Bisulfate (Plavix) 75 mg PO DAILY [facility] Last Admin: 12/06/17 09:12 Dose: 75 mg Heparin Sodium (Porcine) (Heparin) 5,000 units SC Q8H [facility] PRN Reason: Protocol Last Admin: 12/07/17 05:28 Dose: 5,000 units Hydralazine HCl (Apresoline) 50 mg PO TID [facility] Last Admin: 12/06/17 17:28 Dose: 50 mg Iron Sucrose 200 mg/ Sodium (Chloride) 110 mls @ 110 mls/hr IV QOD [facility] Isosorbide Mononitrate (Imdur) 60 mg PO DAILY [facility] Last Admin: 12/06/17 09:11 Dose: 60 mg Lidocaine (Lidoderm) 1 ea TD DAILY [facility] Last Admin: 12/06/17 10:38 Dose: 1 ea Lorazepam (Ativan) 0.5 mg PO BID PRN; Protocol PRN Reason: Anxiety Last Admin: 12/06/17 22:04 Dose: 0.5 mg Metoprolol Tartrate (Lopressor) 25 mg PO BRKDIN [facility] Last Admin: 12/07/17 08:08 Dose: 25 mg Ondansetron HCl (Zofran Inj) 4 mg IVP Q4H PRN PRN Reason: Nausea/Vomiting Oxycodone/Acetaminophen (Percocet 5/325 Mg Tab) 1 tab PO Q12H PRN PRN Reason: Pain, severe (8-10) Pantoprazole Sodium (Protonix Ec Tab) 40 mg PO 0600 [facility] Last Admin: 12/07/17 05:29 Dose: 40 mg Sodium Bicarbonate (Sodium Bicarbonate Tab) 650 mg PO TID [facility] Last Admin: 12/06/17 17:28 Dose: 650 mg Timolol Maleate (Timoptic 0.5% Ophth Soln) 1 drop OD HS [facility] Last Admin: 12/06/17 22:05 Dose: 1 applic - Labs Labs: 12/07/17 06:30 12/07/17 06:30 - Constitutional Appears: Chronically Ill - Head Exam Head Exam: NORMAL INSPECTION - Neck Exam Neck Exam: absent: Meningismus - Respiratory Exam Respiratory Exam: Decreased Breath Sounds - Cardiovascular Exam Cardiovascular Exam: +S1, +S2 - GI/Abdominal Exam GI & Abdominal Exam: Soft. absent: Tenderness Assessment and Plan - Assessment and Plan (Free Text) Plan: Assessment S/P Systemic inflammatory response syndrome probably due to acute NSTEMI, no evidence of sepsis identified chronic renal failure HTN S/P carotid endearterectomy endometrial CAD S/P hysterectomy Plan will continue to monitor the patient off antibiotics since she is at risk for nosocomial infections
[2017-12-08] MEDS: Pantoprazole 40 mg EC Tab PO SCH (05:38)
--- NOTE | 2017-12-08 08:26 | CP.PCM.PN ---
Subjective - Date & Time of Evaluation Date of Evaluation: 12/08/17 Time of Evaluation: 08:00 - Subjective Subjective: Patient is seen this morning in the transitional care unit. She complains of gas pains. Objective - Vital Signs/Intake and Output Vital Signs (last 24 hours): Temp Pulse Resp BP Pulse Ox 98.4 F 59 L 20 167/79 H 95 12/08/17 05:51 12/08/17 05:51 12/08/17 05:51 12/08/17 05:51 12/08/17 05:51 - Medications Medications: Current Medications Amlodipine Besylate (Norvasc) 10 mg PO DAILY [facility] Last Admin: 12/07/17 10:51 Dose: 10 mg Aspirin (Aspirin Chewable) 81 mg PO DAILY [facility] Last Admin: 12/07/17 10:51 Dose: 81 mg Atorvastatin Calcium (Lipitor) 20 mg PO DIN [facility] Last Admin: 12/07/17 18:14 Dose: 20 mg Cinacalcet (Sensipar) 60 mg PO DAILY [facility] Last Admin: 12/07/17 10:51 Dose: 60 mg Clonidine HCl (Catapres) 0.1 mg PO BID [facility] Last Admin: 12/07/17 18:14 Dose: 0.1 mg Clopidogrel Bisulfate (Plavix) 75 mg PO DAILY [facility] Last Admin: 12/07/17 10:51 Dose: 75 mg Heparin Sodium (Porcine) (Heparin) 5,000 units SC Q8H [facility] PRN Reason: Protocol Last Admin: 12/08/17 05:38 Dose: 5,000 units Hydralazine HCl (Apresoline) 50 mg PO TID [facility] Last Admin: 12/07/17 18:14 Dose: 50 mg Iron Sucrose 200 mg/ Sodium (Chloride) 110 mls @ 110 mls/hr IV QOD [facility] Last Admin: 12/07/17 10:46 Dose: Not Given Isosorbide Mononitrate (Imdur) 60 mg PO DAILY [facility] Last Admin: 12/07/17 10:52 Dose: 60 mg Lidocaine (Lidoderm) 1 ea TD DAILY [facility] Last Admin: 12/07/17 10:52 Dose: 1 ea Lorazepam (Ativan) 0.5 mg PO BID PRN; Protocol PRN Reason: Anxiety Last Admin: 12/07/17 21:30 Dose: 0.5 mg Metoprolol Tartrate (Lopressor) 25 mg PO BRKDIN [facility] Last Admin: 12/08/17 07:51 Dose: Not Given Ondansetron HCl (Zofran Inj) 4 mg IVP Q4H PRN PRN Reason: Nausea/Vomiting Oxycodone/Acetaminophen (Percocet 5/325 Mg Tab) 1 tab PO Q12H PRN PRN Reason: Pain, severe (8-10) Pantoprazole Sodium (Protonix Ec Tab) 40 mg PO 0600 [facility] Last Admin: 12/08/17 05:38 Dose: 40 mg Polyethylene Glycol (Miralax) 17 gm PO DAILY [facility] Last Admin: 12/07/17 18:15 Dose: 17 gm Sodium Bicarbonate (Sodium Bicarbonate Tab) 650 mg PO DAILY [facility] Timolol Maleate (Timoptic 0.5% Oph Soln) 1 drop OD HS [facility] Last Admin: 12/07/17 21:31 Dose: 1 applic - Labs Labs: 12/07/17 06:30 12/07/17 06:30 - Constitutional Appears: No Acute Distress - Head Exam Head Exam: ATRAUMATIC, NORMOCEPHALIC - Respiratory Exam Respiratory Exam: Clear to Ausculation Bilateral, NORMAL BREATHING PATTERN - Cardiovascular Exam Cardiovascular Exam: +S1, +S2 - GI/Abdominal Exam GI & Abdominal Exam: Soft, Normal Bowel Sounds. absent: Tenderness - Extremities Exam Extremities Exam: absent: Pedal Edema - Neurological Exam Neurological Exam: Alert, Awake, Oriented x3 Assessment and Plan - Assessment and Plan (Free Text) Assessment: NSTEMI chronic kidney disease HTN Anxiety Chronic back pain secondary to arthritis/scoliosis PVD Plan: Patient is seen this morning and complains of gas pains. Will order Mylanta as needed for dyspepsia. continue Protonix. BUN and creatinine appears to be back around baseline at 1.9. continue medical treatment of NSTEMI. continue physical therapy.
[2017-12-08] MEDS: POLYETHYLENE GLYCOL 3350 17 GM/Dose PACKET PO SCH (09:53)
[2017-12-08] MEDS: Lidocaine 5% Patch TD SCH (09:53)
[2017-12-08] MEDS: Alum-Mag Hydrox-Simethicone Susp (30 mL) PO PRN (10:07)
--- NOTE | 2017-12-08 18:57 | PN ---
DATE: 12/08/2017 SUBJECTIVE: The patient is seen lying in bed. Today, she is not really very alert or responsive. She complains of severe pain. PHYSICAL EXAMINATION: GENERAL: Elderly lady lying in bed. VITAL SIGNS: Blood pressure 179/77, heart rate 60, respiratory rate 20, temperature 98.4. HEENT: Normocephalic, atraumatic. NECK: Supple, no JVD. LUNGS: Bilateral equal entry, no rales. CARDIAC: S1 and S2, regular rate and rhythm, no murmur, no rub. ABDOMEN: Soft, nondistended, nontender, bowel sounds present. EXTREMITIES: No lower extremity edema. INTAKE AND OUTPUT: Not charted. LABORATORY DATA: No new labs. CURRENT MEDICATIONS: Apresoline 50 t.i.d., aspirin, Ativan, Catapres 0.1 b.i.d., heparin, Imdur 60, Venofer, Lipitor, Lopressor 25 b.i.d., Maalox, MiraLax, amlodipine 10, Plavix, Protonix, and Sensipar 60. ASSESSMENT: 1. Resolved acute kidney injury, stable chronic kidney disease stage IV. 2. Hypercalcemia, consistent with primary hyperparathyroidism. 3. Severe uncontrolled hypertension. 4. Anemia of chronic kidney disease. 5.. Chronic back pain. PLAN: 1. Increase Lopressor to 50 b.i.d., this is what the patient was taking at home. 2. Discontinue sodium bicarbonate. 3. Continue Sensipar. 4. Continue Venofer. 5. Physical therapy. Barbara Edgar MD
--- NOTE | 2017-12-09 00:49 | PN ---
DATE: SUBJECTIVE: This patient was seen and evaluated earlier today. Patient is tolerating the diet. Had an episode of constipation, received MiraLax yesterday, still has no bowel movements. PHYSICAL EXAMINATION: VITAL SIGNS: Temperature is 97.8, pulse 59, blood pressure 143/84. HEENT: Atraumatic, anicteric. NECK: Supple. HEART: S1 and S2 heard. LUNGS: Bilateral air entry present. ABDOMEN: Soft. There is no tenderness. LABORATORY DATA: There is no recent labs. Yesterday's labs showed hemoglobin stable at 10.2. BUN 43, creatinine 1.9. IMPRESSION: 1. This 82-year-old patient is admitted with acute myocardial infarction, non ST segment. Patient was on aspirin, Plavix and heparin. Patient did have some drop in blood count, subsequently now stabilized. Still on Plavix and aspirin; also on pantoprazole 40 mg daily. 2. History of intermittent dysphagia. Patient is unable to tolerate the pureed food, now he is on soft diet. Advised the patient to chew well and eat. Patient does not want any more trial of pureed. 3. History of constipation. Did receive MiraLax. Offered another dose today. Patient is reluctant to take it in view of the Easter Sunday tomorrow. She does not to want have any diarrhea. 4. [id number] kidney injury. Patient being followed by the [facility]. RECOMMENDATIONS: We will reduce the Protonix from 40 mg to 20 mg daily, and close followup of the hemoglobin and hematocrit. Thank you very much for allowing us to participate in the care of the patient. Jeferson Aiken MD
--- NOTE | 2017-12-09 01:18 | PN ---
DATE: 12/08/2017 SUBJECTIVE: The patient is in bed, in no acute distress, nontoxic. PHYSICAL EXAMINATION: VITAL SIGNS: Temperature is 97, blood pressure is 140/80, respiratory rate of 18. HEENT: Unremarkable. NECK: Supple. LUNGS: Have decreased breath sounds. HEART: Normal S1, S2. ABDOMEN: Soft, nontender. LABORATORY EXAMINATION: Reveals a white count of 5.1, hemoglobin of 10, platelets of 249. Chemistries reveal a BUN of 43, creatinine of 1.9. Microbiology is noted. ASSESSMENT AND PLAN: This is an 82-year-old female with systemic inflammatory response syndrome probably due to acute non-ST elevation myocardial infarction, no evidence of sepsis identified, chronic renal failure, hypertension, status post carotid endarterectomy. Will continue off of antibiotics and she is at risk for developing nosocomial infections. Manuel Espinosa MD
[2017-12-09] MEDS: Pantoprazole 40 mg EC Tab PO SCH (05:37)
--- NOTE | 2017-12-09 09:35 | CP.PCM.PN ---
Subjective - Date & Time of Evaluation Date of Evaluation: 12/09/17 Time of Evaluation: 08:00 - Subjective Subjective: Patient with no overnight events. No new complaints. Objective - Vital Signs/Intake and Output Vital Signs (last 24 hours): Temp Pulse Resp BP Pulse Ox 97.6 F 52 L 18 154/70 H 95 12/09/17 06:00 12/09/17 06:00 12/09/17 06:00 12/09/17 06:00 12/09/17 06:00 - Medications Medications: Current Medications Acetaminophen (Tylenol 325mg Tab) 650 mg PO Q6H PRN PRN Reason: Pain, moderate (4-7) Last Admin: 12/09/17 05:35 Dose: 650 mg Al Hydrox/Mg Hydrox/Simethicone (Maalox Plus 30 Ml) 30 ml PO DAILY PRN PRN Reason: Indigestion / Heartburn Last Admin: 12/08/17 10:07 Dose: 30 ml Amlodipine Besylate (Norvasc) 10 mg PO DAILY [facility] Last Admin: 12/08/17 09:54 Dose: 10 mg Aspirin (Aspirin Chewable) 81 mg PO DAILY [facility] Last Admin: 12/08/17 09:53 Dose: 81 mg Atorvastatin Calcium (Lipitor) 20 mg PO DIN [facility] Last Admin: 12/08/17 17:17 Dose: 20 mg Cinacalcet (Sensipar) 60 mg PO DAILY [facility] Last Admin: 12/08/17 09:54 Dose: 60 mg Clonidine HCl (Catapres) 0.1 mg PO BID [facility] Last Admin: 12/08/17 17:17 Dose: 0.1 mg Clopidogrel Bisulfate (Plavix) 75 mg PO DAILY [facility] Last Admin: 12/08/17 09:54 Dose: 75 mg Heparin Sodium (Porcine) (Heparin) 5,000 units SC Q8H [facility] PRN Reason: Protocol Last Admin: 12/09/17 05:36 Dose: 5,000 units Hydralazine HCl (Apresoline) 50 mg PO TID [facility] Last Admin: 12/08/17 17:17 Dose: 50 mg Iron Sucrose 200 mg/ Sodium (Chloride) 110 mls @ 110 mls/hr IV QOD [facility] Last Admin: 12/07/17 10:46 Dose: Not Given Isosorbide Mononitrate (Imdur) 60 mg PO DAILY [facility] Last Admin: 12/08/17 09:53 Dose: 60 mg Lidocaine (Lidoderm) 1 ea TD DAILY [facility] Last Admin: 12/08/17 09:53 Dose: 1 ea Lorazepam (Ativan) 0.5 mg PO BID PRN; Protocol PRN Reason: Anxiety Last Admin: 12/08/17 22:12 Dose: 0.5 mg Metoprolol Tartrate (Lopressor) 50 mg PO BRKDIN [facility] Last Admin: 12/08/17 17:17 Dose: 50 mg Ondansetron HCl (Zofran Inj) 4 mg IVP Q4H PRN PRN Reason: Nausea/Vomiting Pantoprazole Sodium (Protonix Ec Tab) 40 mg PO 0600 [facility] Last Admin: 12/09/17 05:37 Dose: 40 mg Polyethylene Glycol (Miralax) 17 gm PO DAILY [facility] Last Admin: 12/08/17 09:53 Dose: 17 gm Timolol Maleate (Timoptic 0.5% Ophth Soln) 1 drop OD HS [facility] Last Admin: 12/08/17 22:12 Dose: 1 applic - Labs Labs: 12/07/17 06:30 12/07/17 06:30 - Constitutional Appears: No Acute Distress - Head Exam Head Exam: ATRAUMATIC, NORMOCEPHALIC - Cardiovascular Exam Cardiovascular Exam: +S1, +S2 - GI/Abdominal Exam GI & Abdominal Exam: Soft, Normal Bowel Sounds. absent: Tenderness - Extremities Exam Extremities Exam: Normal Inspection - Neurological Exam Neurological Exam: Alert, Awake, Oriented x3 Assessment and Plan - Assessment and Plan (Free Text) Assessment: NSTEMI HTN CKD PVD Plan: continue medical treatment of NSTEMI. continue ASA, Plavix, Metoprolol, Lipitor and Imdur continue Metoprolol, Clonidine, Hydralazine and Norvasc for hypertension continue PT
[2017-12-09] MEDS: POLYETHYLENE GLYCOL 3350 17 GM/Dose PACKET PO SCH (09:38)
[2017-12-09] MEDS: Lidocaine 5% Patch TD SCH (09:38)
[2017-12-09] MEDS: Alum-Mag Hydrox-Simethicone Susp (30 mL) PO PRN (13:13)
--- NOTE | 2017-12-09 17:40 | PN ---
DATE: 12/09/2017 SUBJECTIVE: The patient is seen sitting in chair. Daughter is at bedside. She is awake. She is alert. She is comfortable. She reports feeling better today. PHYSICAL EXAMINATION: GENERAL: Elderly lady sitting in chair. VITAL SIGNS: Blood pressure 183/85, heart rate 55, respiratory rate 18, temperature 97.6. HEENT: Normocephalic, atraumatic. NECK: Supple, no JVD. LUNGS: Bilateral equal air entry, bilateral equal expansion, no rales. CARDIAC: S1, S2, regular rate and rhythm, no murmur, no rub. ABDOMEN: Soft, nondistended, nontender, bowel sounds present. EXTREMITIES: No lower extremity edema. LABORATORY DATA: No new labs. MEDICATIONS: Apresoline 50 t.i.d., aspirin, Ativan, Catapres 0.1 b.i.d., heparin, Imdur 60, Venofer, Lidoderm, Lipitor 20, Lopressor 50 b.i.d., Maalox, MiraLax 17 g daily, amlodipine 10, Plavix 75. ASSESSMENT: 1. Acute kidney injury superimposed on chronic kidney disease stage IV, resolved acute kidney injury. 2. Severe hypertension. 3. Chronic pain. 4. Anemia of chronic kidney disease. 5. Hypercalcemia/primary hyperparathyroidism. PLAN: 1. Complete 1 g of Venofer. 2. Physical therapy. 3. Continue hydralazine 50 t.i.d., amlodipine 10, clonidine 0.1 b.i.d., metoprolol 50 b.i.d., add losartan 50 mg daily. 4. Monitor potassium and creatinine closely. 5. Push p.o. intake. Barbara Edgar MD
--- NOTE | 2017-12-09 20:40 | PN ---
DATE: SUBJECTIVE: The patient is seen earlier this morning, in room 314. No fevers and no chills. PHYSICAL EXAMINATION: VITAL SIGNS: On exam, temperature is 97, blood pressure is 150/60, respiratory rate of 18. HEENT: Unremarkable. NECK: Supple. LUNGS: Have decreased breath sounds. HEART: Normal S1 and S2. ABDOMEN: Soft, nontender. LABORATORY DATA: Reveals the patient's white count is 5.1, hemoglobin of 10. Chemistries revealed the patient's BUN is 43, creatinine of 1.9. Review of orders reveals the patient to be off of antibiotics. ASSESSMENT AND PLAN: This is an 82-year-old female with systemic inflammatory response syndrome due to acute non-ST elevation myocardial infarction, no evidence of sepsis, chronic renal failure, hypertension, status post carotid endarterectomy, off of antibiotics, currently afebrile. The patient is at risk for developing nosocomial infections. Dr. Bell's note is reviewed. Manuel Espinosa MD
[2017-12-10 06:22] LABS: BASO # 0.03 K/mm3 (0.0-2.0); BASO % 0.6 % (0.0-3.0); EOS # 0.1 (0.0-0.7); EOS % 2.3 % (1.5-5.0); GRAN # 3.12 (1.4-6.5); GRAN % 64.4 % (50.0-68.0); LYMPH # 1.2 (1.2-3.4); LYMPH % 24.2 % (22.0-35.0); MEAN CORPUSCULAR HEMOGLOBIN 28.2 pg (25.0-35.0); MEAN CORPUSCULAR HGB CONC 31.7 g/dl (31.0-37.0); MEAN PLATELET VOLUME 10.6 fl (7.0-11.0); MONO # 0.4 (0.1-0.6); MONO % 8.5 % (1.0-6.0); RBC 3.54 10^6/uL (3.5-6.1); RED CELL DISTRIBUTION WIDTH 18.4 % (11.5-14.5); WHITE BLOOD COUNT 4.8 10^3/ul (4.5-11.0)
[2017-12-10] MEDS: Pantoprazole 40 mg EC Tab PO SCH (06:23)
[2017-12-10 07:07] LABS: ALBUMIN 2.3 g/dL (3.0-4.8); CALCIUM 9.8 mg/dL (8.4-10.5)
--- NOTE | 2017-12-10 08:04 | CP.PCM.PN ---
Subjective - Date & Time of Evaluation Date of Evaluation: 12/10/17 Time of Evaluation: 07:45 - Subjective Subjective: Patient complained of right sided chest pain yesterday afternoon and back pain. Objective - Vital Signs/Intake and Output Vital Signs (last 24 hours): Temp Pulse Resp BP Pulse Ox 98.2 F 56 L 20 152/61 H 96 12/10/17 06:00 12/10/17 06:00 12/10/17 06:00 12/10/17 06:00 12/10/17 06:00 - Medications Medications: Current Medications Acetaminophen (Tylenol 325mg Tab) 650 mg PO Q6H PRN PRN Reason: Pain, moderate (4-7) Last Admin: 12/09/17 14:15 Dose: 650 mg Al Hydrox/Mg Hydrox/Simethicone (Maalox Plus 30 Ml) 30 ml PO DAILY PRN PRN Reason: Indigestion / Heartburn Last Admin: 12/09/17 13:13 Dose: 30 ml Amlodipine Besylate (Norvasc) 10 mg PO DAILY [facility] Last Admin: 12/09/17 09:38 Dose: 10 mg Aspirin (Aspirin Chewable) 81 mg PO DAILY [facility] Last Admin: 12/09/17 09:38 Dose: 81 mg Atorvastatin Calcium (Lipitor) 20 mg PO DIN [facility] Last Admin: 12/09/17 17:17 Dose: 20 mg Cinacalcet (Sensipar) 60 mg PO DAILY [facility] Last Admin: 12/09/17 09:37 Dose: 60 mg Clonidine HCl (Catapres) 0.1 mg PO BID [facility] Last Admin: 12/09/17 17:18 Dose: 0.1 mg Clopidogrel Bisulfate (Plavix) 75 mg PO DAILY [facility] Last Admin: 12/09/17 09:38 Dose: 75 mg Heparin Sodium (Porcine) (Heparin) 5,000 units SC Q8H [facility] PRN Reason: Protocol Last Admin: 12/09/17 21:57 Dose: 5,000 units Hydralazine HCl (Apresoline) 50 mg PO TID [facility] Last Admin: 12/09/17 17:17 Dose: 50 mg Iron Sucrose 200 mg/ Sodium (Chloride) 110 mls @ 110 mls/hr IV QOD [facility] Last Admin: 12/09/17 09:38 Dose: 110 mls/hr Isosorbide Mononitrate (Imdur) 60 mg PO DAILY [facility] Last Admin: 12/09/17 09:37 Dose: 60 mg Lidocaine (Lidoderm) 1 ea TD DAILY [facility] Last Admin: 12/09/17 09:38 Dose: 1 ea Lorazepam (Ativan) 0.5 mg PO BID PRN; Protocol PRN Reason: Anxiety Last Admin: 12/09/17 21:57 Dose: 0.5 mg Losartan Potassium (Cozaar) 50 mg PO DAILY [facility] Last Admin: 12/09/17 14:12 Dose: 50 mg Metoprolol Tartrate (Lopressor) 50 mg PO BRKDIN [facility] Last Admin: 12/09/17 17:17 Dose: 50 mg Ondansetron HCl (Zofran Inj) 4 mg IVP Q4H PRN PRN Reason: Nausea/Vomiting Last Admin: 12/09/17 13:19 Dose: 4 mg Pantoprazole Sodium (Protonix Ec Tab) 40 mg PO 0600 [facility] Last Admin: 12/10/17 06:23 Dose: 40 mg Polyethylene Glycol (Miralax) 17 gm PO DAILY [facility] Last Admin: 12/09/17 09:38 Dose: 17 gm Timolol Maleate (Timoptic 0.5% Ophth Soln) 1 drop OD HS [facility] Last Admin: 12/09/17 21:56 Dose: 1 applic - Labs Labs: 12/10/17 05:00 12/10/17 05:00 - Constitutional Appears: No Acute Distress - Head Exam Head Exam: ATRAUMATIC, NORMOCEPHALIC - Respiratory Exam Respiratory Exam: Decreased Breath Sounds, NORMAL BREATHING PATTERN - Cardiovascular Exam Cardiovascular Exam: +S1, +S2 - GI/Abdominal Exam GI & Abdominal Exam: Soft, Normal Bowel Sounds. absent: Tenderness - Extremities Exam Extremities Exam: Normal Inspection - Neurological Exam Neurological Exam: Alert, Awake, Oriented x3 Assessment and Plan - Assessment and Plan (Free Text) Assessment: NSTEMI HTN CKD PVD chronic back pain Anxiety Plan: Patient complained of chest pain yesterday and was given nitroglycerin. Troponin was 0.21, which is abnormal, but decreased from admission on acute floor. continue ASA, Plavix, imdur, lipitor and metoprolol. continue Lidoderm patch for pain. continue Tylenol as needed for back pain. continue physical therapy.
[2017-12-10] MEDS: Lidocaine 5% Patch TD SCH (10:33)
[2017-12-10] MEDS: POLYETHYLENE GLYCOL 3350 17 GM/Dose PACKET PO SCH (10:33)
--- NOTE | 2017-12-10 19:27 | PN ---
DATE: 12/10/2017 SUBJECTIVE: Patient is seen lying in bed. She is lying comfortably. She does not appear to be in any kind of distress. PHYSICAL EXAMINATION: VITAL SIGNS: Blood pressure 138/83, heart rate 57, respiratory rate 18, temperature 97.7. HEENT: Normocephalic, atraumatic. NECK: Supple, no JVD. LUNGS: Bilateral equal air entry, no rales. EXTREMITIES: No lower extremity edema. LABORATORY DATA: Hemoglobin 10. Sodium 135, potassium 4.3, chloride 107, CO2 of 23, BUN 36, creatinine of 2.1, glucose 104, calcium 9.8, albumin 2.3, corrected calcium is 10.8. Troponin 0.21 and 0.19. ASSESSMENT: 1. Stable chronic kidney disease stage IV, mild prerenal azotemia. 2. Status post atypical chest pain. 3. Anemia of chronic kidney disease. 4. Hypertension, better controlled now. 5. Nbo-wpiadjq-ilnrinaut diabetes mellitus. 6. Chronic pain. PLAN: 1. Continue current management. 2. Rule out CO by enzymes and EKG. 3. Physical therapy. 4. Complete Venofer. 5. No uremic signs or symptoms. 6. No plans for renal replacement therapy. Barbara Edgar MD
--- NOTE | 2017-12-10 19:42 | CARD ---
APPROVED REPORT EKG Measurement Heart [id number] <Conclusion> Sinus bradycardia Septal infarct, age undetermined ST & T wave abnormality, consider anterior ischemia Abnormal ECG
[2017-12-11] MEDS: Alum-Mag Hydrox-Simethicone Susp (30 mL) PO PRN (00:30)
--- NOTE | 2017-12-11 00:46 | CP.PCM.PN ---
Subjective - Date & Time of Evaluation Date of Evaluation: 12/11/17 Time of Evaluation: 00:45 - Subjective Subjective: Nausea. . See my next note. Objective - Vital Signs/Intake and Output Vital Signs (last 24 hours): Temp Pulse Resp BP Pulse Ox 97.9 F 57 L 16 138/83 96 12/10/17 10:00 12/10/17 17:22 12/10/17 10:00 12/10/17 17:22 12/10/17 10:00 Intake and Output: 12/10/17 12/11/17 18:59 06:59 Output Total 0 Balance 0 - Medications Medications: Current Medications Acetaminophen (Tylenol 325mg Tab) 650 mg PO Q6H PRN PRN Reason: Pain, moderate (4-7) Last Admin: 12/10/17 08:17 Dose: 650 mg Al Hydrox/Mg Hydrox/Simethicone (Maalox Plus 30 Ml) 30 ml PO DAILY PRN PRN Reason: Indigestion / Heartburn Last Admin: 12/11/17 00:30 Dose: 30 ml Amlodipine Besylate (Norvasc) 10 mg PO DAILY [facility] Last Admin: 12/10/17 10:34 Dose: Not Given Aspirin (Aspirin Chewable) 81 mg PO DAILY [facility] Last Admin: 12/10/17 10:30 Dose: 81 mg Atorvastatin Calcium (Lipitor) 20 mg PO DIN [facility] Last Admin: 12/10/17 17:11 Dose: 20 mg Cinacalcet (Sensipar) 60 mg PO DAILY [facility] Last Admin: 12/10/17 10:34 Dose: 60 mg Clonidine HCl (Catapres) 0.1 mg PO BID [facility] Last Admin: 12/10/17 17:21 Dose: 0.1 mg Clopidogrel Bisulfate (Plavix) 75 mg PO DAILY [facility] Last Admin: 12/10/17 10:34 Dose: 75 mg Heparin Sodium (Porcine) (Heparin) 5,000 units SC Q8H [facility] PRN Reason: Protocol Last Admin: 12/10/17 21:44 Dose: 5,000 units Hydralazine HCl (Apresoline) 50 mg PO TID [facility] Last Admin: 12/10/17 17:21 Dose: 50 mg Iron Sucrose 200 mg/ Sodium (Chloride) 110 mls @ 110 mls/hr IV QOD [facility] Last Admin: 12/09/17 09:38 Dose: 110 mls/hr Isosorbide Mononitrate (Imdur) 60 mg PO DAILY [facility] Last Admin: 12/10/17 10:33 Dose: 60 mg Lidocaine (Lidoderm) 1 ea TD DAILY [facility] Last Admin: 12/10/17 10:33 Dose: 1 ea Lorazepam (Ativan) 0.5 mg PO BID PRN; Protocol PRN Reason: Anxiety Last Admin: 12/10/17 23:27 Dose: 0.5 mg Losartan Potassium (Cozaar) 50 mg PO DAILY [facility] Last Admin: 12/10/17 10:35 Dose: 50 mg Metoprolol Tartrate (Lopressor) 50 mg PO BRKDIN [facility] Last Admin: 12/10/17 17:22 Dose: 50 mg Ondansetron HCl (Zofran Inj) 4 mg IVP Q4H PRN PRN Reason: Nausea/Vomiting Last Admin: 12/10/17 23:31 Dose: 4 mg Pantoprazole Sodium (Protonix Ec Tab) 40 mg PO 0600 [facility] Last Admin: 12/10/17 06:23 Dose: 40 mg Polyethylene Glycol (Miralax) 17 gm PO DAILY [facility] Last Admin: 12/10/17 10:33 Dose: 17 gm Timolol Maleate (Timoptic 0.5% [facility] Soln) 1 drop OD HS [facility] Last Admin: 12/10/17 21:44 Dose: 1 applic - Labs Labs: 12/10/17 05:00 12/10/17 05:00
--- NOTE | 2017-12-11 01:05 | CP.PCM.PN ---
Subjective - Date & Time of Evaluation Date of Evaluation: 12/11/17 Time of Evaluation: 01:01 - Subjective Subjective: Patient was seen at bedside. She complained of nausea, little chest pain in epigasric area,/ since 5.30 pm when she had her dinner , off & on , no radiation, though said that she has mid back pain, no sob, ,no sweating, no palpitation. Medical record was reviewed. This 82 year old white woman was admitted to TCU for generalized weakness, doconditioning, physical therapy, she was admitted to acute side for NSTEMI and acute on chronic renal failure. Has PMH of HTN,GERD,anxiety, carotid artery disease, PVD,CKD. Objective - Vital Signs/Intake and Output Vital Signs (last 24 hours): Temp Pulse Resp BP Pulse Ox 97.9 F 57 L 16 138/83 96 12/10/17 10:00 12/10/17 17:22 12/10/17 10:00 12/10/17 17:22 12/10/17 10:00 Intake and Output: 12/10/17 12/11/17 18:59 06:59 Output Total 0 Balance 0 - Medications Medications: Current Medications Acetaminophen (Tylenol 325mg Tab) 650 mg PO Q6H PRN PRN Reason: Pain, moderate (4-7) Last Admin: 12/10/17 08:17 Dose: 650 mg Al Hydrox/Mg Hydrox/Simethicone (Maalox Plus 30 Ml) 30 ml PO DAILY PRN PRN Reason: Indigestion / Heartburn Last Admin: 12/11/17 00:30 Dose: 30 ml Amlodipine Besylate (Norvasc) 10 mg PO DAILY [facility] Last Admin: 12/10/17 10:34 Dose: Not Given Aspirin (Aspirin Chewable) 81 mg PO DAILY [facility] Last Admin: 12/10/17 10:30 Dose: 81 mg Atorvastatin Calcium (Lipitor) 20 mg PO DIN [facility] Last Admin: 12/10/17 17:11 Dose: 20 mg Cinacalcet (Sensipar) 60 mg PO DAILY [facility] Last Admin: 12/10/17 10:34 Dose: 60 mg Clonidine HCl (Catapres) 0.1 mg PO BID [facility] Last Admin: 12/10/17 17:21 Dose: 0.1 mg Clopidogrel Bisulfate (Plavix) 75 mg PO DAILY [facility] Last Admin: 12/10/17 10:34 Dose: 75 mg Heparin Sodium (Porcine) (Heparin) 5,000 units SC Q8H [facility] PRN Reason: Protocol Last Admin: 12/10/17 21:44 Dose: 5,000 units Hydralazine HCl (Apresoline) 50 mg PO TID [facility] Last Admin: 12/10/17 17:21 Dose: 50 mg Hydralazine HCl (Apresoline) 10 mg IVP STAT [facility] Iron Sucrose 200 mg/ Sodium (Chloride) 110 mls @ 110 mls/hr IV QOD [facility] Last Admin: 12/09/17 09:38 Dose: 110 mls/hr Isosorbide Mononitrate (Imdur) 60 mg PO DAILY [facility] Last Admin: 12/10/17 10:33 Dose: 60 mg Lidocaine (Lidoderm) 1 ea TD DAILY [facility] Last Admin: 12/10/17 10:33 Dose: 1 ea Lorazepam (Ativan) 0.5 mg PO BID PRN; Protocol PRN Reason: Anxiety Last Admin: 12/10/17 23:27 Dose: 0.5 mg Losartan Potassium (Cozaar) 50 mg PO DAILY [facility] Last Admin: 12/10/17 10:35 Dose: 50 mg Metoclopramide HCl (Reglan) 5 mg IVP ACHS [facility] Metoprolol Tartrate (Lopressor) 50 mg PO BRKDIN [facility] Last Admin: 12/10/17 17:22 Dose: 50 mg Ondansetron HCl (Zofran Inj) 4 mg IVP Q4H PRN PRN Reason: Nausea/Vomiting Last Admin: 12/10/17 23:31 Dose: 4 mg Pantoprazole Sodium (Protonix Ec Tab) 40 mg PO 0600 [facility] Last Admin: 12/10/17 06:23 Dose: 40 mg Pantoprazole Sodium (Protonix Inj) 40 mg IVP STAT [facility] Stop: 12/11/17 01:00 Polyethylene Glycol (Miralax) 17 gm PO DAILY [facility] Last Admin: 12/10/17 10:33 Dose: 17 gm Timolol Maleate (Timoptic 0.5% Ophth Soln) 1 drop OD HS [facility] Last Admin: 12/10/17 21:44 Dose: 1 applic - Labs Labs: 12/10/17 05:00 12/10/17 05:00 - Constitutional Appears: Well, No Acute Distress - Head Exam Head Exam: ATRAUMATIC, NORMAL INSPECTION, NORMOCEPHALIC - Eye Exam Eye Exam: Normal appearance - ENT Exam ENT Exam: Normal External Ear Exam - Neck Exam Neck Exam: Normal Inspection - Respiratory Exam Respiratory Exam: NORMAL BREATHING PATTERN - Cardiovascular Exam Cardiovascular Exam: absent: JVD - GI/Abdominal Exam GI & Abdominal Exam: absent: Distended - Rectal Exam Rectal Exam: Deferred - Exam Additional comments: deferred. - Extremities Exam Extremities Exam: Normal Inspection - Back Exam Back Exam: NORMAL INSPECTION - Neurological Exam Neurological Exam: Alert, Awake, Oriented x3 - Psychiatric Exam Psychiatric exam: Normal Affect, Normal Mood - Skin Skin Exam: Normal Color Assessment and Plan - Assessment and Plan (Free Text) Assessment: Epiagastric pain. Back pain. NSTEMI HTN. GERD. Anxiety. PVD. Plan: Hydralazine 2 mg IV now. Protonix 40 mg IV x 1. Reglan 5 mg IV x 1. Oxygen by NC @ 2L/min. EKG stat. Troponin stat. Discussed with . Will give morphine 2 mg IV x 1.
[2017-12-11] MEDS ORDERED: Morphine 2 mg/2 mL syringe IVP STA (01:36)
[2017-12-11] MEDS ORDERED: Nitroglycerin 2% Ointment Foilpak UD TOP STA (01:37)
[2017-12-11] MEDS ORDERED: Nitroglycerin 2% Ointment Foilpak UD TOP SCH (01:45)
[2017-12-11] MEDS: Nitroglycerin 2% Ointment Foilpak UD TOP SCH ×3 (06:36→17:04)
[2017-12-11] MEDS: Pantoprazole 40 mg EC Tab PO SCH (06:37)
[2017-12-11] MEDS: POLYETHYLENE GLYCOL 3350 17 GM/Dose PACKET PO SCH (10:42)
[2017-12-11] MEDS: Lidocaine 5% Patch TD SCH (10:42)
--- NOTE | 2017-12-11 12:10 | CP.PCM.PN ---
Subjective - Date & Time of Evaluation Date of Evaluation: 12/11/17 Time of Evaluation: 11:15 - Subjective Subjective: Comfortable, no fevers, not in distress. Objective - Vital Signs/Intake and Output Vital Signs (last 24 hours): Temp Pulse Resp BP Pulse Ox 97.9 F 61 18 181/76 H 99 12/11/17 06:00 12/11/17 08:00 12/11/17 06:00 12/11/17 08:00 12/11/17 06:00 - Medications Medications: Current Medications Acetaminophen (Tylenol 325mg Tab) 650 mg PO Q6H PRN PRN Reason: Pain, moderate (4-7) Last Admin: 12/10/17 08:17 Dose: 650 mg Al Hydrox/Mg Hydrox/Simethicone (Maalox Plus 30 Ml) 30 ml PO DAILY PRN PRN Reason: Indigestion / Heartburn Last Admin: 12/11/17 00:30 Dose: 30 ml Amlodipine Besylate (Norvasc) 10 mg PO DAILY [facility] Last Admin: 12/10/17 10:34 Dose: Not Given Aspirin (Aspirin Chewable) 81 mg PO 0800 [facility] Atorvastatin Calcium (Lipitor) 20 mg PO DIN [facility] Last Admin: 12/10/17 17:11 Dose: 20 mg Cinacalcet (Sensipar) 60 mg PO 0800 [facility] Clonidine HCl (Catapres) 0.1 mg PO BID [facility] Last Admin: 12/11/17 06:37 Dose: 0.1 mg Clopidogrel Bisulfate (Plavix) 75 mg PO DAILY [facility] Last Admin: 12/10/17 10:34 Dose: 75 mg Heparin Sodium (Porcine) (Heparin) 5,000 units SC Q8H [facility] PRN Reason: Protocol Last Admin: 12/11/17 06:36 Dose: 5,000 units Hydralazine HCl (Apresoline) 50 mg PO TID [facility] Last Admin: 12/10/17 17:21 Dose: 50 mg Iron Sucrose 200 mg/ Sodium (Chloride) 110 mls @ 110 mls/hr IV QOD [facility] Isosorbide Mononitrate (Imdur) 60 mg PO 0630 [facility] Lidocaine (Lidoderm) 1 ea TD DAILY [facility] Last Admin: 12/10/17 10:33 Dose: 1 ea Lorazepam (Ativan) 0.5 mg PO BID PRN; Protocol PRN Reason: Anxiety Last Admin: 12/10/17 23:27 Dose: 0.5 mg Losartan Potassium (Cozaar) 50 mg PO DAILY [facility] Last Admin: 12/10/17 10:35 Dose: 50 mg Metoprolol Tartrate (Lopressor) 50 mg PO BRKDIN [facility] Last Admin: 12/11/17 08:00 Dose: 50 mg Nitroglycerin (Nitro-Bid 2% Oint) 1 ea TOP Q6H [facility] Last Admin: 12/11/17 06:36 Dose: 1 ea Ondansetron HCl (Zofran Inj) 4 mg IVP Q4H PRN PRN Reason: Nausea/Vomiting Last Admin: 12/10/17 23:31 Dose: 4 mg Pantoprazole Sodium (Protonix Ec Tab) 40 mg PO 0600 [facility] Last Admin: 12/11/17 06:37 Dose: 40 mg Polyethylene Glycol (Miralax) 17 gm PO DAILY [facility] Last Admin: 12/10/17 10:33 Dose: 17 gm Timolol Maleate (Timoptic 0.5% Ophth Soln) 1 drop OD HS [facility] Last Admin: 12/10/17 21:44 Dose: 1 applic - Labs Labs: 12/10/17 05:00 12/10/17 05:00 - Constitutional Appears: Chronically Ill - Head Exam Head Exam: NORMAL INSPECTION - Respiratory Exam Respiratory Exam: Decreased Breath Sounds. absent: Rales - Cardiovascular Exam Cardiovascular Exam: +S1, +S2 - GI/Abdominal Exam GI & Abdominal Exam: Soft. absent: Tenderness Assessment and Plan - Assessment and Plan (Free Text) Plan: Assessment S/P Systemic inflammatory response syndrome probably due to acute NSTEMI, no evidence of sepsis identified chronic renal failure HTN S/P carotid endearterectomy endometrial CAD S/P hysterectomy Plan will continue to monitor the patient off antibiotics since she is at risk for hospital-acquired infections
--- NOTE | 2017-12-11 13:18 | PN ---
DATE: SUBJECTIVE: Patient is in Transitional Care Unit, bed 1, room 314. Patient is admitted to Transitional Care Unit for rehabilitation and deconditioning. Patient had acute myocardial infarction on admission. Patient has past history of hypertension, renal insufficiency, and osteoarthritis, seen this morning. She had complained to me about episode she had last night, which is severe chest pain and severe hypertension. Her systolic pressure was over 200. The house physician was there to see the patient and control her acute symptoms. PHYSICAL EXAMINATION VITAL SIGNS: This morning, the pulse was 61, blood pressure 181/76, respirations 18, temperature is 98.4. HEENT: Head is normocephalic. NECK: The thyroid is not enlarged. The carotid pulses are present. Patient had a previous carotid artery surgery on the left side. LUNGS: Trachea central. Breath sounds are vesicular. No adventitious sounds. HEART: Normal sinus rhythm. S1 and S2 present. Blood pressure is markedly elevated. ABDOMEN: Soft. Liver and spleen not palpable. CENTRAL NERVOUS SYSTEM: No focal deficit at this time. The patient is able to answer all questions. She is complaining of some discomfort in the left leg, but I do not notice any deformity or wound on the leg. MEDICATIONS: She is on numerous medicines. She is on hydralazine 50 mg three times a day, aspirin. Patient is on Ativan 0.5 mg t.i.d., clonidine 0.1 mg b.i.d., losartan 50 mg daily. Heparin, the patient is on heparin for prophylaxis for deep vein thrombosis. The patient is on Lipitor 20 mg daily, metoprolol 50 mg daily. Patient is on MiraLax for constipation. The patient's recent blood work, hemoglobin 10. She had received Venofer iron preparation for iron deficiency anemia. Patient's chemistry, the examination of the troponin last night was 0.22, which is high, could be some damage to the myocardium during her chest pain last night, but renal function; BUN is 36, creatinine 2.1, these numbers are good. The patient's GFR is in the range of renal failure stage III. The condition is stable at this time. Overall prognosis is guarded. We will follow up with the treatment in the Transitional Care. The patient's discharge plan will be made for two days. Ky Bell MD [facility] # [id number]
--- NOTE | 2017-12-11 15:29 | PN ---
DATE: 12/11/2017 SUBJECTIVE: The patient is seen lying in bed. She reports she is tired. She reports she had physical therapy earlier. She did not eat lunch. She had a little breakfast. PHYSICAL EXAMINATION: GENERAL: Elderly lady, lying in bed. VITAL SIGNS: Blood pressure 154/66, heart rate 50, respiratory rate 16, temperature 97.8. HEENT: Normocephalic, atraumatic. NECK: Supple, no JVD. LUNGS: Bilateral equal air entry, bilateral equal expansion, no rales. CARDIAC: S1, S2. Regular rate and rhythm, no murmur, no rub. ABDOMEN: Obese, distended, soft, nontender, bowel sounds present. EXTREMITIES: No lower extremity edema. INTAKE AND OUTPUT: Not charted. LABORATORY DATA: No new labs. CURRENT MEDICATIONS: Apresoline, aspirin, Ativan, Catapres, Cozaar, heparin, Imdur, iron, Lipitor, Lopressor, Maalox, MiraLax, Norvasc, Plavix, Protonix, Sensipar, Tylenol. ASSESSMENT: 1. Chronic kidney disease stage 4. 2. Resolved acute kidney injury. 3. Anemia of chronic kidney disease. 4. Hypertension, better controlled now. 5. Chronic pain. PLAN: 1. Complete 1 g of Venofer. 2. Comfort care. 3. Elevated troponins ? Barbara Edgar MD
[2017-12-12] MEDS: Nitroglycerin 2% Ointment Foilpak UD TOP SCH ×5 (05:31→23:54)
[2017-12-12] MEDS: Pantoprazole 40 mg EC Tab PO SCH (05:31)
[2017-12-12] MEDS: Lidocaine 5% Patch TD SCH (11:03)
[2017-12-12] MEDS: POLYETHYLENE GLYCOL 3350 17 GM/Dose PACKET PO SCH (11:05)
--- NOTE | 2017-12-12 13:18 | PN ---
DATE: LOCATION: This patient is in the Transitional Care Unit, room 314, bed 1. SUBJECTIVE: Patient is admitted for deconditioning, treatment of accelerated hypertension; acute myocardial infarction, recent history. Patient has past history of hypertension, hyperlipidemia, carotid artery disease, peripheral vascular disease. Patient has had procedure on the left carotid artery and also, on the right lower extremity. PHYSICAL EXAMINATION: GENERAL: This morning, she is sitting up, eating her breakfast. VITAL SIGNS: Shows the pulse is 64, blood pressure 150/84, respirations 20, O2 sat is 97%, temperature is 97.8. LUNGS: Clear. HEART: Normal sinus rhythm. S1 and S2 present. ABDOMEN: Soft. Liver and spleen not palpable. CENTRAL NERVOUS SYSTEM: Patient is conscious, rational, oriented and seem to be in pretty stable condition today. Not very anxious. MEDICATIONS: Consists of Apresoline 50 mg three times a day. Patient is on clonidine 0.1 mg b.i.d. Patient gets losartan 50 mg daily, isosorbide mononitrate 60 mg daily. Patient is on Ativan p.r.n. for anxiety and Lipitor 20 mg daily. Patient's blood work done recently showed a hemoglobin of 10, which was done on 12/10/2017. Patient's chemistry, the BUN is 36, creatinine 2.1, these numbers are pretty good for this patient. GFR is renal failure rating is between III and IV. Patient's troponin was elevated. We will keep an eye on it. Patient is not in any acute distress at this time. Patient is DNR/DNI. Patient is also requested not to go on dialysis and not to be resuscitated. Patient is pending evaluation for possible hospice, is in waiting list. Ky Bell MD
--- NOTE | 2017-12-12 13:23 | CP.PCM.PN ---
Subjective - Date & Time of Evaluation Date of Evaluation: 12/12/17 Time of Evaluation: 10:25 - Subjective Subjective: Seen and examined at the bedside earlier today, chart review. Patientlast bowel movement was Sunday did take MiraLAX today but not yesterday. Had a little bit of nausea, but patient stated that she ate too fast no reports of vomiting. No acute overnight events. Denies dysphagia. Objective - Vital Signs/Intake and Output Vital Signs (last 24 hours): Temp Pulse Resp BP Pulse Ox 97.8 F 64 20 194/73 H 97 12/12/17 06:00 12/12/17 08:14 12/12/17 06:00 12/12/17 11:06 12/12/17 06:00 - Medications Medications: Current Medications Acetaminophen (Tylenol 325mg Tab) 650 mg PO Q6H PRN PRN Reason: Pain, moderate (4-7) Last Admin: 12/12/17 05:48 Dose: 650 mg Al Hydrox/Mg Hydrox/Simethicone (Maalox Plus 30 Ml) 30 ml PO DAILY PRN PRN Reason: Indigestion / Heartburn Last Admin: 12/11/17 00:30 Dose: 30 ml Amlodipine Besylate (Norvasc) 10 mg PO DAILY [facility] Last Admin: 12/12/17 11:06 Dose: 10 mg Aspirin (Aspirin Chewable) 81 mg PO 0800 [facility] Last Admin: 12/12/17 08:14 Dose: 81 mg Atorvastatin Calcium (Lipitor) 20 mg PO DIN [facility] Last Admin: 12/11/17 17:03 Dose: 20 mg Cinacalcet (Sensipar) 60 mg PO 0800 [facility] Last Admin: 12/12/17 08:15 Dose: 60 mg Clonidine HCl (Catapres) 0.1 mg PO BID [facility] Last Admin: 12/12/17 11:05 Dose: 0.1 mg Clopidogrel Bisulfate (Plavix) 75 mg PO DAILY [facility] Last Admin: 12/12/17 11:06 Dose: 75 mg Docusate Sodium (Colace) 100 mg PO BID [facility] Heparin Sodium (Porcine) (Heparin) 5,000 units SC Q8H [facility] PRN Reason: Protocol Last Admin: 12/12/17 05:28 Dose: 5,000 units Hydralazine HCl (Apresoline) 50 mg PO TID [facility] Last Admin: 12/12/17 11:04 Dose: 50 mg Iron Sucrose 200 mg/ Sodium (Chloride) 110 mls @ 110 mls/hr IV QOD [facility] Last Admin: 12/11/17 10:43 Dose: 110 mls/hr Isosorbide Mononitrate (Imdur) 60 mg PO 0630 [facility] Lidocaine (Lidoderm) 1 ea TD DAILY [facility] Last Admin: 12/12/17 11:03 Dose: 1 ea Lorazepam (Ativan) 0.5 mg PO BID PRN; Protocol PRN Reason: Anxiety Last Admin: 12/11/17 21:51 Dose: 0.5 mg Losartan Potassium (Cozaar) 50 mg PO DAILY [facility] Last Admin: 12/12/17 11:05 Dose: 50 mg Metoprolol Tartrate (Lopressor) 50 mg PO BRKDIN [facility] Last Admin: 12/12/17 08:14 Dose: 50 mg Nitroglycerin (Nitro-Bid 2% Oint) 1 ea TOP Q6H [facility] Last Admin: 12/12/17 05:31 Dose: 1 ea Ondansetron HCl (Zofran Inj) 4 mg IVP Q4H PRN PRN Reason: Nausea/Vomiting Last Admin: 12/12/17 08:13 Dose: 4 mg Pantoprazole Sodium (Protonix Ec Tab) 20 mg PO ACB [facility] Polyethylene Glycol (Miralax) 17 gm PO DAILY PRN PRN Reason: Constipation Timolol Maleate (Timoptic 0.5% Ophth Soln) 1 drop OD HS [facility] Last Admin: 12/11/17 21:10 Dose: 1 applic - Labs Labs: 12/10/17 05:00 12/10/17 05:00 - Constitutional Appears: No Acute Distress - Head Exam Head Exam: NORMOCEPHALIC - Eye Exam Eye Exam: Normal appearance. absent: Scleral icterus - ENT Exam ENT Exam: Mucous Membranes Moist - Neck Exam Neck Exam: Normal Inspection - Respiratory Exam Respiratory Exam: NORMAL BREATHING PATTERN. absent: Respiratory Distress - Cardiovascular Exam Cardiovascular Exam: +S1, +S2 - GI/Abdominal Exam GI & Abdominal Exam: Soft, Normal Bowel Sounds. absent: Guarding, Tenderness, Rebound - Extremities Exam Extremities Exam: absent: Calf Tenderness - Neurological Exam Neurological Exam: Alert, Awake, Oriented x3 - Skin Skin Exam: Dry, Warm Assessment and Plan - Assessment and Plan (Free Text) Assessment: Asssessment: Constipation s/p lactulose and colace Dysphagia, status post esophagus x-ray, negative for mass or stricture Anemia, h/h stable NSTEMI PVD CKD HTN Hyperparathyroidism Plan: Trend H&H, currently stable, monitor for overt GI bleed continue PPI Continue diet as tolerated currently on soft food, encouraged to eat slowly and chew food well monitor electrolytes On ASA and Plavix on Heparin SQ Nephro supplements the patient not taking MiraLAX daily agreed to take stool softener twice a day can put MiraLAX when necessary On IV iron Seen and Discussed with Dr. Aiken
[2017-12-12 17:36] VITALS: RESP 18
--- NOTE | 2017-12-12 19:10 | PN ---
DATE: 12/12/2017 SUBJECTIVE: The patient is seen lying in bed. She appears to be comfortable. PHYSICAL EXAMINATION: GENERAL: Elderly lady lying in bed. VITAL SIGNS: Blood pressure 161/58, heart rate 57, respiratory rate 18, temperature 99.1, T-max is 99.1. HEENT: Normocephalic, atraumatic, positive pallor. NECK: Supple, no JVD. LUNGS: Bilateral equal air entry, bilateral equal expansion. EXTREMITIES: No lower extremity edema. LABORATORY DATA: No new labs. CURRENT MEDICATIONS: List reviewed. ASSESSMENT: 1. Advanced chronic kidney disease stage 4. 2. Anemia of chronic kidney disease. 3. Constipation. 4. Dysphagia. 5. Non-ST elevation myocardial infarction. 6. Hypertension. PLAN: 1. Continue current management. 2. The patient and family do not want any aggressive treatment. 3. The patient is DNR/DNI. 4. Continue comfort care. Barbara Edgar MD
[2017-12-12] MEDS ORDERED: Morphine 2 mg/2 mL syringe IVP STA ×2 (23:31→23:39)
--- NOTE | 2017-12-12 23:39 | CP.PCM.PN ---
Subjective - Date & Time of Evaluation Date of Evaluation: 12/12/17 Time of Evaluation: 23:39 - Subjective Subjective: Complained of lower mid back pain. Requested morphine for pain. Has no other complaints. No chest pain, no sob, no nausea, no sweating, no palpitations. No abdominal pain, no constipation, no diarrhoea. Medical record was reviewed. 82 year old white woman was admitted to TCU for doconditioning, generalized weakness, physical therapy, she was admitted to acute side for NSTEMI and acute on chronic renal failure. Has PMH of GERD, HTN,anxiety, carotid artery disease, PVD, CKD. Objective - Vital Signs/Intake and Output Vital Signs (last 24 hours): Temp Pulse Resp BP Pulse Ox 97.8 F 50 L 18 137/61 96 12/12/17 23:29 12/12/17 23:29 12/12/17 23:29 12/12/17 23:29 12/12/17 23:29 - Medications Medications: Current Medications Acetaminophen (Tylenol 325mg Tab) 650 mg PO Q6H PRN PRN Reason: Pain, moderate (4-7) Last Admin: 12/12/17 05:48 Dose: 650 mg Al Hydrox/Mg Hydrox/Simethicone (Maalox Plus 30 Ml) 30 ml PO DAILY PRN PRN Reason: Indigestion / Heartburn Last Admin: 12/11/17 00:30 Dose: 30 ml Amlodipine Besylate (Norvasc) 10 mg PO DAILY [facility] Last Admin: 12/12/17 11:06 Dose: 10 mg Aspirin (Aspirin Chewable) 81 mg PO 0800 [facility] Last Admin: 12/12/17 08:14 Dose: 81 mg Atorvastatin Calcium (Lipitor) 20 mg PO DIN [facility] Last Admin: 12/12/17 18:16 Dose: 20 mg Cinacalcet (Sensipar) 60 mg PO 0800 [facility] Last Admin: 12/12/17 08:15 Dose: 60 mg Clonidine HCl (Catapres) 0.1 mg PO BID [facility] Last Admin: 12/12/17 18:15 Dose: 0.1 mg Clopidogrel Bisulfate (Plavix) 75 mg PO DAILY [facility] Last Admin: 12/12/17 11:06 Dose: 75 mg Docusate Sodium (Colace) 100 mg PO BID [facility] Last Admin: 12/12/17 18:16 Dose: 100 mg Heparin Sodium (Porcine) (Heparin) 5,000 units SC Q8H [facility] PRN Reason: Protocol Last Admin: 12/12/17 21:32 Dose: 5,000 units Hydralazine HCl (Apresoline) 50 mg PO TID [facility] Last Admin: 12/12/17 18:15 Dose: 50 mg Iron Sucrose 200 mg/ Sodium (Chloride) 110 mls @ 110 mls/hr IV QOD [facility] Last Admin: 12/11/17 10:43 Dose: 110 mls/hr Isosorbide Mononitrate (Imdur) 60 mg PO 0630 [facility] Lidocaine (Lidoderm) 1 ea TD DAILY [facility] Last Admin: 12/12/17 11:03 Dose: 1 ea Lorazepam (Ativan) 0.5 mg PO BID PRN; Protocol PRN Reason: Anxiety Last Admin: 12/12/17 23:15 Dose: 0.5 mg Losartan Potassium (Cozaar) 50 mg PO DAILY [facility] Last Admin: 12/12/17 11:05 Dose: 50 mg Metoprolol Tartrate (Lopressor) 50 mg PO BRKDIN [facility] Last Admin: 12/12/17 18:17 Dose: 50 mg Morphine Sulfate (Morphine) 2 mg IVP STAT [facility] Stop: 12/12/17 23:40 Nitroglycerin (Nitro-Bid 2% Oint) 1 ea TOP Q6H [facility] Last Admin: 12/12/17 18:18 Dose: 1 ea Ondansetron HCl (Zofran Inj) 4 mg IVP Q4H PRN PRN Reason: Nausea/Vomiting Last Admin: 12/12/17 23:16 Dose: 4 mg Pantoprazole Sodium (Protonix Ec Tab) 20 mg PO ACB [facility] Polyethylene Glycol (Miralax) 17 gm PO DAILY PRN PRN Reason: Constipation Timolol Maleate (Timoptic 0.5% Ophth Soln) 1 drop OD HS [facility] Last Admin: 12/12/17 21:32 Dose: 1 drop - Labs Labs: 12/10/17 05:00 12/10/17 05:00 Last Vital Signs Temp 97.8 F 12/12/17 23:29 Pulse 50 L 12/12/17 23:29 Resp 18 12/12/17 23:29 BP 137/61 12/12/17 23:29 Pulse Ox 96 12/12/17 23:29 Most Recent Lab Values WBC 4.8 10^3/ul (4.5-11.0) 12/10/17 05:00 RBC 3.54 10^6/uL (3.5-6.1) 12/10/17 05:00 Hgb 10.0 g/dL (12.0-16.0) L 12/10/17 05:00 Hct 31.5 % (36.0-48.0) L 12/10/17 05:00 MCV 89.0 fl (80.0-105.0) 12/10/17 05:00 MCH 28.2 pg (25.0-35.0) 12/10/17 05:00 MCHC 31.7 g/dl (31.0-37.0) 12/10/17 05:00 RDW 18.4 % (11.5-14.5) H 12/10/17 05:00 Plt Count 190 10^3/uL (120.0-450.0) 12/10/17 05:00 MPV 10.6 fl (7.0-11.0) 12/10/17 05:00 Gran % 64.4 % (50.0-68.0) 12/10/17 05:00 Lymph % (Auto) 24.2 % (22.0-35.0) 12/10/17 05:00 [place] % (Auto) 8.5 % (1.0-6.0) H 12/10/17 05:00 Eos % (Auto) 2.3 % (1.5-5.0) 12/10/17 05:00 Baso % (Auto) 0.6 % (0.0-3.0) 12/10/17 05:00 Gran # 3.12 (1.4-6.5) 12/10/17 05:00 Lymph # (Auto) 1.2 (1.2-3.4) 12/10/17 05:00 [place] # (Auto) 0.4 (0.1-0.6) 12/10/17 05:00 Eos # (Auto) 0.1 (0.0-0.7) 12/10/17 05:00 Baso # (Auto) 0.03 K/mm3 (0.0-2.0) 12/10/17 05:00 Sodium 135 mmol/L (132-148) 12/10/17 05:00 Potassium 4.3 mmol/L (3.6-5.0) 12/10/17 05:00 Chloride 107 mmol/L (98-107) 12/10/17 05:00 Carbon Dioxide 23 mmol/L (21-33) 12/10/17 05:00 Anion Gap 10 (10-20) 12/10/17 05:00 BUN 36 mg/dL (7-21) H 12/10/17 05:00 Creatinine 2.1 mg/dl (0.7-1.2) H 12/10/17 05:00 Est GFR ( Amer) 27 12/10/17 05:00 Est GFR (Non-Af Amer) 23 12/10/17 05:00 Random Glucose 104 mg/dL (70-110) 12/10/17 05:00 Calcium 9.8 mg/dL (8.4-10.5) 12/10/17 05:00 Total Bilirubin 0.2 mg/dL (0.2-1.3) 12/10/17 05:00 AST 41 U/L (14-36) H D 12/10/17 05:00 ALT 52 U/L (7-56) 12/10/17 05:00 Alkaline Phosphatase 65 U/L (38-126) 12/10/17 05:00 Troponin I 0.22 ng/mL H* 12/11/17 01:25 Total Protein 4.8 g/dL (5.8-8.3) L 12/10/17 05:00 Albumin 2.3 g/dL (3.0-4.8) L 12/10/17 05:00 Globulin 2.4 gm/dL 12/10/17 05:00 Albumin/Globulin Ratio 1.0 (1.1-1.8) L 12/10/17 05:00 - Constitutional Appears: Well, No Acute Distress - Head Exam Head Exam: ATRAUMATIC, NORMAL INSPECTION, NORMOCEPHALIC - Eye Exam Eye Exam: Normal appearance - ENT Exam ENT Exam: Normal External Ear Exam - Neck Exam Neck Exam: Normal Inspection - Respiratory Exam Respiratory Exam: NORMAL BREATHING PATTERN - Cardiovascular Exam Cardiovascular Exam: absent: JVD - GI/Abdominal Exam GI & Abdominal Exam: absent: Distended - Rectal Exam Rectal Exam: Deferred - Exam Additional comments: Deferred. - Extremities Exam Extremities Exam: Normal Inspection - Back Exam Back Exam: NORMAL INSPECTION - Neurological Exam Neurological Exam: Alert, Awake, Oriented x3 - Psychiatric Exam Psychiatric exam: Normal Affect, Normal Mood - Skin Skin Exam: Normal Color Assessment and Plan - Assessment and Plan (Free Text) Assessment: Thoracic back pain. GERD. HTN. Anxiety. PVD. CKD. Plan: Morphine 2 mg IV x 1. Continue management as per PMD.
[2017-12-13] MEDS: Nitroglycerin 2% Ointment Foilpak UD TOP SCH ×4 (05:01→23:32)
[2017-12-13] MEDS: Pantoprazole 20 mg EC Tab PO SCH ×2 (05:01→08:43)
[2017-12-13] MEDS ORDERED: Pantoprazole 20 mg EC Tab PO SCH (07:30)
[2017-12-13] MEDS: Lidocaine 5% Patch TD SCH (10:58)
[2017-12-13] MEDS ORDERED: POLYETHYLENE GLYCOL 3350 17 GM/Dose PACKET PO PRN (11:28)
[2017-12-13] MEDS ORDERED: Morphine 2 mg/ml ISec IVP PRN (12:56)
[2017-12-13] MEDS ORDERED: Morphine 2 mg/2 mL syringe IVP PRN (12:58)
--- NOTE | 2017-12-13 13:57 | PN ---
DATE: LOCALOCATION: The patient is in the Transitional Care Unit, [facility] in [place], room 314, bed 1. SUBJECTIVE: The patient was admitted to the Transitional Care Unit for continued care, weakness. The patient had difficulty in walking. The patient's past acute history of admission was acute myocardial infarction associated with accelerated hypertension, renal insufficiency. The patient is seen this morning, sitting up and eating her breakfast. She seemed to be comfortable. PHYSICAL EXAMINATION: VITAL SIGNS: The pulse is 54, blood pressure 182/71, respirations are 18, O2 sat is 97% on room air. HEENT: The patient's head is normocephalic. LUNGS: Trachea is central. Breath sounds are vesicular. No adventitious sounds. HEART: Normal sinus rhythm. S1 and S2 present. Blood pressure is elevated. ABDOMEN: Soft. Liver and spleen not palpable. CENTRAL NERVOUS SYSTEM: The patient is conscious, rational, and oriented. ASSESSMENT AND PLAN: The patient is accepting compassionate care and discharge plan is the patient will be discharged to the Transitional Care on Sunday. She will continue all the medications as it is. The patient is on hydralazine, which is . The patient is on metoprolol 50 mg daily, clonidine 0.1 mg b.i.d. The patient is on losartan 50 mg daily, isosorbide mononitrate 60 mg daily. The patient is on Lipitor 20 mg daily. She also gets lidocaine patch at the back of chest because she has fibromyalgia type pain on the scapula area. The patient is also on morphine p.r.n. for pain and the nurses have been advised not to probably do established diagnosis as the patient is on compassionate care. Ky Bell MD
[2017-12-13 17:02] VITALS: TEMP 97.6
--- NOTE | 2017-12-13 20:33 | PN ---
DATE: 12/13/2017 SUBJECTIVE: The patient is seen lying in bed. She is awake. She is alert. She is comfortable. She denies any pain. She denies any shortness of breath. PHYSICAL EXAMINATION: GENERAL: Elderly lady, lying in bed. VITAL SIGNS: Blood pressure 119/47, heart rate 51, respiratory rate 18, temperature 98. HEENT: Normocephalic, atraumatic, positive pallor. NECK: Supple. No JVD. LUNGS: Bilateral equal air entry, bilateral equal expansion. CARDIAC: S1 and S2, regular rate and rhythm, no murmur, no rub. EXTREMITIES: No lower edema. LABORATORY DATA: No new labs. MEDICATIONS: List reviewed. ASSESSMENT: 1. Chronic kidney disease stage IV. 2. Resolved acute kidney injury. 3. Anemia of chronic kidney disease. 4. Coronary artery disease. 5. Comfort care. PLAN: 1. Continue current management. 2. Continue comfort care. 3. No objection to discharge her. Barbara Edgar MD
[2017-12-14] MEDS: Nitroglycerin 2% Ointment Foilpak UD TOP SCH ×3 (05:21→21:40)
[2017-12-14] MEDS: Pantoprazole 20 mg EC Tab PO SCH (05:33)
--- NOTE | 2017-12-14 07:16 | CP.PCM.CON ---
<Mary Ureña - Last Filed: 12/14/17 07:13> History of Present Illness - History of Present Illness History of Present Illness: Podiatry Consult Note - Dr. Pérez 82F patient seen and evaluated at bedside concerning thickened, elongated nails. States nails become painful when elongated and cause discomfort when wearing shoes or with ambulation. Also complaining of dry, itchy skin. Offers no other complaints. Review of Systems - Review of Systems All systems: reviewed and no additional remarkable complaints except (as per HPI ) Past Patient History - Past Social History Smoking Status: Former Smoker - CARDIAC Hx Cardiac Disorders: Yes Hx Hypertension: Yes - RENAL Hx Renal Failure: Yes (CKD) - MUSCULOSKELETAL/RHEUMATOLOGICAL Hx Arthritis: Yes Hx Back Pain: Yes Hx Falls: Yes (past) - GASTROINTESTINAL Hx Gastrointestinal Disorders: No Hx Gastroesophageal Reflux: Yes - GENITOURINARY/GYNECOLOGICAL Hx Reproductive Disorders: No - PSYCHIATRIC Hx Substance Use: No Meds Allergies/Adverse Reactions: Allergies Allergy/AdvReac Type Severity Reaction Status Date / Time allopurinol [From Zyloprim] Allergy URTICARIA Verified 12/05/17 23:25 - Medications Medications: Current Medications Acetaminophen (Tylenol 325mg Tab) 650 mg PO Q6H PRN PRN Reason: Pain, moderate (4-7) Last Admin: 12/12/17 05:48 Dose: 650 mg Al Hydrox/Mg Hydrox/Simethicone (Maalox Plus 30 Ml) 30 ml PO DAILY PRN PRN Reason: Indigestion / Heartburn Last Admin: 12/11/17 00:30 Dose: 30 ml Amlodipine Besylate (Norvasc) 10 mg PO DAILY [facility] Last Admin: 12/13/17 11:00 Dose: Not Given Aspirin (Aspirin Chewable) 81 mg PO 0800 [facility] Last Admin: 12/13/17 08:16 Dose: 81 mg Atorvastatin Calcium (Lipitor) 20 mg PO DIN [facility] Last Admin: 12/13/17 17:53 Dose: 20 mg Cinacalcet (Sensipar) 60 mg PO 0800 [facility] Last Admin: 12/13/17 08:19 Dose: 60 mg Clonidine HCl (Catapres) 0.1 mg PO BID [facility] Last Admin: 12/13/17 17:54 Dose: 0.1 mg Clopidogrel Bisulfate (Plavix) 75 mg PO DAILY [facility] Last Admin: 12/13/17 11:00 Dose: 75 mg Docusate Sodium (Colace) 100 mg PO BID [facility] Last Admin: 12/13/17 17:54 Dose: 100 mg Heparin Sodium (Porcine) (Heparin) 5,000 units SC Q8H [facility] PRN Reason: Protocol Last Admin: 12/14/17 05:21 Dose: 5,000 units Hydralazine HCl (Apresoline) 50 mg PO TID [facility] Last Admin: 12/13/17 17:54 Dose: 50 mg Iron Sucrose 200 mg/ Sodium (Chloride) 110 mls @ 110 mls/hr IV QOD [facility] Last Admin: 12/13/17 11:00 Dose: 110 mls/hr Isosorbide Mononitrate (Imdur) 60 mg PO 0630 [facility] Lidocaine (Lidoderm) 1 ea TD DAILY [facility] Last Admin: 12/13/17 10:58 Dose: 1 ea Lorazepam (Ativan) 0.5 mg PO BID PRN; Protocol PRN Reason: Anxiety Last Admin: 12/13/17 23:31 Dose: 0.5 mg Losartan Potassium (Cozaar) 50 mg PO DAILY [facility] Last Admin: 12/13/17 10:59 Dose: Not Given Metoprolol Tartrate (Lopressor) 50 mg PO BRKDIN [facility] Last Admin: 12/13/17 17:54 Dose: 50 mg Morphine Sulfate (Morphine) 2 mg IVP Q4H PRN PRN Reason: Pain, severe (8-10) Nitroglycerin (Nitro-Bid 2% Oint) 1 ea TOP Q6H [facility] Last Admin: 12/14/17 05:21 Dose: 1 ea Ondansetron HCl (Zofran Inj) 4 mg IVP Q4H PRN PRN Reason: Nausea/Vomiting Last Admin: 12/12/17 23:16 Dose: 4 mg Pantoprazole Sodium (Protonix Ec Tab) 20 mg PO 0600 [facility] Last Admin: 12/14/17 05:33 Dose: 20 mg Polyethylene Glycol (Miralax) 17 gm PO DAILY PRN PRN Reason: Constipation Timolol Maleate (Timoptic 0.5% Ophth Soln) 1 drop OD HS [facility] Last Admin: 12/13/17 21:24 Dose: 1 drop Physical Exam - Constitutional Appears: Well, Non-toxic, No Acute Distress - Extremities Exam Extremities exam: Positive for: normal capillary refill, normal inspection, tenderness (nails 1-5 b/l), pedal pulses present. Negative for: full ROM ( mildly decreased), pedal edema Additional comments: VASC: DP and PT pusles palpable b/l. CFT WNL. Temperature gradient warm to warm. NEURO: Gross sensation intact bilaterally DERM: Nails thickened, elongated, and dystrophic with the presence of subungual debris. No open lesions noted. Moderate xerosis noted to bilateral LE. ORTHO: Pain on palpation nails 1-5 b/l - Neurological Exam Neurological exam: Alert, Oriented x3 - Psychiatric Exam Psychiatric exam: Normal Affect, Normal Mood Results - Vital Signs Recent Vital Signs: Last Vital Signs Temp 97.6 F 12/13/17 17:01 Pulse 55 L 12/13/17 17:54 Resp 18 12/13/17 17:01 BP 181/69 H 12/13/17 17:54 Pulse Ox 98 12/13/17 17:01 - Labs Result Diagrams: 12/10/17 05:00 12/10/17 05:00 Assessment & Plan - Assessment and Plan (Free Text) Assessment: 82F with onychomycosis Plan: Patient seen and evaluated Discussed with attending, Dr. Pérez Nails to be trimmed tomorrow LacHydrin ordered for BID applications to bilateral LE Stable per podiatry standpoint Will continue to follow while in house <Emperatriz Pérez - Last Filed: 12/15/17 15:32> Results - Vital Signs Recent Vital Signs: Last Vital Signs Temp 97.6 F 12/13/17 17:01 Pulse 53 L 12/15/17 09:58 Resp 18 12/13/17 17:01 BP 176/73 H 12/15/17 09:48 Pulse Ox 96 12/14/17 13:27 - Labs Result Diagrams: 12/10/17 05:00 12/10/17 05:00 Attending/Attestation - Attestation I have personally seen and examined this patient.: No I have fully participated in the care of the patient.: No I have reviewed all pertinent clinical information: No
--- NOTE | 2017-12-14 08:52 | CP.PCM.PN ---
<Mary Ureña - Last Filed: 12/14/17 08:49> Subjective - Date & Time of Evaluation Date of Evaluation: 12/14/17 Time of Evaluation: 08:49 - Subjective Subjective: Podiatry Progress Note - Drs. Pérez/Yogi 82F patient seen and evaluated at bedside concerning thickened, elongated nails. Patient hemodynamically stable and NAD. Friend present at bedside. NAEON. Still complaining of dry, itchy skin and painful nails. Offers no other complaints. Denies N/V/F/D/C/SOB/WARD/dizziness. Objective - Vital Signs/Intake and Output Vital Signs (last 24 hours): Temp Pulse Resp BP Pulse Ox 97.6 F 56 L 18 96/76 L 98 12/13/17 17:01 12/14/17 08:35 12/13/17 17:01 12/14/17 08:35 12/13/17 17:01 - Medications Medications: Current Medications Acetaminophen (Tylenol 325mg Tab) 650 mg PO Q6H PRN PRN Reason: Pain, moderate (4-7) Last Admin: 12/12/17 05:48 Dose: 650 mg Al Hydrox/Mg Hydrox/Simethicone (Maalox Plus 30 Ml) 30 ml PO DAILY PRN PRN Reason: Indigestion / Heartburn Last Admin: 12/11/17 00:30 Dose: 30 ml Amlodipine Besylate (Norvasc) 10 mg PO DAILY [facility] Last Admin: 12/13/17 11:00 Dose: Not Given Aspirin (Aspirin Chewable) 81 mg PO 0800 [facility] Last Admin: 12/14/17 08:34 Dose: 81 mg Atorvastatin Calcium (Lipitor) 20 mg PO DIN [facility] Last Admin: 12/13/17 17:53 Dose: 20 mg Cinacalcet (Sensipar) 60 mg PO 0800 [facility] Last Admin: 12/14/17 08:36 Dose: 60 mg Clonidine HCl (Catapres) 0.1 mg PO BID [facility] Last Admin: 12/13/17 17:54 Dose: 0.1 mg Clopidogrel Bisulfate (Plavix) 75 mg PO DAILY [facility] Last Admin: 12/13/17 11:00 Dose: 75 mg Docusate Sodium (Colace) 100 mg PO BID [facility] Last Admin: 12/13/17 17:54 Dose: 100 mg Heparin Sodium (Porcine) (Heparin) 5,000 units SC Q8H [facility] PRN Reason: Protocol Last Admin: 12/14/17 05:21 Dose: 5,000 units Hydralazine HCl (Apresoline) 50 mg PO TID [facility] Last Admin: 12/13/17 17:54 Dose: 50 mg Iron Sucrose 200 mg/ Sodium (Chloride) 110 mls @ 110 mls/hr IV QOD [facility] Last Admin: 12/13/17 11:00 Dose: 110 mls/hr Isosorbide Mononitrate (Imdur) 60 mg PO 0630 [facility] Lactic Acid (Lac-Hydrin 12% Lotion (225 G)) 0 gm EXT BID [facility] Lidocaine (Lidoderm) 1 ea TD DAILY [facility] Last Admin: 12/13/17 10:58 Dose: 1 ea Lorazepam (Ativan) 0.5 mg PO BID PRN; Protocol PRN Reason: Anxiety Last Admin: 12/13/17 23:31 Dose: 0.5 mg Losartan Potassium (Cozaar) 50 mg PO DAILY [facility] Last Admin: 12/13/17 10:59 Dose: Not Given Metoprolol Tartrate (Lopressor) 50 mg PO BRKDIN [facility] Last Admin: 12/14/17 08:35 Dose: Not Given Morphine Sulfate (Morphine) 2 mg IVP Q4H PRN PRN Reason: Pain, severe (8-10) Nitroglycerin (Nitro-Bid 2% Oint) 1 ea TOP Q6H [facility] Last Admin: 12/14/17 05:21 Dose: 1 ea Ondansetron HCl (Zofran Inj) 4 mg IVP Q4H PRN PRN Reason: Nausea/Vomiting Last Admin: 12/12/17 23:16 Dose: 4 mg Pantoprazole Sodium (Protonix Ec Tab) 20 mg PO 0600 [facility] Last Admin: 12/14/17 05:33 Dose: 20 mg Polyethylene Glycol (Miralax) 17 gm PO DAILY PRN PRN Reason: Constipation Timolol Maleate (Timoptic 0.5% Ophth Soln) 1 drop OD HS [facility] Last Admin: 12/13/17 21:24 Dose: 1 drop - Labs Labs: 12/10/17 05:00 12/10/17 05:00 - Constitutional Appears: Well, Non-toxic, No Acute Distress - Extremities Exam Additional comments: VASC: DP and PT pusles palpable b/l. CFT WNL. Temperature gradient warm to warm. NEURO: Gross sensation intact bilaterally DERM: Nails thickened, elongated, and dystrophic with the presence of subungual debris. No open lesions noted. Moderate xerosis noted to bilateral LE. ORTHO: Pain on palpation nails 1-5 b/l - Neurological Exam Neurological Exam: Alert, Awake, Oriented x3 - Psychiatric Exam Psychiatric exam: Normal Affect, Normal Mood Assessment and Plan - Assessment and Plan (Free Text) Assessment: 82F with onychomycosis Plan: Patient seen and evaluated with attending, Dr. Calix Nails 1-5 b/l debrided in thickness and length Continue BID application of LacHydrin for xerosis/itchiness Stable per podiatry standpoint Will sign off at this time, please reconsult if new issues arise <Negro Calix - Last Filed: 12/15/17 07:14> Objective - Vital Signs/Intake and Output Vital Signs (last 24 hours): Temp Pulse Resp BP Pulse Ox 97.6 F 69 18 157/74 H 96 12/13/17 17:01 12/14/17 18:05 12/13/17 17:01 12/14/17 18:05 12/14/17 13:27 - Medications Medications: Current Medications Acetaminophen (Tylenol 325mg Tab) 650 mg PO Q6H PRN PRN Reason: Pain, moderate (4-7) Last Admin: 12/12/17 05:48 Dose: 650 mg Al Hydrox/Mg Hydrox/Simethicone (Maalox Plus 30 Ml) 30 ml PO DAILY PRN PRN Reason: Indigestion / Heartburn Last Admin: 12/11/17 00:30 Dose: 30 ml Amlodipine Besylate (Norvasc) 10 mg PO DAILY [facility] Last Admin: 12/14/17 10:53 Dose: 10 mg Aspirin (Aspirin Chewable) 81 mg PO 0800 [facility] Last Admin: 12/14/17 08:34 Dose: 81 mg Atorvastatin Calcium (Lipitor) 20 mg PO DIN [facility] Last Admin: 12/14/17 18:05 Dose: 20 mg Cinacalcet (Sensipar) 60 mg PO 0800 [facility] Last Admin: 12/14/17 08:36 Dose: 60 mg Clonidine HCl (Catapres) 0.1 mg PO BID [facility] Last Admin: 12/14/17 10:48 Dose: 0.1 mg Clopidogrel Bisulfate (Plavix) 75 mg PO DAILY [facility] Last Admin: 12/14/17 10:53 Dose: 75 mg Docusate Sodium (Colace) 100 mg PO BID [facility] Last Admin: 12/14/17 18:03 Dose: 100 mg Heparin Sodium (Porcine) (Heparin) 5,000 units SC Q8H [facility] PRN Reason: Protocol Last Admin: 12/15/17 05:52 Dose: 5,000 units Hydralazine HCl (Apresoline) 50 mg PO TID [facility] Last Admin: 12/14/17 14:00 Dose: 50 mg Iron Sucrose 200 mg/ Sodium (Chloride) 110 mls @ 110 mls/hr IV QOD [facility] Last Admin: 12/13/17 11:00 Dose: 110 mls/hr Isosorbide Mononitrate (Imdur) 60 mg PO 0630 [facility] Lactic Acid (Lac-Hydrin 12% Lotion (225 G)) 0 gm EXT BID [facility] Last Admin: 12/14/17 10:51 Dose: 1 cre Lidocaine (Lidoderm) 1 ea TD DAILY [facility] Last Admin: 12/14/17 10:51 Dose: 1 ea Lorazepam (Ativan) 0.5 mg PO BID PRN; Protocol PRN Reason: Anxiety Last Admin: 12/14/17 22:51 Dose: 0.5 mg Losartan Potassium (Cozaar) 50 mg PO DAILY [facility] Last Admin: 12/14/17 10:02 Dose: 50 mg Metoprolol Tartrate (Lopressor) 50 mg PO BRKDIN [facility] Last Admin: 12/14/17 18:05 Dose: 50 mg Morphine Sulfate (Morphine) 2 mg IVP Q4H PRN PRN Reason: Pain, severe (8-10) Last Admin: 12/15/17 02:03 Dose: 2 mg Nitroglycerin (Nitro-Bid 2% Oint) 1 ea TOP Q6H [facility] Last Admin: 12/15/17 05:53 Dose: 1 ea Ondansetron HCl (Zofran Inj) 4 mg IVP Q4H PRN PRN Reason: Nausea/Vomiting Last Admin: 12/12/17 23:16 Dose: 4 mg Ondansetron HCl (Zofran Odt) 4 mg SL Q8H PRN; Protocol PRN Reason: Nausea/Vomiting Last Admin: 12/14/17 21:35 Dose: 4 mg Pantoprazole Sodium (Protonix Ec Tab) 20 mg PO 0600 [facility] Last Admin: 12/15/17 05:52 Dose: 20 mg Polyethylene Glycol (Miralax) 17 gm PO DAILY PRN PRN Reason: Constipation Timolol Maleate (Timoptic 0.5% Ophth Soln) 1 drop OD HS [facility] Last Admin: 12/14/17 21:38 Dose: 1 drop - Labs Labs: 12/10/17 05:00 12/10/17 05:00 Attending/Attestation - Attestation I have personally seen and examined this patient.: Yes I have fully participated in the care of the patient.: Yes I have reviewed all pertinent clinical information, including history, physical exam and plan: Yes
--- NOTE | 2017-12-14 10:41 | CP.PCM.PN ---
Subjective - Date & Time of Evaluation Date of Evaluation: 12/14/17 Time of Evaluation: 09:10 - Subjective Subjective: No fevers, not in distress. Objective - Vital Signs/Intake and Output Vital Signs (last 24 hours): Temp Pulse Resp BP Pulse Ox 97.6 F 55 L 18 181/69 H 98 12/13/17 17:01 12/13/17 17:54 12/13/17 17:01 12/13/17 17:54 12/13/17 17:01 - Medications Medications: Current Medications Acetaminophen (Tylenol 325mg Tab) 650 mg PO Q6H PRN PRN Reason: Pain, moderate (4-7) Last Admin: 12/12/17 05:48 Dose: 650 mg Al Hydrox/Mg Hydrox/Simethicone (Maalox Plus 30 Ml) 30 ml PO DAILY PRN PRN Reason: Indigestion / Heartburn Last Admin: 12/11/17 00:30 Dose: 30 ml Amlodipine Besylate (Norvasc) 10 mg PO DAILY [facility] Last Admin: 12/13/17 11:00 Dose: Not Given Aspirin (Aspirin Chewable) 81 mg PO 0800 [facility] Last Admin: 12/13/17 08:16 Dose: 81 mg Atorvastatin Calcium (Lipitor) 20 mg PO DIN [facility] Last Admin: 12/13/17 17:53 Dose: 20 mg Cinacalcet (Sensipar) 60 mg PO 0800 [facility] Last Admin: 12/13/17 08:19 Dose: 60 mg Clonidine HCl (Catapres) 0.1 mg PO BID [facility] Last Admin: 12/13/17 17:54 Dose: 0.1 mg Clopidogrel Bisulfate (Plavix) 75 mg PO DAILY [facility] Last Admin: 12/13/17 11:00 Dose: 75 mg Docusate Sodium (Colace) 100 mg PO BID [facility] Last Admin: 12/13/17 17:54 Dose: 100 mg Heparin Sodium (Porcine) (Heparin) 5,000 units SC Q8H [facility] PRN Reason: Protocol Last Admin: 12/14/17 05:21 Dose: 5,000 units Hydralazine HCl (Apresoline) 50 mg PO TID [facility] Last Admin: 12/13/17 17:54 Dose: 50 mg Iron Sucrose 200 mg/ Sodium (Chloride) 110 mls @ 110 mls/hr IV QOD [facility] Last Admin: 12/13/17 11:00 Dose: 110 mls/hr Isosorbide Mononitrate (Imdur) 60 mg PO 0630 [facility] Lidocaine (Lidoderm) 1 ea TD DAILY [facility] Last Admin: 12/13/17 10:58 Dose: 1 ea Lorazepam (Ativan) 0.5 mg PO BID PRN; Protocol PRN Reason: Anxiety Last Admin: 12/13/17 23:31 Dose: 0.5 mg Losartan Potassium (Cozaar) 50 mg PO DAILY [facility] Last Admin: 12/13/17 10:59 Dose: Not Given Metoprolol Tartrate (Lopressor) 50 mg PO BRKDIN [facility] Last Admin: 12/13/17 17:54 Dose: 50 mg Morphine Sulfate (Morphine) 2 mg IVP Q4H PRN PRN Reason: Pain, severe (8-10) Nitroglycerin (Nitro-Bid 2% Oint) 1 ea TOP Q6H [facility] Last Admin: 12/14/17 05:21 Dose: 1 ea Ondansetron HCl (Zofran Inj) 4 mg IVP Q4H PRN PRN Reason: Nausea/Vomiting Last Admin: 12/12/17 23:16 Dose: 4 mg Pantoprazole Sodium (Protonix Ec Tab) 20 mg PO 0600 [facility] Last Admin: 12/14/17 05:33 Dose: 20 mg Polyethylene Glycol (Miralax) 17 gm PO DAILY PRN PRN Reason: Constipation Timolol Maleate (Timoptic 0.5% Oph Soln) 1 drop OD HS [facility] Last Admin: 12/13/17 21:24 Dose: 1 drop - Labs Labs: 12/10/17 05:00 12/10/17 05:00 - Constitutional Appears: Chronically Ill - Head Exam Head Exam: NORMAL INSPECTION - Respiratory Exam Respiratory Exam: Decreased Breath Sounds - Cardiovascular Exam Cardiovascular Exam: +S1, +S2 - GI/Abdominal Exam GI & Abdominal Exam: Soft. absent: Tenderness Assessment and Plan - Assessment and Plan (Free Text) Plan: Assessment S/P Systemic inflammatory response syndrome probably due to acute NSTEMI, no evidence of sepsis identified chronic renal failure HTN S/P carotid endearterectomy endometrial CAD S/P hysterectomy Plan will continue to monitor the patient off antibiotics since she is at risk for healthcare-associated infections
[2017-12-14] MEDS: Ammonium Lactate 12% Lotion (225 g) EXT SCH (10:51)
[2017-12-14] MEDS: Lidocaine 5% Patch TD SCH (10:51)
--- NOTE | 2017-12-14 13:04 | PN ---
DATE: SUBJECTIVE: The patient is in the Transitional Care Unit, room 314, bed 1 at [facility] in [place]. The patient was admitted to the TCU for rehabilitation and management of hypertension. The patient is also in renal insufficiency and currently will be placed on compassionate care. The patient is sitting up, eating her breakfast and apparently, the nurse told me this morning that the patient refused any IV access. PHYSICAL EXAMINATION VITAL SIGNS: The patient's pulse is 55, blood pressure 180/70. The patient's respirations are 16, O2 sat is 95% on room air. LUNGS: Clear. HEART: Normal sinus rhythm. ABDOMEN: Soft. Liver and spleen not palpable. CENTRAL NERVOUS SYSTEM: The patient is conscious, rational, and oriented. The patient complains of pain in the chest, originating in the back of the chest that radiates towards the center of the sternum. The patient has history of recent LA. The patient has unstable angina and severe hypertension. MEDICATIONS: The patient gets Apresoline 50 mg three times a day. The patient is on losartan 50 mg daily, clonidine 0.1 mg b.i.d, Ativan 0.5 mg b.i.d. The patient is on heparin for prophylaxis, Imdur 60 mg daily. The patient is on lidocaine patch, Lipitor 20 mg daily, metoprolol 50 mg daily. The patient gets morphine p.r.n. for severe pain, nitroglycerin paste, she gets 2 inches on the chest wall every 24 hours. The patient probably will need nitroglycerin at home p.r.n. for pain as well as maybe we will give the patient nitroglycerin patch 0.2 mg patch to use on the chest wall daily. She is clinically improved, but we will follow up and mostly likely, the patient will be discharged from the Transitional Care Unit under the care of the compassionate care service. Ky Bell MD
[2017-12-14 13:38] VITALS: O2SAT 96
--- NOTE | 2017-12-14 17:47 | CP.PCM.PN ---
<Jory Woods - Last Filed: 12/14/17 17:45> Subjective - Date & Time of Evaluation Date of Evaluation: 12/14/17 Time of Evaluation: 10:30 - Subjective Subjective: Seen and examined at the bedside earlier today, chart reviewed. Patient had bowel movement this morning, formed stool no reports of any overt GI bleed. Taking stool softener. Tolerating oral intake, no reports of acute overnight events. Objective - Vital Signs/Intake and Output Vital Signs (last 24 hours): Temp Pulse Resp BP Pulse Ox 97.6 F 57 L 18 202/82 H 96 12/13/17 17:01 12/14/17 13:27 12/13/17 17:01 12/14/17 10:53 12/14/17 13:27 - Medications Medications: Current Medications Acetaminophen (Tylenol 325mg Tab) 650 mg PO Q6H PRN PRN Reason: Pain, moderate (4-7) Last Admin: 12/12/17 05:48 Dose: 650 mg Al Hydrox/Mg Hydrox/Simethicone (Maalox Plus 30 Ml) 30 ml PO DAILY PRN PRN Reason: Indigestion / Heartburn Last Admin: 12/11/17 00:30 Dose: 30 ml Amlodipine Besylate (Norvasc) 10 mg PO DAILY [facility] Last Admin: 12/14/17 10:53 Dose: 10 mg Aspirin (Aspirin Chewable) 81 mg PO 0800 [facility] Last Admin: 12/14/17 08:34 Dose: 81 mg Atorvastatin Calcium (Lipitor) 20 mg PO DIN [facility] Last Admin: 12/13/17 17:53 Dose: 20 mg Cinacalcet (Sensipar) 60 mg PO 0800 [facility] Last Admin: 12/14/17 08:36 Dose: 60 mg Clonidine HCl (Catapres) 0.1 mg PO BID [facility] Last Admin: 12/14/17 10:48 Dose: 0.1 mg Clopidogrel Bisulfate (Plavix) 75 mg PO DAILY [facility] Last Admin: 12/14/17 10:53 Dose: 75 mg Docusate Sodium (Colace) 100 mg PO BID [facility] Last Admin: 12/14/17 10:49 Dose: 100 mg Heparin Sodium (Porcine) (Heparin) 5,000 units SC Q8H [facility] PRN Reason: Protocol Last Admin: 12/14/17 15:10 Dose: 5,000 units Hydralazine HCl (Apresoline) 50 mg PO TID [facility] Last Admin: 12/14/17 10:47 Dose: 50 mg Iron Sucrose 200 mg/ Sodium (Chloride) 110 mls @ 110 mls/hr IV QOD [facility] Last Admin: 12/13/17 11:00 Dose: 110 mls/hr Isosorbide Mononitrate (Imdur) 60 mg PO 0630 [facility] Lactic Acid (Lac-Hydrin 12% Lotion (225 G)) 0 gm EXT BID [facility] Last Admin: 12/14/17 10:51 Dose: 1 cre Lidocaine (Lidoderm) 1 ea TD DAILY [facility] Last Admin: 12/14/17 10:51 Dose: 1 ea Lorazepam (Ativan) 0.5 mg PO BID PRN; Protocol PRN Reason: Anxiety Last Admin: 12/13/17 23:31 Dose: 0.5 mg Losartan Potassium (Cozaar) 50 mg PO DAILY [facility] Last Admin: 12/13/17 10:59 Dose: Not Given Metoprolol Tartrate (Lopressor) 50 mg PO BRKDIN [facility] Last Admin: 12/14/17 08:35 Dose: Not Given Morphine Sulfate (Morphine) 2 mg IVP Q4H PRN PRN Reason: Pain, severe (8-10) Nitroglycerin (Nitro-Bid 2% Oint) 1 ea TOP Q6H [facility] Last Admin: 12/14/17 13:58 Dose: 1 ea Ondansetron HCl (Zofran Inj) 4 mg IVP Q4H PRN PRN Reason: Nausea/Vomiting Last Admin: 12/12/17 23:16 Dose: 4 mg Ondansetron HCl (Zofran Odt) 4 mg SL Q8H PRN; Protocol PRN Reason: Nausea/Vomiting Last Admin: 12/14/17 12:30 Dose: 4 mg Pantoprazole Sodium (Protonix Ec Tab) 20 mg PO 0600 [facility] Last Admin: 12/14/17 05:33 Dose: 20 mg Polyethylene Glycol (Miralax) 17 gm PO DAILY PRN PRN Reason: Constipation Timolol Maleate (Timoptic 0.5% Ophth Soln) 1 drop OD HS [facility] Last Admin: 12/13/17 21:24 Dose: 1 drop - Labs Labs: 12/10/17 05:00 12/10/17 05:00 - Constitutional Appears: No Acute Distress - Head Exam Head Exam: NORMOCEPHALIC - Eye Exam Eye Exam: Normal appearance. absent: Scleral icterus - ENT Exam ENT Exam: Mucous Membranes Moist - Neck Exam Neck Exam: Normal Inspection - Respiratory Exam Respiratory Exam: NORMAL BREATHING PATTERN. absent: Respiratory Distress - Cardiovascular Exam Cardiovascular Exam: +S1, +S2 - GI/Abdominal Exam GI & Abdominal Exam: Soft, Normal Bowel Sounds. absent: Guarding, Tenderness, Rebound - Extremities Exam Extremities Exam: absent: Calf Tenderness, Pedal Edema - Neurological Exam Neurological Exam: Alert, Awake. absent: Oriented x3 - Skin Skin Exam: absent: Dry, Warm Assessment and Plan - Assessment and Plan (Free Text) Assessment: Asssessment: Improved Constipation Dysphagia, status post esophagus x-ray, negative for mass or stricture Anemia, h/h stable NSTEMI PVD CKD HTN Hyperparathyroidism Plan: Trend H&H, currently stable, monitor for overt GI bleed continue PPI Continue diet as tolerated currently on soft food, encouraged to eat slowly and chew food well monitor electrolytes On ASA and Plavix on Heparin SQ Nephro supplements continue Colace twice a day and MiraLAX when necessary Seen and Discussed with Dr. Aiken <Jeferson Aiken V - Last Filed: 12/14/17 23:44> Objective - Vital Signs/Intake and Output Vital Signs (last 24 hours): Temp Pulse Resp BP Pulse Ox 97.6 F 69 18 157/74 H 96 12/13/17 17:01 12/14/17 18:05 12/13/17 17:01 12/14/17 18:05 12/14/17 13:27 - Medications Medications: Current Medications Acetaminophen (Tylenol 325mg Tab) 650 mg PO Q6H PRN PRN Reason: Pain, moderate (4-7) Last Admin: 12/12/17 05:48 Dose: 650 mg Al Hydrox/Mg Hydrox/Simethicone (Maalox Plus 30 Ml) 30 ml PO DAILY PRN PRN Reason: Indigestion / Heartburn Last Admin: 12/11/17 00:30 Dose: 30 ml Amlodipine Besylate (Norvasc) 10 mg PO DAILY [facility] Last Admin: 12/14/17 10:53 Dose: 10 mg Aspirin (Aspirin Chewable) 81 mg PO 0800 [facility] Last Admin: 12/14/17 08:34 Dose: 81 mg Atorvastatin Calcium (Lipitor) 20 mg PO DIN [facility] Last Admin: 12/14/17 18:05 Dose: 20 mg Cinacalcet (Sensipar) 60 mg PO 0800 [facility] Last Admin: 12/14/17 08:36 Dose: 60 mg Clonidine HCl (Catapres) 0.1 mg PO BID [facility] Last Admin: 12/14/17 10:48 Dose: 0.1 mg Clopidogrel Bisulfate (Plavix) 75 mg PO DAILY [facility] Last Admin: 12/14/17 10:53 Dose: 75 mg Docusate Sodium (Colace) 100 mg PO BID [facility] Last Admin: 12/14/17 18:03 Dose: 100 mg Heparin Sodium (Porcine) (Heparin) 5,000 units SC Q8H [facility] PRN Reason: Protocol Last Admin: 12/14/17 21:38 Dose: 5,000 units Hydralazine HCl (Apresoline) 50 mg PO TID [facility] Last Admin: 12/14/17 14:00 Dose: 50 mg Iron Sucrose 200 mg/ Sodium (Chloride) 110 mls @ 110 mls/hr IV QOD [facility] Last Admin: 12/13/17 11:00 Dose: 110 mls/hr Isosorbide Mononitrate (Imdur) 60 mg PO 0630 [facility] Lactic Acid (Lac-Hydrin 12% Lotion (225 G)) 0 gm EXT BID [facility] Last Admin: 12/14/17 10:51 Dose: 1 cre Lidocaine (Lidoderm) 1 ea TD DAILY [facility] Last Admin: 12/14/17 10:51 Dose: 1 ea Lorazepam (Ativan) 0.5 mg PO BID PRN; Protocol PRN Reason: Anxiety Last Admin: 12/14/17 22:51 Dose: 0.5 mg Losartan Potassium (Cozaar) 50 mg PO DAILY [facility] Last Admin: 12/14/17 10:02 Dose: 50 mg Metoprolol Tartrate (Lopressor) 50 mg PO BRKDIN [facility] Last Admin: 12/14/17 18:05 Dose: 50 mg Morphine Sulfate (Morphine) 2 mg IVP Q4H PRN PRN Reason: Pain, severe (8-10) Nitroglycerin (Nitro-Bid 2% Oint) 1 ea TOP Q6H [facility] Last Admin: 12/14/17 21:40 Dose: 1 ea Ondansetron HCl (Zofran Inj) 4 mg IVP Q4H PRN PRN Reason: Nausea/Vomiting Last Admin: 12/12/17 23:16 Dose: 4 mg Ondansetron HCl (Zofran Odt) 4 mg SL Q8H PRN; Protocol PRN Reason: Nausea/Vomiting Last Admin: 12/14/17 21:35 Dose: 4 mg Pantoprazole Sodium (Protonix Ec Tab) 20 mg PO 0600 [facility] Last Admin: 12/14/17 05:33 Dose: 20 mg Polyethylene Glycol (Miralax) 17 gm PO DAILY PRN PRN Reason: Constipation Timolol Maleate (Timoptic 0.5% Ophth Soln) 1 drop OD HS [facility] Last Admin: 12/14/17 21:38 Dose: 1 drop - Labs Labs: 12/10/17 05:00 12/10/17 05:00 Attending/Attestation - Attestation I have personally seen and examined this patient.: Yes I have fully participated in the care of the patient.: Yes I have reviewed all pertinent clinical information, including history, physical exam and plan: Yes Notes (Text): This is an addendum to GI progress report dictated by Jory Woods APN.The patient was seen and examined earlier. Medical records, lab studies, imagings were reviewed. Last 24 hours events reviewed. Agreed with the above treatment plan as outlined in Jory Woods APN's notes the with the addition of the following 12/14/17 23:44
[2017-12-15] MEDS: Pantoprazole 20 mg EC Tab PO SCH (05:52)
[2017-12-15] MEDS: Nitroglycerin 2% Ointment Foilpak UD TOP SCH ×2 (05:53)
[2017-12-15] MEDS: Lidocaine 5% Patch TD SCH (09:44)
[2017-12-15] MEDS: Ammonium Lactate 12% Lotion (225 g) EXT SCH (09:50)
[2017-12-15 10:03] VITALS: BP 176/73; PULSE 53
--- NOTE | 2017-12-17 08:43 | PN ---
DATE: 12/15/2017 LOCATION: The patient is in the Transitional Care Unit, 314, bed 1. SUBJECTIVE: The patient was admitted with acute coronary artery syndrome, hypertension, renal insufficiency. The patient has been in the Transitional Care Unit and she is going to be discharged today. PHYSICAL EXAMINATION VITAL SIGNS: Pulse is 70, blood pressure 157/74, O2 sat 96% on room air. LUNGS: Clear. HEART: Normal sinus rhythm. ABDOMEN: Soft. Liver and spleen not palpable. CENTRAL NERVOUS SYSTEM: The patient is conscious, rational, and oriented. EXTREMITIES: The patient complains of pain in the right forearm, the IV site, this need to be treated conservatively. Warm soaks in the site will probably be appropriate. MEDICATIONS: At this time, the patient will be placed on hydralazine 50 mg three times a day. The patient will be on Ativan 0.5 mg b.i.d. The patient will be on clonidine 0.1 mg b.i.d., losartan 50 mg daily, 60 mg daily. She is going to get metoprolol 50 mg daily, Lipitor 20 mg daily. We will give the patient medication for pain management. Oxycodone 10 mg t.i.d. short term. PLAN: The patient will be visited by the Compassionate Care Nursing Service. They will probably start the patient on some morphine therapy sublingual as needed for pain. The patient will also get amlodipine 10 mg daily, Plavix 75 mg daily, pantoprazole 20 mg daily. The patient gets eye drops, which she has at home and she will continue that and she will be on a renal diet . We will have the nurse give the patient a list of food that should be avoided in a patient with renal insufficiency. The patient's prognosis, compassionate care status. Ky Bell MD
== END 2017-12-15 12:54 | disposition home or self-care (01) | DRG 281 ==
LOC: TRCU 18:40
PROVIDERS: ADMIT Internal Medicine; ATTEND Internal Medicine
PROC: F07Z9FZ Gait Training/Functional Ambulation Treatment using Assistive, Adaptive, Supportive or Protective Equipment (ICD-10-PCS; principal; 2017-12-06)
PROC: F07M6ZZ Therapeutic Exercise Treatment of Musculoskeletal System - Whole Body (ICD-10-PCS; 2017-12-06)
PROC: F08Z2ZZ Grooming/Personal Hygiene Treatment (ICD-10-PCS; 2017-12-06)
PROC: F08Z1ZZ Dressing Techniques Treatment (ICD-10-PCS; 2017-12-06)
PROC: F08Z0ZZ Bathing/Showering Techniques Treatment (ICD-10-PCS; 2017-12-06)
PROC: F08Z4ZZ Home Management Treatment (ICD-10-PCS; 2017-12-06)
DX: I21.4 Non-ST elevation (NSTEMI) myocardial infarction (principal); N17.9 Acute kidney failure, unspecified; N18.4 Chronic kidney disease, stage 4 (severe); R65.10 Systemic inflammatory response syndrome (SIRS) of non-infectious origin without acute organ dysfunction; I12.9 Hypertensive chronic kidney disease with stage 1 through stage 4 chronic kidney disease, or unspecified chronic kidney disease; B35.1 Tinea unguium; D50.9 Iron deficiency anemia, unspecified; D63.1 Anemia in chronic kidney disease; E11.22 Type 2 diabetes mellitus with diabetic chronic kidney disease; E11.51 Type 2 diabetes mellitus with diabetic peripheral angiopathy without gangrene; E21.0 Primary hyperparathyroidism; E78.5 Hyperlipidemia, unspecified; E87.6 Hypokalemia; F41.9 Anxiety disorder, unspecified; G20 Parkinson's disease; G89.29 Other chronic pain; I25.110 Atherosclerotic heart disease of native coronary artery with unstable angina pectoris; K21.9 Gastro-esophageal reflux disease without esophagitis; K59.00 Constipation, unspecified; M19.90 Unspecified osteoarthritis, unspecified site; M41.9 Scoliosis, unspecified; M79.7 Fibromyalgia; R13.10 Dysphagia, unspecified; Z51.5 Encounter for palliative care; Z66 Do not resuscitate; Z79.899 Other long term (current) drug therapy; Z85.42 Personal history of malignant neoplasm of other parts of uterus; Z87.891 Personal history of nicotine dependence; Z90.710 Acquired absence of both cervix and uterus

== ENCOUNTER 2018-05-26 12:30 | Inpatient (IN) | payer MEDICARE ==
--- NOTE | 2018-05-26 13:14 | ED PDOC ---
Arrival/HPI - General Chief Complaint: Lower Extremity Problem/Injury Time Seen by Provider: 05/26/18 12:37 Historian: Patient, Family - History of Present Illness Narrative History of Present Illness (Text): 83yoF, DNR/DNI, HTN, CKD, CAD on aspirin/plavix, PVD, who was hospice and now rescinded as wants orthopedics evaluation for a accidental fall/unable to ambulate and noted left hip fracture, and did hit her head with fall but without loc/n/v/matthews/dizziness/sob/chest pain/abdomen pain/numbness/tingling/ dysuria. 05/26/18 13:11 Time/Duration: Other (2 days) Symptom Onset: Gradual Symptom Course: Unchanged Quality: Aching Severity Level: 2 Activities at Onset: Rest Context: Sitting Past Medical History - Provider Review Nursing Documentation Reviewed: Yes - Travel History Have you recently traveled outside [place] w/in the past 3 mons?: No - Infectious Disease Hx of Infectious Diseases: None - Cardiac Hx Cardiac Disorders: Yes Hx Hypertension: Yes - Renal Hx Renal Failure: Yes (CKD) - Musculoskeletal/Rheumatological Hx Arthritis: Yes Hx Back Pain: Yes Hx Falls: Yes (past) - Gastrointestinal Hx Gastrointestinal Disorders: No Hx Gastroesophageal Reflux: Yes - Genitourinary/Gynecological Hx Reproductive Disorders: No - Psychiatric Hx Anxiety: Yes Hx Substance Use: No - Anesthesia Hx Anesthesia: Yes Family/Social History - Physician Review Nursing Documentation Reviewed: Yes Family/Social History: No Known Family HX Smoking Status: Former Smoker Hx Alcohol Use: No Hx Substance Use: No Allergies/Home Meds Allergies/Adverse Reactions: Allergies allopurinol [From Zyloprim] Allergy (Verified 05/26/18 12:45) URTICARIA Home Medications: Home Meds Medication Instructions Recorded Confirmed Atorvastatin [Lipitor] 20 mg PO DAILY 11/21/17 05/26/18 Clopidogrel [Plavix] 75 mg PO DAILY 11/21/17 05/26/18 Timolol 0.5% Ophth [Timoptic 0.5% 1 drop OD HS 11/21/17 05/26/18 Ophth Soln] cloNIDine [Catapres (RENAL)] 0.1 mg PO BID 11/21/17 05/26/18 Furosemide [Lasix] 20 mg PO DAILY 12/06/17 05/26/18 LORazepam [Ativan] 0.5 mg PO 05/26/18 05/26/18 Review of Systems - Review of Systems Constitutional: Normal Eyes: Normal ENT: Normal Respiratory: Normal Cardiovascular: Normal Gastrointestinal: Normal Genitourinary Female: Normal Musculoskeletal: Other (hip pain) Skin: Normal Neurological: Normal Endocrine: Normal Hemo/Lymphatic: Normal Psychiatric: Normal Physical Exam Vital Signs Reviewed: Yes Vital Signs Temp Pulse Resp BP Pulse Ox 05/26/18 12:39 98.5 F 99 H 17 170/83 H 94 L Temperature: Afebrile Blood Pressure: Hypertensive Pulse: Regular Respiratory Rate: Normal Appearance: Positive for: Well-Appearing, Non-Toxic, Comfortable Pain Distress: None Mental Status: Positive for: Alert and Oriented X 3 - Systems Exam Head: Present: Atraumatic, Normocephalic Pupils: Present: PERRL Extroacular Muscles: Present: EOMI Conjunctiva: Present: Normal Ears: Present: Normal Mouth: Present: Moist Mucous Membranes Pharnyx: Present: Normal Nose (External): Present: Atraumatic Nose (Internal): Present: Normal Inspection Neck: Present: Normal Range of Motion, Other (no c-t-l spinal or paraspinal tenderness) Respiratory/Chest: Present: Clear to Auscultation, Good Air Exchange Cardiovascular: Present: Regular Rate and Rhythm Abdomen: No: Tenderness, Distention, Normal Bowel Sounds, Peritoneal Signs, Rebound, Guarding, McBurney's Point Tender, Rovsing's Sign Present, Hernias, Feeding Tubes, Ostomy Tubes, Mass/Organomegaly, Scars, Other Back: Present: Normal Inspection Upper Extremity: Present: Normal Inspection Lower Extremity: Present: Normal Inspection, Other (mild left hip pain with otherwise positive femoral pulse and otherwise pink/warm/good cap refill/distal sensation/dopplarable PT pulses positive without any other bony tenderness or laxity.) Neurological: Present: GCS=15, CN II-XII Intact, Speech Normal, Motor Func Grossly Intact Skin: Present: Warm, Normal Color Psychiatric: Present: Alert, Oriented x 3, Normal Insight, Normal Concentration Medical Decision Making ED Course and Treatment: 83yoF, DNR/DNI, HTN, CKD, CAD on aspirin/plavix, PVD, who was hospice and now rescinded as wants orthopedics evaluation for a accidental fall/unable to ambulate and noted left hip fracture, and did hit her head with fall but without loc/n/v/matthews/dizziness/sob/chest pain/abdomen pain/numbness/tingling/ dysuria. wbc 8 hb 11 plts 230 Cr 1.3 Trop less than 0.01 UA negative CXR mild vascular markings left hip xray/pelvis xray b/l femoral stents, with left femoral neck fracture with displacement. 05/26/2018 14:[address] IMPRESSION: No acute findings. Dictator: Michael Umaña MD 05/26/18 16:06 d/w Dr. Bell who stated can admit to [facility] [place], and per pt request for orthopedics consult with Dr. Scott. Reassessment Condition: Re-examined, Improving,but remains with symptoms - Lab Interpretations Lab Results: 05/26/18 13:25 05/26/18 13:25 Lab Results 05/26/18 13:25: Sodium 136, Potassium 4.6, Chloride 102, Carbon Dioxide 26, Anion Gap 12, BUN 41 H, Creatinine 1.6 H, Est GFR ( Amer) 37, Est GFR ( Non-Af Amer) 31, Random Glucose 106, Calcium 9.6, Magnesium 2.2, Total Bilirubin 0.7, AST 33, ALT 33, Alkaline Phosphatase 99, Lactate Dehydrogenase 469, Total Creatine Kinase 282 H, CK-MB (CK-2) 4.1 H, CK-MB (CK-2) % Cancelled, Troponin I 0.01 D, Total Protein 5.9, Albumin 3.2, Globulin 2.8, Albumin/ Globulin Ratio 1.1 05/26/18 13:25: Urine Color Yellow, Urine Appearance Clear, Urine pH 6.0, Ur Specific Morrice 1.020, Urine Protein Trace H, Urine Glucose (UA) Negative, Urine Ketones Negative, Urine Blood Negative, Urine Nitrate Negative, Urine Bilirubin Negative, Urine Urobilinogen 0.2, Ur Leukocyte Esterase Negative, Urine RBC 0 - 2, Urine WBC 0 - 2, Ur Epithelial Cells 0 - 2, Urine Bacteria Neg , Hyaline Casts 0 - 2 05/26/18 13:25: PT 10.7, INR 0.93, APTT 24.6 L 05/26/18 13:25: WBC 8.5 D, RBC 3.84, Hgb 11.1 L, Hct 34.7 L, MCV 90.4, MCH 28.9 , MCHC 32.0, RDW 15.1 H, Plt Count 230, MPV 10.3, Gran % 68.7 H, Lymph % (Auto) 18.2 L, Randolph % (Auto) 8.6 H, Eos % (Auto) 4.3, Baso % (Auto) 0.2, Gran # 5.81, Lymph # (Auto) 1.5, Randolph # (Auto) 0.7 H, Eos # (Auto) 0.4, Baso # (Auto) 0.02 I have reviewed the lab results: Yes - RAD Interpretation Radiology Orders: 05/26/18 13:09 HEAD W/O CONTRAST [CT] Stat CHEST ONE VIEW [RAD] Stat Hip Left [HIP MIN 2V W/ PELVIS LT] [RAD] Stat Team Guide: ED Physician (cxr mild vascular markings; left hip/pelvis xray b/l stents noted, left femoral neck fracture with displacement) - EKG Interpretation Interpreted by ED Physician: Yes (sinus bradycardia) Type: 12 lead EKG Disposition/Present on Arrival - Present on Arrival Any Indicators Present on Arrival: No History of DVT/PE: No History of Uncontrolled Diabetes: No Urinary Catheter: No History of Decub. Ulcer: No History Surgical Site Infection Following: None - Disposition Have Diagnosis and Disposition been Completed?: Yes Diagnosis: Fracture of femoral neck, left, closed Disposition Time: 16:07 Patient Plan: Admission Condition: STABLE Forms: [employer] ([place])
[2018-05-26 13:48] LABS: URINE BILIRUBIN NEGATIVE (NEGATIVE); URINE BLOOD NEGATIVE (NEGATIVE); URINE GLUCOSE (UA) NEGATIVE (NEGATIVE); URINE LEUKOCYTE ESTERASE NEGATIVE Leu/uL (NEGATIVE); URINE PROTEIN TRACE mg/dL (<30 mg/dL); URINE UROBILINOGEN 0.2 E.U./dL (<1 E.U./dL)
[2018-05-26 13:50] LABS: BASO # 0.02 K/mm3 (0.0-2.0); BASO % 0.2 % (0.0-3.0); EOS # 0.4 (0.0-0.7); EOS % 4.3 % (1.5-5.0); GRAN # 5.81 (1.4-6.5); GRAN % 68.7 % (50.0-68.0); HEMOGLOBIN 11.1 g/dL (12.0-16.0); LYMPH # 1.5 (1.2-3.4); LYMPH % 18.2 % (22.0-35.0); MEAN CELL VOLUME 90.4 fl (80.0-105.0); MEAN CORPUSCULAR HEMOGLOBIN 28.9 pg (25.0-35.0); MEAN PLATELET VOLUME 10.3 fl (7.0-11.0); MONO # 0.7 (0.1-0.6); MONO % 8.6 % (1.0-6.0); RBC 3.84 10^6/uL (3.5-6.1); RED CELL DISTRIBUTION WIDTH 15.1 % (11.5-14.5); WHITE BLOOD COUNT 8.5 10^3/ul (4.5-11.0)
[2018-05-26 13:54] LABS: INR 0.93; PARTIAL THROMBOPLASTIN TIME 24.6 Seconds (25.1-36.5); PROTHROMBIN TIME 10.7 SECONDS (9.4-12.5)
[2018-05-26 13:58] LABS: ALB/GLOB RATIO 1.1 (1.1-1.8); ALBUMIN 3.2 g/dL (3.0-4.8); CALCIUM 9.6 mg/dL (8.4-10.5)
[2018-05-26 14:07] LABS: URINE APPEARANCE CLEAR (CLEAR); URINE COLOR YELLOW (YELLOW)
[2018-05-26 14:08] LABS: TROPONIN I 0.01 ng/mL
[2018-05-26 14:16] LABS: URINE BACTERIA NEG (NEG); URINE EPITHELIAL CELLS 0 - 2 /hpf (0-5); URINE HYALINE CAST 0 - 2 /hpf; URINE RBC 0 - 2 /hpf (0-2); URINE WBC 0 - 2 /hpf (0-6)
[2018-05-26 14:35] LABS: CK-MB 4.1 ng/mL (0.0-3.6)
--- NOTE | 2018-05-26 14:54 | CT ---
Date of service: 05/26/2018 PROCEDURE: CT HEAD WITHOUT CONTRAST. HISTORY: 83yoF, fall COMPARISON: None available. TECHNIQUE: Axial computed tomography images were obtained through the head/brain without intravenous contrast. Radiation dose: Total exam DLP = 814 mGy-cm. This CT exam was performed using one or more of the following dose reduction techniques: Automated exposure control, adjustment of the mA and/or kV according to patient size, and/or use of iterative reconstruction technique. FINDINGS: HEMORRHAGE: No intracranial hemorrhage. BRAIN: No mass effect or edema. No atrophy or chronic microvascular ischemic changes. VENTRICLES: Unremarkable. No hydrocephalus. CALVARIUM: Unremarkable. PARANASAL SINUSES: Unremarkable as visualized. No significant inflammatory changes. MASTOID AIR CELLS: Unremarkable as visualized. No inflammatory changes. OTHER FINDINGS: None. IMPRESSION: No acute findings
--- NOTE | 2018-05-26 16:12 | RAD ---
PROCEDURE: Left Hip and pelvis X-ray Radiographs. HISTORY: 83yoF w left hip pain COMPARISON: None. FINDINGS: BONES: There is a displaced subcapital hip fracture on the left. The pelvis is intact. JOINTS: Normal. SOFT TISSUES: Normal. OTHER FINDINGS: None. IMPRESSION: Displaced subcapital hip fracture on the left
--- NOTE | 2018-05-26 16:17 | RAD ---
Date of service: 05/26/2018 PROCEDURE: CHEST RADIOGRAPH, 1 VIEW HISTORY: 83yoF, fall COMPARISON: 11/21/2017 FINDINGS: LUNGS: Clear. PLEURA: No pneumothorax or pleural fluid seen. CARDIOVASCULAR: Normal. OSSEOUS STRUCTURES: No significant abnormalities. VISUALIZED UPPER ABDOMEN: Normal. OTHER FINDINGS: None. IMPRESSION: No active disease.
[2018-05-26] MEDS ORDERED: Morphine 2 mg/ml ISec IVP STA (16:20)
--- NOTE | 2018-05-26 17:05 | CP.PCM.HP ---
History of Present Illness - History of Present Illness History of Present Illness: 83 year old female with history of hypertension, carotid artery disease, iliac stent, non-STEMI, and GERD was brought to the Emergency Room after falling at home. Patient has been on hospice since last discharge from hospital in January. A few days ago, she was walking in her home and fell. She has a bruise on the left knee. Hospice nurse sent her for X-rays and fracture of the femoral neck was found. Patient was unable to get out of bed or walk, so she decided to rescind the hospice and come to the ER. She is complaining of pain in the left hip. Present on Admission - Present on Admission Any Indicators Present on Admission: No History of DVT/PE: No History of Uncontrolled Diabetes: No Urinary Catheter: No Decubitus Ulcer Present: No Review of Systems - Constitutional Constitutional: absent: Chills, Fever, Weakness - Cardiovascular Cardiovascular: absent: Chest Pain, Diaphoresis, Dyspnea - Respiratory Respiratory: absent: Cough, Dyspnea, Hemoptysis - Gastrointestinal Gastrointestinal: absent: Abdominal Pain, Nausea, Vomiting Past Patient History - Infectious Disease Hx of Infectious Diseases: None - Past Social History Smoking Status: Former Smoker - CARDIAC Hx Cardiac Disorders: Yes Hx Hypertension: Yes - RENAL Hx Renal Failure: Yes (CKD) - MUSCULOSKELETAL/RHEUMATOLOGICAL Hx Arthritis: Yes Hx Back Pain: Yes Hx Falls: Yes (past) - GASTROINTESTINAL Hx Gastrointestinal Disorders: No Hx Gastroesophageal Reflux: Yes - GENITOURINARY/GYNECOLOGICAL Hx Reproductive Disorders: No - PSYCHIATRIC Hx Anxiety: Yes Hx Substance Use: No - ANESTHESIA Hx Anesthesia: Yes Meds Allergies/Adverse Reactions: Allergies Allergy/AdvReac Type Severity Reaction Status Date / Time allopurinol [From Zyloprim] Allergy URTICARIA Verified 05/26/18 12:45 Physical Exam - Constitutional Appears: No Acute Distress - Head Exam Head Exam: ATRAUMATIC, NORMOCEPHALIC - Respiratory Exam Respiratory Exam: Clear to Auscultation Bilateral, NORMAL BREATHING PATTERN - Cardiovascular Exam Cardiovascular Exam: REGULAR RHYTHM, +S1, +S2 - GI/Abdominal Exam GI & Abdominal Exam: Normal Bowel Sounds, Soft. absent: Tenderness - Extremities Exam Additional comments: + lower extremity edema BL - Neurological Exam Neurological exam: Alert, Oriented x3 Results - Vital Signs Recent Vital Signs: Last Vital Signs Temp 98.5 F 05/26/18 12:39 Pulse 58 L 05/26/18 16:27 Resp 18 05/26/18 16:27 BP 148/91 H 05/26/18 16:27 Pulse Ox 98 05/26/18 16:27 - Labs Result Diagrams: 05/26/18 13:25 05/26/18 13:25 Assessment & Plan - Assessment and Plan (Free Text) Assessment: Left hip fracture HTN CKD history of non-STEMI GERD Anxiety Plan: Patient is seen this afternoon in the Emergency Room. She will be admitted to medical floor for left hip fracture. Dr. Garvey, orthopedic surgeon, is consulted. Patient will be continued on her maintenance medications for blood pressure and history of PA. Her creatinine appears to be stable compared to her last admission. Will consult Cardiology and Nephrology as patient may need surgery.
[2018-05-26 22:27] VITALS: BMI 19.1
[2018-05-27] MEDS: Pantoprazole 40 mg EC Tab PO SCH (07:08)
[2018-05-27] MEDS: Dextrose 5%/0.9% NS 1,000 ML IV SCH ×2 (07:08→18:58)
[2018-05-27 07:26] LABS: BASO # 0.02 K/mm3 (0.0-2.0); BASO % 0.3 % (0.0-3.0); EOS # 0.3 (0.0-0.7); EOS % 3.6 % (1.5-5.0); GRAN # 5.33 (1.4-6.5); HEMOGLOBIN 9.9 g/dL (12.0-16.0); LYMPH # 1.6 (1.2-3.4); LYMPH % 19.7 % (22.0-35.0); MEAN CELL VOLUME 90.2 fl (80.0-105.0); MEAN CORPUSCULAR HEMOGLOBIN 28.6 pg (25.0-35.0); MEAN CORPUSCULAR HGB CONC 31.7 g/dl (31.0-37.0); MEAN PLATELET VOLUME 9.8 fl (7.0-11.0); MONO # 0.8 (0.1-0.6); MONO % 9.4 % (1.0-6.0); RBC 3.46 10^6/uL (3.5-6.1); RED CELL DISTRIBUTION WIDTH 14.8 % (11.5-14.5)
[2018-05-27 08:06] LABS: ALB/GLOB RATIO 1.1 (1.1-1.8); ALBUMIN 2.7 g/dL (3.0-4.8); CALCIUM 9.2 mg/dL (8.4-10.5)
--- NOTE | 2018-05-27 08:15 | CP.PCM.PN ---
Subjective - Date & Time of Evaluation Date of Evaluation: 05/27/18 Time of Evaluation: 07:45 - Subjective Subjective: Patient is seen this morning. She is lying in bed. Denies pain this morning. Objective - Vital Signs/Intake and Output Vital Signs (last 24 hours): Temp Pulse Resp BP Pulse Ox 98.5 F 57 L 18 116/59 L 97 05/26/18 12:39 05/26/18 22:16 05/26/18 22:16 05/26/18 22:16 05/26/18 18:00 Intake and Output: 05/27/18 05/27/18 06:59 18:59 Intake Total 100 Output Total 400 Balance -300 - Medications Medications: Current Medications Amlodipine Besylate (Norvasc) 10 mg PO DAILY [facility] Aspirin (Aspirin Chewable) 81 mg PO DAILY [facility] Atorvastatin Calcium (Lipitor) 20 mg PO DIN [facility] Last Admin: 05/26/18 18:08 Dose: 20 mg Clonidine HCl (Catapres) 0.1 mg PO BID [facility] Last Admin: 05/26/18 18:07 Dose: 0.1 mg Furosemide (Lasix) 20 mg PO DAILY [facility] Hydralazine HCl (Apresoline) 50 mg PO TID [facility] Last Admin: 05/26/18 20:26 Dose: Not Given Dextrose/Sodium Chloride (Dextrose 5%/0.9% Ns 1000 Ml) 1,000 mls @ 80 mls/hr IV .[id number] [facility] Last Admin: 05/27/18 07:08 Dose: 80 mls/hr Isosorbide Mononitrate (Imdur) 60 mg PO DAILY [facility] Lorazepam (Ativan) 0.5 mg PO HS [facility] PRN Reason: Protocol Last Admin: 05/26/18 21:45 Dose: 0.5 mg Losartan Potassium (Cozaar) 50 mg PO DAILY [facility] Metoprolol Tartrate (Lopressor) 50 mg PO DAILY [facility] Morphine Sulfate (Morphine) 2 mg IVP Q4H PRN PRN Reason: Pain, moderate (4-7) Ondansetron HCl (Zofran Inj) 4 mg IVP Q4H PRN PRN Reason: Nausea/Vomiting Pantoprazole Sodium (Protonix Ec Tab) 20 mg PO 0600 [facility] Last Admin: 05/27/18 07:08 Dose: 20 mg Timolol Maleate (Timoptic 0.5% Ophth Soln) 1 drop OD HS [facility] Last Admin: 05/26/18 21:46 Dose: 1 drp - Labs Labs: 05/27/18 07:00 05/27/18 07:00 PT 10.7 SECONDS (9.4-12.5) 05/26/18 13:25 INR 0.93 05/26/18 13:25 APTT 24.6 Seconds (25.1-36.5) L 05/26/18 13:25 - Constitutional Appears: No Acute Distress - Head Exam Head Exam: ATRAUMATIC, NORMOCEPHALIC - Respiratory Exam Respiratory Exam: Clear to Ausculation Bilateral, NORMAL BREATHING PATTERN - Cardiovascular Exam Cardiovascular Exam: REGULAR RHYTHM, +S1, +S2 - GI/Abdominal Exam GI & Abdominal Exam: Soft, Normal Bowel Sounds. absent: Tenderness - Extremities Exam Extremities Exam: Pedal Edema - Neurological Exam Neurological Exam: Alert, Awake Additional comments: oriented to person and place, not to time Assessment and Plan - Assessment and Plan (Free Text) Assessment: Left hip fracture HTN CKD PVD GERD Carotid artery disease History of [place] Plan: Patient is seen this morning. She has been seen by orthopedic surgeon, Dr Garvey and will have surgery on Sunday. Patient is cleared for surgery, but is high risk due to her renal and cardiovascular history. Renal and cardiology consultations will be done prior to surgery. Patient is unable to walk and needs surgery. will continue IV fluids. continue antihypertensives. continue incentive spirometry.
--- NOTE | 2018-05-27 09:30 | CON ---
DATE: 05/27/2018 Michael Garvey DO patint is 83 yr olt female fwll 05/21/18 and injured hip xray shows displaced a sub capital fx that needs a prosthesis a charles arthroplasty. will need med cardio and nephrology consults.was on p ixlav p .hope to do surg this wed MTDD
[2018-05-27] MEDS: Morphine 2 mg/ml ISec IVP PRN (12:37)
--- NOTE | 2018-05-27 15:25 | CARD ---
APPROVED REPORT Date of service: 05/26/2018 EKG Measurement Heart [id number] <Conclusion> Sinus bradycardia Septal infarct, age undetermined Abnormal ECG
[2018-05-27] MEDS: Silver Sulfadiazine 1% Cream (25 gm) TP SCH (15:53)
--- NOTE | 2018-05-28 00:57 | CON ---
DATE: 05/27/2018 REASON FOR CONSULTATION: Chronic kidney disease stage IV, left hip fracture. HISTORY OF PRESENTING ILLNESS: An 83-year-old lady, known to us from prior evaluation. The patient fell at home. As per the daughter, the patient was walking to the bathroom, she forgot to olive picker her cane and then she slid onto the floor. She was brought to the emergency room, she was found to have left hip fracture. The patient has a history of chronic kidney disease stage IV. Consultation is requested for renal clearance for surgery. The patient is lying in bed. She is awake, she is alert. She is comfortable. She reports she has mild pain in her left hip. She denies any chest pain. She denies any shortness of breath. She denies any palpitations. PAST MEDICAL AND SURGICAL HISTORY: Hypertension, CAD, iliac stent, [id number] DC, GERD, chronic kidney disease stage IV, episode of acute kidney injury, endometrial cancer, Parkinson's disease, arthritis. FAMILY HISTORY: Noncontributory. SOCIAL HISTORY: No smoking, no alcohol use, no IV drug abuse. ALLERGIES: ALLOPURINOL. MEDICATIONS AT HOME: Include Lipitor, aspirin, Imdur 60, Lasix 20, Plavix 75, Ativan, Lopressor 50, Cozaar 50, Protonix, nitroglycerin, hydralazine 50 t.i.d., amlodipine 10, clonidine 0.1 b.i.d. REVIEW OF SYSTEMS: All systems are reviewed, pertinent positives as mentioned in history of presenting illness, rest unremarkable. PHYSICAL EXAMINATION: GENERAL: Elderly lady lying in bed in no acute distress at present. VITAL SIGNS: Blood pressure 154/65, heart rate 66, respiratory rate 16, temperature 99.2, T-max is 99.2. HEENT: Normocephalic, atraumatic, positive pallor. NECK: Supple, no JVD. LUNGS: Bilateral equal entry, bilateral equal expansion, no rales. CARDIAC: S1 and S2, regular rate rhythm, no murmur, no rub. ABDOMEN: Soft, nondistended, nontender, bowel sounds present. EXTREMITIES: No lower extremity edema. External rotation of the left hip. INTAKE AND OUTPUT: 100/400. LABORATORY DATA: WBC 8, hemoglobin 9.9, hematocrit 31, platelets of 192. Sodium 136, potassium 4.9, chloride 104, CO2 of 25, BUN 40, creatinine 1.7, glucose 77, calcium 9.2, phosphorus 4.1, magnesium 2.2, AST 33, ALT 35, albumin 2.7. Urinalysis, yellow clear, pH 6, specific gravity 1.020, protein trace, glucose negative, ketones negative, leukocyte esterase negative. X-ray of the left hip shows a displaced subcapital hip fracture of the left femur. CURRENT MEDICATIONS: Hydralazine 50 t.i.d.; aspirin; Ativan; Catapres 0.1 b.i.d.; losartan 50; D5 normal saline at 80; Imdur 60; Lasix 20, not given; Lipitor; Lopressor 50 daily, not given; morphine; amlodipine 10; Silvadene. ASSESSMENT: 1. Stable chronic kidney disease stage IV, creatinine actually is at its best levels in the recent past. 2. History of severe hypertension. 3. Coronary artery disease, stable at this time. 4. Left subcapital fracture. 5. Anemia of chronic disease. PLAN: 1. The patient is stable for surgery and cleared for surgery from the renal standpoint. Her renal parameters are at the best levels in the last 1 year. 2. Hypertension control is important. Continue outpatient hypertensive regimen. 3. Avoid nephrotoxins. 4. Monitor H and H. Thank you for the courtesy of this consultation. Will follow this patient along with you. Barbara Edgar MD
[2018-05-28] MEDS: Pantoprazole 40 mg EC Tab PO SCH (05:55)
[2018-05-28] MEDS: Dextrose 5%/0.9% NS 1,000 ML IV SCH (05:55)
[2018-05-28 07:17] LABS: BASO # 0.01 K/mm3 (0.0-2.0); BASO % 0.1 % (0.0-3.0); EOS # 0.2 (0.0-0.7); EOS % 2.9 % (1.5-5.0); GRAN # 4.25 (1.4-6.5); GRAN % 58.9 % (50.0-68.0); HEMOGLOBIN 10.7 g/dL (12.0-16.0); LYMPH % 28.3 % (22.0-35.0); MEAN CELL VOLUME 90.5 fl (80.0-105.0); MEAN CORPUSCULAR HEMOGLOBIN 28.4 pg (25.0-35.0); MEAN CORPUSCULAR HGB CONC 31.4 g/dl (31.0-37.0); MEAN PLATELET VOLUME 10.1 fl (7.0-11.0); MONO # 0.7 (0.1-0.6); MONO % 9.8 % (1.0-6.0); RBC 3.77 10^6/uL (3.5-6.1); RED CELL DISTRIBUTION WIDTH 14.8 % (11.5-14.5); WHITE BLOOD COUNT 7.2 10^3/ul (4.5-11.0)
[2018-05-28 07:39] LABS: ALBUMIN 2.8 g/dL (3.0-4.8); CALCIUM 9.2 mg/dL (8.4-10.5)
--- NOTE | 2018-05-28 09:31 | CP.PCM.PN ---
Subjective - Date & Time of Evaluation Date of Evaluation: 05/28/18 Time of Evaluation: 07:45 - Subjective Subjective: Patient is seen this morning. She is confused. Her blood pressure is high and she refused her blood pressure medicine this morning. Hydralazine was given IV. Objective - Vital Signs/Intake and Output Vital Signs (last 24 hours): Temp Pulse Resp BP Pulse Ox 98 F 79 18 200/80 H 95 05/28/18 09:04 05/28/18 09:04 05/28/18 09:04 05/28/18 09:04 05/28/18 09:04 Intake and Output: 05/28/18 05/28/18 06:59 18:59 Intake Total 240 Output Total 850 Balance -610 - Medications Medications: Current Medications Amlodipine Besylate (Norvasc) 10 mg PO DAILY [facility] Last Admin: 05/27/18 10:00 Dose: Not Given Aspirin (Aspirin Chewable) 81 mg PO DAILY [facility] Last Admin: 05/27/18 10:01 Dose: Not Given Atorvastatin Calcium (Lipitor) 20 mg PO DIN [facility] Last Admin: 05/27/18 18:32 Dose: 20 mg Bacitracin (Bacitracin) 1 ea TOP BID [facility] Clonidine HCl (Catapres) 0.1 mg PO BID [facility] Last Admin: 05/27/18 18:32 Dose: 0.1 mg Furosemide (Lasix) 20 mg PO DAILY [facility] Last Admin: 05/27/18 12:20 Dose: Not Given Hydralazine HCl (Apresoline) 50 mg PO TID [facility] Last Admin: 05/27/18 18:32 Dose: 50 mg Dextrose/Sodium Chloride (Dextrose 5%/0.9% Ns 1000 Ml) 1,000 mls @ 80 mls/hr IV .[id number] [facility] Last Admin: 05/28/18 05:55 Dose: 80 mls/hr Isosorbide Mononitrate (Imdur) 60 mg PO DAILY [facility] Last Admin: 05/27/18 09:59 Dose: Not Given Lorazepam (Ativan) 0.5 mg PO HS [facility] PRN Reason: Protocol Last Admin: 05/27/18 22:22 Dose: Not Given Losartan Potassium (Cozaar) 50 mg PO DAILY [facility] Last Admin: 05/27/18 09:58 Dose: Not Given Metoprolol Tartrate (Lopressor) 50 mg PO DAILY [facility] Last Admin: 05/27/18 10:00 Dose: Not Given Morphine Sulfate (Morphine) 2 mg IVP Q4H PRN PRN Reason: Pain, moderate (4-7) Last Admin: 05/27/18 12:37 Dose: 2 mg Ondansetron HCl (Zofran Inj) 4 mg IVP Q4H PRN PRN Reason: Nausea/Vomiting Pantoprazole Sodium (Protonix Ec Tab) 20 mg PO 0600 [facility] Last Admin: 05/28/18 05:55 Dose: 20 mg Silver Sulfadiazine (Silvadene 1% 25 Gm) 0 gm TP DAILY [facility] Last Admin: 05/27/18 15:53 Dose: 25 gm Timolol Maleate (Timoptic 0.5% Ophth Soln) 1 drop OD HS [facility] Last Admin: 05/27/18 22:19 Dose: 1 drp - Labs Labs: 05/28/18 06:30 05/28/18 06:30 PT 10.7 SECONDS (9.4-12.5) 05/26/18 13:25 INR 0.93 05/26/18 13:25 APTT 24.6 Seconds (25.1-36.5) L 05/26/18 13:25 - Constitutional Appears: No Acute Distress - Head Exam Head Exam: ATRAUMATIC, NORMOCEPHALIC - Respiratory Exam Respiratory Exam: Clear to Ausculation Bilateral, NORMAL BREATHING PATTERN - Cardiovascular Exam Cardiovascular Exam: REGULAR RHYTHM, +S1, +S2 - GI/Abdominal Exam GI & Abdominal Exam: Soft, Normal Bowel Sounds. absent: Tenderness - Extremities Exam Extremities Exam: Pedal Edema - Neurological Exam Neurological Exam: Alert, Awake Assessment and Plan - Assessment and Plan (Free Text) Assessment: Left hip fracture HTN - uncontrolled CKD History of [place] dementia Plan: Patient is seen this morning. She is very confused. She has history of dementia. Her blood pressure is high this morning and she refused her medications orally. She was given IV hydralazine. We will discontinue the IV fluids. Her BUN and creatinine decreased with IV fluids. Creatinine is 1.3 this morning, which is the lowest it has been in many years. If patient, continues to refuse oral meds, will have to change to IV. Patient is cleared for surgery tomorrow although she is high risk due to her renal and cardiovascular history.
--- NOTE | 2018-05-28 09:45 | CON ---
DATE: 05/28/2018 INDICATIONS: Preop evaluation. This is an 83-year-old woman known to us who was admitted after a fall at home, suffering a left hip fracture with orthopedic surgery planned for tomorrow. In November of this year, she suffered a myocardial infarction and there are multiple medical problems including hospice and DNR/DNI status. There has been no chest pain or shortness of breath. No orthopnea, PND or syncope. This was a mechanical fall. There was no vertigo, edema, claudication. Reported no fever, chills, cough and sputum production, hemoptysis, abdominal pain, nausea, vomiting, diarrhea, constipation or melena. 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 She had a hysterectomy for endometrial cancer. She has glaucoma. She is a former smoker. She has Parkinson's disease. She is in hospice care. She is DNR/DNI status. MEDICATIONS: At the time of admission include hydralazine, aspirin, Ativan, clonidine, losartan, Imdur, Lasix, Lipitor, metoprolol, Norvasc, Plavix, Protonix. ALLERGIES: SHE NOTES AN ALLERGY TO ALLOPURINOL. SOCIAL HISTORY: She lives at home on hospice care. She no longer smoke. She does not drink alcohol significantly. Her daughter is a sister. FAMILY HISTORY: Not available. REVIEW OF SYSTEMS: A 10-point review of systems is not available. Information is from the chart. PHYSICAL EXAMINATION: GENERAL: She is a well-developed woman, confused. VITAL SIGNS: Unremarkable vital signs including a pulse of 79. She is afebrile. Blood pressure 165/69, respirations 18, O2 sat 94%. HEENT: Reveals no neck vein distention, thyromegaly or carotid bruit. Mucous membranes moist. Conjunctiva pink. NECK: Supple. LUNGS: Lung leyva are clear throughout. HEART: Revealed normal first and second heart sounds. ABDOMEN: Soft. Bowel sounds are present. No mass, organomegaly, tenderness, rebound, guarding, no CVA tenderness. No palpable abdominal aortic aneurysm. EXTREMITIES: Revealed no cyanosis, clubbing or edema. NEUROLOGICALLY: She is awake and confused. PSYCHIATRIC: Not assessed. SKIN: Warm and dry. No rash or cellulitis. LABORATORY AND IMAGING: Chest x-ray is unremarkable. EKG demonstrates sinus bradycardia of 54 beats per minute. There were nonspecific ST wave changes. No acute changes compared to a prior EKG. A CT scan of the head reveals no acute findings. A hip and pelvis x-ray reveals a left hip fracture. White count normal, platelet count normal, hemoglobin 10.7, hematocrit 34.1. PT/INR unremarkable. PTT low at 24.6. Electrolytes unremarkable. Potassium 4.1. Creatinine initially 1.6, today 1.3. BUN initially 41, today 31. Magnesium normal. LFTs normal. Troponin normal. CK 282. Urinalysis is noted. An echocardiogram from November 2017 reveals mild LV dysfunction, ejection fraction about 40-45%. There is aortic sclerosis versus mild . There is mild AI, [id number] TR and MR. IMPRESSION: Angie Prado is an 83-year-old woman with multiple medical problems, recent myocardial infarction, peripheral vascular disease, who fell at home, suffered a left hip fracture, who is under hospice care with confusional state, who was scheduled to undergo elective orthopedic surgery tomorrow. She should be considered a [id number] risk because of the fairly recent myocardial infarction and multiple medical problems and frail medical state. Her blood pressure is elevated. She is being seen by Dr. Edgar. Once the blood pressure is under control., she can be considered optimized for surgery, but at a [id number] risk. I will review her old records. I will follow along with you. I will make additional recommendations based on her clinical course. Vinod Mariano MD [facility]
[2018-05-28] MEDS: Silver Sulfadiazine 1% Cream (25 gm) TP SCH (11:53)
[2018-05-28] MEDS: Bacitracin 500 Units/gm Oint Foilpak UD TOP SCH ×2 (11:53→17:32)
--- NOTE | 2018-05-28 12:30 | CON ---
DATE: 05/28/2018 PREOPERATIVE CONSULT LOCATION: Room 576, bed 1. The patient is an 83-year-old female who came into the hospital three days ago with a subcapital fracture, displaced left hip, but was at home for a week prior to coming to the hospital and yesterday, she broke it before she came in and she was dehydrated when she came in. Her initial hemoglobin and hematocrit was at 11.1 and 34.7, today is 10.7 and 34. We did hydrate her. Her BUN used to be 41, now it is 31; creatinine used to be 1.6, now it is 1.3 and her other history is that she is on Plavix and that is why her platelets came down from 230 to 183. We stopped the Plavix after she came in the hospital. We are going to give her a unit of platelets at the time of surgery which is scheduled for 05/29/2018 which is tomorrow at 07:30. She has a Renal consult and it was cleared. We are awaiting for the cardiac consult. Her blood pressure is a little high because of pain. She needs a bipolar hip prosthesis and we are going to have Anesthesia see her too and have two units of blood available. I will give her a unit of platelet during surgery. As the Plavix has been four days and we will handle some of that oozing with platelets and the surgery does not require more than a unit or two of blood anyway. Michael Garvey DO
--- NOTE | 2018-05-28 13:16 | PN ---
DATE: 05/28/2018 SUBJECTIVE: The patient is currently seen lying comfortable in bed. She is anticipating having left hip surgery tomorrow for her fall at home with a fractured left hip. She has been seen by the sliver chopper earlier today and is waiting for cardiac clearance. Her BUN and creatinine are at her best levels in a lengthy period of time. MEDICATIONS: Medication list reviewed. The patient is currently on hydralazine, aspirin, Ativan, bacitracin, clonidine, losartan, Imdur, p.o. Lasix, Lipitor, Lopressor, morphine p.r.n., Norvasc, Protonix, Silvadene cream, Timoptic ophthalmic solution, and Zofran p.r.n. PHYSICAL EXAMINATION: INTAKE AND OUTPUT: Intake is 240, output is 850. VITAL SIGNS: Blood pressure currently 171/68, but the patient did not take her medications in the morning. Heart rate is 73, temperature is 98 degrees, respiratory rate is 18. HEENT: Shows her to be normocephalic, atraumatic. Conjunctivae are pink. Sclerae nonicteric. NECK: Supple. No neck vein distention. CHEST: Clear to auscultation and percussion with no rales, rhonchi, or wheezing. CARDIOVASCULAR: Shows a regular rate and rhythm with /AI/MR/TR. No S3, no S4, no rub. ABDOMEN: Soft. Nondistended. Bowel sounds normal. No rebound, guarding, or masses. EXTREMITIES: Show external rotation of her left hip. No lower extremity cyanosis, clubbing, or edema. Diminished lower extremity pulses bilaterally. LABORATORY DATA AND IMAGING: CBC: White blood cell count today is 7.2 with a hemoglobin of 10.7, platelet count is 183,000. Chemistries show a BUN of 31 and a creatinine of 1.3. This is actually her best level she has had in several years. Electrolytes are within normal limits. Glucose is 126. Calcium is 9.2 with a phosphorus of 4.1. Magnesium level of 2.2. Liver enzymes are normal. Cardiac enzymes are negative. Albumin level is 2.8. Urines were unremarkable. X-ray of her left hip shows a displaced subcapital hip fracture of the left femur. Microbiology, urine cultures are negative. ASSESSMENT: 1. Stable chronic kidney disease stage 3. BUN and creatinine are at their best levels in recent times. 2. History of a small right kidney with no renal artery stenosis of the left kidney. 3. Hypertension. At present, not well controlled, but the patient is back on her oral medications. I expect her blood pressure control to improve. 4. History of peripheral vascular disease with an iliac artery stent, history of carotid endarterectomy. This is all stable. 5. History of hyperlipidemia. The patient continues on a low-cholesterol diet and statin therapy. 6. History of mild anemia. This is stable, likely secondary to chronic kidney disease. 7. 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 The patient to be cleared by Dr. Mariano for tentative hip surgery for tomorrow. PLAN: 1. The patient is entirely stable from a renal standpoint. 2. Expect her blood pressure control to improve with resumption of her oral medications. 3. Await cardiology clearance. 4. The patient is scheduled for a left hip fracture repair with Dr. Garvey tomorrow morning. Byron Bonilla MD
[2018-05-28] MEDS: Morphine 2 mg/ml ISec IVP PRN (13:35)
[2018-05-28] MEDS ORDERED: Morphine 2 mg/ml ISec IVP STA (15:48)
[2018-05-29] MEDS ORDERED: Dextrose 5%/0.45% NS 1,000 ML IV SCH (00:01)
[2018-05-29] MEDS: Pantoprazole 20 mg EC Tab PO SCH (06:00)
[2018-05-29] MEDS ORDERED: Bupivacaine 0.5% Inj(30mL) ONE (07:23)
[2018-05-29] MEDS ORDERED: Vancomycin 1 g Inj ONE (07:26)
[2018-05-29] MEDS ORDERED: Propofol 10 mg/ml Inj (20 ML) ONE (07:38)
[2018-05-29] MEDS ORDERED: Etomidate 20 mg/10ml Inj IV ONE (07:39)
[2018-05-29] MEDS ORDERED: Succinylcholine 200 mg/10 ml Inj IV ONE (07:39)
[2018-05-29] MEDS ORDERED: Phenylephrine 10 mg/ml Inj ONE (07:41)
[2018-05-29] MEDS ORDERED: Rocuronium 10 mg/ml (5 ml) ONE (08:27)
--- NOTE | 2018-05-29 08:27 | PN ---
DATE: 05/28/2018 Patient had all the consults done for a surgery to do a left hip bipolar prosthesis. Surgery is planned for 05/29/[address] Mariano such as high risk, but needs to done because of the tremendous pain and Nephrology service cleared her so she is optimally ready. Medical doctor, Dr. Bell cleared the patient and supervised the medical followup and has 2 units of blood available and another unit of platelets that is needed during the surgery, but she was on Plavix about 5 days ago. The family understands the high risk mentioned by Dr. Mariano, so we will plan to do her at 7:30 tomorrow morning and this should help her pain greatly and then we will plan for subacute rehab at [facility] for therapy that led to get her ambulating again with the help of a walker, possibly 04:00 p.m. on 05/28/2018. Michael Garvey DO
[2018-05-29] MEDS ORDERED: Tranexamic Acid 1 ML ONE (08:48)
[2018-05-29] MEDS ORDERED: Labetalol 5 mg/ml Inj 20ML ONE (09:27)
[2018-05-29] MEDS ORDERED: Neostigmine Methylsulfate 3mg/3ml Syringe IV ONE (09:37)
[2018-05-29] MEDS ORDERED: HYDROmorphone 0.5 mg/0.5 ml ISec IVP PRN (09:58)
[2018-05-29] MEDS: Bacitracin 500 Units/gm Oint Foilpak UD TOP SCH ×2 (10:00→20:14)
[2018-05-29] MEDS ORDERED: Lactated Ringer's 1,000 ML IV SCH (10:00)
[2018-05-29] MEDS: Silver Sulfadiazine 1% Cream (25 gm) TP SCH (10:00)
--- NOTE | 2018-05-29 12:18 | RAD ---
PROCEDURE: Left Hip X-ray Radiographs. HISTORY: LEFT HIP REPLACEMENT COMPARISON: None. FINDINGS: BONES: There is a left hip prosthesis in satisfactory alignment. There are no complicating factors JOINTS: Normal. SOFT TISSUES: Normal. OTHER FINDINGS: None. IMPRESSION: There is a left hip prosthesis in satisfactory alignment. There are no complicating factors
[2018-05-29 12:59] LABS: BASO # 0.01 K/mm3 (0.0-2.0); BASO % 0.1 % (0.0-3.0); EOS # 0.1 (0.0-0.7); EOS % 0.5 % (1.5-5.0); GRAN # 10.07 (1.4-6.5); HEMOGLOBIN 10.5 g/dL (12.0-16.0); LYMPH # 0.8 (1.2-3.4); LYMPH % 6.6 % (22.0-35.0); MEAN CELL VOLUME 89.9 fl (80.0-105.0); MEAN CORPUSCULAR HEMOGLOBIN 28.6 pg (25.0-35.0); MEAN CORPUSCULAR HGB CONC 31.8 g/dl (31.0-37.0); MONO # 0.9 (0.1-0.6); MONO % 7.8 % (1.0-6.0); RBC 3.67 10^6/uL (3.5-6.1); RED CELL DISTRIBUTION WIDTH 14.7 % (11.5-14.5); WHITE BLOOD COUNT 11.8 10^3/ul (4.5-11.0)
[2018-05-29] MEDS: HYDROmorphone 0.5 mg/0.5 ml ISec SC PRN ×2 (13:20→20:50)
[2018-05-29 13:25] LABS: CALCIUM 9.9 mg/dL (8.4-10.5)
--- NOTE | 2018-05-29 14:23 | OP ---
PROCEDURE DATE: 05/29/2018 PREOPERATIVE DIAGNOSIS: Displaced subcapital fracture, left hip. POSTOPERATIVE DIAGNOSIS: Displaced subcapital fracture, left hip. PROCEDURE: Biomet bipolar hip prosthesis utilizing a standard neck component, bipolar with a 54-mm bipolar head and a stem, reduced profile, 12 mm wide x 140 mm long for the 44-mm bipolar component. CUSHION FORMER SURGEON: Dr. Diallo. ANESTHESIA: General endotracheal tube. DESCRIPTION OF PROCEDURE: In the left lateral decubitus position with the left hip up. Summary as follows, the patient was taken to the OR. Posterolateral incision was made in the left hip after she had thorough prepping and draping. A 6-inch incision made over the left hip 2 inches above and 3 inches below the great trochanter. Deep knife was used to go through the subcutaneous tissue. The fascia min opened in line with the incision. External rotators released and tagged. Then, the capsule opened and the femoral head removed with appropriate instruments and then, we did the reaming and rasping of the femoral head utilizing Biomet stem that was Press-Fit with a RingLoc hip system and a standard femoral stem, Integral X series in the standard neck. We irrigated out the acetabulum and the femoral shaft prior to implantation of the permanent prosthesis after the trial reduction was stable and we closed the wound with #1 Vicryl attaching the capsule and piriformis and external rotators to the trochanter through drill holes and then closing the fascia with 2-0 Vicryl and skin with stainless steel gilberto and combination of #2 nylon. The patient was taken to the Recovery Room in an abduction pillow and a knee immobilizer in good condition. Michael Garvey DO [facility]
[2018-05-29] MEDS: ceFAZolin 1 gm in NS 1 GM/100 ML BAG IVPB SCH (16:53)
--- NOTE | 2018-05-29 17:06 | PN ---
DATE: 05/29/2018 SUBJECTIVE: The patient is seen lying in bed. Family members are at bedside. She is currently sedated. She received pain medication recently. She underwent left hip replacement with a bipolar hip prosthesis. Postop day 0. PHYSICAL EXAMINATION: GENERAL: Elderly lady lying in bed. VITAL SIGNS: Blood pressure 139/63, heart rate 65, respiratory rate 16, temperature 98.5. HEENT: Normocephalic, atraumatic, positive pallor. NECK: Supple, no JVD. LUNGS: Bilateral equal air entry, bilaterally equal expansion. CARDIAC: S1 and S2, regular rate and rhythm, no murmur, no rub. ABDOMEN: Soft, nondistended, nontender. Bowel sounds present. EXTREMITIES: No edema. INTAKE AND OUTPUT: 1000 mL of urine output. LABORATORY DATA: WBC 11.8, hemoglobin 10.5, hematocrit 33, platelets 321. Sodium 139, potassium 3.8, chloride 105, CO2 25, BUN 31, creatinine 1.3, glucose 132, calcium 9.9, AST 30, ALT 30, albumin 3. Urinalysis: Yellow clear, pH 6.0, specific gravity 1.020, protein trace, nitrite negative, leukocyte esterase negative. CURRENT MEDICATIONS: Ancef 1 g, total of 2 bags, Apresoline 50 t.i.d., aspirin, Ativan, bacitracin, Catapres, Cozaar 50, D5 half normal saline at 50, Dilaudid, Imdur, Lasix 20, Lipitor, Lopressor 50 daily, Lovenox, morphine, amlodipine, Protonix, Silvadene, Zofran, Tylenol. ASSESSMENT AND PLAN: 1. Left hip fracture, left hip replacement, postop day 0. 2. Stable chronic kidney disease stage 3. 3. Hypertension well controlled. 4. Stable anemia. 5. Peripheral vascular disease. 6. Coronary artery disease. PLAN: 1. Continue current management. 2. Continue low-dose IV fluids. 3. Continue pain management. 4. Monitor urine output. 5. Monitor labs. Barbara Edgar MD [facility]
--- NOTE | 2018-05-29 22:19 | CP.PCM.PN ---
Subjective - Date & Time of Evaluation Date of Evaluation: 05/29/18 Time of Evaluation: 07:45 - Subjective Subjective: Patient for surgical repair of the hip this morning. Objective - Vital Signs/Intake and Output Vital Signs (last 24 hours): Temp Pulse Resp BP Pulse Ox 97.2 F L 102 H 16 175/97 H 100 05/29/18 21:14 05/29/18 21:14 05/29/18 21:14 05/29/18 21:14 05/29/18 21:14 Intake and Output: 05/29/18 05/30/18 18:59 06:59 Intake Total 0 0 Output Total 300 Balance 0 -300 - Medications Medications: Current Medications Acetaminophen (Tylenol 325mg Tab) 650 mg PO Q4H PRN PRN Reason: Pain, Mild (1-3) Amlodipine Besylate (Norvasc) 10 mg PO DAILY [facility] Last Admin: 05/29/18 10:00 Dose: Not Given Aspirin (Aspirin Chewable) 81 mg PO DAILY [facility] Last Admin: 05/29/18 10:00 Dose: Not Given Atorvastatin Calcium (Lipitor) 20 mg PO DIN [facility] Last Admin: 05/29/18 18:00 Dose: Not Given Bacitracin (Bacitracin) 1 ea TOP BID [facility] Last Admin: 05/29/18 20:14 Dose: Not Given Clonidine HCl (Catapres) 0.1 mg PO BID [facility] Last Admin: 05/29/18 17:47 Dose: 0.1 mg Enoxaparin Sodium (Lovenox) 30 mg SC DAILY@0900 [facility] PRN Reason: Protocol Furosemide (Lasix) 20 mg PO DAILY [facility] Last Admin: 05/29/18 10:00 Dose: Not Given Hydralazine HCl (Apresoline) 50 mg PO TID [facility] Last Admin: 05/29/18 18:00 Dose: Not Given Hydromorphone HCl (Dilaudid) 0.5 mg SC Q4H PRN PRN Reason: Pain, severe (8-10) Last Admin: 05/29/18 20:50 Dose: 0.5 mg Dextrose/Sodium Chloride (Dextrose 5%/0.45% Ns 1000 Ml) 1,000 mls @ 50 mls/hr IV .Q20H [facility] Last Admin: 05/28/18 23:05 Dose: 50 mls/hr Cefazolin Sodium (Ancef 1gm In Ns) 1 gm in 100 mls @ 100 mls/hr IVPB 0000,1600 [facility] PRN Reason: Protocol Stop: 05/30/18 00:59 Last Admin: 05/29/18 16:53 Dose: 100 mls/hr Isosorbide Mononitrate (Imdur) 60 mg PO DAILY [facility] Last Admin: 05/29/18 10:00 Dose: Not Given Lorazepam (Ativan) 0.5 mg PO HS [facility] PRN Reason: Protocol Last Admin: 05/28/18 22:18 Dose: Not Given Losartan Potassium (Cozaar) 50 mg PO DAILY [facility] Last Admin: 05/29/18 10:00 Dose: Not Given Metoprolol Tartrate (Lopressor) 50 mg PO DAILY [facility] Last Admin: 05/29/18 06:45 Dose: 50 mg Morphine Sulfate (Morphine) 2 mg IVP Q4H PRN PRN Reason: Pain, moderate (4-7) Last Admin: 05/28/18 13:35 Dose: 2 mg Ondansetron HCl (Zofran Inj) 4 mg IVP Q4H PRN PRN Reason: Nausea/Vomiting Pantoprazole Sodium (Protonix Ec Tab) 20 mg PO 0600 [facility] Silver Sulfadiazine (Silvadene 1% 25 Gm) 0 gm TP DAILY [facility] Last Admin: 05/29/18 10:00 Dose: Not Given Timolol Maleate (Timoptic 0.5% Ophth Soln) 1 drop OD HS [facility] Last Admin: 05/28/18 23:05 Dose: 1 drp - Labs Labs: 05/29/18 12:50 05/29/18 12:50 PT 10.7 SECONDS (9.4-12.5) 05/26/18 13:25 INR 0.93 05/26/18 13:25 APTT 24.6 Seconds (25.1-36.5) L 05/26/18 13:25 - Constitutional Appears: No Acute Distress - Head Exam Head Exam: ATRAUMATIC, NORMOCEPHALIC - Cardiovascular Exam Cardiovascular Exam: +S1, +S2 - GI/Abdominal Exam GI & Abdominal Exam: Soft, Normal Bowel Sounds. absent: Tenderness Assessment and Plan - Assessment and Plan (Free Text) Assessment: Left hip fracture HTN Dementia History of CAD CKD Anxiety Plan: Patient to have surgery this morning. continue to monitor H&H. continue antihypertensives for blood pressure will hold ASA and plavix today
[2018-05-30] MEDS: ceFAZolin 1 gm in NS 1 GM/100 ML BAG IVPB SCH (00:55)
[2018-05-30] MEDS: Pantoprazole 20 mg EC Tab PO SCH (06:14)
--- NOTE | 2018-05-30 07:56 | CP.PCM.PN ---
Subjective - Date & Time of Evaluation Date of Evaluation: 05/30/18 Time of Evaluation: 07:35 - Subjective Subjective: Patient is seen this morning. She had surgery yesterday. She is lying in bed this morning. She denies pain. She is pleasantly confused. Objective - Vital Signs/Intake and Output Vital Signs (last 24 hours): Temp Pulse Resp BP Pulse Ox 97.2 F L 78 16 196/88 H 100 05/29/18 21:14 05/30/18 05:03 05/29/18 21:14 05/30/18 05:03 05/29/18 21:14 Intake and Output: 05/30/18 05/30/18 06:59 18:59 Intake Total 120 Output Total 480 Balance -360 - Medications Medications: Current Medications Acetaminophen (Tylenol 325mg Tab) 650 mg PO Q4H PRN PRN Reason: Pain, Mild (1-3) Amlodipine Besylate (Norvasc) 10 mg PO DAILY [facility] Last Admin: 05/29/18 10:00 Dose: Not Given Aspirin (Aspirin Chewable) 81 mg PO DAILY [facility] Last Admin: 05/29/18 10:00 Dose: Not Given Atorvastatin Calcium (Lipitor) 20 mg PO DIN [facility] Last Admin: 05/29/18 18:00 Dose: Not Given Bacitracin (Bacitracin) 1 ea TOP BID [facility] Last Admin: 05/29/18 20:14 Dose: Not Given Clonidine HCl (Catapres) 0.1 mg PO BID [facility] Last Admin: 05/30/18 05:03 Dose: 0.1 mg Enoxaparin Sodium (Lovenox) 30 mg SC DAILY@0900 [facility] PRN Reason: Protocol Furosemide (Lasix) 20 mg PO DAILY [facility] Last Admin: 05/29/18 10:00 Dose: Not Given Hydralazine HCl (Apresoline) 50 mg PO TID [facility] Last Admin: 05/29/18 18:00 Dose: Not Given Hydromorphone HCl (Dilaudid) 0.5 mg SC Q4H PRN PRN Reason: Pain, severe (8-10) Last Admin: 05/29/18 20:50 Dose: 0.5 mg Dextrose/Sodium Chloride (Dextrose 5%/0.45% Ns 1000 Ml) 1,000 mls @ 50 mls/hr IV .Q20H [facility] Last Admin: 05/28/18 23:05 Dose: 50 mls/hr Isosorbide Mononitrate (Imdur) 60 mg PO DAILY [facility] Last Admin: 05/29/18 10:00 Dose: Not Given Lorazepam (Ativan) 0.5 mg PO HS [facility] PRN Reason: Protocol Last Admin: 05/30/18 01:28 Dose: Not Given Losartan Potassium (Cozaar) 50 mg PO DAILY [facility] Last Admin: 05/29/18 10:00 Dose: Not Given Metoprolol Tartrate (Lopressor) 50 mg PO DAILY [facility] Last Admin: 05/30/18 05:02 Dose: 50 mg Morphine Sulfate (Morphine) 2 mg IVP Q4H PRN PRN Reason: Pain, moderate (4-7) Last Admin: 05/28/18 13:35 Dose: 2 mg Ondansetron HCl (Zofran Inj) 4 mg IVP Q4H PRN PRN Reason: Nausea/Vomiting Pantoprazole Sodium (Protonix Ec Tab) 20 mg PO 0600 [facility] Last Admin: 05/30/18 06:14 Dose: 20 mg Silver Sulfadiazine (Silvadene 1% 25 Gm) 0 gm TP DAILY [facility] Last Admin: 05/29/18 10:00 Dose: Not Given Timolol Maleate (Timoptic 0.5% Ophth Soln) 1 drop OD HS [facility] Last Admin: 05/28/18 23:05 Dose: 1 drp - Labs Labs: 05/29/18 12:50 05/29/18 12:50 PT 10.7 SECONDS (9.4-12.5) 05/26/18 13:25 INR 0.93 05/26/18 13:25 APTT 24.6 Seconds (25.1-36.5) L 05/26/18 13:25 - Constitutional Appears: No Acute Distress - Head Exam Head Exam: ATRAUMATIC, NORMOCEPHALIC - Respiratory Exam Respiratory Exam: Clear to Ausculation Bilateral, NORMAL BREATHING PATTERN - Cardiovascular Exam Cardiovascular Exam: REGULAR RHYTHM, +S1, +S2 - GI/Abdominal Exam GI & Abdominal Exam: Soft, Normal Bowel Sounds. absent: Tenderness - Neurological Exam Neurological Exam: Alert, Awake Assessment and Plan - Assessment and Plan (Free Text) Assessment: Left hip fracture HTN CKD Dementia Anxiety CAD Plan: Patient is post-op day 1 after surgery on fracture of left hip. awaiting today's H&H. continue antihypertensive medications
[2018-05-30 08:26] LABS: ALBUMIN 2.6 g/dL (3.0-4.8); CALCIUM 9.7 mg/dL (8.4-10.5)
[2018-05-30 08:36] LABS: BASO # 0.02 K/mm3 (0.0-2.0); BASO % 0.2 % (0.0-3.0); EOS % 0.2 % (1.5-5.0); GRAN # 7.09 (1.4-6.5); GRAN % 76.1 % (50.0-68.0); HEMOGLOBIN 9.7 g/dL (12.0-16.0); LYMPH # 1.1 (1.2-3.4); LYMPH % 11.6 % (22.0-35.0); MEAN CELL VOLUME 89.3 fl (80.0-105.0); MEAN CORPUSCULAR HEMOGLOBIN 28.7 pg (25.0-35.0); MEAN CORPUSCULAR HGB CONC 32.1 g/dl (31.0-37.0); MONO # 1.1 (0.1-0.6); MONO % 11.9 % (1.0-6.0); RBC 3.38 10^6/uL (3.5-6.1); RED CELL DISTRIBUTION WIDTH 14.5 % (11.5-14.5); WHITE BLOOD COUNT 9.3 10^3/ul (4.5-11.0)
[2018-05-30] MEDS: Enoxaparin 30 mg Syringe SC SCH (09:54)
[2018-05-30] MEDS: Bacitracin 500 Units/gm Oint Foilpak UD TOP SCH ×2 (09:55→18:07)
[2018-05-30] MEDS: Silver Sulfadiazine 1% Cream (25 gm) TP SCH (09:56)
[2018-05-30] MEDS: Morphine 2 mg/ml ISec IVP PRN (14:32)
--- NOTE | 2018-05-30 16:13 | PN ---
DATE: 05/30/2018 SUBJECTIVE: The patient is seen lying in bed. She is groggy. She is in pain. She is moaning a little bit. She was sitting in chair for three and a half hours. She denies any chest pain. She denies any shortness of breath. PHYSICAL EXAMINATION: GENERAL: Elderly lady, lying in bed. VITAL SIGNS: Blood pressure 141/75, heart rate 78, respiratory rate 22, temperature 98.1. HEENT: Normocephalic, atraumatic, positive pallor. NECK: Supple, no JVD. LUNGS: Bilateral equal air entry, poor inspiratory effort. CARDIAC: S1 and S2, regular rate and rhythm, no murmur. ABDOMEN: Soft, nondistended, nontender. EXTREMITIES: No lower extremity edema. INTAKE AND OUTPUT: Not charted. LABORATORY DATA: WBC 9, hemoglobin 9.7, hematocrit 30, platelets 298. Sodium 138, potassium 4.2, chloride 109, CO2 of 23, BUN 30, creatinine 1.2, glucose 133, calcium 9.7, AST 26, ALT 26, albumin 2.6. CURRENT MEDICATIONS: Apresoline 50 t.i.d., aspirin 81, Ativan 0.5 at bedtime, Catapres 0.1 b.i.d., Cozaar 50, D5 half-normal saline at 50, Dilaudid, Imdur, Lasix, Lipitor, Lopressor, Lovenox, morphine, amlodipine 10, Protonix, Tylenol, Zofran. ASSESSMENT: 1. Stable chronic kidney disease stage IV, creatinine is actually at best levels ever. 2. Status post left hip replacement, postop day #1. 3. History of coronary artery disease/congestive heart failure. 4. Hypertension, well controlled. 5. Surgical pain. PLAN: 1. Discontinue IV fluids after current bag. 2. Continue current antihypertensives. 3. Physical therapy. 4. Monitor H and H. Barbara Edgar MD
[2018-05-30] MEDS: Dextrose 5%/0.45% NS 1,000 ML IV SCH (18:05)
[2018-05-30] MEDS: HYDROmorphone 0.5 mg/0.5 ml ISec SC PRN (21:51)
[2018-05-31] MEDS: Pantoprazole 20 mg EC Tab PO SCH (05:49)
--- NOTE | 2018-05-31 08:16 | CP.PCM.PN ---
Subjective - Date & Time of Evaluation Date of Evaluation: 05/31/18 Time of Evaluation: 07:50 - Subjective Subjective: Patient is seen this morning. She is confused. She denies pain. Objective - Vital Signs/Intake and Output Vital Signs (last 24 hours): Temp Pulse Resp BP Pulse Ox 97.3 F L 69 20 142/67 95 05/30/18 23:18 05/30/18 23:18 05/30/18 23:18 05/30/18 23:18 05/30/18 23:18 Intake and Output: 05/31/18 05/31/18 06:59 18:59 Intake Total 0 Output Total 300 Balance -300 - Medications Medications: Current Medications Acetaminophen (Tylenol 325mg Tab) 650 mg PO Q4H PRN PRN Reason: Pain, Mild (1-3) Amlodipine Besylate (Norvasc) 10 mg PO DAILY [facility] Last Admin: 05/30/18 09:55 Dose: 10 mg Aspirin (Aspirin Chewable) 81 mg PO DAILY [facility] Last Admin: 05/30/18 09:55 Dose: 81 mg Atorvastatin Calcium (Lipitor) 20 mg PO DIN [facility] Last Admin: 05/30/18 17:45 Dose: 20 mg Bacitracin (Bacitracin) 1 ea TOP BID [facility] Last Admin: 05/30/18 18:07 Dose: Not Given Clonidine HCl (Catapres) 0.1 mg PO BID [facility] Last Admin: 05/30/18 17:45 Dose: 0.1 mg Enoxaparin Sodium (Lovenox) 30 mg SC DAILY@0900 [facility] PRN Reason: Protocol Last Admin: 05/30/18 09:54 Dose: 30 mg Furosemide (Lasix) 20 mg PO DAILY [facility] Last Admin: 05/30/18 09:55 Dose: 20 mg Hydralazine HCl (Apresoline) 50 mg PO TID [facility] Last Admin: 05/30/18 17:45 Dose: 50 mg Hydromorphone HCl (Dilaudid) 0.5 mg SC Q4H PRN PRN Reason: Pain, severe (8-10) Last Admin: 05/30/18 21:51 Dose: 0.5 mg Dextrose/Sodium Chloride (Dextrose 5%/0.45% Ns 1000 Ml) 1,000 mls @ 70 mls/hr IV .[id number] [facility] Stop: 06/01/18 18:00 Last Admin: 05/30/18 18:05 Dose: 70 mls/hr Isosorbide Mononitrate (Imdur) 60 mg PO DAILY [facility] Last Admin: 05/30/18 09:55 Dose: 60 mg Lorazepam (Ativan) 0.5 mg PO HS [facility] PRN Reason: Protocol Last Admin: 05/30/18 21:28 Dose: Not Given Losartan Potassium (Cozaar) 50 mg PO DAILY [facility] Last Admin: 05/30/18 09:55 Dose: 50 mg Metoprolol Tartrate (Lopressor) 50 mg PO DAILY [facility] Last Admin: 05/30/18 09:56 Dose: Not Given Ondansetron HCl (Zofran Inj) 4 mg IVP Q4H PRN PRN Reason: Nausea/Vomiting Pantoprazole Sodium (Protonix Ec Tab) 20 mg PO 0600 [facility] Last Admin: 05/31/18 05:49 Dose: Not Given Silver Sulfadiazine (Silvadene 1% 25 Gm) 0 gm TP DAILY [facility] Last Admin: 05/30/18 09:56 Dose: 1 gm Timolol Maleate (Timoptic 0.5% Ophth Soln) 1 drop OD HS [facility] Last Admin: 05/30/18 21:28 Dose: Not Given - Labs Labs: 05/30/18 06:00 05/30/18 07:45 PT 10.7 SECONDS (9.4-12.5) 05/26/18 13:25 INR 0.93 05/26/18 13:25 APTT 24.6 Seconds (25.1-36.5) L 05/26/18 13:25 - Constitutional Appears: No Acute Distress - Head Exam Head Exam: ATRAUMATIC, NORMOCEPHALIC - Respiratory Exam Respiratory Exam: Clear to Ausculation Bilateral, NORMAL BREATHING PATTERN - Cardiovascular Exam Cardiovascular Exam: +S1, +S2 - GI/Abdominal Exam GI & Abdominal Exam: Soft, Normal Bowel Sounds. absent: Tenderness - Neurological Exam Neurological Exam: Alert, Awake Assessment and Plan - Assessment and Plan (Free Text) Assessment: Left hip fracture s/p surgery HTN CKD Dementia OA Plan: Patient is seen this morning. She is pleasantly demented. continue pain control continue PT awaiting today's hemoglobin continue antihypertensive medications
[2018-05-31] MEDS: Enoxaparin 30 mg Syringe SC SCH (08:20)
[2018-05-31 10:00] LABS: BASO # 0.01 K/mm3 (0.0-2.0); BASO % 0.1 % (0.0-3.0); EOS % 0.4 % (1.5-5.0); GRAN # 7.5 (1.4-6.5); HEMOGLOBIN 8.6 g/dL (12.0-16.0); LYMPH # 0.7 (1.2-3.4); MEAN CELL VOLUME 88.2 fl (80.0-105.0); MEAN CORPUSCULAR HEMOGLOBIN 28.2 pg (25.0-35.0); MEAN PLATELET VOLUME 9.4 fl (7.0-11.0); MONO # 0.9 (0.1-0.6); MONO % 9.5 % (1.0-6.0); RBC 3.05 10^6/uL (3.5-6.1); RED CELL DISTRIBUTION WIDTH 14.5 % (11.5-14.5); WHITE BLOOD COUNT 9.2 10^3/ul (4.5-11.0)
[2018-05-31] MEDS: Bacitracin 500 Units/gm Oint Foilpak UD TOP SCH ×2 (10:00→17:58)
[2018-05-31 10:22] LABS: ALB/GLOB RATIO 0.9 (1.1-1.8); ALBUMIN 2.4 g/dL (3.0-4.8); ALT/SGPT 20 U/L (7-56); AST/SGOT 20 U/L (14-36); BLOOD UREA NITROGEN 28 mg/dL (7-21); CALCIUM 9.4 mg/dL (8.4-10.5); GFR NON-AFRICAN AMERICAN 53
--- NOTE | 2018-05-31 11:51 | PN ---
DATE: 05/31/2018 SUBJECTIVE: An 83-year-old female in room 576, bed 1. The patient is recovering from a left hip subcapital fracture, had a bipolar hip prosthesis done. The wound is dry, still abduction pillow. We are going to remove the Vera and continue up out of bed. She was on hospice care preop, we will try to get her as independent as possible by ambulating with a walker, weightbearing to tolerance when she feels better. Her last hemoglobin was 9.7, hematocrit 30 yesterday and she has been encouraged to get nutrition, eating a little better. I will follow her in the rehab hospital that is where she goes. Michael Garvey DO
[2018-05-31] MEDS: Potassium Chloride 20 mEq/15 ml LIQ UD PO SCH (13:50)
[2018-05-31] MEDS: Dextrose 5%/0.45% NS 1,000 ML IV SCH (13:50)
[2018-05-31] MEDS: Potassium Chloride 20 MEQ in Dextrose 5%/0.45% NS 1,000 ML IV SCH (15:23)
[2018-05-31] MEDS: Silver Sulfadiazine 1% Cream (25 gm) TP SCH (17:58)
--- NOTE | 2018-05-31 18:15 | PN ---
Copied To: Barbara Edgar MD Attending MD: Barbara Edgar MD DATE: 05/31/2018 SUBJECTIVE: The patient is seen lying in bed. She is awake, she is alert. She complains that she is having a lot of pain.. She denies any chest tightness. She denies any shortness of breath. Appetite is poor. PHYSICAL EXAMINATION: GENERAL: Elderly lady lying in bed. VITAL SIGNS: Blood pressure 124/62, heart rate 62, respiratory rate 16, and temperature 97.6. HEENT: Normocephalic, atraumatic, positive pallor. NECK: Supple, no JVD. LUNGS: Bilateral equal air entry, bilateral equal expansion. CARDIAC: S1 and S2, regular rate and rhythm, no murmur, no rub. ABDOMEN: Soft, nondistended, nontender, bowel sounds present. EXTREMITIES: No lower extremity edema. INTAKE AND OUTPUT: Not charted. LABORATORY DATA: WBC 9.2, hemoglobin 8.6, hematocrit 27, and platelets 299. Sodium 137, potassium 3.3, chloride 107, CO2 of 25. BUN 28, creatinine 1. Glucose 145. Calcium 9.4. AST 20, ALT 20. Albumin 2.4. CURRENT MEDICATIONS: Hydralazine 50 t.i.d., aspirin, Ativan, bacitracin, Catapres on hold, Colace, losartan not given today, Dilaudid, Imdur, Lasix, Lipitor, Lopressor, Lovenox, amlodipine, D5 half-normal saline at 70, Protonix, Tylenol, and Zofran. ASSESSMENT: 1. Status post left hip replacement, postoperative day #2. 2. Hypokalemia. 3. Anemia. Hemoglobin has dropped from 10.6 to 8.6. 4. Renal parameters looking great, history of chronic kidney disease stage IV. 5. Hypertension, currently relative hypotension. PLAN: 1. Monitor H and H. 2. Consider blood transfusion. 3. Replace potassium in IV fluids. 4. Hold antihypertensives for blood pressure less than 120/70. Barbara Edgar MD
[2018-06-01] MEDS: Potassium Chloride 20 MEQ in Dextrose 5%/0.45% NS 1,000 ML IV SCH ×2 (06:08→06:11)
[2018-06-01] MEDS: Pantoprazole 20 mg EC Tab PO SCH (06:12)
[2018-06-01 07:57] LABS: HEMOGLOBIN 11.2 g/dL (12.0-16.0); MEAN CELL VOLUME 86.3 fl (80.0-105.0); MEAN CORPUSCULAR HEMOGLOBIN 28.4 pg (25.0-35.0); MEAN CORPUSCULAR HGB CONC 32.8 g/dl (31.0-37.0); MEAN PLATELET VOLUME 9.7 fl (7.0-11.0); RBC 3.95 10^6/uL (3.5-6.1); RED CELL DISTRIBUTION WIDTH 14.3 % (11.5-14.5); WHITE BLOOD COUNT 18.3 10^3/ul (4.5-11.0)
--- NOTE | 2018-06-01 08:09 | CP.PCM.PN ---
Subjective - Date & Time of Evaluation Date of Evaluation: 06/01/18 Time of Evaluation: 07:45 - Subjective Subjective: Patient is seen this morning. She is complaining of nausea. Blood pressure elevated. She denies abdominal pain, and chest pain. Objective - Vital Signs/Intake and Output Vital Signs (last 24 hours): Temp Pulse Resp BP Pulse Ox 97.6 F 77 16 199/101 H 100 05/31/18 14:00 06/01/18 06:39 05/31/18 14:00 06/01/18 06:58 05/31/18 14:00 Intake and Output: 06/01/18 06/01/18 06:59 18:59 Output Total 600 Balance -600 - Medications Medications: Current Medications Acetaminophen (Tylenol 325mg Tab) 650 mg PO Q4H PRN PRN Reason: Pain, Mild (1-3) Last Admin: 05/31/18 15:23 Dose: 650 mg Amlodipine Besylate (Norvasc) 10 mg PO DAILY [facility] Last Admin: 06/01/18 06:37 Dose: 10 mg Aspirin (Aspirin Chewable) 81 mg PO DAILY [facility] Last Admin: 05/31/18 09:55 Dose: 81 mg Atorvastatin Calcium (Lipitor) 20 mg PO DIN [facility] Last Admin: 05/31/18 17:59 Dose: 20 mg Bacitracin (Bacitracin) 1 ea TOP BID [facility] Last Admin: 05/31/18 17:58 Dose: 1 ea Clonidine HCl (Catapres) 0.1 mg PO BID [facility] Last Admin: 06/01/18 06:39 Dose: 0.1 mg Docusate Sodium (Colace Liquid) 100 mg PO TID [facility] Last Admin: 05/31/18 17:58 Dose: 100 mg Enoxaparin Sodium (Lovenox) 30 mg SC DAILY@0900 [facility] PRN Reason: Protocol Last Admin: 05/31/18 08:20 Dose: 30 mg Furosemide (Lasix) 20 mg PO DAILY [facility] Last Admin: 05/31/18 09:54 Dose: 20 mg Hydralazine HCl (Apresoline) 50 mg PO TID [facility] Last Admin: 06/01/18 06:39 Dose: 50 mg Hydromorphone HCl (Dilaudid) 0.5 mg SC Q4H PRN PRN Reason: Pain, severe (8-10) Last Admin: 05/30/18 21:51 Dose: 0.5 mg Isosorbide Mononitrate (Imdur) 60 mg PO DAILY [facility] Last Admin: 05/31/18 09:55 Dose: 60 mg Lorazepam (Ativan) 0.5 mg PO HS [facility] PRN Reason: Protocol Last Admin: 05/31/18 21:17 Dose: 0.5 mg Losartan Potassium (Cozaar) 50 mg PO DAILY [facility] Last Admin: 06/01/18 06:37 Dose: 50 mg Metoprolol Tartrate (Lopressor) 50 mg PO DAILY [facility] Last Admin: 06/01/18 06:38 Dose: 50 mg Ondansetron HCl (Zofran Inj) 4 mg IVP Q4H PRN PRN Reason: Nausea/Vomiting Last Admin: 06/01/18 03:46 Dose: 4 mg Pantoprazole Sodium (Protonix Ec Tab) 20 mg PO 0600 [facility] Last Admin: 06/01/18 06:12 Dose: Not Given Potassium Chloride (Potassium Chloride Oral Soln) 20 meq PO DAILY [facility] Last Admin: 05/31/18 13:50 Dose: 20 meq Silver Sulfadiazine (Silvadene 1% 25 Gm) 0 gm TP DAILY [facility] Last Admin: 05/31/18 17:58 Dose: 25 gm Timolol Maleate (Timoptic 0.5% Ophth Soln) 1 drop OD HS [facility] Last Admin: 05/31/18 21:16 Dose: 1 drp - Labs Labs: 06/01/18 07:30 05/31/18 09:50 PT 10.7 SECONDS (9.4-12.5) 05/26/18 13:25 INR 0.93 05/26/18 13:25 APTT 24.6 Seconds (25.1-36.5) L 05/26/18 13:25 - Constitutional Appears: No Acute Distress - Head Exam Head Exam: ATRAUMATIC, NORMOCEPHALIC - Respiratory Exam Respiratory Exam: Decreased Breath Sounds, NORMAL BREATHING PATTERN - Cardiovascular Exam Cardiovascular Exam: +S1, +S2 - GI/Abdominal Exam GI & Abdominal Exam: Soft, Normal Bowel Sounds. absent: Tenderness - Neurological Exam Neurological Exam: Alert, Awake Assessment and Plan - Assessment and Plan (Free Text) Assessment: Left hip fracture s/p surgery HTN Nausea H/O PA Leukocytosis CKD Dementia Plan: Patient complaining of nausea. continue Zofran PRN. check abdominal Xray. Will change Protonix to IV. check CXR to rule out congestion vs. pneumonia. WBC count elevated. Will consult ID.
[2018-06-01 08:31] LABS: ALT/SGPT 16 U/L (7-56); AST/SGOT 26 U/L (14-36); BLOOD UREA NITROGEN 27 mg/dL (7-21); CALCIUM 10.7 mg/dL (8.4-10.5); GFR NON-AFRICAN AMERICAN 53
[2018-06-01] MEDS: Enoxaparin 30 mg Syringe SC SCH (10:20)
--- NOTE | 2018-06-01 10:36 | CP.PCM.PCO ---
Physician Communication Note - Physician Communication Note Physician Communication Note: Coffee ground vomiting/[id number]/?UTI/Decub not significant
[2018-06-01] MEDS: Potassium Chloride 20 mEq/15 ml LIQ UD PO SCH (11:41)
[2018-06-01] MEDS: Bacitracin 500 Units/gm Oint Foilpak UD TOP SCH ×2 (11:42→17:34)
--- NOTE | 2018-06-01 12:55 | RAD ---
Date of service: 06/01/2018 HISTORY: vomiting COMPARISON: No prior. FINDINGS: BOWEL: No evidence of bowel obstruction. No hepatic or splenic enlargement. No masses or abnormal calcifications. BONES: Left hip arthroplasty. Lumbar levoscoliosis. OTHER FINDINGS: None. IMPRESSION: No active disease.
--- NOTE | 2018-06-01 13:06 | RAD ---
Date of service: 06/01/2018 HISTORY: congestion COMPARISON: 05/26/2018 TECHNIQUE: Chest PA and lateral FINDINGS: LUNGS: Technically limited. No infiltrate. PLEURA: Small bilateral pleural effusion. No pneumothorax. CARDIOVASCULAR: Normal. OSSEOUS STRUCTURES: No significant abnormalities. VISUALIZED UPPER ABDOMEN: Normal. OTHER FINDINGS: None. IMPRESSION: Small bilateral pleural effusion.
[2018-06-01] MEDS: Meropenem IV 1 gm in NS 50 ML IVPB SCH (13:34)
[2018-06-01] MEDS: Alum-Mag Hydrox-Simethicone Susp (30 mL) PO SCH ×3 (13:34→22:23)
[2018-06-01 15:54] LABS: URINE BILIRUBIN NEGATIVE (NEGATIVE); URINE BLOOD TRACE-INTACT (NEGATIVE); URINE GLUCOSE (UA) NEGATIVE (NEGATIVE); URINE LEUKOCYTE ESTERASE NEGATIVE Leu/uL (NEGATIVE); URINE PROTEIN 30 mg/dL (<30 mg/dL); URINE UROBILINOGEN 0.2 E.U./dL (<1 E.U./dL)
[2018-06-01 15:55] LABS: URINE APPEARANCE CLEAR (CLEAR); URINE COLOR LIGHT YELLOW (YELLOW)
[2018-06-01 16:11] LABS: URINE WBC NEGATIVE /hpf (0-6)
[2018-06-01 16:12] LABS: URINE BACTERIA NEG (NEG); URINE HYALINE CAST 0 - 2 /hpf
[2018-06-01] MEDS: Silver Sulfadiazine 1% Cream (25 gm) TP SCH ×2 (17:40→17:44)
--- NOTE | 2018-06-01 18:21 | CP.PCM.PN ---
Subjective - Date & Time of Evaluation Date of Evaluation: 06/01/18 Time of Evaluation: 18:18 - Subjective Subjective: General Surgery Progress Note for Dr. Gerardo Pt seen and exameined at bedside. reports no more coffee ground emesis since her index episode. Reports back pain. Pt out of chair for 3 hours this AM. Objective - Vital Signs/Intake and Output Vital Signs (last 24 hours): Temp Pulse Resp BP Pulse Ox 97.7 F 76 18 189/96 H 98 06/01/18 14:00 06/01/18 17:41 06/01/18 14:00 06/01/18 17:41 06/01/18 14:00 Intake and Output: 06/01/18 06/01/18 06:59 18:59 Output Total 600 700 Balance -600 -700 - Medications Medications: Current Medications Acetaminophen (Tylenol 325mg Tab) 650 mg PO Q4H PRN PRN Reason: Pain, Mild (1-3) Last Admin: 06/01/18 13:17 Dose: 650 mg Al Hydrox/Mg Hydrox/Simethicone (Maalox Plus 30 Ml) 30 ml PO QID [facility] Last Admin: 06/01/18 17:43 Dose: Not Given Amlodipine Besylate (Norvasc) 10 mg PO DAILY [facility] Last Admin: 06/01/18 15:59 Dose: 10 mg Atorvastatin Calcium (Lipitor) 20 mg PO DIN [facility] Last Admin: 06/01/18 17:41 Dose: 20 mg Bacitracin (Bacitracin) 1 ea TOP BID [facility] Last Admin: 06/01/18 17:34 Dose: Not Given Clonidine HCl (Catapres) 0.1 mg PO BID [facility] Last Admin: 06/01/18 17:41 Dose: 0.1 mg Docusate Sodium (Colace Liquid) 100 mg PO TID [facility] Last Admin: 06/01/18 17:34 Dose: Not Given Doxycycline Hyclate (Doryx) 100 mg PO Q12 [facility] PRN Reason: Protocol Stop: 06/10/18 22:01 Furosemide (Lasix) 20 mg PO DAILY [facility] Last Admin: 06/01/18 10:10 Dose: Not Given Hydralazine HCl (Apresoline) 50 mg PO TID [facility] Last Admin: 06/01/18 17:41 Dose: 50 mg Hydralazine HCl (Apresoline) 10 mg IVP Q6 PRN PRN Reason: Systolic Blood Pressure Last Admin: 06/01/18 10:19 Dose: 10 mg Hydromorphone HCl (Dilaudid) 0.5 mg SC Q4H PRN PRN Reason: Pain, severe (8-10) Last Admin: 05/30/18 21:51 Dose: 0.5 mg Meropenem (Merrem Iv 1 Gm Premix) 50 mls @ 100 mls/hr IVPB Q12H [facility] PRN Reason: Protocol Last Admin: 06/01/18 13:34 Dose: 100 mls/hr Isosorbide Mononitrate (Imdur) 60 mg PO DAILY [facility] Last Admin: 06/01/18 10:10 Dose: Not Given Lorazepam (Ativan) 0.5 mg PO HS [facility] PRN Reason: Protocol Last Admin: 05/31/18 21:17 Dose: 0.5 mg Losartan Potassium (Cozaar) 50 mg PO DAILY [facility] Last Admin: 06/01/18 11:40 Dose: Not Given Metoprolol Tartrate (Lopressor) 50 mg PO DAILY [facility] Last Admin: 06/01/18 11:40 Dose: Not Given Ondansetron HCl (Zofran Inj) 4 mg IVP Q4H PRN PRN Reason: Nausea/Vomiting Last Admin: 06/01/18 03:46 Dose: 4 mg Pantoprazole Sodium (Protonix Ec Tab) 20 mg PO 0600 [facility] Last Admin: 06/01/18 06:12 Dose: Not Given Pantoprazole Sodium (Protonix Inj) 40 mg IVP DAILY [facility] Last Admin: 06/01/18 10:18 Dose: 40 mg Potassium Chloride (Potassium Chloride Oral Soln) 20 meq PO DAILY [facility] Last Admin: 06/01/18 11:41 Dose: Not Given Silver Sulfadiazine (Silvadene 1% 25 Gm) 0 gm TP DAILY [facility] Last Admin: 06/01/18 17:44 Dose: Not Given Silver Sulfadiazine (Silvadene 1% 25 Gm) 0 gm TP ACBD [facility] Last Admin: 06/01/18 17:40 Dose: 25 gm Timolol Maleate (Timoptic 0.5% Ophth Soln) 1 drop OD HS [facility] Last Admin: 05/31/18 21:16 Dose: 1 drp Tramadol/Acetaminophen (Ultracet 37.5/325 Mg) 1 tab PO Q6H PRN PRN Reason: Pain - Labs Labs: 06/01/18 07:30 06/01/18 07:30 PT 10.7 SECONDS (9.4-12.5) 05/26/18 13:25 INR 0.93 05/26/18 13:25 APTT 24.6 Seconds (25.1-36.5) L 05/26/18 13:25 - Constitutional Appears: Non-toxic, No Acute Distress - Head Exam Head Exam: ATRAUMATIC, NORMOCEPHALIC - Eye Exam Eye Exam: EOMI - Respiratory Exam Respiratory Exam: NORMAL BREATHING PATTERN - Cardiovascular Exam Cardiovascular Exam: +S1, +S2 - GI/Abdominal Exam GI & Abdominal Exam: Soft. absent: Tenderness - Skin Additional comments: stage 2 sacral ulcer Assessment and Plan - Assessment and Plan (Free Text) Assessment: 83F with coffee ground emesis and uti with sacal ulcer continue medical managment of UTI and GI bleed D/C lovenox recommend silvadene Optifoam frequent repositioning D/W Dr. Akin Cui PGY3
--- NOTE | 2018-06-02 01:28 | CON ---
DATE: 06/01/2018 LOCATION: The patient is seen in room 576, bed 1. CHIEF COMPLAINT: Elevated WBC count x1 day duration. HISTORY OF PRESENT ILLNESS: This is an 83-year-old female with past medical history significant for hypertension, dementia, chronic kidney disease who was seen by me earlier this year in November. The patient with endometrial cancer, Parkinson disease, coronary artery disease, anxiety, carotid artery disease, history of carotid endarterectomy and history of hysterectomy, the patient is allergic to ALLOPURINOL, who is admitted on this admission with diagnosis of a fall, left femoral neck fracture and on admission which was 05/26, the patient was seen in the emergency room. The patient had a white count of 8.5. Diagnosis of left closed femoral neck fracture was made by Dr. Robbie Penny. The patient's white count this morning is up to 18,000 and that is the reason for the Infectious Disease consultation. The patient does have mild shortness of breath. REVIEW OF SYSTEMS: A 12-point review of systems is performed. There is no fevers, no chills, no chest pain. There is mild shortness of breath. No cough and no hemoptysis. No abdominal pain, diarrhea or constipation and no headaches or blurred vision. PAST MEDICAL HISTORY: Significant for hypertension, dementia, kidney disease, endometrial cancer, Parkinson disease, coronary artery disease, anxiety, and carotid artery disease. PAST SURGICAL HISTORY: Significant for carotid endarterectomy and hysterectomy. ALLERGIES: THE PATIENT IS ALLERGIC TO ALLOPURINOL. HOME MEDICATIONS: Reveal the patient is on aspirin, isosorbide, Lasix. PHYSICAL EXAMINATION VITAL SIGNS: The patient is in bed with a temperature of 98, blood pressure is 190/100, respiratory rate of 18, and heart rate of 77. HEENT: Unremarkable. NECK: Supple. LUNGS: Have decreased breath sounds. HEART: Normal S1 and S2. ABDOMEN: Soft. Nontender. LABORATORY DATA: Reveals a white count is up to 18,300, hemoglobin of 11 and platelets of 468. Coagulation is noted. BUN of 27, creatinine of 1. Urinalysis is negative. Microbiology reveals the urine culture from the is negative. Cultures from the past including November, cultures were all negative and the patient had a chest x-ray this morning, no results are available. Dr. Bell's note is reviewed. ASSESSMENT AND PLAN: An 83-year-old female with history of hypertension, dementia, kidney disease and endometrial cancer, Parkinson's, coronary artery disease, anxiety, carotid artery disease, admitted with left hip fracture status post left hip surgery postoperative day #3 with leukocytosis, must rule out healthcare-associated pneumonia versus urine as the source. We will order blood cultures, urine cultures, urinalysis, sputum cultures, procalcitonin. Awaiting for chest x-ray result and we will start the patient empirically on meropenem and doxycycline. Pending initial workup results. We will make further recommendations upon availability of initial results. We will follow with you. Manuel Espinosa MD
[2018-06-02] MEDS: Meropenem IV 1 gm in NS 50 ML IVPB SCH ×2 (05:09→13:23)
--- NOTE | 2018-06-02 07:58 | CON ---
DATE: 06/01/2018 REASON FOR CONSULTATION: Coffee-ground vomitus. HISTORY OF PRESENT ILLNESS: This is an 83-year-old patient with past medical history of chronic kidney disease; cerebrovascular accident; peripheral vascular disease, status post bilateral iliac stents; carotid artery disease, status post left carotid endarterectomy; history of endometrial cancer, status post hysterectomy; glaucoma, was on hospice care, was found to have a fall, had a hip fracture, was admitted. The hospice order was canceled and then, admitted for left hip fracture. The patient underwent open reduction and internal fixation of the hip replacement on 05/30/2018. The patient was found to have a coffee-ground vomiting and nausea and GI consult was requested to further evaluate. The patient did have bowel movements earlier, has no melena. The patient's both daughters were at bedside at the time of examination. The patient is edentulous, has very low p.o. intake. The patient was well known to our service, was evaluated in December for dysphagia and atypical chest pain. The patient got esophagram done, showed no obstructing lesion. The patient had got an acute MO. The plan was made of conservative management. The patient has been started on PPI, pantoprazole. The patient has been on Plavix and aspirin at home. OTHER PAST MEDICAL HISTORY: As above. The patient was on hospice care, which has been discontinued. Other past medical history include Parkinson disease, coronary artery disease, carotid artery disease, peripheral vascular disease. ALLERGIES: THE PATIENT IS ALLERGIC TO ALLOPURINOL. SOCIAL HISTORY: As above, was on hospice care, which has been dissented now. FAMILY HISTORY: Noncontributory. REVIEW OF SYSTEMS: Limited. Positive as above. The patient had some difficulty in swallowing before. The patient is edentulous. PHYSICAL EXAMINATION: GENERAL: The patient is lying on the bed, not in acute distress. VITAL SIGNS: She is afebrile. Blood pressure is97/60, temperature is 97.7, pulse 76, respirations 19, O2 saturation is 98%. HEENT: Atraumatic, anicteric. The patient is edentulous. NECK: Supple. HEART: S1, S2 heard. LUNGS: Bilateral air entry present. ABDOMEN: Soft. There are no tenderness. EXTREMITIES: Status post left hip replacement. LABORATORY DATA: Hemoglobin 11.2, hematocrit 34.1, WBC is 18.3 and platelets 468. Chemistry showed potassium is 3.5. LFTs normal. IMPRESSION: This 83-year-old patient status post left hip surgery replacement had an episode of coffee-ground vomitus, GI consult was requested to evaluate this. The differential diagnosis for coffee-ground vomitus should include peptic ulcer disease, erosive esophagitis and also neoplasia to be considered. At present, the patient is on aspirin and Plavix. Would recommend, 1. Close followup of the hemoglobin and hematocrit. Continue the PPI. 2. I did discuss with the patient's daughters who do not want any endoscopy or relative procedures further. Other comorbidities include status post hip replacement, coronary artery disease, carotid artery disease, peripheral vascular disease. RECOMMENDATIONS: Would recommend, 1. Close followup of the hemoglobin and hematocrit. 2. Continue the PPI. Family does not want any aggressive procedures including endoscopic evaluation. 3. Encourage p.o. intake. Liquid diet if tolerated.advance to puree diet 4. We will continue to closely follow up her care and suggest further management based on the clinical course. The patient is also evaluated for dysphagia. There are multiple reason for her dysphagia including Parkinson's disease. This could also be a contributory factor. Thank you very much for allowing us to participate in the care of the patient. Jeferson Aiken MD [email or web address]
--- NOTE | 2018-06-02 08:20 | CP.PCM.PN ---
Subjective - Date & Time of Evaluation Date of Evaluation: 06/02/18 Time of Evaluation: 07:55 - Subjective Subjective: Patient is seen this morning. She is able to answer questions appropriately but is confused and talking gibberish at times. Objective - Vital Signs/Intake and Output Vital Signs (last 24 hours): Temp Pulse Resp BP Pulse Ox 97.7 F 77 18 179/99 H 98 06/01/18 14:00 06/02/18 05:11 06/01/18 22:55 06/02/18 05:11 06/01/18 22:55 - Medications Medications: Current Medications Acetaminophen (Tylenol 325mg Tab) 650 mg PO Q4H PRN PRN Reason: Pain, Mild (1-3) Last Admin: 06/01/18 22:23 Dose: 650 mg Al Hydrox/Mg Hydrox/Simethicone (Maalox Plus 30 Ml) 30 ml PO QID [facility] Last Admin: 06/01/18 22:23 Dose: 30 ml Amlodipine Besylate (Norvasc) 10 mg PO DAILY [facility] Last Admin: 06/01/18 15:59 Dose: 10 mg Atorvastatin Calcium (Lipitor) 20 mg PO DIN [facility] Last Admin: 06/01/18 17:41 Dose: 20 mg Bacitracin (Bacitracin) 1 ea TOP BID [facility] Last Admin: 06/01/18 17:34 Dose: Not Given Clonidine HCl (Catapres) 0.2 mg PO BID [facility] Docusate Sodium (Colace Liquid) 100 mg PO TID [facility] Last Admin: 06/01/18 17:34 Dose: Not Given Doxycycline Hyclate (Doryx) 100 mg PO Q12 [facility] PRN Reason: Protocol Stop: 06/10/18 22:01 Last Admin: 06/01/18 22:24 Dose: 100 mg Furosemide (Lasix) 20 mg PO DAILY [facility] Last Admin: 06/01/18 10:10 Dose: Not Given Hydralazine HCl (Apresoline) 50 mg PO TID [facility] Last Admin: 06/01/18 17:41 Dose: 50 mg Hydralazine HCl (Apresoline) 10 mg IVP Q6 PRN PRN Reason: Systolic Blood Pressure Last Admin: 06/02/18 05:11 Dose: 10 mg Hydromorphone HCl (Dilaudid) 0.5 mg SC Q4H PRN PRN Reason: Pain, severe (8-10) Last Admin: 05/30/18 21:51 Dose: 0.5 mg Meropenem (Merrem Iv 1 Gm Premix) 50 mls @ 100 mls/hr IVPB Q12H [facility] PRN Reason: Protocol Last Admin: 06/02/18 05:09 Dose: 100 mls/hr Isosorbide Mononitrate (Imdur) 60 mg PO DAILY [facility] Last Admin: 06/01/18 10:10 Dose: Not Given Lorazepam (Ativan) 0.5 mg PO HS [facility] PRN Reason: Protocol Last Admin: 06/01/18 22:23 Dose: 0.5 mg Losartan Potassium (Cozaar) 50 mg PO DAILY [facility] Last Admin: 06/01/18 11:40 Dose: Not Given Metoprolol Tartrate (Lopressor) 50 mg PO DAILY [facility] Last Admin: 06/01/18 11:40 Dose: Not Given Ondansetron HCl (Zofran Inj) 4 mg IVP Q4H PRN PRN Reason: Nausea/Vomiting Last Admin: 06/01/18 03:46 Dose: 4 mg Pantoprazole Sodium (Protonix Ec Tab) 20 mg PO 0600 [facility] Last Admin: 06/01/18 06:12 Dose: Not Given Pantoprazole Sodium (Protonix Inj) 40 mg IVP DAILY [facility] Last Admin: 06/01/18 10:18 Dose: 40 mg Potassium Chloride (Potassium Chloride Oral Soln) 20 meq PO DAILY [facility] Last Admin: 06/01/18 11:41 Dose: Not Given Silver Sulfadiazine (Silvadene 1% 25 Gm) 0 gm TP DAILY [facility] Last Admin: 06/01/18 17:44 Dose: Not Given Silver Sulfadiazine (Silvadene 1% 25 Gm) 0 gm TP ACBD [facility] Last Admin: 06/01/18 17:40 Dose: 25 gm Timolol Maleate (Timoptic 0.5% Ophth Soln) 1 drop OD HS [facility] Last Admin: 06/01/18 22:25 Dose: Not Given Tramadol/Acetaminophen (Ultracet 37.5/325 Mg) 1 tab PO Q6H PRN PRN Reason: Pain - Labs Labs: 06/01/18 07:30 06/01/18 07:30 PT 10.7 SECONDS (9.4-12.5) 05/26/18 13:25 INR 0.93 05/26/18 13:25 APTT 24.6 Seconds (25.1-36.5) L 05/26/18 13:25 - Constitutional Appears: No Acute Distress - Head Exam Head Exam: ATRAUMATIC, NORMOCEPHALIC - Respiratory Exam Respiratory Exam: Decreased Breath Sounds, NORMAL BREATHING PATTERN - Cardiovascular Exam Cardiovascular Exam: +S1, +S2 - GI/Abdominal Exam GI & Abdominal Exam: Soft, Normal Bowel Sounds. absent: Tenderness - Neurological Exam Neurological Exam: Alert, Awake Additional comments: oriented to person and place, not time Assessment and Plan - Assessment and Plan (Free Text) Assessment: Left hip fracture s/p surgery Leukocytosis Nausea with coffee ground emesis r/o GI Bleed CAD HTN CKD Dementia Plan: Patient was complaining of nausea yesterday. She denies any nausea this morning. continue Zofran as needed. Patient evaluated by Dr. Aiken, gastroenterology , for coffee ground emesis and nausea. r/o ulcer vs. gastritis. continue Protonix and monitor H&H. ASA and Plavix are currently on hold. Family does not want any invasive procedures such as endoscopy. WBC count elevated yesterday. Awaiting today's white count. CXR shows small bilateral pleural effusions, no infiltrate. Urinalysis essentially negative. Will continue Lasix. continue antibiotics as per infectious disease. continue antihypertensives. Blood pressure is elevated. Will increase clonidine and continue to monitor blood pressure.
[2018-06-02 08:22] LABS: BASO # 0.01 K/mm3 (0.0-2.0); BASO % 0.1 % (0.0-3.0); EOS % 0.1 % (1.5-5.0); GRAN # 16.29 (1.4-6.5); GRAN % 86.1 % (50.0-68.0); HEMOGLOBIN 10.4 g/dL (12.0-16.0); LYMPH # 1.2 (1.2-3.4); LYMPH % 6.5 % (22.0-35.0); MEAN CORPUSCULAR HEMOGLOBIN 27.8 pg (25.0-35.0); MEAN CORPUSCULAR HGB CONC 31.6 g/dl (31.0-37.0); MEAN PLATELET VOLUME 9.7 fl (7.0-11.0); MONO # 1.4 (0.1-0.6); MONO % 7.2 % (1.0-6.0); RBC 3.74 10^6/uL (3.5-6.1); RED CELL DISTRIBUTION WIDTH 14.4 % (11.5-14.5); WHITE BLOOD COUNT 18.9 10^3/ul (4.5-11.0)
[2018-06-02 08:54] LABS: ALB/GLOB RATIO 1.1 (1.1-1.8)
[2018-06-02] MEDS: Bacitracin 500 Units/gm Oint Foilpak UD TOP SCH ×2 (10:00→18:06)
[2018-06-02] MEDS: Alum-Mag Hydrox-Simethicone Susp (30 mL) PO SCH ×3 (10:50→21:49)
[2018-06-02] MEDS: Silver Sulfadiazine 1% Cream (25 gm) TP SCH ×2 (10:53→18:15)
[2018-06-02] MEDS: Potassium Chloride 20 mEq/15 ml LIQ UD PO SCH (10:53)
[2018-06-02] MEDS: Potassium Ch 20mEq in D5-1/2NS 1,000 ML IV SCH ×2 (10:54→21:50)
--- NOTE | 2018-06-02 14:45 | CP.PCM.PN ---
<Jac Perez - Last Filed: 06/02/18 14:42> Subjective - Date & Time of Evaluation Date of Evaluation: 06/02/18 Time of Evaluation: 14:42 - Subjective Subjective: GI fellow PGY4 Patient is doing well. Daughters in room. She wants to be on soft diet, has dentures. They fed her a doughnut already. No complaints. No vomiting. No signs of bleeding. Objective - Vital Signs/Intake and Output Vital Signs (last 24 hours): Temp Pulse Resp BP Pulse Ox 98.3 F 60 18 141/70 100 06/02/18 08:28 06/02/18 13:23 06/02/18 08:28 06/02/18 13:23 06/02/18 08:28 - Medications Medications: Current Medications Acetaminophen (Tylenol 325mg Tab) 650 mg PO Q4H PRN PRN Reason: Pain, Mild (1-3) Last Admin: 06/01/18 22:23 Dose: 650 mg Al Hydrox/Mg Hydrox/Simethicone (Maalox Plus 30 Ml) 30 ml PO QID [facility] Last Admin: 06/02/18 13:24 Dose: Not Given Amlodipine Besylate (Norvasc) 10 mg PO DAILY [facility] Last Admin: 06/02/18 10:52 Dose: 10 mg Atorvastatin Calcium (Lipitor) 20 mg PO DIN [facility] Last Admin: 06/01/18 17:41 Dose: 20 mg Bacitracin (Bacitracin) 1 ea TOP BID [facility] Last Admin: 06/01/18 17:34 Dose: Not Given Clonidine HCl (Catapres) 0.2 mg PO BID [facility] Last Admin: 06/02/18 10:52 Dose: 0.2 mg Docusate Sodium (Colace Liquid) 100 mg PO TID [facility] Last Admin: 06/01/18 17:34 Dose: Not Given Doxycycline Hyclate (Doryx) 100 mg PO Q12 [facility] PRN Reason: Protocol Stop: 06/10/18 22:01 Last Admin: 06/02/18 10:51 Dose: 100 mg Furosemide (Lasix) 20 mg PO DAILY [facility] Last Admin: 06/02/18 10:54 Dose: 20 mg Hydralazine HCl (Apresoline) 50 mg PO TID [facility] Last Admin: 06/02/18 13:23 Dose: 50 mg Hydralazine HCl (Apresoline) 10 mg IVP Q6 PRN PRN Reason: Systolic Blood Pressure Last Admin: 06/02/18 05:11 Dose: 10 mg Meropenem (Merrem Iv 1 Gm Premix) 50 mls @ 100 mls/hr IVPB Q12H [facility] PRN Reason: Protocol Last Admin: 06/02/18 13:23 Dose: 100 mls/hr Potassium Chloride/Dextrose/Sod Cl (Potassium Chl 20 Meq In D5-1/2ns) 1,000 mls @ 70 mls/hr IV .[id number] [facility] Last Admin: 06/02/18 10:54 Dose: 70 mls/hr Isosorbide Mononitrate (Imdur) 60 mg PO DAILY [facility] Last Admin: 06/02/18 10:51 Dose: 60 mg Lorazepam (Ativan) 0.5 mg PO HS [facility] PRN Reason: Protocol Last Admin: 06/01/18 22:23 Dose: 0.5 mg Losartan Potassium (Cozaar) 50 mg PO DAILY [facility] Last Admin: 06/02/18 10:51 Dose: 50 mg Metoprolol Tartrate (Lopressor) 50 mg PO DAILY [facility] Last Admin: 06/02/18 10:50 Dose: 50 mg Ondansetron HCl (Zofran Inj) 4 mg IVP Q4H PRN PRN Reason: Nausea/Vomiting Last Admin: 06/01/18 03:46 Dose: 4 mg Pantoprazole Sodium (Protonix Ec Tab) 20 mg PO 0600 [facility] Last Admin: 06/01/18 06:12 Dose: Not Given Pantoprazole Sodium (Protonix Inj) 40 mg IVP DAILY [facility] Last Admin: 06/02/18 10:50 Dose: 40 mg Potassium Chloride (Potassium Chloride Oral Soln) 20 meq PO DAILY [facility] Last Admin: 06/02/18 10:53 Dose: 20 meq Silver Sulfadiazine (Silvadene 1% 25 Gm) 0 gm TP DAILY [facility] Last Admin: 06/01/18 17:44 Dose: Not Given Silver Sulfadiazine (Silvadene 1% 25 Gm) 0 gm TP ACBD [facility] Last Admin: 06/02/18 10:53 Dose: 25 gm Timolol Maleate (Timoptic 0.5% Ophth Soln) 1 drop OD HS [facility] Last Admin: 06/01/18 22:25 Dose: Not Given Tramadol/Acetaminophen (Ultracet 37.5/325 Mg) 1 tab PO Q6H PRN PRN Reason: Pain - Labs Labs: 06/02/18 07:30 06/02/18 07:30 PT 10.7 SECONDS (9.4-12.5) 05/26/18 13:25 INR 0.93 05/26/18 13:25 APTT 24.6 Seconds (25.1-36.5) L 05/26/18 13:25 - Constitutional Appears: Non-toxic, No Acute Distress - Head Exam Head Exam: NORMAL INSPECTION - ENT Exam ENT Exam: Mucous Membranes Moist - Cardiovascular Exam Cardiovascular Exam: +S1, +S2 - GI/Abdominal Exam GI & Abdominal Exam: Soft, Normal Bowel Sounds. absent: Tenderness - Extremities Exam Extremities Exam: absent: Normal Inspection - Neurological Exam Neurological Exam: Alert, Awake - Psychiatric Exam Psychiatric exam: Normal Affect, Normal Mood - Skin Skin Exam: Dry, Normal Color Assessment and Plan - Assessment and Plan (Free Text) Assessment: #Coffee-ground emesis #Left hip Fx s/p ORIF 05/30/18 #Dysphagia #CVA, PVD, b/l iliac stents, CEA #Endometrial CA s/p hysterectomy PLAN: -Continue PPI -Follow Hb -Soft diet <Nelli,Kovil V - Last Filed: 06/03/18 00:52> Objective - Vital Signs/Intake and Output Vital Signs (last 24 hours): Temp Pulse Resp BP Pulse Ox 97.5 F L 88 18 138/77 97 06/02/18 16:08 06/02/18 18:16 06/02/18 16:08 06/02/18 18:16 06/02/18 16:08 Intake and Output: 06/02/18 06/03/18 18:59 06:59 Intake Total 1300 Output Total 350 800 Balance -350 500 - Medications Medications: Current Medications Acetaminophen (Tylenol 325mg Tab) 650 mg PO Q4H PRN PRN Reason: Pain, Mild (1-3) Last Admin: 06/01/18 22:23 Dose: 650 mg Al Hydrox/Mg Hydrox/Simethicone (Maalox Plus 30 Ml) 30 ml PO QID [facility] Last Admin: 06/02/18 13:24 Dose: Not Given Amlodipine Besylate (Norvasc) 10 mg PO DAILY [facility] Last Admin: 06/02/18 10:52 Dose: 10 mg Atorvastatin Calcium (Lipitor) 20 mg PO DIN [facility] Last Admin: 06/02/18 18:16 Dose: 20 mg Bacitracin (Bacitracin) 1 ea TOP BID [facility] Last Admin: 06/02/18 18:06 Dose: 1 ea Clonidine HCl (Catapres) 0.2 mg PO BID [facility] Last Admin: 06/02/18 18:16 Dose: 0.2 mg Docusate Sodium (Colace Liquid) 100 mg PO TID [facility] Last Admin: 06/02/18 18:07 Dose: Not Given Doxycycline Hyclate (Doryx) 100 mg PO Q12 [facility] PRN Reason: Protocol Stop: 06/10/18 22:01 Last Admin: 06/02/18 10:51 Dose: 100 mg Furosemide (Lasix) 20 mg PO DAILY [facility] Last Admin: 06/02/18 10:54 Dose: 20 mg Hydralazine HCl (Apresoline) 50 mg PO TID [facility] Last Admin: 06/02/18 18:16 Dose: 50 mg Hydralazine HCl (Apresoline) 10 mg IVP Q6 PRN PRN Reason: Systolic Blood Pressure Last Admin: 06/02/18 05:11 Dose: 10 mg Meropenem (Merrem Iv 1 Gm Premix) 50 mls @ 100 mls/hr IVPB Q12H [facility] PRN Reason: Protocol Last Admin: 06/02/18 13:23 Dose: 100 mls/hr Potassium Chloride/Dextrose/Sod Cl (Potassium Chl 20 Meq In D5-1/2ns) 1,000 mls @ 70 mls/hr IV .[id number] [facility] Last Admin: 06/02/18 10:54 Dose: 70 mls/hr Isosorbide Mononitrate (Imdur) 60 mg PO DAILY [facility] Last Admin: 06/02/18 10:51 Dose: 60 mg Lorazepam (Ativan) 0.5 mg PO HS [facility] PRN Reason: Protocol Last Admin: 06/01/18 22:23 Dose: 0.5 mg Losartan Potassium (Cozaar) 50 mg PO DAILY [facility] Last Admin: 06/02/18 10:51 Dose: 50 mg Metoprolol Tartrate (Lopressor) 50 mg PO DAILY [facility] Last Admin: 06/02/18 10:50 Dose: 50 mg Ondansetron HCl (Zofran Inj) 4 mg IVP Q4H PRN PRN Reason: Nausea/Vomiting Last Admin: 06/01/18 03:46 Dose: 4 mg Pantoprazole Sodium (Protonix Ec Tab) 20 mg PO 0600 [facility] Last Admin: 06/01/18 06:12 Dose: Not Given Pantoprazole Sodium (Protonix Inj) 40 mg IVP DAILY [facility] Last Admin: 06/02/18 10:50 Dose: 40 mg Potassium Chloride (Potassium Chloride Oral Soln) 20 meq PO DAILY [facility] Last Admin: 06/02/18 10:53 Dose: 20 meq Silver Sulfadiazine (Silvadene 1% 25 Gm) 0 gm TP DAILY [facility] Last Admin: 06/01/18 17:44 Dose: Not Given Silver Sulfadiazine (Silvadene 1% 25 Gm) 0 gm TP ACBD [facility] Last Admin: 06/02/18 18:15 Dose: 25 gm Timolol Maleate (Timoptic 0.5% Ophth Soln) 1 drop OD HS [facility] Last Admin: 06/01/18 22:25 Dose: Not Given Tramadol/Acetaminophen (Ultracet 37.5/325 Mg) 1 tab PO Q6H PRN PRN Reason: Pain - Labs Labs: 06/02/18 07:30 06/02/18 07:30 PT 10.7 SECONDS (9.4-12.5) 05/26/18 13:25 INR 0.93 05/26/18 13:25 APTT 24.6 Seconds (25.1-36.5) L 05/26/18 13:25 Attending/Attestation - Attestation I have personally seen and examined this patient.: Yes I have fully participated in the care of the patient.: Yes I have reviewed all pertinent clinical information, including history, physical exam and plan: Yes Notes (Text): This is an addendum to GI progress report dictated by the GI Fellow.The patient was seen and examined earlier. Medical records, lab studies, imagings were reviewed. Last 24 hours events reviewed. Agreed with the above treatment plan as outlined in GI Fellow 's notes with the addition of the following Patient both daughters were at bedside No further episodes of coffee ground vomitous feels hungry Wants to eat solid food Does not want puree food On examination abdomen soft nontender Soft diet Followup hemoglobin 06/02/18 20:09 06/03/18 00:50
--- NOTE | 2018-06-02 18:09 | PN ---
DATE: 06/01/2018 SUBJECTIVE: The patient is seen lying in bed. She appears very groggy. Daughter is at bedside. She denies any pain. She denies any chest tightness. PHYSICAL EXAMINATION: GENERAL: Elderly lady, lying in bed. VITAL SIGNS: Blood pressure 184/92, heart rate 76, respiratory rate 20, temperature 98.3. HEENT: Normocephalic, atraumatic, positive pallor, no icterus. NECK: Supple, no JVD. LUNGS: Bilateral equal air entry, bilateral equal expansion, no rales. CARDIAC: S1 and S2, regular rate and rhythm, no murmur, no rub. ABDOMEN: Obese, distended, soft, nontender, bowel sounds present. Extremities: No lower extremity edema. LABORATORY DATA: WBC 18, hemoglobin 11, hematocrit 34, platelets 468. Sodium 138, potassium 3.5, chloride 106, CO2 of 25, BUN 27, creatinine 1, glucose 171, calcium 10.7, albumin 3. CURRENT MEDICATIONS: Hydralazine 50 mg, Ativan, Catapres, Colace, losartan 50, doxycycline 100 every 12, Imdur, Lasix, Lipitor, Lopressor, Merrem, amlodipine, D5 half-normal saline with 20 mEq of KCl p.o. daily, Protonix. ASSESSMENT AND PLAN: 1. Report of hematemesis today, monitor hemoglobin and hematocrit. Hemoglobin today is great 11. 2. Severe hypertension, blood pressure medications were held this morning. Gave amlodipine 10 mg now. 3. Continue potassium supplementation. 4. Pain management. 5. Left hip replacement. Postoperative day #3. 6. Monitor H and H. 7. Continue antihypertensives. 8. Continue pain management. Barbara Edgar MD
--- NOTE | 2018-06-02 18:59 | PN ---
DATE: 06/02/2018 SUBJECTIVE: The patient is in bed in no acute distress, nontoxic. PHYSICAL EXAMINATION: VITAL SIGNS: Temperature is 98, blood pressure is 190/100, respiratory rate of . HEENT: Unremarkable. NECK: Supple. LUNGS: Have decreased breath sounds. HEART: Normal S1, S2. ABDOMEN: Soft, nontender. LABORATORY DATA: Reveals a white count of 18,900, hemoglobin of 10, platelets of 458. Chemistries are noted. BUN of 27, creatinine of 1, procalcitonin is 0.6. Urinalysis is noted and microbiology reveals the urine cultures have gram-negative bhavani. The repeat urine culture greater than 100,000. Review of orders reveals the patient to be on doxycycline and meropenem. ASSESSMENT AND PLAN This is an 83-year-old female with hypertension, dementia, chronic kidney disease and with history of endometrial cancer, Parkinson's, coronary artery disease, anxiety, carotid artery disease, carotid enterectomy hysterectomy, WAS ALLERGIC TO ALLOPURINOL, who was admitted now after a mechanical fall with a fracture of left hip, status post procedure hip surgery, postprocedure day #4 with a gram-negative bhavani in the urine as a possible cause of the leukocytosis versus healthcare-associated pneumonia, on doxycycline and meropenem. We will follow WBC and the identification of gram-negative bhavani. Case discussed with Dr. Moody. We will follow closely with you. Manuel Espinosa MD
[2018-06-02] MEDS: TraMADol/Apap 37.5/325 mg Tab PO PRN (21:49)
[2018-06-03] MEDS: Meropenem IV 1 gm in NS 50 ML IVPB SCH ×2 (04:00→13:05)
[2018-06-03] MEDS: Potassium Ch 20mEq in D5-1/2NS 1,000 ML IV SCH (04:06)
[2018-06-03] MEDS: Pantoprazole 20 mg EC Tab PO SCH (05:33)
[2018-06-03 07:58] LABS: BASO # 0.01 K/mm3 (0.0-2.0); BASO % 0.1 % (0.0-3.0); EOS # 0.1 (0.0-0.7); EOS % 0.9 % (1.5-5.0); GRAN # 9.57 (1.4-6.5); GRAN % 81.6 % (50.0-68.0); HEMOGLOBIN 8.6 g/dL (12.0-16.0); LYMPH # 1.2 (1.2-3.4); LYMPH % 10.2 % (22.0-35.0); MEAN CELL VOLUME 88.2 fl (80.0-105.0); MEAN CORPUSCULAR HEMOGLOBIN 29.1 pg (25.0-35.0); MEAN PLATELET VOLUME 9.4 fl (7.0-11.0); MONO # 0.8 (0.1-0.6); MONO % 7.2 % (1.0-6.0); RBC 2.96 10^6/uL (3.5-6.1); RED CELL DISTRIBUTION WIDTH 14.5 % (11.5-14.5); WHITE BLOOD COUNT 11.7 10^3/ul (4.5-11.0)
--- NOTE | 2018-06-03 08:06 | CP.PCM.PN ---
Subjective - Date & Time of Evaluation Date of Evaluation: 06/03/18 Time of Evaluation: 07:45 - Subjective Subjective: Patient is seen this morning. she became very confused at around 6 am this morning according to the nurse. She pulled out her IV. Objective - Vital Signs/Intake and Output Vital Signs (last 24 hours): Temp Pulse Resp BP Pulse Ox 98 F 65 18 123/65 99 06/02/18 22:07 06/02/18 22:07 06/02/18 22:07 06/02/18 22:07 06/02/18 22:07 Intake and Output: 06/03/18 06/03/18 06:59 18:59 Intake Total 1760 Output Total 1550 Balance 210 - Medications Medications: Current Medications Acetaminophen (Tylenol 325mg Tab) 650 mg PO Q4H PRN PRN Reason: Pain, Mild (1-3) Last Admin: 06/01/18 22:23 Dose: 650 mg Al Hydrox/Mg Hydrox/Simethicone (Maalox Plus 30 Ml) 30 ml PO QID [facility] Last Admin: 06/02/18 21:49 Dose: 30 ml Amlodipine Besylate (Norvasc) 10 mg PO DAILY [facility] Last Admin: 06/02/18 10:52 Dose: 10 mg Atorvastatin Calcium (Lipitor) 20 mg PO DIN [facility] Last Admin: 06/02/18 18:16 Dose: 20 mg Bacitracin (Bacitracin) 1 ea TOP BID [facility] Last Admin: 06/02/18 18:06 Dose: 1 ea Clonidine HCl (Catapres) 0.2 mg PO BID [facility] Last Admin: 06/02/18 18:16 Dose: 0.2 mg Docusate Sodium (Colace Liquid) 100 mg PO TID [facility] Last Admin: 06/02/18 18:07 Dose: Not Given Doxycycline Hyclate (Doryx) 100 mg PO Q12 [facility] PRN Reason: Protocol Stop: 06/10/18 22:01 Last Admin: 06/02/18 21:49 Dose: 100 mg Furosemide (Lasix) 20 mg PO DAILY [facility] Last Admin: 06/02/18 10:54 Dose: 20 mg Hydralazine HCl (Apresoline) 50 mg PO TID [facility] Last Admin: 06/02/18 18:16 Dose: 50 mg Hydralazine HCl (Apresoline) 10 mg IVP Q6 PRN PRN Reason: Systolic Blood Pressure Last Admin: 06/02/18 05:11 Dose: 10 mg Meropenem (Merrem Iv 1 Gm Premix) 50 mls @ 100 mls/hr IVPB Q12H [facility] PRN Reason: Protocol Last Admin: 06/03/18 04:00 Dose: 100 mls/hr Potassium Chloride/Dextrose/Sod Cl (Potassium Chl 20 Meq In D5-1/2ns) 1,000 mls @ 70 mls/hr IV .[id number] [facility] Last Admin: 06/03/18 04:06 Dose: Not Given Isosorbide Mononitrate (Imdur) 60 mg PO DAILY [facility] Last Admin: 06/02/18 10:51 Dose: 60 mg Lorazepam (Ativan) 0.5 mg PO HS [facility] PRN Reason: Protocol Last Admin: 06/02/18 21:49 Dose: 0.5 mg Losartan Potassium (Cozaar) 50 mg PO DAILY [facility] Last Admin: 06/02/18 10:51 Dose: 50 mg Metoprolol Tartrate (Lopressor) 50 mg PO DAILY [facility] Last Admin: 06/02/18 10:50 Dose: 50 mg Ondansetron HCl (Zofran Inj) 4 mg IVP Q4H PRN PRN Reason: Nausea/Vomiting Last Admin: 06/01/18 03:46 Dose: 4 mg Pantoprazole Sodium (Protonix Inj) 40 mg IVP DAILY [facility] Last Admin: 06/02/18 10:50 Dose: 40 mg Potassium Chloride (Potassium Chloride Oral Soln) 20 meq PO DAILY [facility] Last Admin: 06/02/18 10:53 Dose: 20 meq Silver Sulfadiazine (Silvadene 1% 25 Gm) 0 gm TP DAILY [facility] Last Admin: 06/01/18 17:44 Dose: Not Given Silver Sulfadiazine (Silvadene 1% 25 Gm) 0 gm TP ACBD [facility] Last Admin: 06/02/18 18:15 Dose: 25 gm Timolol Maleate (Timoptic 0.5% Ophth Soln) 1 drop OD HS [facility] Last Admin: 06/02/18 21:51 Dose: 1 drp Tramadol/Acetaminophen (Ultracet 37.5/325 Mg) 1 tab PO Q6H PRN PRN Reason: Pain Last Admin: 06/02/18 21:49 Dose: 1 tab - Labs Labs: 06/03/18 07:30 06/02/18 07:30 PT 10.7 SECONDS (9.4-12.5) 05/26/18 13:25 INR 0.93 05/26/18 13:25 APTT 24.6 Seconds (25.1-36.5) L 05/26/18 13:25 - Constitutional Appears: No Acute Distress - Head Exam Head Exam: ATRAUMATIC, NORMOCEPHALIC - Respiratory Exam Respiratory Exam: Clear to Ausculation Bilateral, NORMAL BREATHING PATTERN - Cardiovascular Exam Cardiovascular Exam: +S1, +S2 - GI/Abdominal Exam GI & Abdominal Exam: Soft, Normal Bowel Sounds. absent: Tenderness - Neurological Exam Neurological Exam: Alert, Awake Assessment and Plan - Assessment and Plan (Free Text) Assessment: Left hip fracture s/p surgery - continue Tylenol as needed for pain - continue PT HTN - Blood pressure controlled after increasing clonidine to 0.2 twice daily; continue all hypertensives. UTI - urine culture growing gram negative rods; continue antibiotics as per infectious disease - WBC count trending downward Dementia CKD Coffee ground emesis - no further episodes of nausea or vomiting; hemoglobin dropped today - will continue to monitor H&H - patient is eating; will discontinue IV fluids - continue Protonix
[2018-06-03 08:23] LABS: ALB/GLOB RATIO 0.9 (1.1-1.8); ALBUMIN 2.5 g/dL (3.0-4.8); CALCIUM 10.3 mg/dL (8.4-10.5)
[2018-06-03] MEDS: Alum-Mag Hydrox-Simethicone Susp (30 mL) PO SCH ×4 (10:12→21:30)
[2018-06-03] MEDS: Bacitracin 500 Units/gm Oint Foilpak UD TOP SCH ×2 (10:13→18:15)
[2018-06-03] MEDS: Silver Sulfadiazine 1% Cream (25 gm) TP SCH ×3 (10:15→19:07)
[2018-06-03] MEDS: Potassium Chloride 20 mEq/15 ml LIQ UD PO SCH (10:16)
--- NOTE | 2018-06-03 11:21 | CP.PCM.PCO ---
Physician Communication Note - Physician Communication Note Physician Communication Note: Pt improved/+HxPUD-no more vomirting/WBC 11K
[2018-06-03] MEDS ORDERED: Potassium Phosphate 20 MMOLE in Sodium Chloride 0.9% 250 ML IV ONE (13:47)
--- NOTE | 2018-06-03 14:06 | PN ---
DATE: 06/03/2018 SUBJECTIVE: The patient is seen sitting in chair. She is awake, but she is confused. Daughter is at her bedside. As per the nursing staff and the daughter, the patient is very confused today. She was alert and oriented this morning. PHYSICAL EXAMINATION: GENERAL: Elderly lady, sitting in chair. VITAL SIGNS: Blood pressure 140/82, heart rate 52, respiratory rate 18, temperature 97.9. HEENT: Normocephalic, atraumatic, positive pallor. NECK: Supple, no JVD. LUNGS: Bilateral equal air entry, bilateral equal expansion. CARDIAC: S1 and S2, regular rate and rhythm, no murmur, no rub. ABDOMEN: Obese, distended, soft, nontender, bowel sounds present. EXTREMITIES: No lower extremity edema. Dry, scaly skin with superficial ulcers. INTAKE AND OUTPUT: 1760/1900. LABORATORY DATA: WBC 11.7, hemoglobin 8.6, hematocrit 26, platelets 306. Sodium 138, potassium 3.5, chloride 106, CO2 of 28, BUN 28, creatinine 1.1, glucose 101, calcium 10.3, phosphorus 1.7, magnesium 2.1, albumin 2.5. Urine culture: Pseudomonas. CURRENT MEDICATIONS: Apresoline 50 t.i.d., Ativan 0.1 nightly, bacitracin, clonidine 0.2 b.i.d., Colace, losartan 50, doxycycline 100 every 12 started on 06/01/2018, Imdur, Lasix, Lipitor, Lopressor, meropenem 1 g every 12, amlodipine 10 mg. ASSESSMENT: 1. Altered mental status, ? delirium. 2. Pseudomonas urinary tract infection. 3. Hypokalemia. 4. Hypophosphatemia. 5. Stable renal disease. 6. Status post left hip replacement, postop day #5. 7. Hypertension. 8. Congestive heart failure/cardiomyopathy/decreased ejection fraction. PLAN: 1. Agree with antibiotics to cover for Pseudomonas UTI. 2. Agree with discontinuation of IV fluids. 3. Replace potassium and phosphorus as K-Phos. 4. Avoid nephrotoxins. 5. Continue physical therapy. Neutra-Phos 1 packet b.i.d. p.o. Barbara Edgar MD [facility] # [id number]
[2018-06-03] MEDS: Potassium & Sodium Phosphate PO SCH (18:15)
[2018-06-03] MEDS ORDERED: Lidocaine 2% Jelly (30 ml) TOP PRN (19:18)
--- NOTE | 2018-06-03 20:54 | CP.PCM.PN ---
Subjective - Date & Time of Evaluation Date of Evaluation: 06/03/18 Time of Evaluation: 18:00 - Subjective Subjective: PO intake remains poor No further episodes of vomiting Objective - Vital Signs/Intake and Output Vital Signs (last 24 hours): Temp Pulse Resp BP Pulse Ox 97.5 F L 52 L 18 136/68 100 06/03/18 14:00 06/03/18 19:08 06/03/18 14:00 06/03/18 19:08 06/03/18 14:00 - Medications Medications: Current Medications Acetaminophen (Tylenol 325mg Tab) 650 mg PO Q4H PRN PRN Reason: Pain, Mild (1-3) Last Admin: 06/03/18 13:25 Dose: 650 mg Al Hydrox/Mg Hydrox/Simethicone (Maalox Plus 30 Ml) 30 ml PO QID [facility] Last Admin: 06/03/18 18:15 Dose: 30 ml Amlodipine Besylate (Norvasc) 10 mg PO DAILY [facility] Last Admin: 06/03/18 10:23 Dose: 10 mg Atorvastatin Calcium (Lipitor) 20 mg PO DIN [facility] Last Admin: 06/03/18 18:15 Dose: 20 mg Bacitracin (Bacitracin) 1 ea TOP BID [facility] Last Admin: 06/03/18 18:15 Dose: 1 ea Clonidine HCl (Catapres) 0.2 mg PO BID [facility] Last Admin: 06/03/18 19:08 Dose: Not Given Docusate Sodium (Colace Liquid) 100 mg PO TID [facility] Last Admin: 06/03/18 18:16 Dose: Not Given Doxycycline Hyclate (Doryx) 100 mg PO Q12 [facility] PRN Reason: Protocol Stop: 06/10/18 22:01 Last Admin: 06/03/18 10:13 Dose: 100 mg Furosemide (Lasix) 20 mg PO DAILY [facility] Last Admin: 06/03/18 10:22 Dose: 20 mg Hydralazine HCl (Apresoline) 50 mg PO TID [facility] Last Admin: 06/03/18 19:08 Dose: Not Given Hydralazine HCl (Apresoline) 10 mg IVP Q6 PRN PRN Reason: Systolic Blood Pressure Last Admin: 06/02/18 05:11 Dose: 10 mg Meropenem (Merrem Iv 1 Gm Premix) 50 mls @ 100 mls/hr IVPB Q12H [facility] PRN Reason: Protocol Last Admin: 06/03/18 13:05 Dose: 100 mls/hr Isosorbide Mononitrate (Imdur) 60 mg PO DAILY [facility] Last Admin: 06/03/18 10:13 Dose: 60 mg Lidocaine HCl (Xylocaine 2%) 1 ea TOP BID PRN PRN Reason: Pain, moderate (4-7) Lorazepam (Ativan) 0.5 mg PO HS [facility] PRN Reason: Protocol Last Admin: 06/02/18 21:49 Dose: 0.5 mg Losartan Potassium (Cozaar) 50 mg PO DAILY [facility] Last Admin: 06/03/18 10:22 Dose: 50 mg Metoprolol Tartrate (Lopressor) 50 mg PO DAILY [facility] Last Admin: 06/03/18 10:42 Dose: 50 mg Ondansetron HCl (Zofran Inj) 4 mg IVP Q4H PRN PRN Reason: Nausea/Vomiting Last Admin: 06/01/18 03:46 Dose: 4 mg Pantoprazole Sodium (Protonix Inj) 40 mg IVP DAILY [facility] Last Admin: 06/03/18 10:15 Dose: Not Given Potassium Chloride (Potassium Chloride Oral Soln) 20 meq PO DAILY [facility] Last Admin: 06/03/18 10:16 Dose: 20 meq Potassium Phos/Sodium Phos (Neutra-Phos) 1 pkt PO BID [facility] Last Admin: 06/03/18 18:15 Dose: 1 pkt Silver Sulfadiazine (Silvadene 1% 25 Gm) 0 gm TP DAILY [facility] Last Admin: 06/03/18 10:15 Dose: 25 gm Silver Sulfadiazine (Silvadene 1% 25 Gm) 0 gm TP ACBD [facility] Last Admin: 06/03/18 19:07 Dose: 25 gm Timolol Maleate (Timoptic 0.5% Ophth Soln) 1 drop OD HS [facility] Last Admin: 06/02/18 21:51 Dose: 1 drp Tramadol/Acetaminophen (Ultracet 37.5/325 Mg) 1 tab PO Q6H PRN PRN Reason: Pain Last Admin: 06/02/18 21:49 Dose: 1 tab - Labs Labs: 06/03/18 07:30 06/03/18 07:30 PT 10.7 SECONDS (9.4-12.5) 05/26/18 13:25 INR 0.93 05/26/18 13:25 APTT 24.6 Seconds (25.1-36.5) L 05/26/18 13:25 - Constitutional Appears: Non-toxic, No Acute Distress - Head Exam Head Exam: ATRAUMATIC, NORMOCEPHALIC - Eye Exam Eye Exam: EOMI, PERRL - Neck Exam Neck Exam: absent: Lymphadenopathy - Respiratory Exam Respiratory Exam: NORMAL BREATHING PATTERN. absent: Rales - Cardiovascular Exam Cardiovascular Exam: +S1, +S2 - GI/Abdominal Exam GI & Abdominal Exam: Soft. absent: Tenderness, Mass Assessment and Plan - Assessment and Plan (Free Text) Assessment: This 83 year old patient admitted with hip fracture status post ORIF One episode of coffee ground vomitous No further episode now Continue soft diet PPI Followup HCT Will sign off re-consult as needed thank you very much for allowing up to participate in the care of the patient
--- NOTE | 2018-06-03 21:49 | CP.PCM.PN ---
Subjective - Date & Time of Evaluation Date of Evaluation: 06/03/18 Time of Evaluation: 13:50 - Subjective Subjective: No fevers, comfortable. Objective - Vital Signs/Intake and Output Vital Signs (last 24 hours): Temp Pulse Resp BP Pulse Ox 97.9 F 52 L 18 140/82 97 06/03/18 06:00 06/03/18 13:21 06/03/18 06:00 06/03/18 13:21 06/03/18 06:00 Intake and Output: 06/03/18 06/03/18 06:59 18:59 Intake Total 1760 Output Total 1550 Balance 210 - Medications Medications: Current Medications Acetaminophen (Tylenol 325mg Tab) 650 mg PO Q4H PRN PRN Reason: Pain, Mild (1-3) Last Admin: 06/03/18 13:25 Dose: 650 mg Al Hydrox/Mg Hydrox/Simethicone (Maalox Plus 30 Ml) 30 ml PO QID [facility] Last Admin: 06/03/18 13:05 Dose: 30 ml Amlodipine Besylate (Norvasc) 10 mg PO DAILY [facility] Last Admin: 06/03/18 10:23 Dose: 10 mg Atorvastatin Calcium (Lipitor) 20 mg PO DIN [facility] Last Admin: 06/02/18 18:16 Dose: 20 mg Bacitracin (Bacitracin) 1 ea TOP BID [facility] Last Admin: 06/03/18 10:13 Dose: 1 ea Clonidine HCl (Catapres) 0.2 mg PO BID [facility] Last Admin: 06/03/18 10:21 Dose: 0.2 mg Docusate Sodium (Colace Liquid) 100 mg PO TID [facility] Last Admin: 06/03/18 10:11 Dose: 100 mg Doxycycline Hyclate (Doryx) 100 mg PO Q12 [facility] PRN Reason: Protocol Stop: 06/10/18 22:01 Last Admin: 06/03/18 10:13 Dose: 100 mg Furosemide (Lasix) 20 mg PO DAILY [facility] Last Admin: 06/03/18 10:22 Dose: 20 mg Hydralazine HCl (Apresoline) 50 mg PO TID [facility] Last Admin: 06/03/18 13:21 Dose: Not Given Hydralazine HCl (Apresoline) 10 mg IVP Q6 PRN PRN Reason: Systolic Blood Pressure Last Admin: 06/02/18 05:11 Dose: 10 mg Meropenem (Merrem Iv 1 Gm Premix) 50 mls @ 100 mls/hr IVPB Q12H [facility] PRN Reason: Protocol Last Admin: 06/03/18 13:05 Dose: 100 mls/hr Potassium Phosphate 20 mmole/ (Sodium Chloride) 256.6667 mls @ 42.5 mls/hr IV ONCE ONE Stop: 06/03/18 19:49 Isosorbide Mononitrate (Imdur) 60 mg PO DAILY [facility] Last Admin: 06/03/18 10:13 Dose: 60 mg Lorazepam (Ativan) 0.5 mg PO HS [facility] PRN Reason: Protocol Last Admin: 06/02/18 21:49 Dose: 0.5 mg Losartan Potassium (Cozaar) 50 mg PO DAILY [facility] Last Admin: 06/03/18 10:22 Dose: 50 mg Metoprolol Tartrate (Lopressor) 50 mg PO DAILY [facility] Last Admin: 06/03/18 10:42 Dose: 50 mg Ondansetron HCl (Zofran Inj) 4 mg IVP Q4H PRN PRN Reason: Nausea/Vomiting Last Admin: 06/01/18 03:46 Dose: 4 mg Pantoprazole Sodium (Protonix Inj) 40 mg IVP DAILY [facility] Last Admin: 06/03/18 10:15 Dose: Not Given Potassium Chloride (Potassium Chloride Oral Soln) 20 meq PO DAILY [facility] Last Admin: 06/03/18 10:16 Dose: 20 meq Potassium Phos/Sodium Phos (Neutra-Phos) 1 pkt PO BID [facility] Silver Sulfadiazine (Silvadene 1% 25 Gm) 0 gm TP DAILY [facility] Last Admin: 06/03/18 10:15 Dose: 25 gm Silver Sulfadiazine (Silvadene 1% 25 Gm) 0 gm TP ACBD [facility] Last Admin: 06/03/18 10:15 Dose: Not Given Timolol Maleate (Timoptic 0.5% Ophth Soln) 1 drop OD HS [facility] Last Admin: 06/02/18 21:51 Dose: 1 drp Tramadol/Acetaminophen (Ultracet 37.5/325 Mg) 1 tab PO Q6H PRN PRN Reason: Pain Last Admin: 06/02/18 21:49 Dose: 1 tab - Labs Labs: 06/03/18 07:30 06/03/18 07:30 PT 10.7 SECONDS (9.4-12.5) 05/26/18 13:25 INR 0.93 05/26/18 13:25 APTT 24.6 Seconds (25.1-36.5) L 05/26/18 13:25 - Constitutional Appears: Chronically Ill - Head Exam Head Exam: NORMAL INSPECTION - Respiratory Exam Respiratory Exam: Decreased Breath Sounds - Cardiovascular Exam Cardiovascular Exam: +S1, +S2 - GI/Abdominal Exam GI & Abdominal Exam: Soft. absent: Tenderness Assessment and Plan - Assessment and Plan (Free Text) Plan: Assessment Pseudomonas UTI R/O HCAP left femoral neck fracture S/P surgery POD #5 CAD chronic renal failure HTN S/P carotid endearterectomy endometrial CAD S/P hysterectomy Plan continue Doxycycline and Merrem and should complete 7 days of therapy
[2018-06-04] MEDS: Meropenem IV 1 gm in NS 50 ML IVPB SCH ×2 (01:52→14:19)
[2018-06-04 08:30] LABS: CALCIUM 9.7 mg/dL (8.4-10.5)
[2018-06-04] MEDS: Silver Sulfadiazine 1% Cream (25 gm) TP SCH ×3 (10:20→17:43)
[2018-06-04] MEDS: Potassium & Sodium Phosphate PO SCH ×2 (10:20→17:33)
[2018-06-04] MEDS: Bacitracin 500 Units/gm Oint Foilpak UD TOP SCH (10:20)
[2018-06-04] MEDS: Potassium Chloride 20 mEq/15 ml LIQ UD PO SCH (10:20)
--- NOTE | 2018-06-04 12:29 | CP.PCM.PN ---
Subjective - Date & Time of Evaluation Date of Evaluation: 06/04/18 Time of Evaluation: 07:45 - Subjective Subjective: Patient seen this morning. She is confused, resting comfortably. Objective - Vital Signs/Intake and Output Vital Signs (last 24 hours): Temp Pulse Resp BP Pulse Ox 98 F 59 L 18 169/57 H 97 06/04/18 06:00 06/04/18 06:00 06/04/18 06:00 06/04/18 06:00 06/04/18 06:00 Intake and Output: 06/04/18 06/04/18 06:59 18:59 Intake Total 240 Output Total 600 Balance -360 - Medications Medications: Current Medications Acetaminophen (Tylenol 325mg Tab) 650 mg PO Q4H PRN PRN Reason: Pain, Mild (1-3) Last Admin: 06/03/18 13:25 Dose: 650 mg Al Hydrox/Mg Hydrox/Simethicone (Maalox Plus 30 Ml) 30 ml PO QID [facility] Last Admin: 06/03/18 21:30 Dose: 30 ml Amlodipine Besylate (Norvasc) 10 mg PO DAILY [facility] Last Admin: 06/03/18 10:23 Dose: 10 mg Atorvastatin Calcium (Lipitor) 20 mg PO DIN [facility] Last Admin: 06/03/18 18:15 Dose: 20 mg Bacitracin (Bacitracin) 1 ea TOP BID [facility] Last Admin: 06/03/18 18:15 Dose: 1 ea Clonidine HCl (Catapres) 0.2 mg PO BID [facility] Last Admin: 06/03/18 19:08 Dose: Not Given Docusate Sodium (Colace Liquid) 100 mg PO TID [facility] Last Admin: 06/03/18 18:16 Dose: Not Given Doxycycline Hyclate (Doryx) 100 mg PO Q12 [facility]; Protocol Stop: 06/10/18 22:01 Last Admin: 06/03/18 21:30 Dose: 100 mg Furosemide (Lasix) 20 mg PO DAILY [facility] Last Admin: 06/03/18 10:22 Dose: 20 mg Hydralazine HCl (Apresoline) 50 mg PO TID [facility] Last Admin: 06/03/18 19:08 Dose: Not Given Hydralazine HCl (Apresoline) 10 mg IVP Q6 PRN PRN Reason: Systolic Blood Pressure Last Admin: 06/02/18 05:11 Dose: 10 mg Meropenem (Merrem Iv 1 Gm Premix) 50 mls @ 100 mls/hr IVPB Q12H [facility]; Protocol Last Admin: 06/04/18 01:52 Dose: 100 mls/hr Isosorbide Mononitrate (Imdur) 60 mg PO DAILY [facility] Last Admin: 06/03/18 10:13 Dose: 60 mg Lidocaine HCl (Xylocaine 2%) 1 ea TOP BID PRN PRN Reason: Pain, moderate (4-7) Lorazepam (Ativan) 0.5 mg PO HS [facility]; Protocol Last Admin: 06/03/18 21:30 Dose: 0.5 mg Losartan Potassium (Cozaar) 50 mg PO DAILY [facility] Last Admin: 06/03/18 10:22 Dose: 50 mg Metoprolol Tartrate (Lopressor) 50 mg PO DAILY [facility] Last Admin: 06/03/18 10:42 Dose: 50 mg Ondansetron HCl (Zofran Inj) 4 mg IVP Q4H PRN PRN Reason: Nausea/Vomiting Last Admin: 06/01/18 03:46 Dose: 4 mg Pantoprazole Sodium (Protonix Inj) 40 mg IVP DAILY [facility] Last Admin: 06/03/18 10:15 Dose: Not Given Potassium Chloride (Potassium Chloride Oral Soln) 20 meq PO DAILY [facility] Last Admin: 06/03/18 10:16 Dose: 20 meq Potassium Phos/Sodium Phos (Neutra-Phos) 1 pkt PO BID [facility] Last Admin: 06/03/18 18:15 Dose: 1 pkt Silver Sulfadiazine (Silvadene 1% 25 Gm) 0 gm TP DAILY [facility] Last Admin: 06/03/18 10:15 Dose: 25 gm Silver Sulfadiazine (Silvadene 1% 25 Gm) 0 gm TP ACBD [facility] Last Admin: 06/03/18 19:07 Dose: 25 gm Timolol Maleate (Timoptic 0.5% Ophth Soln) 1 drop OD HS [facility] Last Admin: 06/03/18 21:30 Dose: 1 drp Tramadol/Acetaminophen (Ultracet 37.5/325 Mg) 1 tab PO Q6H PRN PRN Reason: Pain Last Admin: 06/02/18 21:49 Dose: 1 tab - Labs Labs: 06/03/18 07:30 06/04/18 08:00 PT 10.7 SECONDS (9.4-12.5) 05/26/18 13:25 INR 0.93 05/26/18 13:25 APTT 24.6 Seconds (25.1-36.5) L 05/26/18 13:25 - Constitutional Appears: No Acute Distress - Head Exam Head Exam: ATRAUMATIC, NORMOCEPHALIC - Respiratory Exam Respiratory Exam: Decreased Breath Sounds, NORMAL BREATHING PATTERN - Cardiovascular Exam Cardiovascular Exam: REGULAR RHYTHM, +S1, +S2 - GI/Abdominal Exam GI & Abdominal Exam: Soft, Normal Bowel Sounds. absent: Tenderness - Neurological Exam Neurological Exam: Awake Assessment and Plan - Assessment and Plan (Free Text) Assessment: Left hip fracture s/p ORIF UTI with pseudomonas HTN History of CKD CAD Dementia Plan: Patient with left hip fracture s/p ORIF. continue physical therapy. continue Tylenol as needed for pain. awaiting today's hemoglobin. Urine culture growing psuedomonas. continue Meropenem and Doryx as per infectious disease. continue silvadene cream on sacral wound. continue antihypertensives. potassium now normalized. no further episodes of coffee ground emesis. continue Protonix. for ION.
[2018-06-04] MEDS: TraMADol/Apap 37.5/325 mg Tab PO PRN (12:46)
[2018-06-04] MEDS: Alum-Mag Hydrox-Simethicone Susp (30 mL) PO SCH ×3 (14:20→21:10)
[2018-06-04 16:10] LABS: HEMOGLOBIN 7.9 g/dL (12.0-16.0); MEAN CELL VOLUME 89.9 fl (80.0-105.0); MEAN CORPUSCULAR HEMOGLOBIN 28.5 pg (25.0-35.0); MEAN CORPUSCULAR HGB CONC 31.7 g/dl (31.0-37.0); MEAN PLATELET VOLUME 9.8 fl (7.0-11.0); RBC 2.77 10^6/uL (3.5-6.1); RED CELL DISTRIBUTION WIDTH 14.6 % (11.5-14.5); WHITE BLOOD COUNT 9.1 10^3/ul (4.5-11.0)
--- NOTE | 2018-06-04 17:26 | PN ---
DATE: 06/04/2018 SUBJECTIVE: The patient was seen, lying in bed. She is sleeping. Daughter is at bedside. The daughter reports the patient did not fairly sleep very well last night. She is still confused. She . She got Ativan last night. PHYSICAL EXAMINATION GENERAL: Elderly lady, lying in bed. VITAL SIGNS: Blood pressure 159/57, heart rate 59, respiratory rate 18, and temperature 98. LUNGS: Bilateral equal air entry. EXTREMITIES: No lower extremity edema. INTAKE AND OUTPUT: 240/600. LABORATORY DATA: WBC 11.7, hemoglobin 8.6, hematocrit 26, and platelets 306. Sodium 139, potassium 4.3, chloride 107, CO2 of 27. BUN 30, creatinine 1.1. Glucose 79. Calcium 9.7, phosphorus 3, magnesium 2.3. CURRENT MEDICATIONS: List reviewed. ASSESSMENT: 1. Stable chronic kidney disease, renal function at best levels. 2. Hypokalemia, resolved. 3. Hypophosphatemia, resolved. 4. Urinary tract infection, Pseudomonas. 5. Hypertension. 6. History of congestive heart failure. 7. Status post left hip replacement. 8. Delirium. PLAN: 1. Continue antibiotics for UTI. 2. Push p.o. fluids. 3. Avoid sedation. 4. Physical therapy. Barbara Edgar MD
--- NOTE | 2018-06-04 19:51 | CP.PCM.PN ---
Subjective - Date & Time of Evaluation Date of Evaluation: 06/04/18 Time of Evaluation: 11:40 - Subjective Subjective: Afebrile, not in distress. Objective - Vital Signs/Intake and Output Vital Signs (last 24 hours): Temp Pulse Resp BP Pulse Ox 97.4 F L 52 L 16 115/53 L 94 L 06/04/18 14:00 06/04/18 14:00 06/04/18 14:00 06/04/18 14:00 06/04/18 14:00 Intake and Output: 06/04/18 06/05/18 18:59 06:59 Output Total 275 Balance -275 - Medications Medications: Current Medications Acetaminophen (Tylenol 325mg Tab) 650 mg PO Q4H PRN PRN Reason: Pain, Mild (1-3) Last Admin: 06/03/18 13:25 Dose: 650 mg Al Hydrox/Mg Hydrox/Simethicone (Maalox Plus 30 Ml) 30 ml PO QID [facility] Last Admin: 06/04/18 17:33 Dose: Not Given Amlodipine Besylate (Norvasc) 10 mg PO DAILY [facility] Last Admin: 06/04/18 10:20 Dose: 10 mg Atorvastatin Calcium (Lipitor) 20 mg PO DIN [facility] Last Admin: 06/04/18 17:32 Dose: 20 mg Bacitracin (Bacitracin) 1 ea TOP BID [facility] Last Admin: 06/04/18 10:20 Dose: 1 ea Clonidine HCl (Catapres) 0.2 mg PO BID [facility] Last Admin: 06/04/18 10:20 Dose: 0.2 mg Docusate Sodium (Colace Liquid) 100 mg PO TID [facility] Last Admin: 06/04/18 14:00 Dose: Not Given Doxycycline Hyclate (Doryx) 100 mg PO Q12 [facility]; Protocol Stop: 06/10/18 22:01 Last Admin: 06/04/18 10:20 Dose: 100 mg Furosemide (Lasix) 20 mg PO DAILY [facility] Last Admin: 06/04/18 10:20 Dose: 20 mg Hydralazine HCl (Apresoline) 50 mg PO TID [facility] Last Admin: 06/04/18 14:00 Dose: Not Given Hydralazine HCl (Apresoline) 10 mg IVP Q6 PRN PRN Reason: Systolic Blood Pressure Last Admin: 06/02/18 05:11 Dose: 10 mg Meropenem (Merrem Iv 1 Gm Premix) 50 mls @ 100 mls/hr IVPB Q12H [facility]; Protocol Last Admin: 06/04/18 14:19 Dose: 100 mls/hr Isosorbide Mononitrate (Imdur) 60 mg PO DAILY [facility] Last Admin: 06/04/18 10:20 Dose: 60 mg Lidocaine HCl (Xylocaine 2%) 1 ea TOP BID PRN PRN Reason: Pain, moderate (4-7) Lorazepam (Ativan) 0.5 mg PO HS [facility]; Protocol Last Admin: 06/03/18 21:30 Dose: 0.5 mg Losartan Potassium (Cozaar) 50 mg PO DAILY [facility] Last Admin: 06/04/18 10:20 Dose: 50 mg Metoprolol Tartrate (Lopressor) 50 mg PO DAILY [facility] Last Admin: 06/04/18 10:20 Dose: 50 mg Ondansetron HCl (Zofran Inj) 4 mg IVP Q4H PRN PRN Reason: Nausea/Vomiting Last Admin: 06/01/18 03:46 Dose: 4 mg Pantoprazole Sodium (Protonix Inj) 40 mg IVP DAILY [facility] Last Admin: 06/04/18 10:20 Dose: 40 mg Potassium Chloride (Potassium Chloride Oral Soln) 20 meq PO DAILY [facility] Last Admin: 06/04/18 10:20 Dose: 20 meq Potassium Phos/Sodium Phos (Neutra-Phos) 1 pkt PO BID [facility] Last Admin: 06/04/18 17:33 Dose: 1 pkt Silver Sulfadiazine (Silvadene 1% 25 Gm) 0 gm TP DAILY [facility] Last Admin: 06/04/18 17:34 Dose: 1 gm Silver Sulfadiazine (Silvadene 1% 25 Gm) 0 gm TP ACBD [facility] Last Admin: 06/04/18 17:43 Dose: 1 gm Timolol Maleate (Timoptic 0.5% Ophth Soln) 1 drop OD HS [facility] Last Admin: 06/03/18 21:30 Dose: 1 drp Tramadol/Acetaminophen (Ultracet 37.5/325 Mg) 1 tab PO Q6H PRN PRN Reason: Pain Last Admin: 06/04/18 12:46 Dose: 1 tab - Labs Labs: 06/04/18 16:04 09/25/18 08:00 PT 10.7 SECONDS (9.4-12.5) 05/26/18 13:25 INR 0.93 05/26/18 13:25 APTT 24.6 Seconds (25.1-36.5) L 05/26/18 13:25 - Constitutional Appears: Chronically Ill - Head Exam Head Exam: NORMAL INSPECTION - Respiratory Exam Respiratory Exam: Decreased Breath Sounds - Cardiovascular Exam Cardiovascular Exam: +S1, +S2 - GI/Abdominal Exam GI & Abdominal Exam: Soft. absent: Tenderness Assessment and Plan - Assessment and Plan (Free Text) Plan: Assessment Pseudomonas UTI R/O HCAP left femoral neck fracture S/P surgery POD #6 CAD chronic renal failure HTN S/P carotid endearterectomy endometrial CAD S/P hysterectomy Plan continue Doxycycline and Merrem day 4 and should complete 7 days of therapy
[2018-06-04 22:40] VITALS: O2SAT 95
[2018-06-04 23:43] VITALS: TEMP 98.2
[2018-06-05] MEDS: Meropenem IV 1 gm in NS 50 ML IVPB SCH (01:15)
[2018-06-05] MEDS: Bacitracin 500 Units/gm Oint Foilpak UD TOP SCH ×2 (05:11→09:41)
[2018-06-05] MEDS ORDERED: Pantoprazole 40 mg EC Tab PO SCH (07:30)
[2018-06-05 07:53] VITALS: PULSE 65; RESP 16
--- NOTE | 2018-06-05 08:15 | CP.PCM.PN ---
Subjective - Date & Time of Evaluation Date of Evaluation: 06/05/18 Time of Evaluation: 07:45 - Subjective Subjective: Patient is seen this morning in room 576 bed 1. She has no complaints but is confused. Objective - Vital Signs/Intake and Output Vital Signs (last 24 hours): Temp Pulse Resp BP Pulse Ox 98.2 F 65 16 103/79 95 06/05/18 07:52 06/05/18 07:52 06/05/18 07:52 06/05/18 07:52 06/05/18 07:52 Intake and Output: 06/05/18 06/05/18 06:59 18:59 Intake Total 495 Output Total 202 Balance 293 - Medications Medications: Current Medications Acetaminophen (Tylenol 325mg Tab) 650 mg PO Q4H PRN PRN Reason: Pain, Mild (1-3) Last Admin: 06/03/18 13:25 Dose: 650 mg Al Hydrox/Mg Hydrox/Simethicone (Maalox Plus 30 Ml) 30 ml PO QID [facility] Last Admin: 06/04/18 21:10 Dose: 30 ml Amlodipine Besylate (Norvasc) 10 mg PO DAILY [facility] Last Admin: 06/04/18 10:20 Dose: 10 mg Atorvastatin Calcium (Lipitor) 20 mg PO DIN [facility] Last Admin: 06/04/18 17:32 Dose: 20 mg Bacitracin (Bacitracin) 1 ea TOP BID [facility] Last Admin: 06/05/18 05:11 Dose: Not Given Clonidine HCl (Catapres) 0.2 mg PO BID [facility] Last Admin: 06/05/18 05:11 Dose: Not Given Docusate Sodium (Colace Liquid) 100 mg PO TID [facility] Last Admin: 06/05/18 05:12 Dose: Not Given Doxycycline Hyclate (Doryx) 100 mg PO Q12 [facility]; Protocol Stop: 06/10/18 22:01 Last Admin: 06/04/18 21:10 Dose: 100 mg Furosemide (Lasix) 20 mg PO DAILY [facility] Last Admin: 06/04/18 10:20 Dose: 20 mg Furosemide (Lasix) 40 mg IVP DAILY [facility] Hydralazine HCl (Apresoline) 50 mg PO TID [facility] Last Admin: 06/05/18 05:12 Dose: Not Given Hydralazine HCl (Apresoline) 10 mg IVP Q6 PRN PRN Reason: Systolic Blood Pressure Last Admin: 06/05/18 05:06 Dose: 10 mg Meropenem (Merrem Iv 1 Gm Premix) 50 mls @ 100 mls/hr IVPB Q12H [facility]; Protocol Last Admin: 06/05/18 01:15 Dose: 100 mls/hr Isosorbide Mononitrate (Imdur) 60 mg PO DAILY [facility] Last Admin: 06/04/18 10:20 Dose: 60 mg Lidocaine HCl (Xylocaine 2%) 1 ea TOP BID PRN PRN Reason: Pain, moderate (4-7) Lorazepam (Ativan) 0.5 mg PO HS [facility]; Protocol Last Admin: 06/04/18 21:00 Dose: 0.5 mg Losartan Potassium (Cozaar) 50 mg PO DAILY [facility] Last Admin: 06/04/18 10:20 Dose: 50 mg Metoprolol Tartrate (Lopressor) 50 mg PO DAILY [facility] Last Admin: 06/04/18 10:20 Dose: 50 mg Ondansetron HCl (Zofran Inj) 4 mg IVP Q4H PRN PRN Reason: Nausea/Vomiting Last Admin: 06/01/18 03:46 Dose: 4 mg Pantoprazole Sodium (Protonix Ec Tab) 40 mg PO ACB [facility] Potassium Chloride (Potassium Chloride Oral Soln) 20 meq PO DAILY [facility] Last Admin: 06/04/18 10:20 Dose: 20 meq Potassium Phos/Sodium Phos (Neutra-Phos) 1 pkt PO BID [facility] Last Admin: 06/04/18 17:33 Dose: 1 pkt Silver Sulfadiazine (Silvadene 1% 25 Gm) 0 gm TP DAILY [facility] Last Admin: 06/04/18 17:34 Dose: 1 gm Silver Sulfadiazine (Silvadene 1% 25 Gm) 0 gm TP ACBD [facility] Last Admin: 06/04/18 17:43 Dose: 1 gm Timolol Maleate (Timoptic 0.5% Ophth Soln) 1 drop OD HS [facility] Last Admin: 06/04/18 21:10 Dose: 1 drp - Labs Labs: 06/04/18 16:04 06/04/18 08:00 PT 10.7 SECONDS (9.4-12.5) 05/26/18 13:25 INR 0.93 05/26/18 13:25 APTT 24.6 Seconds (25.1-36.5) L 05/26/18 13:25 - Constitutional Appears: No Acute Distress - Head Exam Head Exam: ATRAUMATIC, NORMOCEPHALIC - Respiratory Exam Respiratory Exam: Decreased Breath Sounds, NORMAL BREATHING PATTERN - Cardiovascular Exam Cardiovascular Exam: REGULAR RHYTHM, +S1, +S2 - GI/Abdominal Exam GI & Abdominal Exam: Soft, Normal Bowel Sounds. absent: Tenderness - Neurological Exam Neurological Exam: Alert, Awake Assessment and Plan - Assessment and Plan (Free Text) Assessment: Left hip fracture s/p left hip prosthesis HTN Dementia H/O CKD GERD/gastritis Plan: Patient with hemoglobin of 7.9 yesterday. She was transfused 1 unit PRBC. Awaiting today's H&H. Will order one dose of IV Lasix for today. continue antih ypertensives. continue IV antibiotics for pseudomonas urinary tract infection as per infectious disease. continue PT. If hemoglobin is stable, patient to go to [facility].
[2018-06-05 08:18] LABS: BASO # 0.02 K/mm3 (0.0-2.0); BASO % 0.2 % (0.0-3.0); EOS # 0.7 (0.0-0.7); EOS % 5.6 % (1.5-5.0); GRAN # 9.2 (1.4-6.5); GRAN % 75.5 % (50.0-68.0); LYMPH # 1.5 (1.2-3.4); LYMPH % 12.1 % (22.0-35.0); MEAN CELL VOLUME 87.9 fl (80.0-105.0); MEAN CORPUSCULAR HEMOGLOBIN 28.7 pg (25.0-35.0); MEAN CORPUSCULAR HGB CONC 32.6 g/dl (31.0-37.0); MEAN PLATELET VOLUME 9.6 fl (7.0-11.0); MONO # 0.8 (0.1-0.6); MONO % 6.6 % (1.0-6.0); RBC 3.87 10^6/uL (3.5-6.1); RED CELL DISTRIBUTION WIDTH 15.2 % (11.5-14.5); WHITE BLOOD COUNT 12.2 10^3/ul (4.5-11.0)
[2018-06-05 08:21] LABS: HEMOGLOBIN 11.1 g/dL (12.0-16.0)
[2018-06-05] MEDS: Potassium & Sodium Phosphate PO SCH (09:41)
[2018-06-05] MEDS: Alum-Mag Hydrox-Simethicone Susp (30 mL) PO SCH (09:41)
[2018-06-05] MEDS: Potassium Chloride 20 mEq/15 ml LIQ UD PO SCH (09:42)
[2018-06-05 09:45] VITALS: BP 163/73
--- NOTE | 2018-06-05 12:18 | CP.PCM.CON ---
<Yoel Lemos - Last Filed: 06/05/18 12:01> History of Present Illness - History of Present Illness History of Present Illness: Podiatry consult notes for attending dr. Pérez; 83 y/o F patient with PMHx of Parkinson's disease, PVD, Ischemic heart disease, MALIA on CKD, GERD and anxiety. Patient is poor historian and her history obtained from her daughter who was at the bedside at the visit time and from her chart. Patient daughter states that there is a military police officer who uses to take care of her nails at the alf. Patient daughter states that his toe nails are not painful. Patient daughter states that she can't reach her feet to take care of it because of his medical condition. Patient daughter denies any current F/N/V/C or SOB. Patient daughter denies any other pedal complaint at this time. PMHx: Parkinson's disease, PVD,Ischemic heart disease, MALIA on CKD, GERD and anx iety. PSH: Iliac stent, Left bipolar hip replacement last week. Allergies: Allopurinol Social Hx: Former smoker (33 years at 3 ppd for about 100 pack years). No illicit drug use. Review of Systems - Review of Systems Review of Systems: As Per HPI Past Patient History - Infectious Disease Hx of Infectious Diseases: None - Past Social History Smoking Status: Never Smoked - CARDIAC Hx Cardiac Disorders: Yes Hx Hypertension: Yes - RENAL Hx Renal Failure: Yes (CKD) - MUSCULOSKELETAL/RHEUMATOLOGICAL Hx Falls: Yes (past) - GASTROINTESTINAL Hx Gastrointestinal Disorders: No Hx Gastroesophageal Reflux: Yes - GENITOURINARY/GYNECOLOGICAL Hx Reproductive Disorders: No - PSYCHIATRIC Hx Anxiety: Yes Hx Substance Use: No - SURGICAL HISTORY Hx Surgeries: Yes - ANESTHESIA Hx Anesthesia: Yes Meds Allergies/Adverse Reactions: Allergies Allergy/AdvReac Type Severity Reaction Status Date / Time allopurinol [From Zyloprim] Allergy URTICARIA Verified 05/26/18 12:45 - Medications Medications: Current Medications Acetaminophen (Tylenol 325mg Tab) 650 mg PO Q4H PRN PRN Reason: Pain, Mild (1-3) Last Admin: 06/05/18 09:42 Dose: 650 mg Al Hydrox/Mg Hydrox/Simethicone (Maalox Plus 30 Ml) 30 ml PO QID [facility] Last Admin: 06/05/18 09:41 Dose: 30 ml Amlodipine Besylate (Norvasc) 10 mg PO DAILY [facility] Last Admin: 06/05/18 09:42 Dose: 10 mg Atorvastatin Calcium (Lipitor) 20 mg PO DIN [facility] Last Admin: 06/04/18 17:32 Dose: 20 mg Bacitracin (Bacitracin) 1 ea TOP BID [facility] Last Admin: 06/05/18 09:41 Dose: 1 ea Clonidine HCl (Catapres) 0.2 mg PO BID [facility] Last Admin: 06/05/18 09:42 Dose: 0.2 mg Docusate Sodium (Colace Liquid) 100 mg PO TID [facility] Last Admin: 06/05/18 09:41 Dose: 100 mg Doxycycline Hyclate (Doryx) 100 mg PO Q12 [facility]; Protocol Stop: 06/10/18 22:01 Last Admin: 06/05/18 09:42 Dose: 100 mg Furosemide (Lasix) 20 mg PO DAILY [facility] Last Admin: 06/04/18 10:20 Dose: 20 mg Furosemide (Lasix) 40 mg IVP DAILY [facility] Last Admin: 06/05/18 09:41 Dose: 40 mg Hydralazine HCl (Apresoline) 50 mg PO TID [facility] Last Admin: 06/05/18 09:42 Dose: 50 mg Hydralazine HCl (Apresoline) 10 mg IVP Q6 PRN PRN Reason: Systolic Blood Pressure Last Admin: 06/05/18 05:06 Dose: 10 mg Meropenem (Merrem Iv 1 Gm Premix) 50 mls @ 100 mls/hr IVPB Q12H [facility]; Protocol Last Admin: 06/05/18 01:15 Dose: 100 mls/hr Isosorbide Mononitrate (Imdur) 60 mg PO DAILY [facility] Last Admin: 06/05/18 09:42 Dose: 60 mg Lidocaine HCl (Xylocaine 2%) 1 ea TOP BID PRN PRN Reason: Pain, moderate (4-7) Lorazepam (Ativan) 0.5 mg PO HS [facility]; Protocol Last Admin: 06/04/18 21:00 Dose: 0.5 mg Losartan Potassium (Cozaar) 50 mg PO DAILY [facility] Last Admin: 06/05/18 09:42 Dose: 50 mg Metoprolol Tartrate (Lopressor) 50 mg PO DAILY [facility] Last Admin: 06/05/18 09:43 Dose: 50 mg Ondansetron HCl (Zofran Inj) 4 mg IVP Q4H PRN PRN Reason: Nausea/Vomiting Last Admin: 06/01/18 03:46 Dose: 4 mg Pantoprazole Sodium (Protonix Ec Tab) 40 mg PO ACB [facility] Last Admin: 06/05/18 09:43 Dose: 40 mg Potassium Chloride (Potassium Chloride Oral Soln) 20 meq PO DAILY [facility] Last Admin: 06/05/18 09:42 Dose: 20 meq Potassium Phos/Sodium Phos (Neutra-Phos) 1 pkt PO BID [facility] Last Admin: 06/05/18 09:41 Dose: 1 pkt Silver Sulfadiazine (Silvadene 1% 25 Gm) 0 gm TP DAILY [facility] Last Admin: 06/04/18 17:34 Dose: 1 gm Silver Sulfadiazine (Silvadene 1% 25 Gm) 0 gm TP ACBD [facility] Last Admin: 06/04/18 17:43 Dose: 1 gm Timolol Maleate (Timoptic 0.5% Ophth Soln) 1 drop OD HS [facility] Last Admin: 06/04/18 21:10 Dose: 1 drp Physical Exam - Constitutional Appears: Well, Non-toxic, No Acute Distress - Head Exam Head Exam: ATRAUMATIC, NORMOCEPHALIC - Extremities Exam Additional comments: B/l LE focused exam: Vasc: DP/PT 1/4 B/l. Cap refill < 3 sec in all digits. Temp gradient warm to cool b/l from proximal to distal b/l. Neuro: Couldn't be assessed. Patient wasn't cooperative. Derm: No open lesion. No clinical signs of infections. Toe nails elongated and dystrophic X 10. MSK: No pain on palpating the nail folds. Muscle power couldn't be assessed. Patient wasn't cooperative. Right LE is externally rotated > Left LE. Results - Vital Signs Recent Vital Signs: Last Vital Signs Temp 98.2 F 06/05/18 07:52 Pulse 65 06/05/18 07:52 Resp 16 06/05/18 07:52 BP 163/73 H 06/05/18 09:42 Pulse Ox 95 06/05/18 07:52 - Labs Result Diagrams: 06/05/18 08:00 06/05/18 08:00 Labs: Laboratory Results - last 24 hr 06/04/18 06/04/18 06/05/18 16:04 18:16 08:00 WBC 9.1 D 12.2 H D RBC 2.77 L 3.87 Hgb 7.9 L 11.1 L D Hct 24.9 L 34.0 L MCV 89.9 87.9 MCH 28.5 28.7 MCHC 31.7 32.6 RDW 14.6 H 15.2 H Plt Count 277 331 MPV 9.8 9.6 Gran % 75.5 H Lymph % (Auto) 12.1 L Wirt % (Auto) 6.6 H Eos % (Auto) 5.6 H Baso % (Auto) 0.2 Gran # 9.20 H Lymph # (Auto) 1.5 Wirt # (Auto) 0.8 H Eos # (Auto) 0.7 Baso # (Auto) 0.02 Sodium Potassium Chloride Carbon Dioxide Anion Gap BUN Creatinine Est GFR ( Amer) Est GFR (Non-Af Amer) Random Glucose Calcium Blood Type B POSITIVE Antibody Screen Negative Crossmatch See Detail BBK History Checked Patient has bt 06/05/18 08:00 WBC RBC Hgb Hct MCV MCH MCHC RDW Plt Count MPV Gran % Lymph % (Auto) Wirt % (Auto) Eos % (Auto) Baso % (Auto) Gran # Lymph # (Auto) Wirt # (Auto) Eos # (Auto) Baso # (Auto) Sodium 138 Potassium 3.9 Chloride 106 Carbon Dioxide 26 Anion Gap 10 BUN 30 H Creatinine 1.2 Est GFR ( Amer) 52 Est GFR (Non-Af Amer) 43 Random Glucose 95 Calcium 10.0 Blood Type Antibody Screen Crossmatch BBK History Checked Assessment & Plan - Assessment and Plan (Free Text) Assessment: 83 y/o F patient seen and evaluated for elongated, dystrophic toe nails. Plan: Patient seen and evaluated at the bedside Plan discussed with attending Dr. Pérez Chart, labs and vitals reviewed; Patient is afebrile , No Leukocytosis Toe nails debrided using sterile nail nipper X 10 Patient tolerated the nail debridement well with no complications Thank you for consulting podiatry service. - Date & Time Date: 06/05/18 Time: 12:01 <Emperatriz Pérez - Last Filed: 06/05/18 13:18> Meds - Medications Medications: Current Medications Acetaminophen (Tylenol 325mg Tab) 650 mg PO Q4H PRN PRN Reason: Pain, Mild (1-3) Last Admin: 06/05/18 09:42 Dose: 650 mg Al Hydrox/Mg Hydrox/Simethicone (Maalox Plus 30 Ml) 30 ml PO QID [facility] Last Admin: 06/05/18 09:41 Dose: 30 ml Amlodipine Besylate (Norvasc) 10 mg PO DAILY [facility] Last Admin: 06/05/18 09:42 Dose: 10 mg Atorvastatin Calcium (Lipitor) 20 mg PO DIN [facility] Last Admin: 06/04/18 17:32 Dose: 20 mg Bacitracin (Bacitracin) 1 ea TOP BID [facility] Last Admin: 06/05/18 09:41 Dose: 1 ea Clonidine HCl (Catapres) 0.2 mg PO BID [facility] Last Admin: 06/05/18 09:42 Dose: 0.2 mg Docusate Sodium (Colace Liquid) 100 mg PO TID [facility] Last Admin: 06/05/18 09:41 Dose: 100 mg Doxycycline Hyclate (Doryx) 100 mg PO Q12 [facility]; Protocol Stop: 06/10/18 22:01 Last Admin: 06/05/18 09:42 Dose: 100 mg Furosemide (Lasix) 20 mg PO DAILY [facility] Last Admin: 06/04/18 10:20 Dose: 20 mg Furosemide (Lasix) 40 mg IVP DAILY [facility] Last Admin: 06/05/18 09:41 Dose: 40 mg Hydralazine HCl (Apresoline) 50 mg PO TID [facility] Last Admin: 06/05/18 09:42 Dose: 50 mg Hydralazine HCl (Apresoline) 10 mg IVP Q6 PRN PRN Reason: Systolic Blood Pressure Last Admin: 06/05/18 05:06 Dose: 10 mg Meropenem (Merrem Iv 1 Gm Premix) 50 mls @ 100 mls/hr IVPB Q12H [facility]; Protocol Last Admin: 06/05/18 01:15 Dose: 100 mls/hr Isosorbide Mononitrate (Imdur) 60 mg PO DAILY [facility] Last Admin: 06/05/18 09:42 Dose: 60 mg Lidocaine HCl (Xylocaine 2%) 1 ea TOP BID PRN PRN Reason: Pain, moderate (4-7) Lorazepam (Ativan) 0.5 mg PO HS [facility]; Protocol Last Admin: 06/04/18 21:00 Dose: 0.5 mg Losartan Potassium (Cozaar) 50 mg PO DAILY [facility] Last Admin: 06/05/18 09:42 Dose: 50 mg Metoprolol Tartrate (Lopressor) 50 mg PO DAILY [facility] Last Admin: 06/05/18 09:43 Dose: 50 mg Ondansetron HCl (Zofran Inj) 4 mg IVP Q4H PRN PRN Reason: Nausea/Vomiting Last Admin: 06/01/18 03:46 Dose: 4 mg Pantoprazole Sodium (Protonix Ec Tab) 40 mg PO ACB [facility] Last Admin: 06/05/18 09:43 Dose: 40 mg Potassium Chloride (Potassium Chloride Oral Soln) 20 meq PO DAILY [facility] Last Admin: 06/05/18 09:42 Dose: 20 meq Potassium Phos/Sodium Phos (Neutra-Phos) 1 pkt PO BID [facility] Last Admin: 06/05/18 09:41 Dose: 1 pkt Silver Sulfadiazine (Silvadene 1% 25 Gm) 0 gm TP DAILY [facility] Last Admin: 06/04/18 17:34 Dose: 1 gm Silver Sulfadiazine (Silvadene 1% 25 Gm) 0 gm TP ACBD [facility] Last Admin: 06/04/18 17:43 Dose: 1 gm Timolol Maleate (Timoptic 0.5% Ophth Soln) 1 drop OD HS [facility] Last Admin: 06/04/18 21:10 Dose: 1 drp Results - Vital Signs Recent Vital Signs: Last Vital Signs Temp 98.2 F 06/05/18 07:52 Pulse 65 06/05/18 07:52 Resp 16 06/05/18 07:52 BP 163/73 H 06/05/18 09:42 Pulse Ox 95 06/05/18 07:52 - Labs Result Diagrams: 06/05/18 08:00 06/05/18 08:00 Labs: Laboratory Results - last 24 hr 06/04/18 06/04/18 06/05/18 16:04 18:16 08:00 WBC 9.1 D 12.2 H D RBC 2.77 L 3.87 Hgb 7.9 L 11.1 L D Hct 24.9 L 34.0 L MCV 89.9 87.9 MCH 28.5 28.7 MCHC 31.7 32.6 RDW 14.6 H 15.2 H Plt Count 277 331 MPV 9.8 9.6 Gran % 75.5 H Lymph % (Auto) 12.1 L Wirt % (Auto) 6.6 H Eos % (Auto) 5.6 H Baso % (Auto) 0.2 Gran # 9.20 H Lymph # (Auto) 1.5 Wirt # (Auto) 0.8 H Eos # (Auto) 0.7 Baso # (Auto) 0.02 Sodium Potassium Chloride Carbon Dioxide Anion Gap BUN Creatinine Est GFR ( Amer) Est GFR (Non-Af Amer) Random Glucose Calcium Blood Type B POSITIVE Antibody Screen Negative Crossmatch See Detail BBK History Checked Patient has bt 06/05/18 08:00 WBC RBC Hgb Hct MCV MCH MCHC RDW Plt Count MPV Gran % Lymph % (Auto) Wirt % (Auto) Eos % (Auto) Baso % (Auto) Gran # Lymph # (Auto) Wirt # (Auto) Eos # (Auto) Baso # (Auto) Sodium 138 Potassium 3.9 Chloride 106 Carbon Dioxide 26 Anion Gap 10 BUN 30 H Creatinine 1.2 Est GFR ( Amer) 52 Est GFR (Non-Af Amer) 43 Random Glucose 95 Calcium 10.0 Blood Type Antibody Screen Crossmatch BBK History Checked Attending/Attestation - Attestation I have personally seen and examined this patient.: Yes I have fully participated in the care of the patient.: Yes I have reviewed all pertinent clinical information: Yes
--- NOTE | 2018-06-05 20:46 | PN ---
DATE: 06/05/2018 SUBJECTIVE: The patient is seen lying in bed. She is awake. She is alert. She is comfortable. She does not appear to be in any kind of distress. She does have pain in her left leg. PHYSICAL EXAMINATION: GENERAL: Elderly lady lying in bed. VITAL SIGNS: Blood pressure 163/73, heart rate 65, respiratory rate 16, temperature 98.2. HEENT: Normocephalic, atraumatic, positive pallor. NECK: Supple, no JVD. LUNGS: Bilateral equal air entry, bilateral equal expansion. CARDIAC: S1 and S2, regular rate and rhythm, no murmur, no rub. ABDOMEN: Soft, nondistended, nontender, bowel sounds present. EXTREMITIES: No lower extremity edema, left foot internally rotated. LABORATORY DATA: WBC 12.2, hemoglobin 11, hematocrit 34, platelets 331. Sodium 138, potassium 3.9, chloride 106, CO2 of 26, BUN 30, creatinine 1.2, glucose 95, calcium 10. MEDICATIONS: List reviewed. ASSESSMENT: 1. Stable chronic kidney disease. 2. Resolved hypokalemia. 3. Resolved hypophosphatemia. 4. Resolved hypercalcemia. 5. Pseudomonas urinary tract infection. 6. Hypertension. 7. Status post left hip fracture, postop day #6. PLAN: 1. Continue pain management. 2. Continue current antihypertensives. 3. Avoid nephrotoxins. 4. Stable from the renal standpoint. Barbara Edgar MD
--- NOTE | 2018-06-05 21:41 | PN ---
DATE: 06/05/2018 SUBJECTIVE: Patient was seen earlier this morning in room 576, bed 1. No fevers. No chills. No nausea. Uneventful night. PHYSICAL EXAMINATION: VITAL SIGNS: Temperature is 98.2, blood pressure is 103/70, respiratory rate of 18, heart rate of 65. HEENT: Unremarkable. NECK: Supple. LUNGS: Decreased breath sounds. HEART: Normal S1 and S2. ABDOMEN: Soft. LABORATORY EXAMINATION: Reveals a white count of 12,200, hemoglobin 11, platelets of 331. Chemistries reveals a BUN of 30, creatinine of 1.2, procalcitonin 0.6. Urinalysis is noted. Microbiology reveals Pseudomonas aeruginosa, is sensitive to p.o. Cipro. Blood cultures are negative. ASSESSMENT AND PLAN: An 83-year-old female with Pseudomonas urinary tract infection, has been on doxy and meropenem. The patient with coronary artery disease, chronic renal failure, hypertension. The patient received 5 days of antibiotics and complete with 7 days. Manuel Espinosa MD
== END 2018-06-05 17:15 | DRG 470 ==
LOC: ED 12:30 → ERH 16:07 → 5RSO 18:24
PROVIDERS: ADMIT Internal Medicine; ATTEND Internal Medicine
PROC: 6A550Z2 Pheresis of Platelets, Single (ICD-10-PCS; 2018-05-29)
PROC: 0SRB0JA Replacement of Left Hip Joint with Synthetic Substitute, Uncemented, Open Approach (ICD-10-PCS; principal; 2018-05-29 07:30)
PROC: 30233N1 Transfusion of Nonautologous Red Blood Cells into Peripheral Vein, Percutaneous Approach (ICD-10-PCS; 2018-06-04)
DX: S72.012A Unspecified intracapsular fracture of left femur, initial encounter for closed fracture (principal); N39.0 Urinary tract infection, site not specified; I13.0 Hypertensive heart and chronic kidney disease with heart failure and stage 1 through stage 4 chronic kidney disease, or unspecified chronic kidney disease; I42.9 Cardiomyopathy, unspecified; N18.4 Chronic kidney disease, stage 4 (severe); K92.0 Hematemesis; S80.02XA Contusion of left knee, initial encounter; W18.30XA Fall on same level, unspecified, initial encounter; Y92.009 Unspecified place in unspecified non-institutional (private) residence as the place of occurrence of the external cause; Z66 Do not resuscitate; B96.5 Pseudomonas (aeruginosa) (mallei) (pseudomallei) as the cause of diseases classified elsewhere; D63.8 Anemia in other chronic diseases classified elsewhere; E78.5 Hyperlipidemia, unspecified; E83.39 Other disorders of phosphorus metabolism; E87.6 Hypokalemia; F03.90 Unspecified dementia, unspecified severity, without behavioral disturbance, psychotic disturbance, mood disturbance, and anxiety; F41.9 Anxiety disorder, unspecified; G20 Parkinson's disease; H40.9 Unspecified glaucoma; I25.10 Atherosclerotic heart disease of native coronary artery without angina pectoris; I50.9 Heart failure, unspecified; Z86.73 Personal history of transient ischemic attack (TIA), and cerebral infarction without residual deficits; I25.2 Old myocardial infarction; I73.9 Peripheral vascular disease, unspecified; K21.9 Gastro-esophageal reflux disease without esophagitis; N27.0 Small kidney, unilateral; R13.10 Dysphagia, unspecified; Z79.02 Long term (current) use of antithrombotics/antiplatelets; Z79.82 Long term (current) use of aspirin; Z85.42 Personal history of malignant neoplasm of other parts of uterus; Z87.891 Personal history of nicotine dependence; Z90.710 Acquired absence of both cervix and uterus; Z96.642 Presence of left artificial hip joint; Z88.8 Allergy status to other drugs, medicaments and biological substances

== ENCOUNTER 2018-07-02 06:03 | Emergency (ER) | payer MEDICARE ==
[2018-07-02 06:03] VITALS: BMI 19.1
--- NOTE | 2018-07-02 07:33 | ED PDOC ---
Arrival/HPI - General Chief Complaint: Trauma Time Seen by Provider: 07/02/18 07:20 Historian: Patient, Intermediate - History of Present Illness Narrative History of Present Illness (Text): 83yo female, with history of hypertension, CAD, CHF, dementia, and currently 3 months s/p an ORIF for a left femoral neck fracture, brought to ER by EMS for evaluation after patient slipped and fell while at [facility]. Patient reports she fell on her left side and is now complaining of left neck, left hip and left foot/ankle pain. She denies any loss of consciousness but is unsure of a head injury. Otherwise, she denies any weakness or numbness, abdominal pain, chest pain, or shortness of breath. Patient is allergic to allopurinol. PMD: Dr. Bell Time/Duration: 1-3 hours Past Medical History - Provider Review Nursing Documentation Reviewed: Yes - Infectious Disease Hx of Infectious Diseases: None - Cardiac Hx Cardiac Disorders: Yes Hx Hypertension: Yes - Renal Hx Renal Failure: Yes (CKD) - Musculoskeletal/Rheumatological Hx Arthritis: Yes Hx Back Pain: Yes Hx Falls: Yes (past) - Gastrointestinal Hx Gastrointestinal Disorders: No Hx Gastroesophageal Reflux: Yes - Genitourinary/Gynecological Hx Reproductive Disorders: No - Psychiatric Hx Anxiety: Yes Hx Substance Use: No - Anesthesia Hx Anesthesia: Yes Family/Social History - Physician Review Nursing Documentation Reviewed: Yes Family/Social History: No Known Family HX Smoking Status: Former Smoker Hx Alcohol Use: No Hx Substance Use: No Allergies/Home Meds Allergies/Adverse Reactions: Allergies allopurinol [From Zyloprim] Allergy (Verified 05/26/18 12:45) URTICARIA Home Medications: Home Meds Medication Instructions Recorded Confirmed Atorvastatin [Lipitor] 20 mg PO DAILY 11/21/17 07/02/18 Clopidogrel [Plavix] 75 mg PO DAILY 11/21/17 07/02/18 Timolol 0.5% Ophth [Timoptic 0.5% 1 drop OD HS 11/21/17 07/02/18 Ophth Soln] Furosemide [Lasix] 40 mg PO DAILY 12/06/17 07/02/18 LORazepam [Ativan] 0.5 mg PO HS 05/26/18 07/02/18 Metoprolol Tartrate [Lopressor] 25 mg PO BID 07/02/18 07/02/18 Pantoprazole [Protonix EC Tab] 40 mg PO 0600 07/02/18 07/02/18 Potassium Chloride [Klor-Con M10] 1 tab PO BID 07/02/18 07/02/18 Tolterodine Tartrate [Detrol LA] 1 cap PO HS 07/02/18 07/02/18 Tramadol HCl [Ultram] 1 tab PO Q6H PRN 07/02/18 07/02/18 Review of Systems - Physician Review All systems were reviewed & negative as marked: Yes - Review of Systems Respiratory: absent: SOB Cardiovascular: absent: Chest Pain Gastrointestinal: absent: Abdominal Pain Musculoskeletal: Neck Pain, Other (left hip pain; left foot and ankle pain) Neurological: absent: Headache, Focal Weakness Physical Exam Vital Signs Reviewed: Yes Temperature: Afebrile Blood Pressure: Normal Pulse: Regular Respiratory Rate: Normal Appearance: Positive for: Non-Toxic Mental Status: Positive for: Alert and Oriented X 3 - Systems Exam Head: Present: Normocephalic. No: Tenderness, Contusion, Swelling, Ecchymosis Pupils: Present: PERRL Extroacular Muscles: Present: EOMI Conjunctiva: Present: Normal Mouth: Present: Dry Neck: Present: Normal Range of Motion, MIDLINE TENDERNESS (mild), Paraspinal Tenderness, Other (no step-off deformity) Respiratory/Chest: Present: Clear to Auscultation, Good Air Exchange. No: Respiratory Distress, Accessory Muscle Use, Retracting, Tachypneic Cardiovascular: Present: Regular Rate and Rhythm, Normal S1, S2. No: Murmurs Abdomen: Present: Normal Bowel Sounds. No: Tenderness, Distention, Peritoneal Signs Back: Present: Normal Inspection, Decubitus Ulcer (small sacral decubitus ulcer; no drainage, increased warmth, or erythema noted) Upper Extremity: Present: Normal Inspection, Normal ROM. No: Cyanosis, Edema Lower Extremity: Present: Edema, Tenderness (left ankle and foot tenderness; left anterior hip tenderness. No eccymosis), Other (equal distal pulses). No: CALF TENDERNESS Neurological: Present: GCS=15, CN II-XII Intact, Speech Normal Skin: Present: Warm, Dry, Other (small abrasion noted to right posterior calf; no erythema, no induration, no fluctuance or discharge noted.). No: Rashes Psychiatric: Present: Alert, Oriented x 3, Normal Insight, Normal Concentration, Normal Affect Medical Decision Making ED Course and Treatment: Impression: 83yo female with left hip pain s/p fall Plan: -- XR left hip -- XR left foot -- XR left ankle -- CT head w/o contrast -- CT C-spine w/o contrast -- Tramadol 50mg PO -- C-collar -- Reassess and disposition Prior Visits: Notes and results from previous visits were reviewed. Patient was last seen in the emergency department on 05/26/18 due to fall; patient was admitted due to a left femoral neck fracture Progress Notes: 07/02/18 09:09 XR reviewed, possible left hip dislocation; awaiting radiology read. Case discussed with Dr. Garvey, patient's orthopedist, and he will come to ER to evaluate. Further orders placed per Dr. Garvey's direction. 07/02/18 09:28 Dr. Garvey at bedside, and he will perform reduction of hip dislocation. Patient agreeable with plan. 07/02/18 09:48 PROCEDURE: MODERATE SEDATION Performed by the emergency provider Start Time: 09:48 Consent: Informed consent, after discussion of the risks, benefits, and alternatives to the procedure, was obtained. Timeout: A timeout to verify the correct patient, procedure, and site was performed immediately prior to the procedure. Indication: Left hip dislocation Patient History: History of adverse reactions involving sedation/anesthesia: No patient or family history of adverse reaction Patients H & P remains current: YES History and Physical and Current Medication list reviewed: YES Appropriate Candidate: Based on history and airway assessment, patient is an appropriate candidate for Moderate Sedation: YES Preparation: Cardiac monitoring and continuous pulse oximetry. IV access obtained. Suction immediately available at bedside. Patient Position: Supine Anesthesia: Last meal 6 hours ago. Patient was given Propofol 20mg IV push with appropriate sedation. I administered the Propofol. See MAR for details. 07/02/18 09:55 Post reduction XR of left hip ordered. Post-procedure: Patient tolerated the procedure well with no immediate complications. Patient recovered from sedation uneventfully and did not require airway intervention. Post anesthesia the patient's vital signs including respiratory function, cardiovascular function, and temperature were stable. 07/02/18 10:35 On reassessment, patient reports pressure upon urination. Straight cath order placed; Urinalysis and urine culture orders placed. 07/02/18 10:40 Post-procedure XR reviewed, and Dr. Garvey informed of findings; Dr. Garvey will return to ER for reassessment. Labs ordered. 07/02/18 10:[address] Garvey, patient will need surgical intervention; Dr. Garvey requesting transfer to [facility]. Patient informed of plan to transfer and is agreeable. Vera catheter order placed. 07/02/18 11:[address] Valdes, ED attending at [facility], who accepts patient for transfer. 07/02/18 13:33 Urinalysis reviewed, patient with a UTI; Rocephin IV given. EKG: Sinus rhythm @ 67 BPM Normal intervals Normal axis No ST Changes Nonspecific T-wave changes - RAD Interpretation Narrative RAD Interpretations (Text): XR Left Hip FINDINGS: There is marked osteopenia suggests osteoporosis. Retained fecal material throughout bowel obscures the upper iliac bones and sacrum somewhat as well. No definitive displaced fractures identified throughout the pelvic ring or the proximal left femur as imaged. Patient status post left hip arthroplasty for left femoral neck fracture in the interval. The left femur including the prosthetic component have dislocated supero posteriorly relative to the [place] acetabulum. No acetabular prosthetic component remains at the left acetabular region but remains with the left femoral prosthetic component head. No fracture of the prosthetic component is identified. Bilateral sacroiliac and right hip joint degenerative change are identified with pubic symphysis intact. The pubic bones otherwise are also unremarkable. Advanced multilevel degenerative facet arthropathy appreciated at the visualized lumbar spine with length the overlapping wall stents identified at the iliac and common femoral arterial distribution once again. IMPRESSION: Left hip dislocation including the entire interval left proximal femoral prosthetic component supero posterior to the left hip joint. No definite displaced fracture of the left hip or the pelvic ring overall. Diffuse osteopenia suggests osteoporosis. Please see discussion above. XR Left Ankle FINDINGS: BONES: Diffuse osteopenia suggests osteoporosis. No displaced fractures identified or destructive bony lesion. JOINTS: Degenerative joint space narrowing and articular cortical sclerosis appreciate the tibiotalar and talocalcaneal joints compatible with degenerative joint disease. Similar change are present throughout the midfoot articulations diffusely as well. SOFT TISSUES: Subtle hyperdensity in the subcutaneous fat seen diffusely throughout the distal leg and visualized foot/ankle possibly reflecting chronic soft tissue edema. Clinically correlate further. No retained radiodense foreign body or emphysema soft tissue changes are identified. Ankle mortise appears intact. OTHER FINDINGS: None. IMPRESSION: Diffuse osteopenia suggests osteoporosis. No acute displaced fracture left ankle. Degenerative changes seen throughout the ankle and foot articulations as discussed above. Possible mild diffuse soft tissue edema distal leg ankle and foot at. No prominent edema appreciated nevertheless. XR Left Foot FINDINGS: BONES: Diffuse osteopenia suggests osteoporosis. No displaced fracture identified throughout the left foot. No destructive bony lesion identified throughout. JOINTS: Multifocal degenerative joint disease seen throughout the joints of the left foot diffusely, seen worst at the 1st metatarsophalangeal joint and interphalangeal joint of the great toe. SOFT TISSUES: Vascular calcifications are identified. Soft tissues are somewhat obscured by hyperdense material within left foot sock. Mild diffuse hyperdensity within subcutaneous fat may be chronic. Clinically correlate. OTHER FINDINGS: None. IMPRESSION: Diffuse osteopenia suggests osteoporosis. No acute fracture, subluxation or dislocation identified. [id number] diffuse degenerative joint disease as identified throughout the left foot, seen worst at the 1st metatarsophalangeal joint and interphalangeal joint of the great toe. CT Head FINDINGS: HEMORRHAGE: No intracranial hemorrhage. BRAIN: No mass effect or edema. Mild chronic periventricular white matter ischemic disease. VENTRICLES: Unremarkable. No hydrocephalus. CALVARIUM: Unremarkable. PARANASAL SINUSES: Unremarkable as visualized. No significant inflammatory changes. MASTOID AIR CELLS: Unremarkable as visualized. No inflammatory changes. OTHER FINDINGS: None. IMPRESSION: No acute hemorrhage. CT C-Spine FINDINGS: VERTEBRAE: No fracture. Normal alignment. No destructive bony lesion. DISCS/SPINAL CANAL/NEURAL FORAMINA: No significant central canal or neural foraminal stenosis. Multilevel degenerative disc disease. PARASPINAL SOFT TISSUES: Unremarkable. OTHER FINDINGS: Nonspecific left thyroid nodule. Bilateral apical fibrotic change. IMPRESSION: Nonspecific left thyroid nodule. Bilateral apical fibrotic change.Multilevel degenerative disc disease. No fracture. - EKG Interpretation EKG Interpretation (Text): Sinus rhythm @ 67 BPM Normal intervals Normal axis No ST Changes Nonspecific T-wave changes ED Procedural Sedation - Pre Anesthesia Assessment Chief Complaint: Trauma Past Medical History: Allergies Reviewed Previous Surgies: Reviewed Family History/Social History: Reviewed - Pre-Procedure Airway Assessment History of difficult intubation or surgical airway (i.e trach):: No Inability to extend neck:: No Mouth opening less than two finger breadth:: No Diagnosis of sleep apnea:: No Less than three finger breadth to hyoid bone:: No ASA Criteria: 1 - Healthy, normal. 2 - Mild systemic disease (No functional limitations, mildline obesity, DM withot complications, Hypertention). 3 - Severe systemic disease (Some functional limitation, stable angina, morbid obesity, controlled COPD/Asthma/CHF). 4 - Sever systemic disease constant threat to life (Unstable angina, active symptoms of COPD/Asthma, CHF/Hypertension. 5 - Moribund ASA Clarification: ASA II Mallampati (airway): Class I Nursing ED Procedural Sedation: ER Moderate Sedation Start: 07/02/18 09:34 Freq: Status: Discharge Protocol: Created 07/02/18 09:34 OCS (Rec: 07/02/18 09:34 OCS [id number]) Document 07/02/18 09:48 OCS (Rec: 07/02/18 09:57 OCS [id number]) Mod Sedation Time Out Process Time Out Process Patient identification (MR# and name Yes from ID Band) Procedure verified Yes Consent read aloud and agreed upon Yes Correct Site/Side marked and visibe to Yes team after prepping and draping (unless exempt) Implants, special equipment and x-rays Yes available Prophylactic antibiotic given (if Not Applicable applicable) Correct position Yes Correct Team Yes List all team members present Jacklyn Blake, CALEB Zhang, CALEB Rogers, CALEB [place], EMT Dr. Varun Blakely All team members are in agreement Yes Pre-Procedure Mod Sedation Pre-Procedure Checklist Patient's identity verified by Patient stating name Patient stating [facility] bracelet Pre Procedure Checklist BP monitor Signed consent Ambu bag Patient IV Patient ID Oxygen Airway Code Cart End Tidal CO2 Suction set up Pre Anesthesia Assessment Chief Complaint Trauma Past Medical History Allergies Reviewed Previous Surgies Reviewed Family History/Social History Reviewed Physical Exam/Review of Systems Vital Signs Reviewed Yes Cardiovascular Regular Rate and Rhythm Respiratory/Chest Clear to Auscultation Neurological GCS=15 Speech Normal Mental Status Alert and Oriented X 3 Level of Consciousness 1 = Alert Moderate Sedation VS & Pain Ax Level of Consciousness Level of Consciousness 1 = Alert Temperature Temperature (97.6 F-99.6 F) 97.5 F Pulse Pulse Rate (60-90 beats/min) 61 Respirations Respiratory Rate (12-24 breaths/min) 18 Oxygen Delivery Method Nasal Cannula SPO2 (95-100) 95 O2 LPM (L/min) 2 End Tidal CO2 24 Blood Pressure Blood Pressure (100/60-150/90 mm Hg) 161/70 Cardiac Rhythm Cardiac Rhythm NSR Pain Pain Intensity 10 Pain Scale Used Numeric Intra-Procedure Vital Signs Vital Signs and Pain Assessment Time 09:42 Blood Pressure (100/60-150/90 mm Hg) 167/67 Pulse Rate (60-90 beats/min) 60 Respiratory Rate (12-24 breaths/min) 20 End Tidal CO2 27 Level of Consciousness 3 = Frequently Drowsy, Easy to Arouse Cardiac Rhythm NSR Intra-Procedure Vital Signs #2 Vital Signs and Pain Assessment Time 09:47 Blood Pressure (100/60-150/90 mm Hg) 196/74 Pulse Rate (60-90 beats/min) 65 Respiratory Rate (12-24 breaths/min) 19 End Tidal CO2 28 Level of Consciousness 2 = Occasionally Drowsy, Easy to Arouse Cardiac Rhythm NSR Intra-Procedure Vital Signs #3 Vital Signs and Pain Assessment Time 09:52 Blood Pressure (100/60-150/90 mm Hg) 162/61 Pulse Rate (60-90 beats/min) 63 Respiratory Rate (12-24 breaths/min) 17 End Tidal CO2 20 Level of Consciousness 2 = Occasionally Drowsy, Easy to Arouse Cardiac Rhythm NSR Intra-Procedure Vital Signs #4 Vital Signs and Pain Assessment End Tidal CO2 23 Edit Result 07/02/18 09:48 OCS (Rec: 07/02/18 10:06 OCS [id number]) Intra-Procedure Vital Signs #4 Vital Signs and Pain Assessment Time 09:57 Blood Pressure (100/60-150/90 mm Hg) 148/66 Pulse Rate (60-90 beats/min) 62 Respiratory Rate (12-24 breaths/min) 17 End Tidal CO2 29 Level of Consciousness 1 = Alert Pain Intensity 7 Cardiac Rhythm NSR REACT Score REACT Score Respirations Spontaneous Respirations > 10 Without Airway Support Energy Moves Legs: Can Keep Head Up Alertness Gentle Stimuli Only Circulation Systolic BP At PreOp or Above Full Pulse Temperature Temperature is >96 Degrees Farenheit Edit Status 07/02/18 14:04 BOSSMAN CLAY (Rec: 07/02/18 14:04 BOSSMAN CLAY [id number]) Active=>Discharge - Intra-Procedure (Medications) Medications Given: Discontinued Medications Morphine Sulfate (Morphine) 2 mg IVP STAT STA Stop: 07/02/18 12:16 Last Admin: 07/02/18 12:34 Dose: 2 mg MAR Pain Assessment Document 07/02/18 12:34 MANAGER VIDEO (Rec: 07/02/18 12:34 MANAGER VIDEO [id number]) Pain Reassessment Is this a pain reassessment? Yes IVP Administration Document 07/02/18 12:34 MANAGER VIDEO (Rec: 07/02/18 12:34 MANAGER VIDEO [id number]) Charges for Administration # of IVP Administrations 1 Ondansetron HCl (Zofran Inj) 4 mg IVP STAT STA Stop: 07/02/18 12:18 Last Admin: 07/02/18 12:34 Dose: 4 mg IVP Administration Document 07/02/18 12:34 MANAGER VIDEO (Rec: 07/02/18 12:34 [facility] [id number]) Charges for Administration # of IVP Administrations 1 Propofol (Diprivan) 20 mg IVP ONCE ONE Stop: 07/02/18 09:29 Last Admin: 07/02/18 09:41 Dose: 20 mg IVP Administration Document 07/02/18 09:41 OCS (Rec: 07/02/18 09:48 OCS [id number]) Charges for Administration # of IVP Administrations 1 Tramadol HCl (Ultram) 50 mg PO STAT STA Stop: 07/02/18 07:24 Last Admin: 07/02/18 07:42 Dose: 50 mg MAR Pain Assessment Document 07/02/18 07:42 MANAGER VIDEO (Rec: 07/02/18 07:42 [facility] [id number]) Pain Reassessment Is this a pain reassessment? No Re-Assess: MAR Pain Assessment Document 07/02/18 08:42 MANAGER VIDEO (Rec: 07/02/18 12:34 [facility] [id number]) Pain Reassessment Is this a pain reassessment? Yes Presence of Pain Presence of Pain Yes - Scribe Statement The provider has reviewed the documentation as recorded by the Scribe Provider Attestation: Osiris Rogers Provider Scribe Attestation: All medical record entries made by the Scribe were at my direction and personally dictated by me. I have reviewed the chart and agree that the record accurately reflects my personal performance of the history, physical exam, medical decision making, and the department course for this patient. I have also personally directed, reviewed, and agree with the discharge instructions and disposition. Disposition/Present on Arrival - Present on Arrival Any Indicators Present on Arrival: Yes History of DVT/PE: No History of Uncontrolled Diabetes: No Urinary Catheter: No History of Decub. Ulcer: Yes History Surgical Site Infection Following: None - Disposition Have Diagnosis and Disposition been Completed?: Yes Diagnosis: Dislocation, hip Disposition: Transfer [facility] Disposition Time: 11:30 Patient Plan: Transfer To Condition: STABLE Referrals: Tom Bell MD [Primary Care Provider] - Follow up with primary Forms: [employer] (Persian)
[2018-07-02] MEDS ORDERED: Propofol 10 mg/ml Inj (20 ML) IVP ONE (09:28)
--- NOTE | 2018-07-02 09:52 | CT ---
Date of service: 07/02/2018 PROCEDURE: CT HEAD WITHOUT CONTRAST. HISTORY: fall COMPARISON: None available. TECHNIQUE: Axial computed tomography images were obtained through the head/brain without intravenous contrast. Radiation dose: Total exam DLP = mGy-cm. This CT exam was performed using one or more of the following dose reduction techniques: Automated exposure control, adjustment of the mA and/or kV according to patient size, and/or use of iterative reconstruction technique. FINDINGS: HEMORRHAGE: No intracranial hemorrhage. BRAIN: No mass effect or edema. Mild chronic periventricular white matter ischemic disease. VENTRICLES: Unremarkable. No hydrocephalus. CALVARIUM: Unremarkable. PARANASAL SINUSES: Unremarkable as visualized. No significant inflammatory changes. MASTOID AIR CELLS: Unremarkable as visualized. No inflammatory changes. OTHER FINDINGS: None. IMPRESSION: No acute hemorrhage.
--- NOTE | 2018-07-02 09:57 | CT ---
Date of service: 07/02/2018 PROCEDURE: CT Cervical Spine without contrast HISTORY: fall COMPARISON: None available. TECHNIQUE: Axial computed tomography images were obtained of the cervical spine without the use of intravenous contrast. Coronal and sagittal reformatted images were created and reviewed. Radiation dose: Total exam DLP = mGy-cm. This CT exam was performed using one or more of the following dose reduction techniques: Automated exposure control, adjustment of the mA and/or kV according to patient size, and/or use of iterative reconstruction technique. FINDINGS: VERTEBRAE: No fracture. Normal alignment. No destructive bony lesion. DISCS/SPINAL CANAL/NEURAL FORAMINA: No significant central canal or neural foraminal stenosis. Multilevel degenerative disc disease. PARASPINAL SOFT TISSUES: Unremarkable. OTHER FINDINGS: Nonspecific left thyroid nodule. Bilateral apical fibrotic change. IMPRESSION: Nonspecific left thyroid nodule. Bilateral apical fibrotic change.Multilevel degenerative disc disease. No fracture.
--- NOTE | 2018-07-02 10:14 | RAD ---
Date of service: 07/02/2018 PROCEDURE: Left Ankle Radiographs. HISTORY: fall/injury COMPARISON: None FINDINGS: BONES: Diffuse osteopenia suggests osteoporosis. No displaced fractures identified or destructive bony lesion. JOINTS: Degenerative joint space narrowing and articular cortical sclerosis appreciate the tibiotalar and talocalcaneal joints compatible with degenerative joint disease. Similar change are present throughout the midfoot articulations diffusely as well. SOFT TISSUES: Subtle hyperdensity in the subcutaneous fat seen diffusely throughout the distal leg and visualized foot/ankle possibly reflecting chronic soft tissue edema. Clinically correlate further. No retained radiodense foreign body or emphysema soft tissue changes are identified. Ankle mortise appears intact. OTHER FINDINGS: None. IMPRESSION: Diffuse osteopenia suggests osteoporosis. No acute displaced fracture left ankle. Degenerative changes seen throughout the ankle and foot articulations as discussed above. Possible mild diffuse soft tissue edema distal leg ankle and foot at. No prominent edema appreciated nevertheless.
--- NOTE | 2018-07-02 10:35 | RAD ---
Date of service: 07/02/2018 PROCEDURE: LEFT HIP WITH PELVIS RADIOGRAPHS HISTORY: fall/injury COMPARISON: Left hip with pelvis radiographs 05/26/2018. TECHNIQUE: Frontal views of the pelvis and left hip been submitted with cross-table lateral projection left hip submitted as well. FINDINGS: There is marked osteopenia suggests osteoporosis. Retained fecal material throughout bowel obscures the upper iliac bones and sacrum somewhat as well. No definitive displaced fractures identified throughout the pelvic ring or the proximal left femur as imaged. Patient status post left hip arthroplasty for left femoral neck fracture in the interval. The left femur including the prosthetic component have dislocated supero posteriorly relative to the [place] acetabulum. No acetabular prosthetic component remains at the left acetabular region but remains with the left femoral prosthetic component head. No fracture of the prosthetic component is identified. Bilateral sacroiliac and right hip joint degenerative change are identified with pubic symphysis intact. The pubic bones otherwise are also unremarkable. Advanced multilevel degenerative facet arthropathy appreciated at the visualized lumbar spine with length the overlapping wall stents identified at the iliac and common femoral arterial distribution once again. IMPRESSION: Left hip dislocation including the entire interval left proximal femoral prosthetic component supero posterior to the left hip joint. No definite displaced fracture of the left hip or the pelvic ring overall. Diffuse osteopenia suggests osteoporosis. Please see discussion above.
--- NOTE | 2018-07-02 10:37 | RAD ---
Date of service: 07/02/2018 PROCEDURE: Left Foot Radiographs. HISTORY: fall/injury COMPARISON: None. FINDINGS: BONES: Diffuse osteopenia suggests osteoporosis. No displaced fracture identified throughout the left foot. No destructive bony lesion identified throughout. JOINTS: Multifocal degenerative joint disease seen throughout the joints of the left foot diffusely, seen worst at the 1st metatarsophalangeal joint and interphalangeal joint of the great toe. SOFT TISSUES: Vascular calcifications are identified. Soft tissues are somewhat obscured by hyperdense material within left foot sock. Mild diffuse hyperdensity within subcutaneous fat may be chronic. Clinically correlate. OTHER FINDINGS: None. IMPRESSION: Diffuse osteopenia suggests osteoporosis. No acute fracture, subluxation or dislocation identified. [id number] diffuse degenerative joint disease as identified throughout the left foot, seen worst at the 1st metatarsophalangeal joint and interphalangeal joint of the great toe.
[2018-07-02 11:08] LABS: BASO # 0.02 K/mm3 (0.0-2.0); BASO % 0.3 % (0.0-3.0); EOS # 0.2 (0.0-0.7); EOS % 2.3 % (1.5-5.0); GRAN # 4.06 (1.4-6.5); GRAN % 61.5 % (50.0-68.0); HEMOGLOBIN 9.4 g/dL (12.0-16.0); LYMPH # 1.7 (1.2-3.4); LYMPH % 26.1 % (22.0-35.0); MEAN CELL VOLUME 90.3 fl (80.0-105.0); MEAN CORPUSCULAR HEMOGLOBIN 29.5 pg (25.0-35.0); MEAN CORPUSCULAR HGB CONC 32.6 g/dl (31.0-37.0); MEAN PLATELET VOLUME 9.7 fl (7.0-11.0); MONO # 0.7 (0.1-0.6); MONO % 9.8 % (1.0-6.0); RBC 3.19 10^6/uL (3.5-6.1); RED CELL DISTRIBUTION WIDTH 16.8 % (11.5-14.5); WHITE BLOOD COUNT 6.6 10^3/ul (4.5-11.0)
[2018-07-02 11:15] LABS: ALB/GLOB RATIO 0.9 (1.1-1.8); ALBUMIN 2.6 g/dL (3.0-4.8); CALCIUM 9.1 mg/dL (8.4-10.5)
[2018-07-02 11:33] LABS: INR 0.93; PARTIAL THROMBOPLASTIN TIME 21.1 Seconds (25.1-36.5); PROTHROMBIN TIME 10.7 SECONDS (9.4-12.5)
[2018-07-02 12:06] VITALS: RESP 18
[2018-07-02] MEDS ORDERED: Morphine 2 mg/ml ISec IVP STA (12:15)
[2018-07-02 12:41] LABS: URINE BILIRUBIN NEGATIVE (NEGATIVE); URINE BLOOD NEGATIVE (NEGATIVE); URINE GLUCOSE (UA) NEGATIVE (NEGATIVE); URINE LEUKOCYTE ESTERASE MODERATE Leu/uL (NEGATIVE); URINE PROTEIN NEGATIVE mg/dL (<30 mg/dL); URINE UROBILINOGEN 0.2 E.U./dL (<1 E.U./dL)
[2018-07-02 12:44] VITALS: PULSE 72
[2018-07-02 13:03] LABS: URINE APPEARANCE CLEAR (CLEAR); URINE COLOR YELLOW (YELLOW)
[2018-07-02 13:05] LABS: URINE BACTERIA MANY (NEG); URINE RBC 0 - 2 /hpf (0-2); URINE WBC 20 - 25 /hpf (0-6)
[2018-07-02 13:43] VITALS: BP 142/70; TEMP 98; O2SAT 100
--- NOTE | 2018-07-02 15:13 | CARD ---
APPROVED REPORT Date of service: 07/02/2018 EKG Measurement Heart [id number] <Conclusion> Normal sinus rhythm Nonspecific ST and T wave abnormality LAD
--- NOTE | 2018-07-02 16:45 | RAD ---
Date of service: 07/02/2018 PROCEDURE: Single AP view left hip HISTORY: S/P REDUCTION COMPARISON: July 02, 2018 08:09. TECHNIQUE: Portable study single-view 10:35. FINDINGS: Satisfactory reduction of previously identified dislocated left hip. Two part cup arthroplasty visible. The dislocated femoral cup arthroplasty identified previously remains in the soft tissues. IMPRESSION: Satisfactory reduction/postoperative change.
--- NOTE | 2018-07-02 20:48 | CON ---
DATE: 07/02/2018 HISTORY OF PRESENT ILLNESS: The patient is an 83-year-old female who came to the ER from [facility] with an anterior superior dislocation of her left hip prosthesis that was done on 05/29/2018, when she slipped in the bathroom with no attendant present and when she slipped she dislocated her left hip and she came to ER. X-ray shows a dislocation, but no fracture, so with conscious sedation with the help of Dr. Bond, we accomplished a closed reduction. X-ray showed improved position and I put it through range of motion. It was stable through 90 degrees of flexion and rotation, [address], so we are going to sent her back for the same angiographic reduction, put her on a knee immobilizer, and I will follow her there. We accomplished the reduction with some distraction and traction and counter traction of the pelvis by the personal care assistant.post reduction films show the head of the prosthesis is reduced into yhe acetabulim but the bipolar component disassociateated from the head of the prosthes.so this is a neccesity to do arevision of the prostheis. this should be done in [facility] that has a n ability to perform this complex procedure. Michael Garvey DO FLORINA
== END 2018-07-02 14:04 | disposition short-term general hospital (02) ==
LOC: ED 06:03
DX: S73.015A Posterior dislocation of left hip, initial encounter (principal); W01.0XXA Fall on same level from slipping, tripping and stumbling without subsequent striking against object, initial encounter; Y92.129 Unspecified place in nursing home as the place of occurrence of the external cause; I25.10 Atherosclerotic heart disease of native coronary artery without angina pectoris; I50.9 Heart failure, unspecified; Z87.891 Personal history of nicotine dependence; N18.9 Chronic kidney disease, unspecified; I12.9 Hypertensive chronic kidney disease with stage 1 through stage 4 chronic kidney disease, or unspecified chronic kidney disease
CPT/HCPCS: 27250; 70450; 72125; 73501; 73502; 73610; 73630; 80053; 81001; 83735; 85025; 85610; 85730; 87086; 93005; 96374; 96375; 99285; J2270; J2405; J2704